=== PATIENT | female | born 1940 | race Caucasian/White ===

== ENCOUNTER 2018-01-04 01:25 | Emergency (ER) | payer MEDICARE ==
--- NOTE | 2018-01-04 02:04 | C.PDOC ---
History Of Present Illness 77 y/o female with Hx of sinus infection presents to ED for complaints of facial pain. Patient reports taking levaquin with no relief. Denies any other physical complaints. Time Seen by Provider: 01/04/18 02:04 Chief Complaint (Nursing): Headache History Per: Patient History/Exam Limitations: no limitations Onset/Duration Of Symptoms: Hrs Current Symptoms Are (Timing): Still Present Severity: Moderate Pain Scale Rating Of: 4 Preceeding Symptoms: None Associated Symptoms: denies: Photophobia, Blurred Vision, Nausea, Vomiting, Extremity Weakness Recent travel outside of the [place]: No Past Medical History Reviewed: Historical Data, Nursing Documentation, Vital Signs Vital Signs: Last Vital Signs Temp 98.1 F 01/04/18 01:35 Pulse 72 01/04/18 01:35 Resp 18 01/04/18 01:35 BP 134/75 01/04/18 01:35 Pulse Ox 97 01/04/18 02:43 - Medical History PMH: HTN Surgical History: No Surg Hx Family History: States: No Known Family Hx - Social History Hx Alcohol Use: No Hx Substance Use: No Review Of Systems Constitutional: Negative for: Fever, Chills ENT: Negative for: Ear Pain, Nose Pain, Mouth Pain, Throat Pain Gastrointestinal: Negative for: Nausea, Vomiting, Abdominal Pain, Diarrhea Musculoskeletal: Positive for: Other (Facial pain ) Skin: Negative for: Rash Neurological: Negative for: Weakness, Numbness Physical Exam - Physical Exam Appears: Non-toxic, No Acute Distress Skin: Warm, Dry Head: Normacephalic Eye(s): bilateral: Normal Inspection Ear(s): Bilateral: Normal Nose: No Discharge, No Deformity, Other (bilateral maxillary sinus discomfort) Oral Mucosa: Moist Throat: Normal, No Erythema, No Exudate, No Drooling Neck: Trachea Midline, Supple Chest: Symmetrical Cardiovascular: Rhythm Regular Respiratory: No Rales, No Rhonchi, No Wheezing Extremity: Normal ROM Extremity: Bilateral: Atraumatic, Normal Color And Temperature, Normal ROM Neurological/Psych: Oriented x3, Normal Speech (Speaking in full sentences ), Other (No focal deficits) Gait: Steady ED Course And Treatment O2 Sat by Pulse Oximetry: 97 (RA) Pulse Ox Interpretation: Normal Progress Note: Adminsitered Motrin. Reevaluation Time: 04:30 Reassessment Condition: Improved Medical Decision Making Medical Decision Making: Upon provider reevaluation patient is feeling better, is medically stable, and requires no further treatment in the ED at this time. Patient will be discharged home with Rx for motrin . Counseling was provided and all questions were answered regarding diagnosis and need for follow up with dr villaseñor. There is agreement to discharge plan. Return if symptoms persist or worsen. Disposition Counseled Patient/Family Regarding: Studies Performed, Diagnosis, Need For Followup - Disposition Referrals: Shaik Villaseñor MD [Staff Provider] - Disposition: HOME/ ROUTINE Disposition Time: 02:04 Condition: FAIR Additional Instructions: Please return if symptoms recur Prescriptions: Ibuprofen [Motrin] 1 tab PO TID PRN #30 tab PRN Reason: Pain Instructions: Sinusitis, Adult (DC), Sinus Headache (DC) Forms: [employer] (Azeri) - Clinical Impression Clinical Impression: Sinusitis, Facial pain - Scribe Statement The provider has reviewed the documentation as recorded by the Scribe Anjum Guadalupe All medical record entries made by the Scribe were at my direction and personally dictated by me. I have reviewed the chart and agree that the record accurately reflects my personal performance of the history, physical exam, medical decision making, and the department course for this patient. I have also personally directed, reviewed, and agree with the discharge instructions and disposition.
[2018-01-04 07:06] VITALS: BP 132/72; PULSE 82; RESP 20; TEMP 98; O2SAT 98
== END 2018-01-04 07:02 | disposition home or self-care (01) ==
LOC: C.ER 01:25
DX: J32.9 Chronic sinusitis, unspecified (principal); R51 Headache; I10 Essential (primary) hypertension

== ENCOUNTER 2018-01-10 10:35 | Emergency (ER) | payer MEDICARE ==
[2018-01-10 10:45] VITALS: TEMP 97.7
[2018-01-10 10:49] VITALS: BMI 26.4
[2018-01-10 11:24] LABS: BASO # 0.1 K/uL (0.0-0.2); BASO % 0.8 % (0.0-2.0); HEMOGLOBIN 15.3 g/dL (11.0-16.0); LYMPH # 1.6 K/uL (1.0-4.3); LYMPH % 11.4 % (20.0-40.0); MEAN CELL VOLUME 88.4 fL (81.0-99.0); MEAN CORPUSCULAR HEMOGLOBIN 30.6 pg (27.0-31.0); MEAN CORPUSCULAR HGB CONC 34.7 g/dL (33.0-37.0); MEAN PLATELET VOLUME 7.6 fL (7.2-11.7); MONO # 0.2 K/uL (0.0-0.8); MONO % 1.5 % (0.0-10.0); NEUT # 12.4 K/uL (1.8-7.0); NEUT % 86.3 % (50.0-75.0); RBC 4.98 Mil/uL (3.80-5.20); RED CELL DISTRIBUTION WIDTH 13.1 % (11.5-14.5); WHITE BLOOD COUNT 14.4 K/uL (4.8-10.8)
[2018-01-10 11:47] LABS: ALB/GLOB RATIO 1.6 (1.0-2.1); ALBUMIN 4.6 g/dL (3.5-5.0); CALCIUM 9.4 mg/dl (8.6-10.4); GFR AFRICAN-AMERICAN > 60; GFR NON-AFRICAN AMERICAN > 60
[2018-01-10 11:56] LABS: ALT/SGPT 26 U/L (9-52); AST/SGOT 40 U/L (14-36); BLOOD UREA NITROGEN 15 mg/dL (7-17)
[2018-01-10 12:14] VITALS: BP 162/78; RESP 20; O2SAT 97
--- NOTE | 2018-01-10 12:14 | CT ---
Date of service: 01/10/2018 PROCEDURE: CT HEAD WITHOUT CONTRAST. HISTORY: sinus infection COMPARISON: None available. TECHNIQUE: Axial computed tomography images were obtained through the head/brain without intravenous contrast. Radiation dose: Total exam DLP = 763.8 mGy-cm. This CT exam was performed using one or more of the following dose reduction techniques: Automated exposure control, adjustment of the mA and/or kV according to patient size, and/or use of iterative reconstruction technique. FINDINGS: HEMORRHAGE: No intracranial hemorrhage. BRAIN: No mass effect or edema. Atrophy. Chronic microvascular ischemic changes. VENTRICLES: Unremarkable. No hydrocephalus. CALVARIUM: Unremarkable. PARANASAL SINUSES: Unremarkable as visualized. No significant inflammatory changes. MASTOID AIR CELLS: Unremarkable as visualized. No inflammatory changes. OTHER FINDINGS: Cerumen in both ear canals. IMPRESSION: No acute intracranial pathology. Age-related changes.
[2018-01-10 12:23] LABS: B-TYPE NATRIURETIC PEPTIDE 445 pg/mL (0-900)
--- NOTE | 2018-01-10 12:24 | CT ---
Date of service: 01/10/2018 PROCEDURE: CT SINUSES WITHOUT CONTRAST HISTORY: sinus pressure COMPARISON: None TECHNIQUE: Contiguous axial CT images of the paranasal sinuses were obtained. Coronal and sagittal reformats were generated. Radiation dose: Total exam DLP = 657.5 mGy-cm. This CT exam was performed using one or more of the following dose reduction techniques: Automated exposure control, adjustment of the mA and/or kV according to patient size, and/or use of iterative reconstruction technique. FINDINGS: FRONTAL SINUSES: Clear. ETHMOID SINUSES: Mild mucosal thickening. SPHENOID SINUSES: No significant mucosal thickening or air-fluid level. MAXILLARY SINUSES: No evidence of significant mucosal thickening or air-fluid level. SINUS DRAINAGE: Osteomeatal complexes, frontal recesses and sphenoethmoid recesses clear. NASAL SEPTUM: Mild nasal septum deviation to the left is noted. MASS: None. SKULL BASE: Unremarkable. TEMPORAL BONES: Middle ears and mastoid grossly unremarkable. OTHER FINDINGS: Visualized portion of the intracranial fossa demonstrate peripheral calcified lesions likely represent calcified meningiomas. IMPRESSION: No evidence of acute or chronic sinusitis. Mild ethmoid sinuses mucosal thickening.
--- NOTE | 2018-01-10 12:32 | C.PDOC ---
History Of Present Illness 77-year-old female, presents to the emergency department with complaints of sinus congestion. Patient states she is on her third day of Cefdinir course for sinusitis, and feels as though her congestion has increased, associated with difficulty swallowing. Patient did not take any blood pressure medications. She denies any shortness of breath, chest pain, nausea/vomiting, numbness/weakness, rash or any other associated symptoms. No other complaints at this time. Time Seen by Provider: 01/10/18 10:43 Chief Complaint (Nursing): ENT Problem History Per: Patient History/Exam Limitations: no limitations Onset/Duration Of Symptoms: Days Current Symptoms Are (Timing): Still Present Severity: Moderate Past Medical History Reviewed: Historical Data, Nursing Documentation, Vital Signs Vital Signs: Last Vital Signs Temp 97.7 F 01/10/18 10:40 Pulse 85 01/10/18 15:05 Resp 20 01/10/18 15:05 BP 162/78 H 01/10/18 12:08 Pulse Ox 97 01/10/18 15:40 - Medical History PMH: HTN Family History: States: No Known Family Hx - Social History Hx Alcohol Use: No Hx Substance Use: No - Immunization History Hx Tetanus Toxoid Vaccination: No Hx Influenza Vaccination: No Hx Pneumococcal Vaccination: No Review Of Systems Constitutional: Negative for: Fever, Chills ENT: Positive for: Nose Congestion. Negative for: Throat Swelling Cardiovascular: Negative for: Chest Pain, Palpitations Respiratory: Negative for: Cough, Shortness of Breath Gastrointestinal: Negative for: Nausea, Vomiting Musculoskeletal: Negative for: Neck Pain, Back Pain Neurological: Negative for: Weakness, Headache, Dizziness Physical Exam - Physical Exam Appears: Non-toxic, No Acute Distress Skin: Normal Color, Warm, Dry, No Rash Head: Atraumatic, Normacephalic, Tenderness (frontal sinus) Eye(s): bilateral: Normal Inspection, PERRL, EOMI Nose: Normal Oral Mucosa: Moist Lips: Normal Appearing Neck: Normal ROM Chest: Symmetrical Cardiovascular: Rhythm Regular, No Murmur Respiratory: Normal Breath Sounds, No Accessory Muscle Use Gastrointestinal/Abdominal: Soft, No Tenderness Extremity: Normal ROM, No Deformity, No Swelling Neurological/Psych: Oriented x3, Normal Speech ED Course And Treatment - Laboratory Results Result Diagrams: 01/10/18 11:21 01/10/18 11:21 O2 Sat by Pulse Oximetry: 97 (RA) Pulse Ox Interpretation: Normal Medical Decision Making Medical Decision Making: Pt received Sudafed, and is feeling better. She is getting swallow eval and will be discharged for outpatient f/u with PMD. All questions answered, Disposition Counseled Patient/Family Regarding: Studies Performed, Diagnosis, Need For Followup, Rx Given - Disposition Disposition: HOME/ ROUTINE Disposition Time: 15:41 Condition: STABLE Additional Instructions: follow up with your doctor in 2 days call to make an appointment take medication as prescribed return to ER if symptoms worsens or progress Prescriptions: Prednisone 50 mg PO DAILY #4 tablet Pseudoephedrine [Pseudoephedrine HCl] 30 mg PO QID PRN #20 tab PRN Reason: Nasal Congestion Instructions: Dysphagia, Sinusitis, Adult (DC), Cough, Runny Nose, and the Common Cold Forms: [employer] [facility] (Occitan) - Clinical Impression Clinical Impression: Sinusitis, Dysphagia, Congestion of upper airway - Scribe Statement The provider has reviewed the documentation as recorded by the Scribe (Daylin Renae) All medical record entries made by the Scribe were at my direction and personally dictated by me. I have reviewed the chart and agree that the record accurately reflects my personal performance of the history, physical exam, medical decision making, and the department course for this patient. I have also personally directed, reviewed, and agree with the discharge instructions and disposition.
--- NOTE | 2018-01-10 13:01 | RAD ---
Date of service: 01/10/2018 PROCEDURE: Radiographs of neck HISTORY: swallowing issues COMPARISON: None available. TECHNIQUE: Frontal and lateral radiographs of the neck. FINDINGS: No fracture visualized. Multilevel degenerative changes. Soft tissues unremarkable. IMPRESSION: Multilevel degenerative changes. No radiopaque foreign body.
[2018-01-10] MEDS ORDERED: DiphenhydrAMINE 12.5 mg/5 ml LIQ UD (5 ml) PO STA (14:30)
[2018-01-10] MEDS ORDERED: MethylPREDNISolone 40 mg Vial ONE (14:34)
[2018-01-10 15:05] VITALS: PULSE 85
[2018-01-10] MEDS ORDERED: DiphenhydrAMINE 12.5 mg/5 ml LIQ UD (5 ml) ONE (15:13)
--- NOTE | 2018-01-12 12:23 | CARD ---
APPROVED REPORT Date of service: 01/10/2018 EKG Measurement Heart [id number] <Conclusion> Normal sinus rhythm Left axis deviation Minimal voltage criteria for LVH, may be normal variant Abnormal ECG
== END 2018-01-10 15:55 | disposition home or self-care (01) ==
LOC: C.ER 10:35
DX: J32.9 Chronic sinusitis, unspecified (principal); R13.10 Dysphagia, unspecified; R09.81 Nasal congestion; Z87.891 Personal history of nicotine dependence
CPT/HCPCS: 70360; 70450; 70486; 80053; 83880; 84484; 85025; 93005; 96374; 99284; J2930

== ENCOUNTER 2018-01-29 03:06 | Emergency (ER) | payer MEDICARE ==
[2018-01-29 03:07] VITALS: BMI 26.4
--- NOTE | 2018-01-29 04:12 | C.PDOC ---
History Of Present Illness 77 year old female presents to the emergency department with complaints of a productive cough and nasal congestion worsening over the last three weeks. She denies fever or chills. She reports that she is coughing yellow/green sputum. Time Seen by Provider: 01/29/18 04:01 Chief Complaint (Nursing): Cough, Cold, Congestion History Per: Patient History/Exam Limitations: no limitations Onset/Duration Of Symptoms: Other (three weeks) Current Symptoms Are (Timing): Worse Location Of Pain: None Associated Symptoms: Cough (productive), Sputum (yellow/green), Sinus Drainage, Nasal Congestion. denies: Fever, Chills Ear Symptoms: Bilateral: None Severity: Mild Pain Scale Rating Of: 1 Recent travel outside of the [place]: No Additional History Per: Family Past Medical History Reviewed: Historical Data, Nursing Documentation, Vital Signs Vital Signs: Last Vital Signs Temp 98.7 F 01/29/18 03:26 Pulse 96 H 01/29/18 03:26 Resp 20 01/29/18 03:26 BP 139/84 01/29/18 03:26 Pulse Ox 100 01/29/18 04:32 - Medical History PMH: HTN Surgical History: No Surg Hx Family History: States: No Known Family Hx - Social History Hx Alcohol Use: No Hx Substance Use: No - Immunization History Hx Tetanus Toxoid Vaccination: No Hx Influenza Vaccination: No Hx Pneumococcal Vaccination: No Review Of Systems Constitutional: Negative for: Fever, Chills ENT: Positive for: Nose Congestion Respiratory: Positive for: Cough (productive), Sputum (yellow/green) Physical Exam - Physical Exam Appears: Non-toxic, No Acute Distress Skin: Warm, Dry, No Rash Head: Normacephalic Eye(s): bilateral: Normal Inspection Nose: Other (mucosa erythematous) Oral Mucosa: Moist, Other (clear) Throat: No Erythema, No Exudate Neck: Trachea Midline, Supple Chest: Symmetrical, No Tenderness Cardiovascular: Rhythm Regular, No Murmur Respiratory: No Rales, Rhonchi (scattered), No Wheezing, Other (speaking complete sentences) Gastrointestinal/Abdominal: Soft, No Tenderness, No Distention, No Guarding, No Rebound Extremity: Normal ROM Neurological/Psych: Oriented x3 Gait: Steady ED Course And Treatment O2 Sat by Pulse Oximetry: 100 (RA) Pulse Ox Interpretation: Normal - Radiology CXR: Interpreted by Me, Viewed By Me CXR Interpretation: No: Infiltrates, Fracture, Pnemothorax Progress Note: Plan: CXR Two Views. Duoneb 3ml UH. Zithromax 500mg PO. Nebulizer Treatment Reevaluation Time: 04:31 Reassessment Condition: Improved Disposition Counseled Patient/Family Regarding: Studies Performed, Diagnosis, Need For Followup, Rx Given - Disposition Referrals: Shaik Mcadams MD [Staff Provider] - Disposition: HOME/ ROUTINE Disposition Time: 04:12 Condition: FAIR Additional Instructions: Please return if symptoms recur Prescriptions: Albuterol HFA [Ventolin HFA 90 mcg/actuation (8 g)] 2 puff IH [id number] #1 puff Azithromycin [Zithromax Tri-Rudolph] 500 mg PO DAILY #3 tablet Instructions: Upper Respiratory Infection (ED) Forms: [employer] (Indonesian) - Clinical Impression Clinical Impression: Upper respiratory infection - Scribe Statement The provider has reviewed the documentation as recorded by the Scribe (Yair Herrera) Provider Attestation: All medical record entries made by the Scribe were at my direction and personally dictated by me. I have reviewed the chart and agree that the record accurately reflects my personal performance of the history, physical exam, medical decision making, and the department course for this patient. I have also personally directed, reviewed, and agree with the discharge instructions and disposition.
[2018-01-29] MEDS ORDERED: Albuterol-Ipratrop 3 mg / 0.5 (3 ml) UD IH SCH (04:15)
[2018-01-29 05:32] VITALS: BP 120/79; PULSE 88; RESP 18; TEMP 97.1; O2SAT 97
--- NOTE | 2018-01-29 14:46 | RAD ---
Date of service: 01/29/2018 HISTORY: cough COMPARISON: No prior. TECHNIQUE: Chest PA and lateral FINDINGS: LUNGS: No evidence of focal infiltrate or consolidation in the lungs. PLEURA: No significant pleural effusion identified. No pneumothorax apparent. CARDIOVASCULAR: Normal. OSSEOUS STRUCTURES: No significant abnormalities. VISUALIZED UPPER ABDOMEN: Normal. OTHER FINDINGS: None. IMPRESSION: No radiographic evidence of pneumonia.
== END 2018-01-29 05:33 | disposition home or self-care (01) ==
LOC: C.ER 03:06
DX: J06.9 Acute upper respiratory infection, unspecified (principal)

== ENCOUNTER 2018-02-03 02:00 | Emergency (ER) | payer MEDICARE ==
[2018-02-03 02:00] VITALS: BMI 26.4
--- NOTE | 2018-02-03 02:31 | C.PDOC ---
History Of Present Illness 77 year old female presents to the ED c/o persistent sinusitis. Patient has been seen in the ED 4 times since 01/04 for similar symptoms. On 01/[address] head and CT sinuses done which both were negative, patient was placed on cefdinir. Patient was seen again on 01/29 for same complaints, patient had CXR done which was negative and placed on zithromax. Patient denies fever, chills, CP, SOB, recent travel, sick contacts. Time Seen by Provider: 02/03/18 02:20 Chief Complaint (Nursing): Cough, Cold, Congestion History Per: Patient History/Exam Limitations: no limitations Onset/Duration Of Symptoms: Days Current Symptoms Are (Timing): Still Present Reports Recently: Seen In ED (01/29 ) Recent travel outside of the [place]: No Additional History Per: Patient Past Medical History Reviewed: Historical Data, Nursing Documentation, Vital Signs Vital Signs: Last Vital Signs Temp 99.3 F 02/03/18 02:06 Pulse 96 H 02/03/18 02:06 Resp 22 02/03/18 02:06 BP 177/95 H 02/03/18 02:06 Pulse Ox 95 02/03/18 03:04 - Medical History PMH: HTN Surgical History: No Surg Hx Family History: States: Unknown Family Hx - Social History Hx Alcohol Use: No Hx Substance Use: No - Immunization History Hx Tetanus Toxoid Vaccination: No Hx Influenza Vaccination: No Hx Pneumococcal Vaccination: No Review Of Systems Constitutional: Negative for: Fever, Chills ENT: Positive for: Nose Discharge, Nose Congestion. Negative for: Throat Pain Cardiovascular: Negative for: Chest Pain Respiratory: Negative for: Cough, Shortness of Breath Gastrointestinal: Negative for: Nausea, Vomiting Skin: Negative for: Rash Neurological: Negative for: Headache, Dizziness Physical Exam - Physical Exam Appears: Non-toxic, No Acute Distress Skin: Normal Color, Warm, Dry Head: Atraumatic, Normacephalic Eye(s): bilateral: Normal Inspection Ear(s): Bilateral: Normal Nose: Discharge Oral Mucosa: Moist Throat: Normal, No Erythema, No Exudate Neck: Normal ROM, Supple Chest: Symmetrical Cardiovascular: Rhythm Regular Respiratory: No Rales, No Rhonchi, No Wheezing, Other (bibasialr crackles, NARD) Gastrointestinal/Abdominal: Soft, No Tenderness, No Guarding, No Rebound Extremity: Normal ROM, No Tenderness, No Swelling Neurological/Psych: Oriented x3, Normal Speech Gait: Steady ED Course And Treatment - Laboratory Results Result Diagrams: 02/03/18 02:50 02/03/18 02:50 O2 Sat by Pulse Oximetry: 95 (ON RA) Pulse Ox Interpretation: Normal - Radiology CXR: Interpreted by Me CXR Interpretation: Yes: No Acute Disease ([facility]) Progress - Re-Evaluation Re-evaluation Note: 02/03/18 03:36 nard vss. LABS CXR [facility]. ADVISED FU PMD - Data Reviewed Data Reviewed: Lab, Diagnostic imaging, Old records Medical Decision Making Medical Decision Making: Impression: recurrent sinusitis Plan: * Labs * CXR Disposition Counseled Patient/Family Regarding: Studies Performed, Diagnosis, Need For Followup - Disposition Referrals: Shaik Mcadams MD [Primary Care Provider] - Disposition: HOME/ ROUTINE Disposition Time: 03:36 Condition: GOOD Instructions: Upper Respiratory Infection (ED) Forms: [employer] (Mozambican) - Clinical Impression Clinical Impression: Upper respiratory infection - Scribe Statement The provider has reviewed the documentation as recorded by the Scribe Kory Jimenez All medical record entries made by the Scribe were at my direction and personally dictated by me. I have reviewed the chart and agree that the record accurately reflects my personal performance of the history, physical exam, medical decision making, and the department course for this patient. I have also personally directed, reviewed, and agree with the discharge instructions and disposition.
[2018-02-03 02:56] LABS: BASO # 0.1 K/uL (0.0-0.2); EOS # 0.5 K/uL (0.0-0.7); EOS % 4.3 % (0.0-4.0); HEMOGLOBIN 14.4 g/dL (11.0-16.0); LYMPH # 1.9 K/uL (1.0-4.3); LYMPH % 18.1 % (20.0-40.0); MEAN CELL VOLUME 88.7 fL (81.0-99.0); MEAN CORPUSCULAR HEMOGLOBIN 30.8 pg (27.0-31.0); MEAN CORPUSCULAR HGB CONC 34.7 g/dL (33.0-37.0); MEAN PLATELET VOLUME 7.1 fL (7.2-11.7); MONO # 0.6 K/uL (0.0-0.8); MONO % 5.7 % (0.0-10.0); NEUT # 7.5 K/uL (1.8-7.0); NEUT % 70.9 % (50.0-75.0); RBC 4.68 Mil/uL (3.80-5.20); RED CELL DISTRIBUTION WIDTH 13.1 % (11.5-14.5); WHITE BLOOD COUNT 10.6 K/uL (4.8-10.8)
[2018-02-03 03:19] LABS: BLOOD UREA NITROGEN 7 mg/dL (7-17); CALCIUM 9.4 mg/dl (8.6-10.4); GFR AFRICAN-AMERICAN > 60; GFR NON-AFRICAN AMERICAN > 60
[2018-02-03 03:45] VITALS: BP 162/90; PULSE 90; RESP 20; TEMP 99; O2SAT 97
--- NOTE | 2018-02-03 08:21 | RAD ---
Date of service: 02/03/2018 PROCEDURE: CHEST RADIOGRAPH, 1 VIEW HISTORY: Cough COMPARISON: 01/29/2018. FINDINGS: LUNGS: The lungs are well inflated and clear. PLEURA: No pneumothorax or pleural fluid seen. There is left pleural thickening. CARDIOVASCULAR: Normal. OSSEOUS STRUCTURES: There is an old fracture deformity in the right humeral head. . VISUALIZED UPPER ABDOMEN: Normal. OTHER FINDINGS: None. IMPRESSION: No active pulmonary disease.
== END 2018-02-03 03:44 | disposition home or self-care (01) ==
LOC: SUPCPDRO 02:00 → C.ER 02:00
DX: J06.9 Acute upper respiratory infection, unspecified (principal); I10 Essential (primary) hypertension; Z87.891 Personal history of nicotine dependence

== ENCOUNTER 2018-02-09 21:30 | Emergency (ER) | payer MEDICARE ==
[2018-02-09 21:31] VITALS: BMI 26.4
[2018-02-09 21:45] VITALS: BP 145/72; PULSE 100; RESP 20; TEMP 99.1; O2SAT 95
[2018-02-09] MEDS ORDERED: Albuterol 0.083% Inhal Sol (2.5 mg/3 mL) UD IH STA (21:50)
[2018-02-09] MEDS ORDERED: Albuterol 0.083% Inhal Sol (2.5 mg/3 mL) UD ONE (21:53)
--- NOTE | 2018-02-09 21:53 | C.PDOC ---
History Of Present Illness 77 yo female BIBA for evaluation of " mucus" developed for 3 weeks worse for past few dyas. Pt admits, was seen here in ED few times when blood work, CT head /sinuses performed without acute findings. Pt was treated few times with antibiotic for past month. Pt reports, was re-evaluated by ENT yesterday, started on Augmentin yesterday.Pt sts, " since yesterday I constantly spit up sputum". Pt is asking for neb tx " it helps with sputum". Otherwise, pt denies fever, chills, headache, dizziness, vertigo, earache, drooling, dyspnea, CP, SOB , palpitation, wheezing, abd. pain, N/V/D, UTI sx. At the time of evaluation, pt appears comfortable, not in any apparent distress. FYI: previous ED records review when pt was seen multiple times for past 2 weeks due to same complaints, blood work, CXR- WNL, CT head/sinuses review. Time Seen by Provider: 02/09/18 21:40 Chief Complaint (Nursing): ENT Problem History Per: Patient, Family (son) Past Medical History Reviewed: Historical Data, Nursing Documentation, Vital Signs Vital Signs: Last Vital Signs Temp 99.1 F 02/09/18 21:35 Pulse 100 H 02/09/18 21:35 Resp 20 02/09/18 21:35 BP 145/72 02/09/18 21:35 Pulse Ox 95 02/09/18 22:22 - Medical History PMH: HTN Family History: States: Unknown Family Hx - Social History Hx Alcohol Use: No Hx Substance Use: No - Immunization History Hx Tetanus Toxoid Vaccination: No Hx Influenza Vaccination: No Hx Pneumococcal Vaccination: No Review Of Systems Except As Marked, All Systems Reviewed And Found Negative. Constitutional: Negative for: Fever, Chills ENT: Positive for: Nose Discharge, Nose Congestion. Negative for: Ear Discharge , Throat Pain Cardiovascular: Negative for: Chest Pain, Palpitations, Edema, Light Headedness Respiratory: Positive for: Cough. Negative for: Shortness of Breath, Wheezing Gastrointestinal: Negative for: Nausea, Vomiting, Abdominal Pain, Diarrhea Musculoskeletal: Negative for: Neck Pain Skin: Negative for: Rash Neurological: Negative for: Headache, Dizziness Physical Exam - Physical Exam Appears: Well, Non-toxic, No Acute Distress Skin: Normal Color, Warm, Dry, No Rash Head: Normacephalic Eye(s): bilateral: PERRL Ear(s): Bilateral: Normal Nose: No Flaring, Discharge (clear scant rhinorrhea B/L) Oral Mucosa: No Moist, No Drooling Tongue: Normal Appearing Lips: Normal Appearing Throat: No Erythema, No Drooling, Other (post- nasal drip with clear mucus noted ) Neck: Trachea Midline, Supple Cardiovascular: Rhythm Regular, No Murmur, No JVD Respiratory: No Decreased Breath Sounds, No Accessory Muscle Use, No Stridor, No Wheezing Gastrointestinal/Abdominal: Soft, No Tenderness Back: Normal Inspection Extremity: Normal ROM, No Pedal Edema, No Deformity Neurological/Psych: Oriented x3, Normal Speech ED Course And Treatment O2 Sat by Pulse Oximetry: 95 Pulse Ox Interpretation: Normal Progress Note: On re-eval, pt is afebrile, hemodynamicaly stable. Non-toxic. Ambulatory in ED with stable gait. PulseOx 95%RA. ENT: no acute findings. Neck: Supple, (-) meningeal sign. Lungs: CTA B/L, BS equal B/L. CVS: (+)S1S2, reg, (- ) murmur. Abd: benign, (-) guarding, (-) rebound. Neurologicaly intact. Pt has clinical findings c/w sinusitis. Parent advised to cont. abx as intiated. ref. to f/u with PMD, ENT in 2-3 days for re-eval. return to Ed if any worsening or new changes. Disposition Counseled Patient/Family Regarding: Diagnosis, Need For Followup, Rx Given - Disposition Referrals: Shaik Mcadams MD [Staff Provider] - Disposition: HOME/ ROUTINE Disposition Time: 22:08 Condition: STABLE Additional Instructions: Continue antibiotic as initiated by ENT Nebullizer treatment twice daily Follow up with PMD, ENT in 2-3 days for re-evaluation. return to ED if any worsening or new changes. Instructions: Sinusitis in Adults Forms: [facility] (Bengali) - Clinical Impression Clinical Impression: Sinusitis
== END 2018-02-09 22:30 | disposition home or self-care (01) ==
LOC: C.ER 21:30
DX: J32.9 Chronic sinusitis, unspecified (principal); I10 Essential (primary) hypertension

== ENCOUNTER 2018-02-10 22:17 | Emergency (ER) | payer MEDICARE ==
[2018-02-10 22:17] VITALS: BMI 26.4
[2018-02-10 23:00] VITALS: RESP 20
[2018-02-11] MEDS ORDERED: Albuterol 0.083% Inhal Sol (2.5 mg/3 mL) UD IH STA (00:01)
[2018-02-11 00:24] LABS: BASO # 0.2 K/uL (0.0-0.2); EOS # 0.2 K/uL (0.0-0.7); EOS % 2.7 % (0.0-4.0); HEMOGLOBIN 14.3 g/dL (11.0-16.0); LYMPH # 2.7 K/uL (1.0-4.3); LYMPH % 30.3 % (20.0-40.0); MEAN CELL VOLUME 88.2 fL (81.0-99.0); MEAN CORPUSCULAR HEMOGLOBIN 31.2 pg (27.0-31.0); MEAN CORPUSCULAR HGB CONC 35.4 g/dL (33.0-37.0); MEAN PLATELET VOLUME 6.9 fL (7.2-11.7); MONO # 0.7 K/uL (0.0-0.8); MONO % 7.8 % (0.0-10.0); NEUT % 57.2 % (50.0-75.0); NRBC % 0.1 % (0.0-2.0); RBC 4.57 Mil/uL (3.80-5.20); RED CELL DISTRIBUTION WIDTH 12.9 % (11.5-14.5); WHITE BLOOD COUNT 8.8 K/uL (4.8-10.8)
[2018-02-11] MEDS ORDERED: Albuterol 0.083% Inhal Sol (2.5 mg/3 mL) UD ONE (00:24)
[2018-02-11 00:32] LABS: PROTHROMBIN TIME 10.7 SECONDS (9.7-12.2)
--- NOTE | 2018-02-11 00:41 | C.PDOC ---
History Of Present Illness 77 yo female return to ED for re-evaluation of " mucus" developed for 3 weeks worse for past few days. Pt admits, was seen here in ED few times , blood work , CT head/sinuses, CXR performed without acute findings. Pt was treated few times with different antibiotics for past month. Last, was seen by ENT 2 days ago when started on Augmentin " with increase in sputum production, I constantly spit it up ". Noted sputum on tissue, clear color. Pt sts, since today afternoon noted B//L feet swelling. Otherwise, pt denies fever, chills, headache, dizziness, vertigo, earache, drooling, dyspnea, CP, SOB, palpitation, wheezing, abd. pain, N/V/D, UTI sx. At the time of evaluation, pt appears comfortable, not in any apparent distress. FYI: Previous ED visits review, multiple visits due to same complaint for pst months. Last one was yesterday. Blood work and imagings review. Time Seen by Provider: 02/11/18 00:00 Chief Complaint (Nursing): ENT Problem History Per: Patient Past Medical History Reviewed: Historical Data, Nursing Documentation, Vital Signs Vital Signs: Last Vital Signs Temp 97.8 F 02/10/18 22:56 Pulse 82 02/10/18 22:56 Resp 20 02/10/18 22:56 BP 145/72 02/10/18 22:56 Pulse Ox 95 02/11/18 02:28 - Medical History PMH: HTN Other PMH: recent hx of Sinusitis Family History: States: Unknown Family Hx - Social History Hx Alcohol Use: No Hx Substance Use: No - Immunization History Hx Tetanus Toxoid Vaccination: No Hx Influenza Vaccination: No Hx Pneumococcal Vaccination: No Review Of Systems Except As Marked, All Systems Reviewed And Found Negative. Constitutional: Negative for: Fever, Chills ENT: Positive for: Nose Discharge, Nose Congestion. Negative for: Ear Pain, Ear Discharge, Throat Pain, Throat Swelling Cardiovascular: Positive for: Edema. Negative for: Chest Pain, Palpitations, Light Headedness Respiratory: Positive for: Cough. Negative for: Shortness of Breath, Pleuritic Pain, Sputum, Wheezing Gastrointestinal: Negative for: Nausea, Vomiting, Abdominal Pain, Diarrhea Musculoskeletal: Negative for: Neck Pain Skin: Negative for: Rash Neurological: Negative for: Weakness, Numbness, Headache, Dizziness Physical Exam - Physical Exam Appears: Well, Non-toxic, No Acute Distress Skin: Normal Color, Warm, Dry, No Rash Head: Normacephalic Eye(s): bilateral: PERRL Ear(s): Bilateral: Normal Nose: No Flaring, Discharge (B/L nasal congestion with clear rhinorrhea), No Deformity, No Tenderness, Other ((+)clear post-nasal drip) Oral Mucosa: Moist, No Drooling Throat: No Erythema, No Drooling Neck: Normal ROM, Trachea Midline, Supple Cardiovascular: Rhythm Regular (reg irreg), No Murmur, No JVD, Other ((-) carotid bruits) Respiratory: No Decreased Breath Sounds, No Accessory Muscle Use, No Stridor, No Wheezing Gastrointestinal/Abdominal: Soft, No Tenderness, No Distention, No Guarding Extremity: Normal ROM, No Pedal Edema, No Deformity, Swelling (B/L mild feet edema, non-pitting. NO erythema.) Neurological/Psych: Oriented x3, Normal Speech, Normal Motor, Normal Sensation, Normal Reflexes ED Course And Treatment - Laboratory Results Result Diagrams: 02/11/18 00:20 02/11/18 00:20 Lab Interpretation: No Changes Compared To Prior Results ECG: Interpreted By Me, Viewed By Me ECG Rhythm: Sinus Rhythm ECG Interpretation: No Changes From Prior Interpretation Of ECG: SR@81/min, PAC, LAD, no acute ST-T changes O2 Sat by Pulse Oximetry: 95 Pulse Ox Interpretation: Normal - Radiology CXR: Interpreted by Me Progress Note: Pt was OBS in ED for 3 hours and pt remained tsbale, not in resp. distress. Afebrile, hemodynamicaly stable. Pt tolerate Po well in ED. Pt is asking for neb tx. PulsEOx 95%RA. ENT: clear B/L rhinorrhea, no acute finidngs. Neck: SUpple, (-) JVD. Lungs; CTA B/L, BS equal B/L. CVS: (+)S1S2, reg.irreg. Abd: benign. Neuorlogicaly intact. Blood work review and appears baseline, compare to previous visits. CXR- no acute findings compare to previous one. Case discussed with and discharge with outpt f/u recommend. Pt has clinical findings c/w sinusitis ( on abx now), B/L peripheral edema, nos ( Tropnin, BNP- normal ). Pt advised and ref. to f/u with PMD, ENTin 1-2 dyas for re-eavl. return if any new chnages. Disposition Counseled Patient/Family Regarding: Studies Performed, Diagnosis, Need For Followup - Disposition Referrals: Shaik Mcadams MD [Staff Provider] - Disposition: HOME/ ROUTINE Disposition Time: 01:56 Condition: STABLE Additional Instructions: Continue antibiotic Encourage fluids Follow up with ENT in 1-2 days for re-evaluation. return to ED if any worsening or new changes. Instructions: Sinusitis in Adults, Swelling Forms: [employer] [facility] (Mauritanian) - Clinical Impression Clinical Impression: Sinusitis, Peripheral edema
[2018-02-11 00:48] LABS: ALB/GLOB RATIO 1.4 (1.0-2.1); ALT/SGPT 27 U/L (9-52); AST/SGOT 28 U/L (14-36); BLOOD UREA NITROGEN 7 mg/dL (7-17); CALCIUM 9.3 mg/dl (8.6-10.4); GFR AFRICAN-AMERICAN > 60; GFR NON-AFRICAN AMERICAN > 60
[2018-02-11 00:49] LABS: B-TYPE NATRIURETIC PEPTIDE 368 pg/mL (0-900)
[2018-02-11] MEDS ORDERED: Sodium Chloride 0.9% 1,000 ML IV ONE (01:09)
[2018-02-11 01:25] LABS: SQUAMOUS EPITHIAL 6 /hpf (0-5); URINE BACTERIA RARE (<OCC); URINE BILIRUBIN NEGATIVE (NEGATIVE); URINE BLOOD NEGATIVE (NEGATIVE); URINE CLARITY Clear (Clear); URINE COLOR Yellow (YELLOW); URINE GLUCOSE (UA) NORMAL (Normal); URINE PROTEIN NEGATIVE (NEGATIVE); URINE UROBILINOGEN NORMAL mg/dL (0.2-1.0)
[2018-02-11 01:30] LABS: URINE LEUKOCYTE ESTERASE TRACE Leu/uL (Negative)
[2018-02-11 03:01] VITALS: BP 135/71; PULSE 72; TEMP 98.6; O2SAT 96
--- NOTE | 2018-02-11 21:17 | RAD ---
Date of service: 02/11/2018 PROCEDURE: CHEST RADIOGRAPH, 1 VIEW HISTORY: chest pain COMPARISON: Comparison is made with 02/03/2018 FINDINGS: LUNGS: Small opacities at the lung bases may represent atelectasis larger on the right PLEURA: Blunting of the right costophrenic angle suspicious for small pleural effusion. CARDIOVASCULAR: The cardiac silhouette is mildly enlarged. OSSEOUS STRUCTURES: No significant abnormalities. VISUALIZED UPPER ABDOMEN: Normal. OTHER FINDINGS: None. IMPRESSION: Possible cardiomegaly and small right pleural effusion.
== END 2018-02-11 03:01 | disposition home or self-care (01) ==
LOC: C.ER 22:17
DX: J32.9 Chronic sinusitis, unspecified (principal); R60.0 Localized edema; I10 Essential (primary) hypertension
CPT/HCPCS: 71045; 80053; 81001; 83880; 84484; 85025; 85610; 85730; 99283; J7030

== ENCOUNTER 2018-02-11 22:00 | Emergency (ER) | payer MEDICARE ==
[2018-02-11 22:01] VITALS: BMI 26.4
[2018-02-11 22:14] VITALS: RESP 18; O2SAT 96
[2018-02-11] MEDS ORDERED: Sodium Chloride 0.9% Inh Soln (3mL) UD INH ONE (22:55)
--- NOTE | 2018-02-11 22:58 | C.PDOC ---
History Of Present Illness 77 y/o female presents to ed with cc of "too much mucus in her throat', causing her difficulty sleeping. pt has been seen in ed many times for similar complaints in the last 2 weeks (01/29-neg cxr, d/c with zpak and albuterol, 02/03 neg cxr and labs, 02/09 seen in ed and also saw Dr Bruno who started her on augmentin for a sinus infection which she is still taking. seen 02/11 in er again ). denies fever. chills, cough, sob, chest pain. Time Seen by Provider: 02/11/18 22:24 Chief Complaint (Nursing): ENT Problem History Per: Patient History/Exam Limitations: None Onset/Duration Of Symptoms: Days Current Symptoms Are (Timing): Still Present Quality (Mouth/Throat): Drainage (post nasal) Symptoms Have Been: Continuous Severity: Moderate Past Medical History Reviewed: Historical Data, Nursing Documentation, Vital Signs Vital Signs: Last Vital Signs Temp 98.3 F 02/11/18 23:29 Pulse 88 02/11/18 23:29 Resp 18 02/11/18 23:29 BP 116/70 02/11/18 23:29 Pulse Ox 96 02/13/18 02:26 - Medical History PMH: HTN Denies: Chronic Kidney Disease Family History: States: Unknown Family Hx - Social History Hx Alcohol Use: No Hx Substance Use: No - Immunization History Hx Tetanus Toxoid Vaccination: No Hx Influenza Vaccination: No Hx Pneumococcal Vaccination: No Review Of Systems Constitutional: Negative for: Fever, Chills ENT: Positive for: Nose Discharge. Negative for: Ear Pain Cardiovascular: Negative for: Chest Pain, Palpitations Respiratory: Negative for: Cough, Shortness of Breath, Wheezing Neurological: Negative for: Weakness, Numbness Physical Exam - Physical Exam Appears: Non-toxic, No Acute Distress, Unkempt Skin: Warm, Dry Head: Atraumatic, Normacephalic Eye(s): bilateral: Normal Inspection Ear(s): Bilateral: TM Obscured By Wax Nose: Discharge, No Epistaxis Oral Mucosa: Moist Tongue: Normal Appearing Lips: Normal Appearing Throat: No Erythema, No Exudate, No Drooling Neck: Supple Cardiovascular: Rhythm Regular, No Murmur Respiratory: No Decreased Breath Sounds, No Wheezing Neurological/Psych: Oriented x3, Normal Speech, Normal Cognition ED Course And Treatment O2 Sat by Pulse Oximetry: 96 Medical Decision Making Medical Decision Making: pt with multiple visits to ed in last 2 weeks for nasal congestion/post nasal drip with multiple negative chest xrays, normal labs, now on augmentin since wed for sinusitis from Dr Bruno. pt in no respiratory distress, no wheezing. giving pt saline neb in ed to help moisturize airway to increase comfort and iwll d/c pt on claritin with ent and pmd f/u. recommend neti pot. . Disposition Counseled Patient/Family Regarding: Diagnosis, Need For Followup, Rx Given - Disposition Referrals: Shaik Mcadams MD [Staff Provider] - Bruno Bruno MD [Staff Provider] - Disposition: HOME/ ROUTINE Disposition Time: 23:40 Condition: IMPROVED Additional Instructions: Please continue to use nebulizer machine 2 times a day. Finish augmentin. Take Claritin as prescribed. Use nasal saline spray several times a day. Follow up with Dr Bruno and Dr Rivas in 1-2 days. Return to ER for any difficulty breathing, chest pain, fever or other concerns. Prescriptions: Loratadine [Claritin] 10 mg PO DAILY #30 tab Sodium Chloride [Children's Saline Nasal [place]] 30 ml NS BID #1 bottle Instructions: Rinsing Out Your Nose With Salt Water, How to Do a Nasal Rinse Forms: [facility] (Sinhala) - Clinical Impression Clinical Impression: Post-nasal drip
[2018-02-11 23:30] VITALS: BP 116/70; PULSE 88; TEMP 98.3
== END 2018-02-11 23:39 | disposition home or self-care (01) ==
LOC: C.ER 22:00
DX: R09.82 Postnasal drip (principal); I10 Essential (primary) hypertension

== ENCOUNTER 2018-02-17 02:09 | Emergency (ER) | payer MEDICARE ==
[2018-02-17 02:09] VITALS: BMI 26.4
--- NOTE | 2018-02-17 03:28 | C.PDOC ---
History Of Present Illness 77 year old female presents to the ED c/o a sensation of having too much mucus on her throat and sinuses. Patient has been seen in the ED multiple times for the same complaints. Patient went to see ENT doctor yesterday and was advised to finish antibiotics and use nebulizer treatment and was prescribed saline spray as needed. Patient states at night she felt like she was spitting too much. Patient denies fever, chills, nausea, vomit, SOB, cough, CP. Time Seen by Provider: 02/17/18 02:39 Chief Complaint (Nursing): ENT Problem History Per: Patient History/Exam Limitations: None Onset/Duration Of Symptoms: Days Current Symptoms Are (Timing): Still Present Quality (Mouth/Throat): Other Severity: None Anticoagulant/Antiplatlet Use?: No Recent Aspirin Use: No Past Medical History Reviewed: Historical Data, Nursing Documentation, Vital Signs Vital Signs: Last Vital Signs Temp 98 F 02/17/18 03:35 Pulse 89 02/17/18 03:35 Resp 20 02/17/18 03:35 BP 151/70 H 02/17/18 03:35 Pulse Ox 99 02/17/18 03:43 - Medical History PMH: HTN Denies: Chronic Kidney Disease Surgical History: No Surg Hx Family History: States: Unknown Family Hx - Social History Hx Alcohol Use: No Hx Substance Use: No - Immunization History Hx Tetanus Toxoid Vaccination: No Hx Influenza Vaccination: No Hx Pneumococcal Vaccination: No Review Of Systems Constitutional: Negative for: Fever, Chills ENT: Positive for: Nose Congestion Respiratory: Negative for: Cough, Shortness of Breath Gastrointestinal: Negative for: Nausea, Vomiting Neurological: Negative for: Weakness, Numbness Physical Exam - Physical Exam Appears: Non-toxic, No Acute Distress Skin: Normal Color, Warm, Dry Head: Atraumatic, Normacephalic, No Swelling Eye(s): bilateral: Normal Inspection, PERRL, EOMI Ear(s): Bilateral: Normal Nose: No Discharge Oral Mucosa: Moist Throat: Normal, No Erythema, No Exudate Neck: Normal ROM, No Midline Cervical Tenderness, Supple Cardiovascular: Rhythm Regular Respiratory: Normal Breath Sounds, No Rales, No Rhonchi, No Wheezing Extremity: Normal ROM Neurological/Psych: Oriented x3 Gait: Steady ED Course And Treatment O2 Sat by Pulse Oximetry: 99 (ON RA) Pulse Ox Interpretation: Normal Progress Note: On reassessment, patient is resting comfortably, and is in no acute distress. Patient was advised to continue current management and instructed to follow up with physician/clinic in 1-2 days for further evaluation. Disposition Counseled Patient/Family Regarding: Diagnosis, Need For Followup, Rx Given - Disposition Referrals: Shaik Mcadams MD [Staff Provider] - Disposition: HOME/ ROUTINE Disposition Time: 03:25 Condition: STABLE Additional Instructions: Please increase fluids Use Saline nose drops Use humidifier Follow up with Dr Mcadams Return if difficulty breathing or worse Instructions: Rhinosinusitis (ED) Forms: [employer] (Moroccan) - Clinical Impression Clinical Impression: Post-nasal drip - PA / MEMBERSHIP SALES MANAGER / Resident Statement MD/DO has reviewed & agrees with the documentation as recorded. - Scribe Statement The provider has reviewed the documentation as recorded by the Scribe Kory Jimenez All medical record entries made by the Scribe were at my direction and personally dictated by me. I have reviewed the chart and agree that the record accurately reflects my personal performance of the history, physical exam, medical decision making, and the department course for this patient. I have also personally directed, reviewed, and agree with the discharge instructions and disposition.
[2018-02-17 03:36] VITALS: BP 151/70; PULSE 89; RESP 20; TEMP 98
[2018-02-17 03:41] VITALS: O2SAT 99
== END 2018-02-17 03:36 | disposition home or self-care (01) ==
LOC: C.ER 02:09
DX: R09.82 Postnasal drip (principal)

== ENCOUNTER 2018-02-25 04:22 | Emergency (ER) | payer MEDICARE ==
[2018-02-25 04:23] VITALS: BMI 26.4
[2018-02-25 04:59] VITALS: TEMP 98.6
[2018-02-25] MEDS ORDERED: Albuterol-Ipratrop 3 mg / 0.5 (3 ml) UD IH STA (05:10)
[2018-02-25] MEDS ORDERED: guaiFENesin 100 mg/5 ml Syrup UD PO STA (05:10)
[2018-02-25] MEDS ORDERED: Albuterol-Ipratrop 3 mg / 0.5 (3 ml) UD ONE (05:16)
[2018-02-25] MEDS ORDERED: guaiFENesin 100 mg/5 ml Syrup UD ONE (05:17)
--- NOTE | 2018-02-25 05:26 | C.PDOC ---
History Of Present Illness 77 year old female presents to the ER with a complaint of itchy throat and coughing. Patient states she has been sick since 01/2018, was diagnosed with sinusitis, started on antibiotics but states she still has symptoms. Patient reports she has constant post nasal drip, itchy throat, and coughing. She was seen by her PMD who sent her to an ENT, she saw ENT was referred her to a specialist in [place] and has an appointment for 03/09/18. Patient was started on levofloxacin by PMD and is also on prednisone and claritin. Patient notes that the ENT who saw her did not recommend nasal spray. Denies fever or chills. Time Seen by Provider: 02/25/18 05:01 Chief Complaint (Nursing): Cough, Cold, Congestion History Per: Patient History/Exam Limitations: no limitations Onset/Duration Of Symptoms: Days Current Symptoms Are (Timing): Still Present Associated Symptoms: Cough, Other (Itchy throat, Post nasal drip). denies: Fever, Chills Ear Symptoms: Bilateral: None Recent travel outside of the [place]: No Past Medical History Reviewed: Historical Data, Nursing Documentation, Vital Signs Vital Signs: Last Vital Signs Temp 98.6 F 02/25/18 04:55 Pulse 97 H 02/25/18 04:55 Resp 22 02/25/18 04:55 BP 164/85 H 02/25/18 04:55 Pulse Ox 98 02/25/18 05:30 - Medical History PMH: HTN Denies: Chronic Kidney Disease Family History: States: Unknown Family Hx - Social History Hx Alcohol Use: No Hx Substance Use: No - Immunization History Hx Tetanus Toxoid Vaccination: No Hx Influenza Vaccination: No Hx Pneumococcal Vaccination: No Review Of Systems Constitutional: Negative for: Fever, Chills ENT: Positive for: Other (Itchy throat, post nasal drip) Respiratory: Positive for: Cough, Sputum (Clear) Gastrointestinal: Negative for: Nausea, Vomiting Physical Exam - Physical Exam Appears: Non-toxic Skin: Normal Color, Warm, Dry Head: Atraumatic, Normacephalic Eye(s): bilateral: Normal Inspection Ear(s): Bilateral: Normal Nose: Normal Oral Mucosa: Moist Throat: Normal, No Erythema Neck: Normal, Supple Chest: Symmetrical, No Tenderness Cardiovascular: Rhythm Regular Respiratory: Normal Breath Sounds, No Rales, No Rhonchi, No Wheezing, Other ( Coughing clear sputum) Gastrointestinal/Abdominal: Soft, No Tenderness Neurological/Psych: Oriented x3, Normal Speech ED Course And Treatment O2 Sat by Pulse Oximetry: 98 (Room air) Pulse Ox Interpretation: Normal Progress Note: Robitussin administered, patient is also requesting nebulizer. On reevaluation, she is resting comfortably in no acute distress, vitals are stable, will discharge home with instructions to follow up with specialist as scheduled. Disposition - Disposition Referrals: Shaik Mcadams MD [Staff Provider] - Disposition: HOME/ ROUTINE Disposition Time: 06:27 Condition: STABLE Additional Instructions: Follow up with your PMD and ENT specialist as scheduled. Return to ED if feel worse. Instructions: Cough in Adults, Fluticasone (Nasal) Forms: [employer] (Ghanaian) - Clinical Impression Clinical Impression: Post-nasal drip - PA / AUTOS DISASSEMBLER / Resident Statement MD/DO has reviewed & agrees with the documentation as recorded. - Scribe Statement The provider has reviewed the documentation as recorded by the Scriblenore Harrison All medical record entries made by the Scribe were at my direction and personally dictated by me. I have reviewed the chart and agree that the record accurately reflects my personal performance of the history, physical exam, medical decision making, and the department course for this patient. I have also personally directed, reviewed, and agree with the discharge instructions and disposition.
[2018-02-25 06:56] VITALS: BP 156/91; PULSE 87; RESP 20; O2SAT 97
== END 2018-02-25 06:54 | disposition home or self-care (01) ==
LOC: C.ER 04:22
DX: R09.82 Postnasal drip (principal); I10 Essential (primary) hypertension

== ENCOUNTER 2018-02-25 20:16 | Emergency (ER) | payer MEDICARE ==
[2018-02-25 20:16] VITALS: BMI 26.4
[2018-02-25 20:29] VITALS: BP 110/73; PULSE 70; TEMP 98.3; O2SAT 99
--- NOTE | 2018-02-25 20:30 | C.PDOC ---
History Of Present Illness 77 year old female presents to the ED for evaluation of nasal congestion and post-nasal drip ongoing for weeks to months. Current visit is patient's tenth ED visit for the same complaint. Patient has been evaluated by Dr. Bruno (ENT), and has been noncompliant with Flonase nasal spray. Patient denies fever, chills. Time Seen by Provider: 02/25/18 20:19 Chief Complaint (Nursing): ENT Problem History Per: Patient History/Exam Limitations: None Onset/Duration Of Symptoms: Days Current Symptoms Are (Timing): Still Present Past Medical History Reviewed: Historical Data, Nursing Documentation, Vital Signs Vital Signs: Last Vital Signs Temp 98.3 F 02/25/18 20:24 Pulse 70 02/25/18 20:24 Resp 18 02/25/18 20:44 BP 110/73 02/25/18 20:24 Pulse Ox 99 02/25/18 22:37 - Medical History PMH: HTN Denies: Chronic Kidney Disease Surgical History: No Surg Hx Family History: States: Unknown Family Hx - Social History Hx Alcohol Use: No Hx Substance Use: No - Immunization History Hx Tetanus Toxoid Vaccination: No Hx Influenza Vaccination: No Hx Pneumococcal Vaccination: No Review Of Systems Constitutional: Negative for: Fever, Chills ENT: Positive for: Nose Congestion Physical Exam - Physical Exam Appears: Non-toxic, No Acute Distress Skin: Normal Color, Warm, Dry Head: Atraumatic, Normacephalic Eye(s): bilateral: Normal Inspection Ear(s): Bilateral: Normal Nose: No Discharge, Other (mild to moderate nasal erythema ) Oral Mucosa: Moist Throat: Other (cobblestoning to posterior oropharynx. dry post-nasal drip ) Neck: Supple Chest: Symmetrical, No Deformity, No Tenderness Cardiovascular: Rhythm Regular, No Murmur Respiratory: Normal Breath Sounds, No Rales, No Rhonchi, No Wheezing Extremity: Normal ROM, Capillary Refill (less than 2 seconds ) Neurological/Psych: Oriented x3, Normal Speech, Normal Cognition ED Course And Treatment O2 Sat by Pulse Oximetry: 99 (on RA) Pulse Ox Interpretation: Normal Medical Decision Making Medical Decision Making: nasal erythema with cobbletoning, suggesting chronic nasal allergic rhinitis non-compliant w Flonase 1 spray b/l Q12H "because it doesn't work" multiple ENT/ED visits in past 9 weeks- today is 10th ED visit in 9 weeks Disposition Doctor Will See Patient In The: Office Counseled Patient/Family Regarding: Studies Performed, Diagnosis - Disposition Referrals: Shaik Mcadams MD [Staff Provider] - Disposition: HOME/ ROUTINE Disposition Time: 20:30 Condition: GOOD Additional Instructions: continue Flonase spray 1 spray each nostril every 12 hours follow-up with your PMD as needed. Drink plenty of water. Instructions: Seasonal Allergies in Adults Forms: [employer] (Yakut) - Clinical Impression Clinical Impression: Allergic rhinitis - Scribe Statement The provider has reviewed the documentation as recorded by the Scribe (Erica Castellanos) Provider Attestation: All medical record entries made by the Scribe were at my direction and personally dictated by me. I have reviewed the chart and agree that the record accurately reflects my personal performance of the history, physical exam, medical decision making, and the department course for this patient. I have also personally directed, reviewed, and agree with the discharge instructions and disposition.
[2018-02-25 20:45] VITALS: RESP 18
== END 2018-02-25 20:44 | disposition home or self-care (01) ==
LOC: C.ER 20:16
DX: J30.9 Allergic rhinitis, unspecified (principal); I10 Essential (primary) hypertension

== ENCOUNTER 2018-02-28 23:38 | Emergency (ER) | payer MEDICARE ==
[2018-02-28 23:38] VITALS: BMI 26.4
[2018-02-28 23:47] VITALS: BP 146/90; PULSE 92; RESP 18; TEMP 98.5; O2SAT 98
--- NOTE | 2018-03-01 00:53 | C.PDOC ---
History Of Present Illness 77 year old female presents to the ED stating " I got too much phlegm in my throat, spitting non stop and need medications". Patient has been seen in the ED multiple times in the past for similar complaints. Patient was also seen by ENT specialist as well. Patient states she is scheduled to see another specialist this in [place]. Patient denies fever, chills, sore throat, nasal congestion, nausea, vomit, rash, sick contacts, CP, SOB. Time Seen by Provider: 02/28/18 23:52 Chief Complaint (Nursing): ENT Problem History Per: Patient History/Exam Limitations: None Onset/Duration Of Symptoms: Days Current Symptoms Are (Timing): Still Present Quality (Mouth/Throat): Other Anticoagulant/Antiplatlet Use?: No Recent Aspirin Use: No Past Medical History Reviewed: Historical Data, Nursing Documentation, Vital Signs Vital Signs: Last Vital Signs Temp 98.5 F 02/28/18 23:43 Pulse 92 H 02/28/18 23:43 Resp 18 02/28/18 23:43 BP 146/90 02/28/18 23:43 Pulse Ox 98 03/01/18 03:23 - Medical History PMH: HTN Denies: Chronic Kidney Disease Surgical History: No Surg Hx Family History: States: Unknown Family Hx - Social History Hx Alcohol Use: No Hx Substance Use: No - Immunization History Hx Tetanus Toxoid Vaccination: No Hx Influenza Vaccination: No Hx Pneumococcal Vaccination: No Review Of Systems Constitutional: Negative for: Fever, Chills ENT: Negative for: Nose Discharge, Nose Congestion, Mouth Swelling, Throat Pain , Throat Swelling Respiratory: Positive for: Sputum. Negative for: Cough, Shortness of Breath Gastrointestinal: Negative for: Nausea, Vomiting Skin: Negative for: Rash Physical Exam - Physical Exam Appears: Non-toxic, No Acute Distress, Other (spitting clear thick saliva, no blood observed) Skin: Normal Color, Warm, Dry Head: Atraumatic, Normacephalic Eye(s): bilateral: Normal Inspection Ear(s): Bilateral: Normal Nose: No Discharge Oral Mucosa: Moist Throat: Normal, No Erythema, No Exudate Neck: Normal ROM, Supple Chest: Symmetrical Cardiovascular: Rhythm Regular Respiratory: Normal Breath Sounds, No Rales, No Rhonchi, No Wheezing Extremity: Normal ROM, No Tenderness, No Swelling Neurological/Psych: Oriented x3, Normal Speech Gait: Steady ED Course And Treatment O2 Sat by Pulse Oximetry: 98 (ON RA) Pulse Ox Interpretation: Normal Progress Note: Patient was given saline nebulizer after which she felt some relief. Patient was advised to continue humidifier and other regiments as well as follow up with her PMD and ENT. Disposition Counseled Patient/Family Regarding: Diagnosis, Need For Followup - Disposition Referrals: Shaik Mcadams MD [Primary Care Provider] - Disposition: HOME/ ROUTINE Disposition Time: 00:52 Condition: STABLE Additional Instructions: Use [employer] CONTINUE CURRENT MANAGEMENT KEEP APPOINTMENT ON TUESDAY RETURN TO ER IF WORSE Forms: [facility] (Occitan), General Discharge Instructions - Clinical Impression Clinical Impression: Post-nasal drip - PA / PRESS SETTER / Resident Statement MD/DO has reviewed & agrees with the documentation as recorded. - Scribe Statement The provider has reviewed the documentation as recorded by the Scribe Kory Jimenez All medical record entries made by the Scribe were at my direction and personally dictated by me. I have reviewed the chart and agree that the record accurately reflects my personal performance of the history, physical exam, medical decision making, and the department course for this patient. I have also personally directed, reviewed, and agree with the discharge instructions and disposition.
== END 2018-03-01 01:01 | disposition home or self-care (01) ==
LOC: SUPCPDRO 23:38 → C.ER 23:38
DX: R09.82 Postnasal drip (principal)

== ENCOUNTER 2018-03-01 09:51 | Emergency (ER) | payer MEDICARE ==
[2018-03-01 09:51] VITALS: BMI 26.4
[2018-03-01 10:33] LABS: BASO # 0.1 K/uL (0.0-0.2); BASO % 0.5 % (0.0-2.0); EOS # 0.2 K/uL (0.0-0.7); EOS % 1.5 % (0.0-4.0); LYMPH % 21.7 % (20.0-40.0); MEAN CELL VOLUME 88.8 fL (81.0-99.0); MEAN CORPUSCULAR HGB CONC 33.8 g/dL (33.0-37.0); MEAN PLATELET VOLUME 7.6 fL (7.2-11.7); MONO # 0.9 K/uL (0.0-0.8); MONO % 6.4 % (0.0-10.0); NEUT # 9.6 K/uL (1.8-7.0); NEUT % 69.9 % (50.0-75.0); RBC 4.66 Mil/uL (3.80-5.20); RED CELL DISTRIBUTION WIDTH 13.5 % (11.5-14.5)
[2018-03-01 10:38] LABS: WHITE BLOOD COUNT 13.8 K/uL (4.8-10.8)
[2018-03-01 10:41] LABS: PROTHROMBIN TIME 10.5 SECONDS (9.7-12.2)
[2018-03-01 10:54] LABS: ALB/GLOB RATIO 1.8 (1.0-2.1); ALBUMIN 4.2 g/dL (3.5-5.0); ALT/SGPT 29 U/L (9-52); AST/SGOT 14 U/L (14-36); BLOOD UREA NITROGEN 10 mg/dL (7-17); CALCIUM 9.3 mg/dl (8.6-10.4); GFR NON-AFRICAN AMERICAN > 60
--- NOTE | 2018-03-01 10:59 | RAD ---
HISTORY: COMPARISON: 01/29/2018. TECHNIQUE: Chest PA and lateral FINDINGS: LINES AND TUBES: None. LUNG AND PLEURA: The lungs are hyperinflated and there is peribronchial thickening with chronic changes in both lungs. There is left pleural thickening. No pleural effusion or pneumothorax. HEART AND MEDIASTINUM: The heart is not enlarged. The hilar and mediastinal contours are within normal limits. SKELETAL STRUCTURES: The bony structures are within normal limits for the patient's age. VISUALIZED UPPER ABDOMEN: Normal. OTHER FINDINGS: None. IMPRESSION: No active pulmonary disease. COPD.
--- NOTE | 2018-03-01 11:28 | CT ---
Date of service: 03/01/2018 PROCEDURE: CT SINUSES WITHOUT CONTRAST HISTORY: bleeding COMPARISON: None available. TECHNIQUE: Contiguous axial CT images of the paranasal sinuses were obtained. Coronal and sagittal reformats were generated. Radiation dose: Total exam DLP = 638.69 mGy-cm. This CT exam was performed using one or more of the following dose reduction techniques: Automated exposure control, adjustment of the mA and/or kV according to patient size, and/or use of iterative reconstruction technique. FINDINGS: FRONTAL SINUSES: Normal development and aeration. ETHMOID SINUSES: Normal development and aeration in general. Bilateral Rajeev cells are identified greater the right than left sides which do not appear to stenosis the bilateral frontal recesses. SPHENOID SINUSES: Normal development and aeration. MAXILLARY SINUSES: Normal development and aeration. SINUS DRAINAGE: Osteomeatal complexes, frontal recesses and sphenoethmoid recesses clear. NASAL SEPTUM: Leftward bony nasal deviation. MASS: None. SKULL BASE: Unremarkable. TEMPORAL BONES: No evidence of otitis media bilaterally. Soft tissue is seen at the deep left external auditory canal abutting the tympanic membrane likely reflective of cerumen. Clinically correlate nevertheless. OTHER FINDINGS: No destructive bony lesion appreciable throughout. IMPRESSION: No CT evidence of sinusitis throughout. The perineal sinuses well developed and aerated diffusely. Leftward bony nasal deviation. Mild bilateral Rajeev cells right greater than left. Incidental likely cerumen deep left external auditory canal. Clinically correlate nevertheless.
--- NOTE | 2018-03-01 11:47 | C.PDOC ---
History Of Present Illness 77 y/o female presents to ED with c/o blood tinched drainage from nasal passage since earlier today. Contrary to triage patent did not vomit blood, same blood from nasal passage came out of mouth. Patient states she is on Levaquin for sinus infection, has complications and has scheduled ENT appointment tomorrow. Patient denies chest pain, sob, nausea, vomiting or any other complaints at this time. Time Seen by Provider: 03/01/18 10:10 Chief Complaint (Nursing): GI Problem History Per: Patient History/Exam Limitations: None Onset/Duration Of Symptoms: Days Current Symptoms Are (Timing): Still Present Past Medical History Reviewed: Historical Data, Nursing Documentation, Vital Signs Vital Signs: Last Vital Signs Temp Pulse Resp BP Pulse Ox 100 03/01/18 11:52 - Medical History PMH: HTN Surgical History: No Surg Hx Family History: States: No Known Family Hx - Social History Hx Alcohol Use: No Hx Substance Use: No - Immunization History Hx Tetanus Toxoid Vaccination: No Hx Influenza Vaccination: No Hx Pneumococcal Vaccination: No Review Of Systems Except As Marked, All Systems Reviewed And Found Negative. ENT: Positive for: Nose Discharge, Other (sinus pressure) Physical Exam - Physical Exam Appears: Non-toxic, No Acute Distress Skin: Warm, Dry, No Rash Head: Atraumatic, Normacephalic Eye(s): bilateral: Normal Inspection Nose: No Epistaxis, No Deformity, Tenderness (to sinus bilaterally) Oral Mucosa: Moist Throat: Normal, No Erythema, No Exudate Cardiovascular: Rhythm Regular Respiratory: Normal Breath Sounds, No Rales, No Rhonchi, No Wheezing Gastrointestinal/Abdominal: Soft, No Tenderness, No Guarding, No Rebound Neurological/Psych: Oriented x3, Normal Speech, Normal Cognition ED Course And Treatment - Laboratory Results Result Diagrams: 03/01/18 10:27 03/01/18 10:27 ECG: Interpreted By Me, Viewed By Me ECG Rhythm: Sinus Rhythm (normal) Interpretation Of ECG: NSR@83 , PAC, Left axis Deviation Rate From EC (RA) O2 Sat by Pulse Oximetry: 100 (BPM) Pulse Ox Interpretation: Normal Medical Decision Making Medical Decision Making: Assessment: Sinus pressure Plan: Patient is in no acute distress and discharged with follow up as planned with ENT tomorrow. Disposition - Disposition Disposition: HOME/ ROUTINE Disposition Time: 11:55 Condition: STABLE Additional Instructions: follow up with your ENT doctor tomorrow as planned continue your home medications return to ER if symptoms worsens or progress Instructions: Sinusitis in Adults Forms: [facility] (French), General Discharge Instructions - Clinical Impression Clinical Impression: Sinus pressure - Scribe Statement The provider has reviewed the documentation as recorded by the Sidraiblenore Abbott All medical record entries made by the Talha were at my direction and personally dictated by me. I have reviewed the chart and agree that the record accurately reflects my personal performance of the history, physical exam, medical decision making, and the department course for this patient. I have also personally directed, reviewed, and agree with the discharge instructions and disposition.
[2018-03-01 11:51] LABS: SQUAMOUS EPITHIAL < 1 /hpf (0-5); URINE BILIRUBIN NEGATIVE (NEGATIVE); URINE BLOOD NEGATIVE (NEGATIVE); URINE CLARITY Clear (Clear); URINE COLOR Straw (YELLOW); URINE GLUCOSE (UA) NORMAL (Normal); URINE LEUKOCYTE ESTERASE NEG Leu/uL (Negative); URINE PROTEIN NEGATIVE (NEGATIVE); URINE UROBILINOGEN NORMAL mg/dL (0.2-1.0)
[2018-03-01 12:06] VITALS: BP 142/59; PULSE 82; RESP 18; TEMP 98.7; O2SAT 98
--- NOTE | 2018-03-02 20:16 | CARD ---
APPROVED REPORT Date of service: 03/01/2018 EKG Measurement Heart [id number] <Conclusion> Sinus rhythm with premature atrial complexes with aberrant conduction Left axis deviation Minimal voltage criteria for LVH, may be normal variant Abnormal ECG
== END 2018-03-01 12:07 | disposition home or self-care (01) ==
LOC: C.ER 09:51
DX: J34.89 Other specified disorders of nose and nasal sinuses (principal); I10 Essential (primary) hypertension

== ENCOUNTER 2018-03-03 11:27 | Emergency (ER) | payer MEDICARE ==
[2018-03-03 11:27] VITALS: BMI 26.4
[2018-03-03 11:33] VITALS: RESP 16
--- NOTE | 2018-03-03 13:03 | C.PDOC ---
History Of Present Illness 77-year-old female, presents to the emergency department with complaints of runny nose. Pt was seen in ED two days ago for sinus pressure and had complete workup. Pt was discharged and followed with her doctor yesterday, who gave her Claritin, Prednisone, Afrin and Dimetapp. Pt returns today because she has drainage. Denies any fever, nausea/vomiting, chest pain, cough, neck pain, back pain or any other associated symptoms., No other complaints at this time. Time Seen by Provider: 03/03/18 12:17 Chief Complaint (Nursing): ENT Problem History Per: Patient History/Exam Limitations: None Past Medical History Reviewed: Historical Data, Nursing Documentation, Vital Signs Vital Signs: Last Vital Signs Temp 98.9 F 03/03/18 13:13 Pulse 78 03/03/18 13:13 Resp 16 03/03/18 13:13 BP 147/74 03/03/18 13:13 Pulse Ox 97 03/03/18 13:13 - Medical History PMH: HTN Surgical History: Tonsillectomy Family History: States: No Known Family Hx - Social History Hx Alcohol Use: No Hx Substance Use: No - Immunization History Hx Tetanus Toxoid Vaccination: No Hx Influenza Vaccination: No Hx Pneumococcal Vaccination: No Review Of Systems Constitutional: Negative for: Fever, Chills ENT: Positive for: Nose Discharge. Negative for: Ear Pain, Ear Discharge, Nose Pain, Nose Congestion, Throat Pain, Throat Swelling Cardiovascular: Negative for: Chest Pain Respiratory: Negative for: Shortness of Breath Gastrointestinal: Negative for: Nausea, Vomiting Skin: Negative for: Rash Neurological: Negative for: Weakness, Numbness, Headache, Dizziness Physical Exam - Physical Exam Appears: Non-toxic, No Acute Distress Skin: Normal Color, Warm, Dry, No Rash Head: Atraumatic, Normacephalic Eye(s): bilateral: Normal Inspection Nose: Normal, Discharge Oral Mucosa: Moist Lips: Normal Appearing Throat: No Erythema, No Exudate, No Drooling, No Mass Neck: Normal ROM Cardiovascular: Rhythm Regular, No Murmur Respiratory: Normal Breath Sounds, No Accessory Muscle Use Extremity: Normal ROM, No Deformity Neurological/Psych: Oriented x3, Normal Speech ED Course And Treatment O2 Sat by Pulse Oximetry: 96 Pulse Ox Interpretation: Normal (RA) Medical Decision Making Medical Decision Making: Pt instructed to continue medication regimen, and follow up outpatient with ENT. Disposition Counseled Patient/Family Regarding: Studies Performed, Diagnosis, Need For Followup - Disposition Referrals: Shaik Mcadams MD [Staff Provider] - Disposition: HOME/ ROUTINE Disposition Time: 13:04 Condition: STABLE Additional Instructions: follow up with your private doctor and ent doctor today call to make an appointment continue your home medications return to hospital if symptoms worsens or progress Instructions: Cough, Runny Nose, and the Common Cold Forms: [facility] (Danish) - Clinical Impression Clinical Impression: Sinus congestion - Scribe Statement The provider has reviewed the documentation as recorded by the Scribe (Daylin Renae) All medical record entries made by the Scribe were at my direction and personally dictated by me. I have reviewed the chart and agree that the record accurately reflects my personal performance of the history, physical exam, medical decision making, and the department course for this patient. I have also personally directed, reviewed, and agree with the discharge instructions and disposition.
[2018-03-03 13:15] VITALS: BP 147/74; PULSE 78; TEMP 98.9
[2018-03-03 14:15] VITALS: O2SAT 96
== END 2018-03-03 13:20 | disposition home or self-care (01) ==
LOC: C.ER 11:27
DX: R09.81 Nasal congestion (principal)

== ENCOUNTER 2018-03-04 05:47 | Emergency (ER) | payer MEDICARE ==
[2018-03-04 05:49] VITALS: BMI 26.4
--- NOTE | 2018-03-04 07:15 | C.PDOC ---
History Of Present Illness 77 y/o female c/o "hard crusting in sinus" prior to arrival s/p Mucinex which is now resolved. She notes "now I feel better". Pt is currently asymptomatic. CO "HARD CRUSTING IN SINUS" LACTATION CONSULTANT S/P MUCINEZ NOW RESOLVED. "NOW I FEEL BETTER". CURRENTLY ASYMPT. EXAM NEG MDM MULT PRIOR ER VISITS FOR SAME, 10 VISITS IN FEBRUARY. FAMILY @ BEDSIDE, ADVISED FU PMD/ENT Time Seen by Provider: 03/04/18 07:12 Chief Complaint (Nursing): ENT Problem History Per: Patient History/Exam Limitations: no limitations Onset/Duration Of Symptoms: Hrs Current Symptoms Are (Timing): Better Additional History Per: Patient Past Medical History Reviewed: Historical Data, Nursing Documentation, Vital Signs Vital Signs: Last Vital Signs Temp 98.0 F 03/04/18 07:24 Pulse 94 H 03/04/18 07:24 Resp 18 03/04/18 07:24 BP 153/77 H 03/04/18 07:24 Pulse Ox 94 L 03/04/18 07:24 - Medical History PMH: HTN Denies: Chronic Kidney Disease Surgical History: Tonsillectomy Family History: States: Unknown Family Hx - Social History Hx Alcohol Use: No Hx Substance Use: No - Immunization History Hx Tetanus Toxoid Vaccination: No Hx Influenza Vaccination: No Hx Pneumococcal Vaccination: No Review Of Systems Except As Marked, All Systems Reviewed And Found Negative. Constitutional: Negative for: Fever, Chills ENT: Negative for: Ear Pain, Nose Discharge, Nose Congestion, Throat Pain Respiratory: Negative for: Cough, Shortness of Breath Physical Exam - Physical Exam Appears: Non-toxic, No Acute Distress Skin: Normal Color, Warm, Dry Head: Atraumatic, Normacephalic Eye(s): bilateral: Normal Inspection, PERRL, EOMI Ear(s): Bilateral: Normal Nose: Normal Oral Mucosa: Moist Throat: Normal, No Erythema, No Exudate, No Drooling Neck: Normal ROM, Supple Cardiovascular: Rhythm Regular Respiratory: Normal Breath Sounds, No Rales, No Rhonchi, No Wheezing Extremity: Normal ROM Neurological/Psych: Oriented x3, Normal Speech ED Course And Treatment O2 Sat by Pulse Oximetry: 99 (RA) Pulse Ox Interpretation: Normal Progress - Data Reviewed Data Reviewed: Old records Medical Decision Making Medical Decision Making: MULT PRIOR ER VISITS FOR SAME, 10 VISITS IN FEBRUARY. FAMILY @ BEDSIDE, ADVISED FU PMD/ENT Disposition Counseled Patient/Family Regarding: Diagnosis, Need For Followup - Disposition Referrals: your,pmd [Other] Disposition: HOME/ ROUTINE Disposition Time: 08:00 Condition: GOOD Instructions: Rhinosinusitis (ED) Forms: [facility] (Maldivian) - Clinical Impression Clinical Impression: Post-nasal drip, Chronic sinus complaints - Scribe Statement The provider has reviewed the documentation as recorded by the Scribe KP All medical record entries made by the Scribe were at my direction and personally dictated by me. I have reviewed the chart and agree that the record accurately reflects my personal performance of the history, physical exam, medical decision making, and the department course for this patient. I have also personally directed, reviewed, and agree with the discharge instructions and disposition.
[2018-03-04 07:25] VITALS: BP 153/77; PULSE 94; RESP 18; TEMP 98
[2018-03-04 08:05] VITALS: O2SAT 99
== END 2018-03-04 07:25 | disposition home or self-care (01) ==
LOC: C.ER 05:47
DX: R09.82 Postnasal drip (principal)

== ENCOUNTER 2018-03-17 02:09 | Emergency (ER) | payer MEDICARE ==
[2018-03-17 02:09] VITALS: BMI 26.4
[2018-03-17 02:15] VITALS: BP 152/82; PULSE 90; TEMP 98.7; O2SAT 96
--- NOTE | 2018-03-17 02:51 | C.PDOC ---
History Of Present Illness 77 y/o female presents to the ED complaining of a runny nose for four days. The patient states she was seen by the ENT at [facility] and given nasal spray. She reports no relief with the nasal spray, prompting ED visit. The patient denies any cough, SOB, or chest tightness. Time Seen by Provider: 03/17/18 02:17 Chief Complaint (Nursing): ENT Problem History Per: Patient History/Exam Limitations: None Onset/Duration Of Symptoms: Hrs Current Symptoms Are (Timing): Still Present Past Medical History Reviewed: Historical Data, Nursing Documentation, Vital Signs Vital Signs: Last Vital Signs Temp 98.7 F 03/17/18 02:14 Pulse 90 03/17/18 02:14 Resp BP 152/82 H 03/17/18 02:14 Pulse Ox 96 03/17/18 02:59 - Medical History PMH: HTN Denies: Chronic Kidney Disease Surgical History: Tonsillectomy Family History: States: Unknown Family Hx - Social History Hx Alcohol Use: No Hx Substance Use: No - Immunization History Hx Tetanus Toxoid Vaccination: No Hx Influenza Vaccination: No Hx Pneumococcal Vaccination: No Review Of Systems Except As Marked, All Systems Reviewed And Found Negative. Constitutional: Negative for: Fever ENT: Positive for: Nose Discharge Cardiovascular: Negative for: Other (Chest tightness) Respiratory: Negative for: Cough, Shortness of Breath Physical Exam - Physical Exam Appears: Well, Non-toxic, No Acute Distress Skin: Normal Color, Warm, Dry Head: Atraumatic, Normacephalic Eye(s): bilateral: PERRL, EOMI Ear(s): Bilateral: Normal Nose: Discharge Oral Mucosa: Moist Neck: Normal ROM, Supple Chest: Symmetrical Cardiovascular: Rhythm Regular, No Murmur Respiratory: Normal Breath Sounds, No Rales, No Rhonchi, No Wheezing Gastrointestinal/Abdominal: Bowel Sounds, Soft, No Tenderness Extremity: Normal ROM Extremity: Bilateral: Atraumatic, Normal Color And Temperature, Normal ROM Neurological/Psych: Oriented x3, Normal Speech ED Course And Treatment O2 Sat by Pulse Oximetry: 96 (RA) Pulse Ox Interpretation: Normal Progress Note: Patient was advised to continue to use nasal spray and to return to the ED if her conditions worsen. Disposition Counseled Patient/Family Regarding: Diagnosis, Need For Followup, Rx Given - Disposition Disposition: HOME/ ROUTINE Disposition Time: 02:48 Condition: GOOD Additional Instructions: Please follow up with PMD or ENT Continue humidified AIR Continue nasal spray May take claritin Return to ER if worse Forms: [facility] (Cameroonian) - Clinical Impression Clinical Impression: Rhinorrhea - PA / VOICE SYSTEMS ENGINEER / Resident Statement MD/DO has reviewed & agrees with the documentation as recorded. - Scribe Statement The provider has reviewed the documentation as recorded by the Scribe (Annabelle Mercado) All medical record entries made by the Scribe were at my direction and personally dictated by me. I have reviewed the chart and agree that the record accurately reflects my personal performance of the history, physical exam, medical decision making, and the department course for this patient. I have also personally directed, reviewed, and agree with the discharge instructions and disposition.
== END 2018-03-17 02:59 | disposition home or self-care (01) ==
LOC: C.ER 02:09
DX: J34.89 Other specified disorders of nose and nasal sinuses (principal)

== ENCOUNTER 2018-03-19 18:20 | Emergency (ER) | payer MEDICARE ==
[2018-03-19 18:20] VITALS: BMI 26.4
[2018-03-19 18:39] VITALS: BP 121/74; PULSE 84; RESP 17; TEMP 98.3; O2SAT 98
--- NOTE | 2018-03-19 20:06 | C.PDOC ---
History Of Present Illness 77 y/o female presents to ED c/o runny nose, and spitting up of saliva for past several days. Pt has had multiple visits to ER for similar symptoms. Pt states she noticed blood streaks today. Pt has followed up with PMD and ENT specialist for her symptoms and is currently on nasal sprays, humidifier, nebulizer and has completed multiple rounds of Abx for same . Otherwise, denies shortness of breath, cough, fever, chills, or any other complaints. Time Seen by Provider: 03/19/18 19:26 Chief Complaint (Nursing): ENT Problem History Per: Patient History/Exam Limitations: no limitations Onset/Duration Of Symptoms: Days Current Symptoms Are (Timing): Still Present Sick Contacts (Context): None Ear Symptoms: Bilateral: None Recent travel outside of the [place]: No Additional History Per: Patient Past Medical History Reviewed: Historical Data, Nursing Documentation, Vital Signs Vital Signs: Last Vital Signs Temp 98.3 F 03/19/18 18:34 Pulse 84 03/19/18 18:34 Resp 17 03/19/18 18:34 BP 121/74 03/19/18 18:34 Pulse Ox 98 03/19/18 20:26 - Medical History PMH: HTN Denies: Chronic Kidney Disease Surgical History: Tonsillectomy Family History: States: Unknown Family Hx - Social History Hx Alcohol Use: No Hx Substance Use: No - Immunization History Hx Tetanus Toxoid Vaccination: No Hx Influenza Vaccination: No Hx Pneumococcal Vaccination: No Review Of Systems Except As Marked, All Systems Reviewed And Found Negative. Constitutional: Negative for: Fever, Chills ENT: Positive for: Nose Discharge. Negative for: Ear Pain, Throat Pain Cardiovascular: Negative for: Chest Pain Respiratory: Positive for: Sputum (spitting up saliva). Negative for: Cough, Shortness of Breath Physical Exam - Physical Exam Appears: Non-toxic, No Acute Distress Skin: Normal Color, Warm, Dry Head: Atraumatic, Normacephalic Eye(s): bilateral: Normal Inspection Nose: Discharge (mild clear nasal discharge) Oral Mucosa: Moist Neck: Normal ROM, Supple Chest: Symmetrical Cardiovascular: Rhythm Regular, No Murmur Respiratory: No Rales, No Rhonchi, No Wheezing, Other (Pt is drinking water, and spitting up clear mucus, no blood) Extremity: Normal ROM Neurological/Psych: Oriented x3, Normal Speech ED Course And Treatment O2 Sat by Pulse Oximetry: 98 Medical Decision Making Medical Decision Making: Plan: Nebulized saline given to pt as requested by pt. Pt appears well, remained stable in nop acute distressand will follow up with PMD Pt is being discharged home. She was advised to continue using humidifier and nasal spray at home. Disposition Counseled Patient/Family Regarding: Diagnosis, Rx Given - Disposition Referrals: Shaik Mcadams MD [Staff Provider] - Disposition: HOME/ ROUTINE Disposition Time: 20:22 Condition: STABLE Additional Instructions: Please follow up with PMD / ENT Return to ER if things get worse Forms: [facility] (Bengali), General Discharge Instructions - Clinical Impression Clinical Impression: Allergic rhinitis - PA / ELECTROPLATER / Resident Statement MD/DO has reviewed & agrees with the documentation as recorded. - Scribe Statement The provider has reviewed the documentation as recorded by the Scribe KP All medical record entries made by the Scribe were at my direction and personally dictated by me. I have reviewed the chart and agree that the record accurately reflects my personal performance of the history, physical exam, medical decision making, and the department course for this patient. I have also personally directed, reviewed, and agree with the discharge instructions and disposition.
== END 2018-03-19 20:52 | disposition home or self-care (01) ==
LOC: C.ER 18:20
DX: J30.9 Allergic rhinitis, unspecified (principal)

== ENCOUNTER 2018-03-31 16:16 | Emergency (ER) | payer MEDICARE ==
[2018-03-31 16:24] VITALS: BMI 23.0
--- NOTE | 2018-03-31 17:13 | C.PDOC ---
History Of Present Illness 77 yr old female w/ hx of allergic rhinitis, HTN, recurrent sinusitis p/w nasal discharge. She notes her nasal discharge chronically over the past year, for which she has seen ENT multiple times and was diagnosed with chronic sinusitis. Pt was also recently given abx by ENT clinic yesterday for sinusitis for which she is taking. She denies any diarrhea or headache or fever or FND. He main concern was that she could have a brain tumor which is causing her sinusitis. She is afraid that she could be leaking CSF. She denies any history of trauma or falls, weight loss or decreased appetite however. She also denies a history of recent nasal surgery and or Neurological surgery. She notes that she has an appointment to see a neurologist next week for her chronic sinusitis from her ENT. No chills or night sweats. No other complaints. Time Seen by Provider: 03/31/18 17:02 Chief Complaint (Nursing): Medical Clearance Past Medical History Vital Signs: Last Vital Signs Temp 98.4 F 03/31/18 16:24 Pulse 81 03/31/18 16:24 Resp 18 03/31/18 16:24 BP 136/90 03/31/18 16:24 Pulse Ox 99 03/31/18 16:24 - Medical History PMH: HTN Denies: Chronic Kidney Disease Surgical History: Tonsillectomy Family History: States: Unknown Family Hx - Social History Hx Alcohol Use: No Hx Substance Use: No - Immunization History Hx Tetanus Toxoid Vaccination: No Hx Influenza Vaccination: No Hx Pneumococcal Vaccination: No Review Of Systems Constitutional: Negative for: Fever, Chills, Sweats Eyes: Negative for: Pain, Vision Change ENT: Positive for: Nose Discharge (clear x1 year). Negative for: Ear Pain, Ear Discharge, Nose Pain Cardiovascular: Negative for: Chest Pain, Palpitations, Orthopnea Respiratory: Negative for: Cough, Shortness of Breath, Hemoptysis Gastrointestinal: Negative for: Nausea, Vomiting, Abdominal Pain Genitourinary: Negative for: Dysuria, Frequency Musculoskeletal: Negative for: Neck Pain, Shoulder Pain Skin: Negative for: Rash Neurological: Negative for: Weakness, Numbness Psych: Negative for: Anxiety Physical Exam - Physical Exam Appears: Well, No Acute Distress Skin: Normal Color, Warm, Dry Head: Atraumatic, Normacephalic Eye(s): bilateral: Normal Inspection, PERRL, EOMI Ear(s): Bilateral: Normal Nose: No Flaring, Discharge (clear mucus discharge. ), No Epistaxis, No Deformity, No Tenderness, No Septal Hematoma, No Other Oral Mucosa: Moist Tongue: Normal Appearing Lips: Normal Appearing Throat: Normal Neck: Normal, Normal ROM, No Midline Cervical Tenderness, Supple, Other (no meningeal signs) Chest: Symmetrical, No Deformity Cardiovascular: Rhythm Regular Respiratory: Normal Breath Sounds, No Decreased Breath Sounds Gastrointestinal/Abdominal: Normal Exam Back: Normal Inspection, No CVA Tenderness Neurological/Psych: Oriented x3, Normal Speech, Normal Cognition, Normal Cranial Nerves, Normal Motor Gait: Steady ED Course And Treatment O2 Sat by Pulse Oximetry: 99 Medical Decision Making Medical Decision Makin yr old female w/ hx of chronic sinusitis p/w nasal discharge similiar to previous visits. No worse than other occurences. No indication or physical signs of trauma for CSF leak. Reviewed previous CT: no indication of sinus drainage from Neurological basis. Pt already has outpt followup for neuro, and given previous negative CTS will seek out relief w/ saline nebs here and followup as previously planned if improves. Fully normal neuro exam. 1829 saline neb fully improved symptoms, no longer w/ runny nose. clear for d/c home. pt has follow up w/ neuro already. Disposition - Disposition Referrals: Bruno Bruno MD [Staff Provider] - Disposition: HOME/ ROUTINE Disposition Time: 18:30 Condition: GOOD Instructions: Seasonal Allergies in Adults, Sinusitis in Adults Forms: [facility] (Kiswahili) - Clinical Impression Clinical Impression: Allergic rhinitis
[2018-03-31 18:29] VITALS: BP 163/80; PULSE 78; RESP 20; TEMP 98.1
[2018-03-31 18:32] VITALS: O2SAT 99
== END 2018-03-31 18:35 | disposition home or self-care (01) ==
LOC: C.ER 16:16
DX: J30.9 Allergic rhinitis, unspecified (principal)

== ENCOUNTER 2018-04-07 11:10 | Emergency (ER) | payer MEDICARE ==
[2018-04-07 11:10] VITALS: BMI 23.0
[2018-04-07 11:33] VITALS: BP 112/76; PULSE 84; RESP 20; TEMP 98.8; O2SAT 97
--- NOTE | 2018-04-07 12:14 | C.PDOC ---
History Of Present Illness 77 y/o female presents to ED for evaluation of nasal congestion and post nasal drip. Pt has had multiple ER visits for similar complaints, and has followed up with ENT specialist. Denies fever or other complaints. Time Seen by Provider: 04/07/18 12:06 Chief Complaint (Nursing): Cough, Cold, Congestion History Per: Patient History/Exam Limitations: None Past Medical History Reviewed: Historical Data, Nursing Documentation, Vital Signs Vital Signs: Last Vital Signs Temp 98.8 F 04/07/18 11:28 Pulse 84 04/07/18 11:28 Resp 20 04/07/18 11:28 BP 112/76 04/07/18 11:28 Pulse Ox 97 04/07/18 11:28 - Medical History PMH: HTN Denies: Chronic Kidney Disease Surgical History: Tonsillectomy Family History: States: Unknown Family Hx - Social History Hx Alcohol Use: No Hx Substance Use: No - Immunization History Hx Tetanus Toxoid Vaccination: No Hx Influenza Vaccination: No Hx Pneumococcal Vaccination: No Review Of Systems Except As Marked, All Systems Reviewed And Found Negative. Constitutional: Negative for: Fever, Chills ENT: Positive for: Nose Discharge, Nose Congestion Cardiovascular: Negative for: Chest Pain Respiratory: Negative for: Shortness of Breath Physical Exam - Physical Exam Appears: Non-toxic, No Acute Distress Skin: Normal Color, Warm, Dry Head: Atraumatic, Normacephalic Eye(s): bilateral: Normal Inspection Ear(s): Bilateral: Normal Nose: Normal, Other (clear nasal passages) Oral Mucosa: Moist Tongue: Normal Appearing Lips: Normal Appearing Throat: Normal, No Erythema, No Exudate, No Drooling, Other (no post-nasal drip) Neck: Supple Cardiovascular: Rhythm Regular Respiratory: Normal Breath Sounds, No Rales, No Rhonchi, No Wheezing Gastrointestinal/Abdominal: Soft, No Tenderness Extremity: Normal ROM Neurological/Psych: Oriented x3, Normal Speech ED Course And Treatment O2 Sat by Pulse Oximetry: 97 Pulse Ox Interpretation: Normal Medical Decision Making Medical Decision Making: nasal congestion but no d/c, no sig congestion multiple ED visits for same already seeing PMD and ENT for same, again with multiple visits and prior extensive benign workups. consider dementia and anxiety exacerbating. Disposition Doctor Will See Patient In The: Office Counseled Patient/Family Regarding: Studies Performed, Diagnosis - Disposition Referrals: Shaik Mcadams MD [Staff Provider] - Bruno Bruno MD [Staff Provider] - Disposition: HOME/ ROUTINE Disposition Time: 12:13 Condition: GOOD Additional Instructions: outpatient follow-up with Dr. Bruno and Dr. Mcadams no ENT emergency today Forms: General Discharge Instructions, [facility] (Mohawk) - Clinical Impression Clinical Impression: Nasal congestion - Scribe Statement The provider has reviewed the documentation as recorded by the Scribe KP All medical record entries made by the Scribe were at my direction and personally dictated by me. I have reviewed the chart and agree that the record accurately reflects my personal performance of the history, physical exam, medical decision making, and the department course for this patient. I have also personally directed, reviewed, and agree with the discharge instructions and disposition.
== END 2018-04-07 12:15 | disposition home or self-care (01) ==
LOC: C.ER 11:10
DX: R09.81 Nasal congestion (principal)

== ENCOUNTER 2018-04-16 07:17 | Emergency (ER) | payer MEDICARE ==
[2018-04-16 07:17] VITALS: BMI 23.0
--- NOTE | 2018-04-16 07:25 | C.PDOC ---
History Of Present Illness 77 years old female presents to ED for complaints of "lots of mucus." Patient has had multiple ER visits for similar complaints since January 2018. Patient reports similar complaint of intermittent pain below her nose. Patient states she has seen ENT physician and took multiple antibiotics with no relief. Patient states "I was told I do not have any infection but I wonder why I still feel like that" which prompted the ED visit. Patient was last seen 04/07 for same complaint. Denies any other physical complaints. Time Seen by Provider: 04/16/18 07:21 History Per: Patient History/Exam Limitations: None Onset/Duration Of Symptoms: Hrs Current Symptoms Are (Timing): Still Present Symptoms Have Been: Continuous Anticoagulant/Antiplatlet Use?: No Recent Aspirin Use: Unknown Past Medical History Reviewed: Historical Data, Nursing Documentation, Vital Signs - Medical History PMH: HTN Surgical History: Tonsillectomy Family History: States: Unknown Family Hx - Social History Hx Alcohol Use: No Hx Substance Use: No - Immunization History Hx Tetanus Toxoid Vaccination: No Hx Influenza Vaccination: No Hx Pneumococcal Vaccination: No Review Of Systems Except As Marked, All Systems Reviewed And Found Negative. ENT: Positive for: Nose Pain Physical Exam - Physical Exam Appears: Well, Non-toxic, No Acute Distress, Other (Unchanged from prior evaluations by me(Dr. Sabillon Manju) ) Skin: Normal Color, Warm, Dry, No Rash Head: Atraumatic, Normacephalic Eye(s): bilateral: Normal Inspection, PERRL, EOMI Ear(s): Bilateral: Normal Nose: Normal, No Discharge Oral Mucosa: Moist Throat: Normal, No Erythema, No Exudate, No Drooling Neck: Supple Chest: Symmetrical, No Tenderness Cardiovascular: Rhythm Regular, No Murmur Respiratory: Normal Breath Sounds, No Rales, No Rhonchi, No Wheezing, Other (NARD) Gastrointestinal/Abdominal: Bowel Sounds (Active ), Soft, No Tenderness Extremity: No Deformity Extremity: Bilateral: Atraumatic, Normal Color And Temperature, Normal ROM Pulses: Left Radial: Normal, Right Radial: Normal Neurological/Psych: Oriented x3, Normal Speech Gait: Steady Disposition Counseled Patient/Family Regarding: Diagnosis, Need For Followup - Disposition Referrals: your,ent [Other] Disposition: HOME/ ROUTINE Disposition Time: 07:21 Condition: GOOD Instructions: Chronic Sinusitis Forms: [employer] (Yoruba) - Clinical Impression Clinical Impression: Chronic sinus complaints - Scribe Statement The provider has reviewed the documentation as recorded by the Scribe Anjum Dozier All medical record entries made by the Scribe were at my direction and personally dictated by me. I have reviewed the chart and agree that the record accurately reflects my personal performance of the history, physical exam, medical decision making, and the department course for this patient. I have also personally directed, reviewed, and agree with the discharge instructions and disposition.[email or web address]
[2018-04-16 07:33] VITALS: BP 128/75; PULSE 62; RESP 17; TEMP 97.7; O2SAT 97
== END 2018-04-16 07:40 | disposition home or self-care (01) ==
LOC: C.ER 07:17
DX: J34.89 Other specified disorders of nose and nasal sinuses (principal)

== ENCOUNTER 2018-04-18 02:41 | Emergency (ER) | payer MEDICARE ==
[2018-04-18 02:42] VITALS: BMI 23.0
[2018-04-18 03:06] VITALS: BP 131/66; PULSE 80; RESP 16; TEMP 99; O2SAT 99
--- NOTE | 2018-04-18 03:15 | C.PDOC ---
History Of Present Illness 77 year old female is brought to the ED by EMS for evaluation of runny nose and excess saliva. Patient reports having excess saliva in her mouth and while in the ED is seen spitting in paper towels. Patient denies fever, chills, nausea, vomit, cough, rash, recent travel, sick contacts. Time Seen by Provider: 04/18/18 03:07 Chief Complaint (Nursing): Medical Clearance History Per: Patient, EMS History/Exam Limitations: no limitations Onset/Duration Of Symptoms: Days Current Symptoms Are (Timing): Still Present Recent travel outside of the [place]: No Additional History Per: Patient Past Medical History Reviewed: Historical Data, Nursing Documentation, Vital Signs Vital Signs: Last Vital Signs Temp 99 F 04/18/18 02:58 Pulse 80 04/18/18 02:58 Resp 16 04/18/18 02:58 BP 131/66 04/18/18 02:58 Pulse Ox 99 04/18/18 02:58 - Medical History PMH: HTN Denies: Chronic Kidney Disease Surgical History: Tonsillectomy Family History: States: Unknown Family Hx - Social History Hx Alcohol Use: No Hx Substance Use: No - Immunization History Hx Tetanus Toxoid Vaccination: No Hx Influenza Vaccination: No Hx Pneumococcal Vaccination: No Review Of Systems Constitutional: Negative for: Fever, Chills ENT: Positive for: Nose Discharge, Nose Congestion Respiratory: Positive for: Sputum. Negative for: Cough, Shortness of Breath Gastrointestinal: Negative for: Nausea, Vomiting Neurological: Negative for: Weakness, Numbness Physical Exam - Physical Exam Appears: Non-toxic, No Acute Distress, Other (anxious looking) Skin: Normal Color, Warm, Dry Head: Atraumatic, Normacephalic Eye(s): bilateral: Normal Inspection Nose: Discharge (clear) Oral Mucosa: Moist Throat: Normal, No Erythema, No Exudate Neck: Normal ROM, Supple Chest: Symmetrical Cardiovascular: Rhythm Regular Respiratory: Normal Breath Sounds, No Rales, No Rhonchi, No Wheezing Gastrointestinal/Abdominal: Soft, No Tenderness, No Guarding, No Rebound Extremity: Normal ROM, No Tenderness, No Swelling Neurological/Psych: Oriented x3, Normal Speech, Normal Cognition Gait: Steady ED Course And Treatment O2 Sat by Pulse Oximetry: 99 (ON RA) Pulse Ox Interpretation: Normal Progress Note: Patient was advised to use humidifier and nasal spray at home as needed to help with symptoms. 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 - Scribe Statement The provider has reviewed the documentation as recorded by the Scribe Kory Jimenez All medical record entries made by the Talha were at my direction and personally dictated by me. I have reviewed the chart and agree that the record accurately reflects my personal performance of the history, physical exam, medical decision making, and the department course for this patient. I have also personally directed, reviewed, and agree with the discharge instructions and disposition.
== END 2018-04-18 03:38 | disposition home or self-care (01) ==
LOC: C.ER 02:41
DX: R09.89 Other specified symptoms and signs involving the circulatory and respiratory systems (principal)

== ENCOUNTER 2018-04-21 08:57 | Emergency (ER) | payer MEDICARE ==
[2018-04-21 09:00] VITALS: BMI 23.0
[2018-04-21 09:23] VITALS: RESP 20; O2SAT 98
--- NOTE | 2018-04-21 10:31 | C.PDOC ---
History Of Present Illness 77 y/o female with a PMHx of HTN presents to the ED complaining of right-sided post-nasal drip, nasal congestion, and chronic sinusitis since January. Patient has had multiple ED visits, including four this month, with the same complaint. She has followed up with ENT and had a CT scan in February that did not show sinusitis. Patient most recently saw her PMD, Dr. Rivas, and was prescribed a 10 day course of antibiotics, which she finished yesterday. She now complains that the infection has not improved, requesting more antibiotics. Otherwise patient denies any fever, chills, cough, headache, abdominal pain, or diarrhea. Time Seen by Provider: 04/21/18 09:16 Chief Complaint (Nursing): ENT Problem History Per: Patient History/Exam Limitations: no limitations Onset/Duration Of Symptoms: Days Current Symptoms Are (Timing): Still Present Associated Symptoms: Sinus Drainage, Nasal Congestion Past Medical History Reviewed: Historical Data, Nursing Documentation, Vital Signs Vital Signs: Last Vital Signs Temp 98.0 F 04/21/18 09:04 Pulse 80 04/21/18 09:22 Resp 20 04/21/18 09:22 BP 158/82 H 04/21/18 09:22 Pulse Ox 98 04/21/18 09:22 - Medical History PMH: HTN Denies: Chronic Kidney Disease Surgical History: Tonsillectomy Family History: States: Unknown Family Hx - Social History Hx Alcohol Use: No Hx Substance Use: No - Immunization History Hx Tetanus Toxoid Vaccination: No Hx Influenza Vaccination: No Hx Pneumococcal Vaccination: No Review Of Systems Constitutional: Negative for: Fever, Chills ENT: Positive for: Nose Discharge, Nose Congestion, Other (chronic sinusitis). Negative for: Ear Pain, Throat Pain Cardiovascular: Negative for: Chest Pain, Light Headedness Respiratory: Negative for: Cough, Shortness of Breath Gastrointestinal: Negative for: Vomiting, Abdominal Pain, Diarrhea Neurological: Negative for: Headache, Dizziness Physical Exam - Physical Exam Appears: Non-toxic, No Acute Distress, Other (Frail, elderly, appears anxious and tearful on examination) Skin: Warm, Dry, No Rash Head: Atraumatic, Normacephalic Eye(s): bilateral: Normal Inspection, PERRL, EOMI Ear(s): Bilateral: Normal Nose: Discharge (Nares appear boggy) Throat: Normal, No Erythema Neck: Normal ROM, Supple Chest: Symmetrical Cardiovascular: Rhythm Regular, No Murmur Respiratory: Normal Breath Sounds, No Rales, No Rhonchi, No Wheezing Gastrointestinal/Abdominal: Soft, No Tenderness, No Distention Back: No Vertebral Tenderness, Other (Kyphosis noted) Extremity: Bilateral: Atraumatic, Normal Color And Temperature, Normal ROM Neurological/Psych: Oriented x3, Normal Speech ED Course And Treatment O2 Sat by Pulse Oximetry: 98 (RA) Pulse Ox Interpretation: Normal Medical Decision Making Medical Decision Making: Impression: Chronic post-nasal drip, nasal congestion Spoke w/ Dr. Rivas, who recommends patient be discharged home and follow up with him in the office. Patient remains afebrile, AAOx3, in no acute distress. Lungs clear to auscultation. Patient is stable for discharge home. Counseled regarding course of disposition and follow up instructions. Disposition Discussed With : Shaik Abbe Counseled Patient/Family Regarding: Diagnosis, Need For Followup - Disposition Referrals: Shaik Mcadams MD [Staff Provider] - Disposition: HOME/ ROUTINE Disposition Time: 10:45 Condition: STABLE Additional Instructions: Follow up with your doctor. Prescriptions: Sod Chlor,Bicarb/Squeez Bottle [Dow Saline Nasal Rinse Kit] 1 each NS BID #1 pack.w.[email or web address] Forms: [facility] (Greek) - POA Present On Arrival: None - Clinical Impression Clinical Impression: Sinus congestion - Scribe Statement The provider has reviewed the documentation as recorded by the Scribe (Allison Urias) Provider Attestation: All medical record entries made by the Scribe were at my direction and personally dictated by me. I have reviewed the chart and agree that the record accurately reflects my personal performance of the history, physical exam, medical decision making, and the department course for this patient. I have also personally directed, reviewed, and agree with the discharge instructions and dis position.
[2018-04-21 10:56] VITALS: BP 127/52; PULSE 68; TEMP 98.5
== END 2018-04-21 10:59 | disposition home or self-care (01) ==
LOC: C.ER 08:57
DX: R09.81 Nasal congestion (principal); I10 Essential (primary) hypertension; Z87.891 Personal history of nicotine dependence

== ENCOUNTER 2018-04-22 01:22 | Emergency (ER) | payer MEDICARE ==
[2018-04-22 01:23] VITALS: BMI 23.0
[2018-04-22 01:31] VITALS: BP 138/64; PULSE 90; RESP 18; TEMP 97.8; O2SAT 98
== END 2018-04-22 02:28 | disposition left against medical advice (07) ==
LOC: C.ER 01:22
DX: Z02.89 Encounter for other administrative examinations (principal)

== ENCOUNTER 2018-05-01 00:04 | Emergency (ER) | payer MEDICARE ==
[2018-05-01 00:05] VITALS: BMI 23.0
[2018-05-01 00:13] VITALS: BP 137/82; PULSE 83; RESP 20; TEMP 98.2; O2SAT 95
--- NOTE | 2018-05-01 00:38 | C.PDOC ---
History Of Present Illness 77 year old female with PMHx of chronic sinusitis presents to the ED c/o feeling anxious, congested and producing too much spit. Patient has multiple visits to the ED with same presentation. Patient states she was so congested that she became anxious and took her xanax with some relief. denies fever, chills, nausea, vomit, diarrhea, known allergens, dizziness, SOB, CP, palpitations. Time Seen by Provider: 05/01/18 00:13 Chief Complaint (Nursing): Medical Clearance History Per: Patient, EMS History/Exam Limitations: no limitations Onset/Duration Of Symptoms: Days Current Symptoms Are (Timing): Still Present Reports Recently: Seen In ED (04/22/18) Recent travel outside of the [place]: No Additional History Per: Patient, Family Past Medical History Reviewed: Historical Data, Nursing Documentation, Vital Signs Vital Signs: Last Vital Signs Temp 98.2 F 05/01/18 00:08 Pulse 83 05/01/18 00:08 Resp 20 05/01/18 00:08 BP 137/82 05/01/18 00:08 Pulse Ox 95 05/01/18 00:08 - Medical History PMH: Anxiety, HTN Denies: Chronic Kidney Disease Other PMH: Sinusitis Surgical History: Tonsillectomy Family History: States: Unknown Family Hx - Social History Hx Alcohol Use: No Hx Substance Use: No - Immunization History Hx Tetanus Toxoid Vaccination: No Hx Influenza Vaccination: No Hx Pneumococcal Vaccination: No Review Of Systems Constitutional: Negative for: Fever, Chills ENT: Positive for: Nose Discharge, Nose Congestion. Negative for: Throat Pain, Throat Swelling Respiratory: Positive for: Sputum. Negative for: Cough, Shortness of Breath Gastrointestinal: Negative for: Nausea Skin: Negative for: Rash Neurological: Negative for: Weakness, Numbness, Headache, Dizziness Physical Exam - Physical Exam Appears: Non-toxic, No Acute Distress, Other (spitting) Skin: Normal Color, Warm, Dry Head: Atraumatic, Normacephalic Eye(s): bilateral: Normal Inspection Oral Mucosa: Moist Throat: Normal, No Erythema, No Exudate Neck: Normal ROM, Supple Chest: Symmetrical Cardiovascular: Rhythm Regular Respiratory: Normal Breath Sounds, No Rales, No Rhonchi, No Wheezing Gastrointestinal/Abdominal: Soft, No Tenderness, No Guarding, No Rebound Extremity: Normal ROM, No Tenderness, No Swelling Neurological/Psych: Oriented x3, Normal Speech, Normal Cognition Gait: Steady ED Course And Treatment O2 Sat by Pulse Oximetry: 95 (ON RA) Pulse Ox Interpretation: Normal Progress Note: Pt in no resp distress, spitting on tissue. Pt received saline nebs with improvement. On reassessment, patient is resting comfortably, and is in no acute distress. Patient was instructed to follow up with physician/clinic in 1-2 days for further evaluation. 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 - Scribe Statement The provider has reviewed the documentation as recorded by the Scribe Kory Jimenez All medical record entries made by the Scribe were at my direction and personally dictated by me. I have reviewed the chart and agree that the record accurately reflects my personal performance of the history, physical exam, medical decision making, and the department course for this patient. I have also personally directed, reviewed, and agree with the discharge instructions and disposition.
== END 2018-05-01 01:03 | disposition home or self-care (01) ==
LOC: C.ER 00:04
DX: J30.9 Allergic rhinitis, unspecified (principal); R09.81 Nasal congestion

== ENCOUNTER 2018-05-07 05:20 | Emergency (ER) | payer MEDICARE ==
[2018-05-07 05:20] VITALS: BMI 23.0
--- NOTE | 2018-05-07 06:00 | C.PDOC ---
Addendum entered and electronically signed by Sharron Briceño PA 05/08/18 04:11: Addendum Addendum: 05/08/18 04:03 78 y/o female, with history of hypertension and sinusitis, comes in to ER complaining of increased congestion that she states is causing her to spit. States she has had these symptoms for 6+ months and has been evaluated by an ENT and by her PMD. Patient was treated by multiple antibiotics and had a repeat CT informing her the sinusitis has resolved. Patient has had multiple ER visits for the same complaint, including six in the last month. No new symptoms. Son at bedside, notes no changes in mothers demeanor. H/o of similar episodes "many times". Denies fever, chest pain, SOB, headache, dizziness, syncope, difficulty breathing, or swallowing. ED Course And Treatment O2 Sat by Pulse Oximetry: 98 (RA) Pulse Ox Interpretation: Normal Progress Note: Pt was given saline nebulizer and xanax. On re-evaluation, pt is sleeping. No spitting. Swallowing and breathing easily. Upon awakening, pt notes improvement of symptoms. Tolerating PO. Afebrile. Pt instructed to follow up with ENT in 1-2 days. Discussed return precautions. Original Note: History Of Present Illness 78 y/o female, with history of hypertension and sinusitis, comes in to ER complaining of increased congestion that she states is causing her to spit. States she has had these symptoms for 6+ months and has been evaluated by an ENT and by her PMD. Patient was treated by multiple antibiotics and currently taking xanax. Patient has had multiple ER visits for the same complaint, including six in the last month. Denies fever, chest pain, SOB, headache, dizziness, syncope, difficulty breathing, or swallowing. Time Seen by Provider: 05/07/18 05:34 Chief Complaint (Nursing): Cough, Cold, Congestion History Per: Patient History/Exam Limitations: no limitations Onset/Duration Of Symptoms: Days Current Symptoms Are (Timing): Still Present Past Medical History Reviewed: Historical Data, Nursing Documentation, Vital Signs Vital Signs: Last Vital Signs Temp 98.2 F 05/07/18 05:52 Pulse 73 05/07/18 05:52 Resp 12 05/07/18 05:52 BP 148/69 11/04/18 05:52 Pulse Ox 98 05/07/18 05:52 - Medical History PMH: Anxiety, HTN Denies: Chronic Kidney Disease Surgical History: Tonsillectomy Family History: States: No Known Family Hx - Social History Hx Alcohol Use: No Hx Substance Use: No - Immunization History Hx Tetanus Toxoid Vaccination: No Hx Influenza Vaccination: No Hx Pneumococcal Vaccination: No Review Of Systems Constitutional: Negative for: Fever, Chills ENT: Positive for: Nose Congestion Cardiovascular: Negative for: Chest Pain Respiratory: Negative for: Shortness of Breath, Other (Dyspnea) Gastrointestinal: Negative for: Nausea, Vomiting, Diarrhea Neurological: Negative for: Headache, Dizziness, Other (syncope) Physical Exam - Physical Exam Appears: Non-toxic, No Acute Distress, Other (anxious) Skin: Warm, Dry Head: Atraumatic, Normacephalic Eye(s): bilateral: Normal Inspection Nose: Other (nasal congestion) Oral Mucosa: Moist, Other (Spitting clear white saliva) Cardiovascular: Rhythm Regular, No Murmur Respiratory: Normal Breath Sounds, No Rales, No Rhonchi, No Wheezing Neurological/Psych: Oriented x3, Normal Speech ED Course And Treatment O2 Sat by Pulse Oximetry: 98 (RA) Pulse Ox Interpretation: Normal Progress Note: Xanax administered. Disposition - Disposition Referrals: Bruno Bruno MD [Staff Provider] - Disposition: HOME/ ROUTINE Disposition Time: 06:30 Condition: STABLE Additional Instructions: Follow up with the ENT in 1-2 days. 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 - Scribe Statement The provider has reviewed the documentation as recorded by the Scribe (Armida Girard) All medical record entries made by the Scribe were at my direction and personally dictated by me. I have reviewed the chart and agree that the record accurately reflects my personal performance of the history, physical exam, medical decision making, and the department course for this patient. I have also personally directed, reviewed, and agree with the discharge instructions and disposition.
[2018-05-07 06:50] VITALS: BP 140/72; PULSE 67; RESP 20; TEMP 98.1; O2SAT 100
== END 2018-05-07 06:50 | disposition home or self-care (01) ==
LOC: C.ER 05:20
DX: R09.81 Nasal congestion (principal)

== ENCOUNTER 2018-05-09 07:43 | Inpatient (IN) | payer MEDICARE, OTHER ==
[2018-05-09 07:44] VITALS: BMI 23.0
[2018-05-09 08:27] LABS: BASO % 0.4 % (0.0-2.0); EOS # 0.3 K/uL (0.0-0.7); EOS % 4.2 % (0.0-4.0); HEMOGLOBIN 14.2 g/dL (11.0-16.0); LYMPH # 2.2 K/uL (1.0-4.3); LYMPH % 36.4 % (20.0-40.0); MEAN CELL VOLUME 87.2 fL (81.0-99.0); MEAN CORPUSCULAR HEMOGLOBIN 29.8 pg (27.0-31.0); MEAN CORPUSCULAR HGB CONC 34.2 g/dL (33.0-37.0); MONO # 0.4 K/uL (0.0-0.8); NEUT # 3.1 K/uL (1.8-7.0); NRBC % 0.1 % (0.0-2.0); RBC 4.77 Mil/uL (3.80-5.20); RED CELL DISTRIBUTION WIDTH 13.4 % (11.5-14.5)
[2018-05-09 08:30] LABS: WHITE BLOOD COUNT 6.1 K/uL (4.8-10.8)
--- NOTE | 2018-05-09 08:38 | C.PDOC ---
History Of Present Illness 78-year-old female is brought to the emergency department by EMS accompanied by son, with complaints of one episode of syncope which happened an hour prior to arrival. Patient states she felt dizzy/light headed, and then "passed out" on her bed for about ten minutes, witnessed by her other son. Patient is complaining of chronic nasal congestion, and coughing, for which she takes Mucinex. Patient denies chest pain, palpitations, shortness of breath, abdominal pain, nausea/vomiting, diarrhea, or any other associated symptoms. No other complaints at this time. Time Seen by Provider: 05/09/18 07:44 Chief Complaint (Nursing): Syncope History Per: Patient, Family History/Exam Limitations: no limitations Past Medical History Reviewed: Historical Data, Nursing Documentation, Vital Signs - Medical History PMH: Anxiety, HTN Denies: Chronic Kidney Disease Surgical History: Tonsillectomy Family History: States: No Known Family Hx - Social History Hx Alcohol Use: No Hx Substance Use: No - Immunization History Hx Tetanus Toxoid Vaccination: No Hx Influenza Vaccination: No Hx Pneumococcal Vaccination: No Review Of Systems Constitutional: Negative for: Fever ENT: Positive for: Nose Discharge, Nose Congestion Cardiovascular: Positive for: Light Headedness. Negative for: Chest Pain, Palpitations, Edema Respiratory: Positive for: Cough. Negative for: Shortness of Breath Neurological: Positive for: Dizziness. Negative for: Weakness, Numbness Physical Exam - Physical Exam Appears: Non-toxic, No Acute Distress, Other (coughing up mucus occasionally) Skin: Warm, Dry, No Rash Head: Atraumatic Eye(s): bilateral: Normal Inspection Nose: Normal Oral Mucosa: Moist Lips: Normal Appearing Neck: Normal ROM Chest: Symmetrical Cardiovascular: Rhythm Regular, No Murmur Respiratory: No Decreased Breath Sounds, No Accessory Muscle Use, Rales (mild, at bases. Left>Right)), No Rhonchi, No Wheezing Gastrointestinal/Abdominal: Soft, No Tenderness Extremity: Normal ROM, No Deformity Neurological/Psych: Oriented x3, Normal Speech ED Course And Treatment - Laboratory Results Result Diagrams: 05/09/18 08:22 05/09/18 08:22 Interpretation Of ECG: left axis deviation. No acute ST/T wave changes Rate From EC - CT Scan/US ct head Other Rad Studies (CT/US): Read By Radiologist, Radiology Report Reviewed CT/US Interpretation: Accession No. : [id number]. Patient Name / ID : MARGI ERVIN / [id number]. Exam Date : 05/09/2018 08:51:55 ( Approved ). Study Comment : Sex / Age : F / 78Y. Creator : Bruno Randhawa. Dictator : Mel Field V. Category Consultant : Canine Service Instructor Trainer : Mel Gordon V. Approver2 : Report Date : 05/09/2018 08:56:28. My Comment : . Date of service: 05/09/2018. PROCEDURE: CT HEAD WITHOUT CONTRAST. HISTORY: syncope. COMPARISON: 01/10/2018. TECHNIQUE: Axial computed tomography images were obtained through the head/brain without intravenous contrast. Radiation dose: Total exam DLP = 954.44 mGy-cm. This CT exam was performed using one or more of the following dose reduction techniques: Automated exposure control, adjustment of the mA and/or kV according to patient size, and/or use of iterative reconstruction technique. FINDINGS: HEMORRHAGE: No intracranial hemorrhage. BRAIN: No mass effect or edema. Mild cerebral atrophy. There may be trace chronic microvascular ischemic changes.-no significant appearing chronic ischemic changes noted. VENTRICLES: Unremarkable. No hydrocephalus. CALVARIUM: Unremarkable. PARANASAL SINUSES: Unremarkable as visualized. No significant inflammatory changes. MASTOID AIR CELLS: Unremarkable as visual ized. No inflammatory changes. OTHER FINDINGS: Incidental bilateral basal ganglion calcifications not believed to be clinically significant-similar appearing. Posterior benign-appearing dural calcification. IMPRESSION: No intracranial hemorrhage or mass effect. Cerebral atrophy. No interval p athology noted. Progress Note: Bloodwork, CT head, Chest XR and UA ordered and reviewed. Disposition - Disposition Forms: [employer] (Albanian) - Scribe Statement The provider has reviewed the documentation as recorded by the Scribe (Daylin Renae) Provider Attestation: All medical record entries made by the Scribe were at my direction and personally dictated by me. I have reviewed the chart and agree that the record accurately reflects my personal performance of the history, physical exam, medical decision making, and the department course for this patient. I have also personally directed, reviewed, and agree with the discharge instructions and disposition.
[2018-05-09 08:41] LABS: ALB/GLOB RATIO 1.7 (1.0-2.1); ALBUMIN 4.3 g/dL (3.5-5.0); ALT/SGPT 26 U/L (9-52); AST/SGOT 35 U/L (14-36); BLOOD UREA NITROGEN 16 mg/dL (7-17); CALCIUM 9.4 mg/dl (8.6-10.4); GFR NON-AFRICAN AMERICAN > 60
[2018-05-09 08:56] LABS: B-TYPE NATRIURETIC PEPTIDE 168 pg/mL (0-900); CK-MB 0.98 ng/mL (0.0-3.38)
--- NOTE | 2018-05-09 09:11 | CT ---
Date of service: 05/09/2018 PROCEDURE: CT HEAD WITHOUT CONTRAST. HISTORY: syncope COMPARISON: 01/10/2018 TECHNIQUE: Axial computed tomography images were obtained through the head/brain without intravenous contrast. Radiation dose: Total exam DLP = 954.44 mGy-cm. This CT exam was performed using one or more of the following dose reduction techniques: Automated exposure control, adjustment of the mA and/or kV according to patient size, and/or use of iterative reconstruction technique. FINDINGS: HEMORRHAGE: No intracranial hemorrhage. BRAIN: No mass effect or edema. Mild cerebral atrophy. There may be trace chronic microvascular ischemic changes.-no significant appearing chronic ischemic changes noted VENTRICLES: Unremarkable. No hydrocephalus. CALVARIUM: Unremarkable. PARANASAL SINUSES: Unremarkable as visualized. No significant inflammatory changes. MASTOID AIR CELLS: Unremarkable as visualized. No inflammatory changes. OTHER FINDINGS: Incidental bilateral basal ganglion calcifications not believed to be clinically significant-similar appearing. Posterior benign-appearing dural calcification IMPRESSION: No intracranial hemorrhage or mass effect. Cerebral atrophy. No interval pathology noted.
[2018-05-09] MEDS ORDERED: Potassium Chloride 20 mEq ER Tab PO STA (09:23)
--- NOTE | 2018-05-09 09:55 | RAD ---
Date of service: 05/09/2018 PROCEDURE: CHEST RADIOGRAPH, 1 VIEW HISTORY: syncope COMPARISON: 03/01/2018 FINDINGS: LUNGS: Clear. PLEURA: No pneumothorax or pleural fluid seen. CARDIOVASCULAR: Normal. OSSEOUS STRUCTURES: No significant abnormalities. VISUALIZED UPPER ABDOMEN: Normal. OTHER FINDINGS: None. IMPRESSION: No active disease.
[2018-05-09] MEDS ORDERED: Potassium Chloride 20 mEq ER Tab PO ONE (10:12)
[2018-05-09] MEDS: Moxifloxacin IV 400mg/250ml NS 400 MG/250 ML BAG IVPB SCH (16:46)
[2018-05-09 17:27] LABS: CK-MB 0.91 ng/mL (0.0-3.38)
[2018-05-09] MEDS: Fluticasone Nasal 50 mcg/Spray NS SCH (18:22)
--- NOTE | 2018-05-09 21:21 | CP.PCM.HP ---
Past Patient History - Infectious Disease Hx of Infectious Diseases: None - Past Medical History & Family History Past Medical History?: Yes - Past Social History Smoking Status: Former Smoker - CARDIAC Hx Hypertension: Yes - PULMONARY Hx Pneumonia: Yes - NEUROLOGICAL Hx Neurological Disorder: No - HEENT Hx HEENT Problems: Yes Other/Comment: excessive salivation - RENAL Hx Chronic Kidney Disease: No - ENDOCRINE/METABOLIC Hx Endocrine Disorders: No - HEMATOLOGICAL/ONCOLOGICAL Hx Blood Disorders: No - INTEGUMENTARY Hx Dermatological Problems: No - MUSCULOSKELETAL/RHEUMATOLOGICAL Hx Musculoskeletal Disorders: No Hx Falls: No - GASTROINTESTINAL Hx Gastrointestinal Disorders: No - GENITOURINARY/GYNECOLOGICAL Hx Genitourinary Disorders: No - PSYCHIATRIC Hx Anxiety: Yes Hx Substance Use: No - SURGICAL HISTORY Hx Tonsillectomy: Yes Other/Comment: Hiatal Hernia Repair - ANESTHESIA Hx Anesthesia: Yes Hx Anesthesia Reactions: No Meds Allergies/Adverse Reactions: Allergies Allergy/AdvReac Type Severity Reaction Status Date / Time No Known Allergies Allergy Verified 05/01/18 00:11 Physical Exam - Constitutional Appears: Well - Head Exam Head Exam: ATRAUMATIC, NORMAL INSPECTION, NORMOCEPHALIC - Eye Exam Eye Exam: EOMI, Normal appearance, PERRL Pupil Exam: NORMAL ACCOMODATION, PERRL - ENT Exam ENT Exam: Mucous Membranes Moist, Normal Exam - Neck Exam Neck exam: Positive for: Normal Inspection - Respiratory Exam Respiratory Exam: Decreased Breath Sounds - Cardiovascular Exam Cardiovascular Exam: REGULAR RHYTHM, +S1, +S2 - GI/Abdominal Exam GI & Abdominal Exam: Diminished Bowel Sounds, Soft - Rectal Exam Rectal Exam: Deferred Results - Vital Signs Recent Vital Signs: Last Vital Signs Temp 97.5 F L 05/09/18 16:00 Pulse 72 05/09/18 18:47 Resp 20 05/09/18 16:00 BP 102/71 05/09/18 16:00 Pulse Ox 96 05/09/18 16:00 - Labs Result Diagrams: 05/09/18 08:22 05/09/18 08:22 Labs: Laboratory Results - last 24 hr 05/09/18 05/09/18 05/09/18 08:04 08:22 08:22 WBC 6.1 D RBC 4.77 Hgb 14.2 Hct 41.6 MCV 87.2 MCH 29.8 MCHC 34.2 RDW 13.4 Plt Count 389 MPV 8.0 Neut % (Auto) 52.0 Lymph % (Auto) 36.4 [place] % (Auto) 7.0 Eos % (Auto) 4.2 H Baso % (Auto) 0.4 Neut # (Auto) 3.1 Lymph # (Auto) 2.2 [place] # (Auto) 0.4 Eos # (Auto) 0.3 Baso # (Auto) 0.0 APTT 36 H Sodium Potassium Chloride Carbon Dioxide Anion Gap BUN Creatinine Est GFR ( Amer) Est GFR (Non-Af Amer) POC Glucose (mg/dL) 110 Random Glucose Calcium Total Bilirubin AST ALT Alkaline Phosphatase Total Creatine Kinase CK-MB (Mass) Troponin I NT-Pro-B Natriuret Pep Total Protein Albumin Globulin Albumin/Globulin Ratio 05/09/18 05/09/18 08:22 16:55 WBC RBC Hgb Hct MCV MCH MCHC RDW Plt Count MPV Neut % (Auto) Lymph % (Auto) [place] % (Auto) Eos % (Auto) Baso % (Auto) Neut # (Auto) Lymph # (Auto) [place] # (Auto) Eos # (Auto) Baso # (Auto) APTT Sodium 139 Potassium 3.5 L Chloride 97 L Carbon Dioxide 30 Anion Gap 15 BUN 16 Creatinine 0.7 Est GFR ( Amer) > 60 Est GFR (Non-Af Amer) > 60 POC Glucose (mg/dL) Random Glucose 118 H Calcium 9.4 Total Bilirubin 0.9 AST 35 ALT 26 Alkaline Phosphatase 83 Total Creatine Kinase 38 33 CK-MB (Mass) 0.98 0.91 Troponin I < 0.0120 < 0.0120 NT-Pro-B Natriuret Pep 168 Total Protein 6.9 Albumin 4.3 Globulin 2.6 Albumin/Globulin Ratio 1.7
[2018-05-10] MEDS: Albuterol-Ipratrop 3 mg / 0.5 (3 ml) UD INH SCH ×4 (01:17→19:50)
[2018-05-10] MEDS ORDERED: Albuterol-Ipratrop 3 mg / 0.5 (3 ml) UD INH SCH ×2 (02:00→20:57)
--- NOTE | 2018-05-10 07:19 | CP.PCM.CON ---
History of Present Illness - History of Present Illness History of Present Illness: CONSULT DICTATED NEW ONSET OF SYNCOPE CHRONIC SINUS ISSUES R/O NEUROGENIC CAUSE EEG/BLOOD WORK UP ENT TO SEE NEUROPATHY - INCIDENTAL Past Patient History - Infectious Disease Hx of Infectious Diseases: None - Past Medical History & Family History Past Medical History?: Yes - Past Social History Smoking Status: Former Smoker - CARDIAC Hx Hypertension: Yes - PULMONARY Hx Pneumonia: Yes - NEUROLOGICAL Hx Neurological Disorder: No - HEENT Hx HEENT Problems: Yes Other/Comment: excessive salivation - RENAL Hx Chronic Kidney Disease: No - ENDOCRINE/METABOLIC Hx Endocrine Disorders: No - HEMATOLOGICAL/ONCOLOGICAL Hx Blood Disorders: No - INTEGUMENTARY Hx Dermatological Problems: No - MUSCULOSKELETAL/RHEUMATOLOGICAL Hx Musculoskeletal Disorders: No Hx Falls: No - GASTROINTESTINAL Hx Gastrointestinal Disorders: No - GENITOURINARY/GYNECOLOGICAL Hx Genitourinary Disorders: No - PSYCHIATRIC Hx Anxiety: Yes Hx Substance Use: No - SURGICAL HISTORY Hx Tonsillectomy: Yes Other/Comment: Hiatal Hernia Repair - ANESTHESIA Hx Anesthesia: Yes Hx Anesthesia Reactions: No Meds Allergies/Adverse Reactions: Allergies Allergy/AdvReac Type Severity Reaction Status Date / Time No Known Allergies Allergy Verified 05/01/18 00:11 - Medications Medications: Current Medications Albuterol/Ipratropium (Duoneb 3 Mg/0.5 Mg (3 Ml) Ud) 3 ml INH RQ6 [facility] Last Admin: 05/10/18 01:17 Dose: 3 ml Alprazolam (Xanax) 1 mg PO Q12 PRN PRN Reason: Anxiety Last Admin: 05/09/18 21:12 Dose: 1 mg Amlodipine Besylate (Norvasc) 5 mg PO DAILY [facility] Aspirin (Aspirin Chewable) 81 mg PO DAILY [facility] Last Admin: 05/09/18 16:38 Dose: 81 mg Enoxaparin Sodium (Lovenox) 40 mg SC DAILY [facility] Fluticasone Propionate (Flonase) 1 spr NS BID [facility] Last Admin: 05/09/18 18:22 Dose: 1 spr Moxifloxacin HCl (Avelox Iv 400mg/250ml Ns) 400 mg in 250 mls @ 167 mls/hr IVPB Q24H [facility]; Protocol Last Admin: 05/09/18 16:46 Dose: Not Given Pseudoephedrine HCl (Sudafed Tab) 60 mg PO BID [facility] Last Admin: 05/09/18 21:12 Dose: 60 mg Results - Vital Signs Recent Vital Signs: Last Vital Signs Temp 98.6 F 05/09/18 23:35 Pulse 72 05/09/18 23:35 Resp 20 05/09/18 23:35 BP 115/68 05/09/18 23:35 Pulse Ox 96 05/09/18 23:35 - Labs Result Diagrams: 05/09/18 08:22 05/09/18 08:22 Labs: Laboratory Results - last 24 hr 05/09/18 05/09/18 05/09/18 08:04 08:22 08:22 WBC 6.1 D RBC 4.77 Hgb 14.2 Hct 41.6 MCV 87.2 MCH 29.8 MCHC 34.2 RDW 13.4 Plt Count 389 MPV 8.0 Neut % (Auto) 52.0 Lymph % (Auto) 36.4 [place] % (Auto) 7.0 Eos % (Auto) 4.2 H Baso % (Auto) 0.4 Neut # (Auto) 3.1 Lymph # (Auto) 2.2 [place] # (Auto) 0.4 Eos # (Auto) 0.3 Baso # (Auto) 0.0 APTT 36 H Sodium Potassium Chloride Carbon Dioxide Anion Gap BUN Creatinine Est GFR ( Amer) Est GFR (Non-Af Amer) POC Glucose (mg/dL) 110 Random Glucose Calcium Total Bilirubin AST ALT Alkaline Phosphatase Total Creatine Kinase CK-MB (Mass) Troponin I NT-Pro-B Natriuret Pep Total Protein Albumin Globulin Albumin/Globulin Ratio 05/09/18 05/09/18 08:22 16:55 WBC RBC Hgb Hct MCV MCH MCHC RDW Plt Count MPV Neut % (Auto) Lymph % (Auto) [place] % (Auto) Eos % (Auto) Baso % (Auto) Neut # (Auto) Lymph # (Auto) [place] # (Auto) Eos # (Auto) Baso # (Auto) APTT Sodium 139 Potassium 3.5 L Chloride 97 L Carbon Dioxide 30 Anion Gap 15 BUN 16 Creatinine 0.7 Est GFR ( Amer) > 60 Est GFR (Non-Af Amer) > 60 POC Glucose (mg/dL) Random Glucose 118 H Calcium 9.4 Total Bilirubin 0.9 AST 35 ALT 26 Alkaline Phosphatase 83 Total Creatine Kinase 38 33 CK-MB (Mass) 0.98 0.91 Troponin I < 0.0120 < 0.0120 NT-Pro-B Natriuret Pep 168 Total Protein 6.9 Albumin 4.3 Globulin 2.6 Albumin/Globulin Ratio 1.7
[2018-05-10 09:16] LABS: FOLATE 6.9 ng/mL
[2018-05-10] MEDS: Fluticasone Nasal 50 mcg/Spray NS SCH ×2 (10:11→17:50)
[2018-05-10] MEDS: Enoxaparin 40 mg Syringe SC SCH (10:19)
[2018-05-10 14:54] LABS: SQUAMOUS EPITHIAL 11 /hpf (0-5); URINE BACTERIA RARE (<OCC); URINE BILIRUBIN NEGATIVE (NEGATIVE); URINE BLOOD NEGATIVE (NEGATIVE); URINE CLARITY Hazy (Clear); URINE COLOR Yellow (YELLOW); URINE GLUCOSE (UA) NORMAL (Normal); URINE LEUKOCYTE ESTERASE 1+ Leu/uL (Negative); URINE PROTEIN NEGATIVE (NEGATIVE); URINE UROBILINOGEN NORMAL mg/dL (0.2-1.0)
--- NOTE | 2018-05-10 16:37 | CP.PCM.PN ---
Subjective - Date & Time of Evaluation Date of Evaluation: 05/10/18 Time of Evaluation: 09:00 - Subjective Subjective: clinically same Objective - Vital Signs/Intake and Output Vital Signs (last 24 hours): Temp Pulse Resp BP Pulse Ox 98.3 F 68 20 116/61 100 05/10/18 15:00 05/10/18 15:00 05/10/18 15:00 05/10/18 15:00 05/10/18 15:00 Intake and Output: 05/10/18 05/10/18 06:59 18:59 Intake Total 350 Balance 350 - Medications Medications: Current Medications Albuterol/Ipratropium (Duoneb 3 Mg/0.5 Mg (3 Ml) Ud) 3 ml INH RQ6 [facility] Last Admin: 05/10/18 13:22 Dose: Not Given Alprazolam (Xanax) 1 mg PO Q12 PRN PRN Reason: Anxiety Last Admin: 05/09/18 21:12 Dose: 1 mg Amlodipine Besylate (Norvasc) 5 mg PO DAILY [facility] Last Admin: 05/10/18 10:11 Dose: 5 mg Aspirin (Aspirin Chewable) 81 mg PO DAILY [facility] Last Admin: 05/10/18 10:10 Dose: 81 mg Enoxaparin Sodium (Lovenox) 40 mg SC DAILY [facility] Last Admin: 05/10/18 10:19 Dose: 40 mg Fluticasone Propionate (Flonase) 1 spr NS BID [facility] Last Admin: 05/10/18 10:11 Dose: 1 spr Moxifloxacin HCl (Avelox Iv 400mg/250ml Ns) 400 mg in 250 mls @ 167 mls/hr IVPB Q24H [facility]; Protocol Last Admin: 05/09/18 16:46 Dose: Not Given Pseudoephedrine HCl (Sudafed Tab) 60 mg PO BID [facility] Last Admin: 05/10/18 10:15 Dose: 60 mg - Labs Labs: 05/09/18 08:22 05/09/18 08:22 APTT 36 SECONDS (21-34) H 05/09/18 08:22 - Constitutional Appears: Well - Head Exam Head Exam: ATRAUMATIC, NORMAL INSPECTION, NORMOCEPHALIC - Eye Exam Eye Exam: EOMI, Normal appearance, PERRL Pupil Exam: NORMAL ACCOMODATION, PERRL - ENT Exam ENT Exam: Mucous Membranes Moist, Normal Exam - Neck Exam Neck Exam: Full ROM, Normal Inspection. absent: Lymphadenopathy - Respiratory Exam Respiratory Exam: Decreased Breath Sounds - Cardiovascular Exam Cardiovascular Exam: REGULAR RHYTHM, +S1, +S2 - GI/Abdominal Exam GI & Abdominal Exam: Soft, Diminished Bowel Sounds - Rectal Exam Rectal Exam: Deferred
[2018-05-10] MEDS: Moxifloxacin IV 400mg/250ml NS 400 MG/250 ML BAG IVPB SCH (17:01)
--- NOTE | 2018-05-10 19:15 | CON ---
DATE: 05/10/2018 ATTENDING PHYSICIAN: Molly Castellanos MD LOCATION: The patient is in room number 657, bed B. REASON FOR CONSULTATION: Syncopal attack. CHIEF COMPLAINT: The patient was brought into [facility] by her family members with a history of syncopal attack. She claims that before she passed out, she felt like dizzy and blurry vision, the next thing she realized she lost her consciousness. No witnessed tonic-clonic activities at the scene. No bowel or bladder incontinence or bitten tongue at the scene. Never had this problem in the past; however, she admitted that since January she has been weak, losing her weight, nasal congestion, coughing, sneezing and been treated at [facility] with antibiotic. She was told lately that she does not have any infection, only the congestion at present; however, she does not believe that. No history of headache. No history of visual or bulbar dysfunction at this time. PAST MEDICAL HISTORY: Anxiety disorder and hypertension. PERSONAL HISTORY Denies smoking or alcohol use. ALLERGIES: NO ALLERGIES. REVIEW OF SYSTEMS: Twelve-point system being reviewed. From neuro, new onset of syncope. MEDICATIONS: Aspirin, Avelox, DuoNeb, Flonase, Lovenox, Norvasc, Sudafed and Xanax. PHYSICAL EXAMINATION: VITAL SIGNS: Blood pressure 115/68, mean arterial pressure 83, respiratory rate 18, temperature 98.6 with a pulse rate of 72 and regular. NECK: Supple. No carotid bruits. HEART: Sounds are regular. CHEST: Fair air entry. EXTREMITIES: No edema in the legs. NEUROLOGIC: Mental status: She is awake, alert and oriented to person, place and time. Speech is clear. Naming, repetition, fluency and comprehension are all within normal. No anterograde amnesia. No retrograde amnesia. No confabulation. No sign of depression. Cranial nerves: Visual field intact. Pupils reactive to light. Extraocular movement normal. No nystagmus. No facial sensory deficit. No facial asymmetry. Hearing is normal. Tongue is midline. Good gag. Motor: Outstretched hand with eyes closed, no drift noted. Mild sensory tremor noted. No asterixis. No fasciculation noted at the rest. Deep tendon reflexes are absent throughout. Plantars are downgoing. Sensory: Mildly distal sensorimotor neuropathy. Posterior column is intact. Coordination: [id number] test is intact. Gait is deferred at this time. CONCLUSION: As per neurological examination, Ms. Samantha Gonzalez is presenting with a new onset of syncopal attack with preceding cough and sneezing, been on some medication for her sinus problem. These are all related to her preexisting problem and medication. However, from neurological point of view, neurogenic cause should be ruled out such as vertebrobasilar insufficiency versus seizures. The patient has been suffering from peripheral neuropathy which is an incidental finding. Blood workup, WBC 6.1, hemoglobin 14.2, hematocrit 41.6, platelets 389. PTT 36. Sodium 139, potassium 3.5, chloride 97, bicarbonate 30, BUN 16, creatinine 0.7, GFR more than 68, glucose 118. CT of the head reviewed by me. No acute pathology is noted. Mild atrophy. EKG, normal sinus rhythm. RECOMMENDATION: 1. The patient should be hydrated well, out of bed. 2. Physical therapy should be entertained. 3. Continue antiplatelets for now. 4. Electroencephalogram to be done to rule out any paroxysmal activities. 5. Carotid Doppler to assess any physiological stenosis. The patient's condition has been discussed. I recommend her to be seen by ENT as well prior to discharge. Toño Castillo MD
--- NOTE | 2018-05-10 19:53 | CARD ---
APPROVED REPORT Date of service: 05/09/2018 EKG Measurement Heart [id number] <Conclusion> Normal sinus rhythm Left axis deviation Minimal voltage criteria for LVH, may be normal variant Possible Anterolateral infarct, age undetermined Abnormal ECG
[2018-05-11] MEDS: Albuterol-Ipratrop 3 mg / 0.5 (3 ml) UD INH SCH ×4 (02:55→19:38)
[2018-05-11] MEDS: Fluticasone Nasal 50 mcg/Spray NS SCH ×2 (09:49→18:27)
[2018-05-11] MEDS: Enoxaparin 40 mg Syringe SC SCH (09:50)
--- NOTE | 2018-05-11 09:55 | PN ---
DATE: 05/11/2018 TIME OF EVALUATION: 07:15 a.m. NEUROLOGICAL PROBLEM: Syncopal attack. PHYSICAL EXAMINATION: VITAL SIGNS: Blood pressure 125/65, mean arterial pressure of 85, respiratory rate 18, temperature 97.7, pulse rate is 64 and regular. ASSESSMENT AND PLAN: The patient is deeply sleeping; however, she responds to verbal stimuli on calling her first name. She seems to be improved with the current treatment including antibiotics. No new symptoms. Her examination, which is unchanged to compare with my previous examination. The patient will be followed while she is in the hospital. Toño Castillo MD
--- NOTE | 2018-05-11 16:06 | CP.PCM.PN ---
Subjective - Date & Time of Evaluation Date of Evaluation: 05/11/18 Time of Evaluation: 10:30 - Subjective Subjective: clinically same Objective - Vital Signs/Intake and Output Vital Signs (last 24 hours): Temp Pulse Resp BP Pulse Ox 98.5 F 59 L 20 110/65 100 05/11/18 07:00 05/11/18 08:45 05/11/18 07:00 05/11/18 07:00 05/11/18 07:00 - Medications Medications: Current Medications Albuterol/Ipratropium (Duoneb 3 Mg/0.5 Mg (3 Ml) Ud) 3 ml INH RQ6 [facility] Last Admin: 05/11/18 13:20 Dose: Not Given Alprazolam (Xanax) 1 mg PO Q12 PRN PRN Reason: Anxiety Last Admin: 05/11/18 15:49 Dose: 1 mg Amlodipine Besylate (Norvasc) 5 mg PO DAILY [facility] Last Admin: 05/11/18 09:51 Dose: 5 mg Aspirin (Aspirin Chewable) 81 mg PO DAILY [facility] Last Admin: 05/11/18 09:51 Dose: 81 mg Enoxaparin Sodium (Lovenox) 40 mg SC DAILY [facility] Last Admin: 05/11/18 09:50 Dose: 40 mg Fluticasone Propionate (Flonase) 1 spr NS BID [facility] Last Admin: 05/11/18 09:49 Dose: 1 spr Guaifenesin/Dextromethorphan (Robitussin Dm) 10 ml PO TID [facility] Pseudoephedrine HCl (Sudafed Tab) 60 mg PO BID [facility] Last Admin: 05/11/18 09:51 Dose: 60 mg - Labs Labs: 05/09/18 08:22 05/09/18 08:22 APTT 36 SECONDS (21-34) H 05/09/18 08:22 - Constitutional Appears: Well - Head Exam Head Exam: ATRAUMATIC, NORMAL INSPECTION, NORMOCEPHALIC - Eye Exam Eye Exam: EOMI, Normal appearance, PERRL Pupil Exam: NORMAL ACCOMODATION, PERRL - ENT Exam ENT Exam: Mucous Membranes Moist, Normal Exam - Neck Exam Neck Exam: Full ROM, Normal Inspection. absent: Lymphadenopathy - Respiratory Exam Respiratory Exam: Decreased Breath Sounds - Cardiovascular Exam Cardiovascular Exam: REGULAR RHYTHM, +S1, +S2 - GI/Abdominal Exam GI & Abdominal Exam: Soft, Diminished Bowel Sounds - Rectal Exam Rectal Exam: Deferred
--- NOTE | 2018-05-11 17:57 | CP.PCM.CON ---
History of Present Illness - History of Present Illness History of Present Illness: Patient is a 78 y/o female with PMHx of HTN and anxiety, who was brought to the ED by her son after one episode of syncope, which happened one hour prior to arrival. Patient states she felt dizzy and had to lie down in bed for about 10 minutes, but she does not remember "fainting." Pulmonology was consulted because patient has been complaining of chronic nasal congestion and coughing, for which she has been taking Mucinex with no improvement. She states she had severe sinusitis in January 2018, for which she was treated with antibiotics; however, she states the nasal congestion and post-nasal drip never went away completely since. 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 Additionally, she states she had 35lb weight loss since January. Currently, patient complains of post-nasal drip, nasal congestion, cough with white phlegm, and occasional s hortness of breath. Denies fever, chest pain, leg swelling/pain. PMHx: sinusitis, anxiety, HTN, pneumonia, hiatal hernia PSHx: hiatal hernia repair (2003) Allergies: mold, dust Social: denies smoking (quit 20 yrs. ago), denies alcohol and drug use; lives with 2 sons Meds: Mucinex -CXR (05/09): no active disease. Review of Systems - Review of Systems All systems: reviewed and no additional remarkable complaints except (congestion ) Past Patient History - Infectious Disease Hx of Infectious Diseases: None - Past Medical History & Family History Past Medical History?: Yes - Past Social History Smoking Status: Former Smoker - CARDIAC Hx Hypertension: Yes - PULMONARY Hx Pneumonia: Yes - NEUROLOGICAL Hx Neurological Disorder: No - HEENT Hx HEENT Problems: Yes Other/Comment: excessive salivation - RENAL Hx Chronic Kidney Disease: No - ENDOCRINE/METABOLIC Hx Endocrine Disorders: No - HEMATOLOGICAL/ONCOLOGICAL Hx Blood Disorders: No - INTEGUMENTARY Hx Dermatological Problems: No - MUSCULOSKELETAL/RHEUMATOLOGICAL Hx Musculoskeletal Disorders: No Hx Falls: No - GASTROINTESTINAL Hx Gastrointestinal Disorders: No - GENITOURINARY/GYNECOLOGICAL Hx Genitourinary Disorders: No - PSYCHIATRIC Hx Anxiety: Yes Hx Substance Use: No - SURGICAL HISTORY Hx Tonsillectomy: Yes Other/Comment: Hiatal Hernia Repair - ANESTHESIA Hx Anesthesia: Yes Hx Anesthesia Reactions: No Meds Allergies/Adverse Reactions: Allergies Allergy/AdvReac Type Severity Reaction Status Date / Time No Known Allergies Allergy Verified 05/01/18 00:11 - Medications Medications: Current Medications Albuterol/Ipratropium (Duoneb 3 Mg/0.5 Mg (3 Ml) Ud) 3 ml INH RQ6 [facility] Last Admin: 05/11/18 13:20 Dose: Not Given Alprazolam (Xanax) 1 mg PO Q12 PRN PRN Reason: Anxiety Last Admin: 05/11/18 15:49 Dose: 1 mg Amlodipine Besylate (Norvasc) 5 mg PO DAILY [facility] Last Admin: 05/11/18 09:51 Dose: 5 mg Amoxicillin/Clavulanate Potassium (Augmentin 875 Mg-125 Mg Tab) 1 tab PO Q12H [facility]; Protocol Aspirin (Aspirin Chewable) 81 mg PO DAILY [facility] Last Admin: 05/11/18 09:51 Dose: 81 mg Enoxaparin Sodium (Lovenox) 40 mg SC DAILY [facility] Last Admin: 05/11/18 09:50 Dose: 40 mg Fluticasone Propionate (Flonase) 1 spr NS BID [facility] Last Admin: 05/11/18 09:49 Dose: 1 spr Guaifenesin/Dextromethorphan (Robitussin Dm) 10 ml PO TID [facility] Pseudoephedrine HCl (Sudafed Tab) 60 mg PO BID [facility] Last Admin: 05/11/18 09:51 Dose: 60 mg Physical Exam - Head Exam Head Exam: ATRAUMATIC, NORMOCEPHALIC - ENT Exam ENT Exam: Mucous Membranes Moist - Neck Exam Neck exam: Positive for: Normal Inspection - Respiratory Exam Respiratory Exam: Rales - Cardiovascular Exam Cardiovascular Exam: REGULAR RHYTHM - GI/Abdominal Exam GI & Abdominal Exam: Normal Bowel Sounds, Soft - Extremities Exam Extremities exam: Positive for: normal inspection Results - Vital Signs Recent Vital Signs: Last Vital Signs Temp 97.9 F 05/11/18 15:52 Pulse 66 05/11/18 16:00 Resp 20 05/11/18 15:52 BP 112/56 L 05/11/18 15:52 Pulse Ox 99 05/11/18 15:52 - Labs Result Diagrams: 05/09/18 08:22 05/09/18 08:22 Assessment & Plan (1) Allergic rhinitis Status: Acute (2) Post-nasal drip Status: Acute (3) Sinusitis Status: Acute
[2018-05-11] MEDS: Amoxicillin-Clav 875-125 mg Tab PO SCH (18:26)
[2018-05-11] MEDS: guaiFENesin DM 200 mg-20 mg/10 ml UD PO SCH (18:27)
[2018-05-12] MEDS: Albuterol-Ipratrop 3 mg / 0.5 (3 ml) UD INH SCH ×5 (00:03→19:59)
[2018-05-12] MEDS ORDERED: guaiFENesin DM 200 mg-20 mg/10 ml UD PO STA (02:50)
--- NOTE | 2018-05-12 04:51 | CARD ---
APPROVED REPORT Date of service: 05/11/2018 EXAM: Two-dimensional and M-mode echocardiogram with Doppler and color Doppler. Other Information Quality : GoodRhythm : INDICATION Syncope RISK FACTORS Hypertension 2D DIMENSIONS IVSd0.7 (0.7-1.1cm)Aortic Root (2D)3.2 (2.0-3.7cm) LVDd4.1 (3.9-5.9cm)PWd0.8 (0.7-1.1cm) LA Jodudd53 (18-58mL)LVDs2.6 (2.5-4.0cm) FS (%) 36.1 %LVEF (%)66.3 (>50%) LVEF (Baker's)55 %IVC0.00 cm M-Mode DIMENSIONS Left Atrium (MM)4.79 (2.5-4.0cm)IVSd0.85 (0.7-1.1cm) Aortic Root3.80 (2.2-3.7cm)LVDd5.20 (4.0-5.6cm) Aortic Cusp Exc.1.48 (1.5-2.0cm)PWd0.92 (0.7-1.1cm) FS (%) 44 %LVDs2.91 (2.0-3.8cm) LVEF (%)70 (>50%) Aortic Valve AI P 1/2 [id number] Mitral Valve MV E Lmsgwciz373.4cm/sMV A Gtydquiz684.2cm/sE/A ratio0.9 TDI Lateral E' Peak V7.38cm/sMedial E' Peak V7.19cm/sE/Lateral E'15.5 E/Medial E'15.9 Tricuspid Valve TR Peak Crvbzyjk263yp/sTR Peak Gr.[id number] LEFT VENTRICLE The left ventricle is normal size. There is normal left ventricular wall thickness. Left ventricle systolic function is normal. The Ejection Fraction is 65-70%. There is normal LV segmental wall motion. Tissue Doppler imaging reveals abnormal left ventricular diastolic dysfunction. RIGHT VENTRICLE The right ventricle is normal size. There is normal right ventricular wall thickness. The right ventricular systolic function is normal. ATRIA The left atrium is mildly dilated. The right atrium size is normal. The interatrial septum is intact with no evidence for an atrial septal defect. AORTIC VALVE The aortic valve is normal in structure. There is mild aortic regurgitation. There is no aortic valvular stenosis. There is no aortic valvular vegetation. MITRAL VALVE The mitral valve is normal in structure. There is no evidence of mitral valve prolapse. There is no mitral valve stenosis. Mitral regurgitation is mild. TRICUSPID VALVE The tricuspid valve is normal in structure. There is mild tricuspid regurgitation. Right ventricular systolic pressure is estimated at 30-40 mmHg. There is mild pulmonary hypertension. PULMONIC VALVE The pulmonic valve is not well visualized. There is no pulmonic valvular regurgitation. GREAT VESSELS The aortic root is normal in size. PERICARDIAL EFFUSION There is no pericardial effusion. <Conclusion> Left ventricle systolic function is normal. The Ejection Fraction is 65-70%. Diastolic dysfunction. There is mild aortic regurgitation. Mitral regurgitation is mild. There is mild tricuspid regurgitation. There is mild pulmonary hypertension. There is no pulmonic valvular regurgitation.
[2018-05-12] MEDS: Amoxicillin-Clav 875-125 mg Tab PO SCH ×2 (05:50→18:07)
[2018-05-12] MEDS: Enoxaparin 40 mg Syringe SC SCH (10:21)
[2018-05-12] MEDS: guaiFENesin DM 200 mg-20 mg/10 ml UD PO SCH ×3 (10:21→18:11)
[2018-05-12] MEDS: Fluticasone Nasal 50 mcg/Spray NS SCH ×2 (10:21→18:11)
--- NOTE | 2018-05-12 10:40 | VASCLAB ---
Date of service: 05/10/2018 PROCEDURE: Carotid Duplex Exam. HISTORY: Syncope COMPARISON: None available. TECHNIQUE: Grayscale and duplex Doppler evaluation of the cervical carotid and vertebral arteries were performed. The common carotid, carotid bifurcations and cervical Internal Carotid Artery (ICA) and proximal External Carotid Artery (ECA) were evaluated. The vertebral arteries were evaluated for gross patency and flow direction. Report prepared by Adan Fairchild, BS, RVT FINDINGS: RIGHT CAROTID ARTERIES: 1. Common Carotid Artery: No significant focal plaque formation of the right common carotid artery. Diffuse intimal hyperplasia. Maximum Peak Systolic velocity: 85 cm/sec: End-diastolic velocity 14 cm/sec. 2. Carotid Bifurcation: Mild calcific plaque formation. Maximum Peak Systolic velocity: 80 cm/sec: End-diastolic velocity 14 cm/sec. 3. Internal Carotid Artery: Mild heterogeneous plaque formation. 3.1. Proximal Segment: Peak systolic velocity 64 cm/sec: End-diastolic velocity 13 cm/sec - % stenosis 0-15% 3.2. Middle Segment: Peak systolic velocity 50 cm/sec: End-diastolic velocity 10 cm/sec - % stenosis 0-15% 3.3. Distal Segment: Peak systolic velocity 59 cm/sec: End-diastolic velocity 7 cm/sec - % stenosis 0-15% 4. External Carotid Artery: No significant focal plaque formation. Peak systolic velocity 82 cm/sec 5. ICA/CCA Ratio: 0.9 LEFT CAROTID ARTERIES: 1. Common Carotid Artery: No significant focal plaque formation of the left common carotid artery. Diffuse intimal hyperplasia. Maximum Peak Systolic velocity: 67 cm/sec: End-diastolic velocity 14 cm/sec. 2. Carotid Bifurcation: Heterogeneous plaque formation. Maximum Peak Systolic velocity: 61 cm/sec: End-diastolic velocity 15 cm/sec. 3. Internal Carotid Artery: Moderate partially ulcerated heterogeneous plaque formation. 3.1. Proximal Segment: Peak systolic velocity 70 cm/sec: End-diastolic velocity 17 cm/sec - % stenosis 0-15% 3.2. Middle Segment: Peak systolic velocity 90 cm/sec: End-diastolic velocity 21 cm/sec - % stenosis 0-15% 3.3. Distal Segment: Peak systolic velocity 78 cm/sec: End-diastolic velocity 20 cm/sec - % stenosis 0-15% 4. External Carotid Artery: Heterogeneous plaque formation. Peak systolic velocity 65 cm/sec 5. ICA/CCA Ratio: 1.3 VERTEBRAL ARTERIES: 1. Right Vertebral Artery: The right vertebral artery flow direction is antegrade. 2. Left Vertebral Artery: The left vertebral artery flow direction is antegrade. OTHER FINDINGS: 1. Right Brachial Blood pressure: 126 mmHg. IMPRESSION: RIGHT: Duplex scan does not suggest hemodynamically significant stenosis of the right extracranial carotid arteries. LEFT: Duplex scan does not suggest hemodynamically significant stenosis of the left extracranial carotid arteries. Moderate partially ulcerated plaque formation particularly in the proximal and middle segments.
[2018-05-12 12:22] LABS: HEMOGLOBIN 12.6 g/dL (11.0-16.0); MEAN CELL VOLUME 87.1 fL (81.0-99.0); MEAN CORPUSCULAR HEMOGLOBIN 30.2 pg (27.0-31.0); MEAN CORPUSCULAR HGB CONC 34.7 g/dL (33.0-37.0); MEAN PLATELET VOLUME 8.7 fL (7.2-11.7); RBC 4.18 Mil/uL (3.80-5.20); RED CELL DISTRIBUTION WIDTH 13.3 % (11.5-14.5); WHITE BLOOD COUNT 6.6 K/uL (4.8-10.8)
[2018-05-12 12:42] LABS: BLOOD UREA NITROGEN 14 mg/dL (7-17); GFR NON-AFRICAN AMERICAN > 60
--- NOTE | 2018-05-12 18:48 | CP.PCM.PN ---
Subjective - Date & Time of Evaluation Date of Evaluation: 05/12/18 Time of Evaluation: 10:30 - Subjective Subjective: clinically same Objective - Vital Signs/Intake and Output Vital Signs (last 24 hours): Temp Pulse Resp BP Pulse Ox 97.5 F L 69 18 153/76 H 100 05/12/18 08:18 05/12/18 08:18 05/12/18 08:18 05/12/18 08:18 05/12/18 08:18 Intake and Output: 05/12/18 05/12/18 06:59 18:59 Intake Total 360 Balance 360 - Medications Medications: Current Medications Albuterol/Ipratropium (Duoneb 3 Mg/0.5 Mg (3 Ml) Ud) 3 ml INH RQ6 [facility] Last Admin: 05/12/18 18:38 Dose: 3 ml Alprazolam (Xanax) 1 mg PO Q12 PRN PRN Reason: Anxiety Last Admin: 05/11/18 15:49 Dose: 1 mg Amlodipine Besylate (Norvasc) 5 mg PO DAILY [facility] Last Admin: 05/12/18 10:22 Dose: 5 mg Amoxicillin/Clavulanate Potassium (Augmentin 875 Mg-125 Mg Tab) 1 tab PO Q12H [facility]; Protocol Last Admin: 05/12/18 05:50 Dose: 1 tab Aspirin (Aspirin Chewable) 81 mg PO DAILY [facility] Last Admin: 05/12/18 10:22 Dose: 81 mg Enoxaparin Sodium (Lovenox) 40 mg SC DAILY [facility] Last Admin: 05/12/18 10:21 Dose: 40 mg Fluticasone Propionate (Flonase) 1 spr NS BID [facility] Last Admin: 05/12/18 18:11 Dose: 1 spr Guaifenesin/Dextromethorphan (Robitussin Dm) 10 ml PO TID [facility] Last Admin: 05/12/18 18:11 Dose: 10 ml Pseudoephedrine HCl (Sudafed Tab) 60 mg PO BID [facility] Last Admin: 05/12/18 18:13 Dose: 60 mg - Labs Labs: 05/12/18 12:14 05/12/18 12:14 APTT 36 SECONDS (21-34) H 05/09/18 08:22 - Constitutional Appears: Well - Head Exam Head Exam: ATRAUMATIC, NORMAL INSPECTION, NORMOCEPHALIC - Eye Exam Eye Exam: EOMI, Normal appearance, PERRL Pupil Exam: NORMAL ACCOMODATION, PERRL - ENT Exam ENT Exam: Mucous Membranes Moist, Normal Exam - Neck Exam Neck Exam: Full ROM, Normal Inspection. absent: Lymphadenopathy - Respiratory Exam Respiratory Exam: Decreased Breath Sounds - Cardiovascular Exam Cardiovascular Exam: REGULAR RHYTHM, +S1, +S2 - GI/Abdominal Exam GI & Abdominal Exam: Soft, Diminished Bowel Sounds - Rectal Exam Rectal Exam: Deferred
--- NOTE | 2018-05-12 20:36 | CON ---
DATE: 05/09/2018 REASON FOR CONSULTATION: Nasal discharge. REQUESTING PHYSICIAN: Molly Castellanos MD HISTORY OF PRESENT ILLNESS: This is an 78-year-old female with a multiple-month history of nasal discharge bilaterally, constant, greenish in color, with nasal congestion, [id number] bilaterally, constant for a few months, headache, facial pain on and off mild for few months. throat pain. PAST MEDICAL HISTORY: As noted in the chart by me. MEDICATIONS: As noted in the chart by me. ALLERGIES: NOTED IN THE CHART BY ME. PHYSICAL EXAMINATION: HEAD: Atraumatic and normocephalic. FACE: Good facial movements bilaterally. CONSTITUTIONAL: Well fed, well nourished. COMMUNICATIONS: Communicates well and appropriately. EXTERNAL NOSE AND EARS: No masses. No lesions. No erythema. No edema. INTERNAL NOSE AND EARS: Deviated septum, large turbinates, possible erythema and edema of the mucosa. ORAL CAVITY AND OROPHARYNX: No masses. No lesions. No erythema. No edema. LIPS AND GUMS: No masses. No lesions. No erythema. No edema. NECK: Supple. THYROID: No thyromegaly. No goiter. LYMPH NODES: No lymphadenopathy of the neck. LABORATORY DATA: CAT scan was reviewed by me, it revealed ethmoid sinusitis. ASSESSMENT: 1. Sinusitis. 2. Deviated septum. 3. Large turbinates. 4. Congestion. 5. Nasal congestion and nasal discharge. 6. Headache. PLAN: Continue antibiotics. The patient should be on antibiotics for a total of 14 days and follow up as an outpatient in the office. Bruno Bruno MD
[2018-05-13] MEDS: Albuterol-Ipratrop 3 mg / 0.5 (3 ml) UD INH SCH ×3 (02:10→13:38)
[2018-05-13] MEDS: Amoxicillin-Clav 875-125 mg Tab PO SCH (06:30)
[2018-05-13 07:48] VITALS: BP 123/72; PULSE 59; RESP 18; TEMP 98.3; O2SAT 99
--- NOTE | 2018-05-13 09:16 | CP.PCM.PN ---
Subjective - Date & Time of Evaluation Date of Evaluation: 05/13/18 Time of Evaluation: 09:00 - Subjective Subjective: Patient seen and examined at bedside, lying down comfortably. Afebrile and in no acute distress. Denies chest pain, shortness of breath, fever. Admits to occasional cough; still complains of post-nasal drip. Of note, patient seems extremely anxious about her condition. Objective - Vital Signs/Intake and Output Vital Signs (last 24 hours): Temp Pulse Resp BP Pulse Ox 98.3 F 59 L 18 123/72 99 05/13/18 07:00 05/13/18 07:00 05/13/18 07:00 05/13/18 07:00 05/13/18 07:00 - Medications Medications: Current Medications Albuterol/Ipratropium (Duoneb 3 Mg/0.5 Mg (3 Ml) Ud) 3 ml INH RQ6 [facility] Last Admin: 05/13/18 07:50 Dose: 3 ml Alprazolam (Xanax) 1 mg PO Q12 PRN PRN Reason: Anxiety Last Admin: 05/12/18 22:08 Dose: 1 mg Amlodipine Besylate (Norvasc) 5 mg PO DAILY [facility] Last Admin: 05/12/18 10:22 Dose: 5 mg Amoxicillin/Clavulanate Potassium (Augmentin 875 Mg-125 Mg Tab) 1 tab PO Q12H [facility]; Protocol Last Admin: 05/13/18 06:30 Dose: 1 tab Aspirin (Aspirin Chewable) 81 mg PO DAILY [facility] Last Admin: 05/12/18 10:22 Dose: 81 mg Enoxaparin Sodium (Lovenox) 40 mg SC DAILY [facility] Last Admin: 05/12/18 10:21 Dose: 40 mg Fluticasone Propionate (Flonase) 1 spr NS BID [facility] Last Admin: 05/12/18 18:11 Dose: 1 spr Guaifenesin/Dextromethorphan (Robitussin Dm) 10 ml PO TID [facility] Last Admin: 05/12/18 18:11 Dose: 10 ml Pseudoephedrine HCl (Sudafed Tab) 60 mg PO BID [facility] Last Admin: 05/12/18 18:13 Dose: 60 mg - Labs Labs: 05/12/18 12:14 05/12/18 12:14 APTT 36 SECONDS (21-34) H 05/09/18 08:22 Assessment and Plan (1) Allergic rhinitis Status: Acute (2) Post-nasal drip Status: Acute (3) Sinusitis Status: Acute
[2018-05-13] MEDS: guaiFENesin DM 200 mg-20 mg/10 ml UD PO SCH (10:26)
[2018-05-13] MEDS: Fluticasone Nasal 50 mcg/Spray NS SCH (10:26)
[2018-05-13] MEDS: Enoxaparin 40 mg Syringe SC SCH (10:28)
--- NOTE | 2018-05-13 13:50 | CP.PCM.PN ---
Subjective - Date & Time of Evaluation Date of Evaluation: 05/13/18 Time of Evaluation: 13:00 - Subjective Subjective: patient seen today denies any chest pain, sob, dizziness, c/o nasal drip a febrile labs and vss reviewed - stable Objective - Vital Signs/Intake and Output Vital Signs (last 24 hours): Temp Pulse Resp BP Pulse Ox 98.3 F 59 L 18 123/72 99 05/13/18 07:00 05/13/18 07:00 05/13/18 07:00 05/13/18 07:00 05/13/18 07:00 - Medications Medications: Current Medications Albuterol/Ipratropium (Duoneb 3 Mg/0.5 Mg (3 Ml) Ud) 3 ml INH RQ6 [facility] Last Admin: 05/13/18 13:38 Dose: 3 ml Alprazolam (Xanax) 1 mg PO Q12 PRN PRN Reason: Anxiety Last Admin: 05/12/18 22:08 Dose: 1 mg Amlodipine Besylate (Norvasc) 5 mg PO DAILY [facility] Last Admin: 05/13/18 10:26 Dose: 5 mg Amoxicillin/Clavulanate Potassium (Augmentin 875 Mg-125 Mg Tab) 1 tab PO Q12H [facility]; Protocol Last Admin: 05/13/18 06:30 Dose: 1 tab Aspirin (Aspirin Chewable) 81 mg PO DAILY [facility] Last Admin: 05/13/18 10:26 Dose: 81 mg Enoxaparin Sodium (Lovenox) 40 mg SC DAILY [facility] Last Admin: 05/13/18 10:28 Dose: 40 mg Fluticasone Propionate (Flonase) 1 spr NS BID [facility] Last Admin: 05/13/18 10:26 Dose: 1 spr Guaifenesin/Dextromethorphan (Robitussin Dm) 10 ml PO TID [facility] Last Admin: 05/13/18 10:26 Dose: 10 ml Pseudoephedrine HCl (Sudafed Tab) 60 mg PO BID [facility] Last Admin: 05/13/18 10:26 Dose: 60 mg - Labs Labs: 05/12/18 12:14 05/12/18 12:14 APTT 36 SECONDS (21-34) H 05/09/18 08:22 Assessment and Plan - Assessment and Plan (Free Text) Assessment: A/P 78 ye old fename with pmhx of Anxiety, HTN admitted with syncopal episode at home echo- normal ejection fraction CT head- No intracranial hemorrhage or mass effect. Cerebral atrophy. No in terval pathology noted. Dr. Bruno consulted for sinusitis, recommends to contiuinue 14 days of antib iotics and f/u with his office out pat D/W roland Argueta for discharge home today and f/u with in 1
== END 2018-05-13 14:25 | disposition home or self-care (01) | DRG 312 ==
LOC: C.ER 07:43 → C.9E 09:35 → C.6T 10:17
PROVIDERS: ADMIT Internal Medicine Nephrology; ATTEND Internal Medicine Nephrology
DX: R55 Syncope and collapse (principal); G62.9 Polyneuropathy, unspecified; I10 Essential (primary) hypertension; J32.9 Chronic sinusitis, unspecified; J30.9 Allergic rhinitis, unspecified; J34.2 Deviated nasal septum; J34.3 Hypertrophy of nasal turbinates; R09.81 Nasal congestion; Z87.01 Personal history of pneumonia (recurrent); Z87.891 Personal history of nicotine dependence

== ENCOUNTER 2018-05-14 02:06 | Emergency (ER) | payer MEDICARE, OTHER ==
[2018-05-14 02:07] VITALS: BMI 23.0
[2018-05-14 02:25] VITALS: RESP 20
--- NOTE | 2018-05-14 03:01 | C.PDOC ---
History Of Present Illness 78 year old female presents to the ED c/o thick mucus and excessive spitting. Patient was seen in the ED on 05/09 and admitted for syncopal episode. While admitted patient was seen by Kiana Uribe and Dr. Calvin Mann. Dr. Bruno ordered a CT scan of the sinuses, patient was diagnosed with ethmoid sinusitis and placed on Augmentin. Patient was discharged yesterday. Patient comes to the ED requesting medication to help with her mucus excess. Patient denies fever, chills, cough, SOB, nausea, vomit, headache. Time Seen by Provider: 05/14/18 02:48 Chief Complaint (Nursing): Cough, Cold, Congestion History Per: Patient History/Exam Limitations: no limitations Onset/Duration Of Symptoms: Persistent Current Symptoms Are (Timing): Still Present Reports Recently: Hospitalized (05/09) Recent travel outside of the [place]: No Additional History Per: Patient Past Medical History Reviewed: Historical Data, Nursing Documentation, Vital Signs Vital Signs: Last Vital Signs Temp 98.6 F 05/14/18 02:22 Pulse 88 05/14/18 02:22 Resp 20 05/14/18 02:22 BP 162/72 H 05/14/18 02:22 Pulse Ox 96 05/14/18 02:22 - Medical History PMH: Anxiety, HTN, Pneumonia Denies: Chronic Kidney Disease Surgical History: Tonsillectomy Family History: States: Unknown Family Hx - Social History Hx Alcohol Use: No Hx Substance Use: No - Immunization History Hx Tetanus Toxoid Vaccination: No Hx Influenza Vaccination: No Hx Pneumococcal Vaccination: No Review Of Systems Constitutional: Negative for: Fever, Chills ENT: Positive for: Nose Discharge, Nose Congestion Respiratory: Negative for: Cough, Shortness of Breath Gastrointestinal: Negative for: Nausea, Vomiting Skin: Negative for: Rash Neurological: Negative for: Headache, Dizziness Physical Exam - Physical Exam Appears: Non-toxic, No Acute Distress Skin: Normal Color, Warm, Dry Head: Atraumatic, Normacephalic Eye(s): bilateral: Normal Inspection Ear(s): Bilateral: Normal Oral Mucosa: Moist Throat: Normal, No Erythema, No Exudate Neck: Normal ROM, Supple Chest: Symmetrical Cardiovascular: Rhythm Regular Respiratory: Normal Breath Sounds, No Rales, No Rhonchi, No Wheezing Gastrointestinal/Abdominal: Soft, No Tenderness, No Guarding, No Rebound Extremity: Bilateral: Atraumatic, Normal Color And Temperature, Normal ROM Neurological/Psych: Oriented x3, Normal Speech, Normal Cognition Gait: Steady ED Course And Treatment O2 Sat by Pulse Oximetry: 96 (ON RA) Pulse Ox Interpretation: Normal Progress Note: Patient was given prescription for saline nebulizer and saline nasal spray. Patient was also advised to follow up with ENT for furtehr treatment Disposition - Disposition Referrals: Bruno Bruno MD [Staff Provider] - Disposition Time: 02:58 Condition: STABLE Additional Instructions: Follow up with ENT specialist within 1-2 days. Return to ED if feel worse. Prescriptions: Sodium Chloride [Saline Mist] 1 ml NS .Q4-6H #1 spray Sodium Chloride 0.9% [Sodium Chloride 3 Ml] 3 ml IH .Q4-6H #100 vial Instructions: Chronic Sinusitis Forms: [employer] (Eritrean) - Clinical Impression Clinical Impression: Sinusitis, Post-nasal drip - PA / MATHEMATICAL PHYSICIST / Resident Statement MD/DO has reviewed & agrees with the documentation as recorded. - Scribe Statement The provider has reviewed the documentation as recorded by the Scribe Kory Jimenez All medical record entries made by the Scribe were at my direction and personally dictated by me. I have reviewed the chart and agree that the record accurately reflects my personal performance of the history, physical exam, medical decision making, and the department course for this patient. I have also personally directed, reviewed, and agree with the discharge instructions and disposition.
[2018-05-14 03:32] VITALS: BP 103/64; PULSE 84; TEMP 98.4
[2018-05-14 03:35] VITALS: O2SAT 96
== END 2018-05-14 03:32 | disposition home or self-care (01) ==
LOC: C.ER 02:06
DX: J32.9 Chronic sinusitis, unspecified (principal); R09.82 Postnasal drip

== ENCOUNTER 2018-05-16 10:32 | Emergency (ER) | payer MEDICARE, OTHER ==
[2018-05-16 10:39] VITALS: BMI 24.7
[2018-05-16 10:43] VITALS: TEMP 98.3; O2SAT 95
[2018-05-16 12:04] LABS: BASO % 0.3 % (0.0-2.0); EOS # 0.3 K/uL (0.0-0.7); EOS % 4.8 % (0.0-4.0); HEMOGLOBIN 14.5 g/dL (11.0-16.0); LYMPH # 1.9 K/uL (1.0-4.3); LYMPH % 30.5 % (20.0-40.0); MEAN CELL VOLUME 86.8 fL (81.0-99.0); MEAN CORPUSCULAR HEMOGLOBIN 29.9 pg (27.0-31.0); MEAN CORPUSCULAR HGB CONC 34.5 g/dL (33.0-37.0); MONO # 0.4 K/uL (0.0-0.8); MONO % 5.7 % (0.0-10.0); NEUT # 3.7 K/uL (1.8-7.0); NEUT % 58.7 % (50.0-75.0); NRBC % 0.1 % (0.0-2.0); RBC 4.83 Mil/uL (3.80-5.20); RED CELL DISTRIBUTION WIDTH 13.4 % (11.5-14.5); WHITE BLOOD COUNT 6.3 K/uL (4.8-10.8)
[2018-05-16 12:18] LABS: VENOUS BLOOD GAS PCO2 53 mmHg (40-60); VENOUS BLOOD GAS PO2 15 mm/Hg (30-55); VENOUS BLOOD PH 7.37 (7.32-7.43)
[2018-05-16 12:23] LABS: ALB/GLOB RATIO 1.8 (1.0-2.1); ALBUMIN 4.6 g/dL (3.5-5.0); ALT/SGPT 43 U/L (9-52); AST/SGOT 50 U/L (14-36); BLOOD UREA NITROGEN 17 mg/dL (7-17); CALCIUM 9.5 mg/dl (8.6-10.4); GFR NON-AFRICAN AMERICAN > 60; LIPASE 94 U/L (23-300)
[2018-05-16 13:04] LABS: SQUAMOUS EPITHIAL 5 /hpf (0-5); URINE BILIRUBIN NEGATIVE (NEGATIVE); URINE BLOOD NEGATIVE (NEGATIVE); URINE CLARITY Clear (Clear); URINE COLOR Yellow (YELLOW); URINE GLUCOSE (UA) NORMAL (Normal); URINE PROTEIN NEGATIVE (NEGATIVE); URINE UROBILINOGEN NORMAL mg/dL (0.2-1.0)
[2018-05-16 13:06] LABS: URINE LEUKOCYTE ESTERASE NEGATIVE Leu/uL (Negative)
--- NOTE | 2018-05-16 13:14 | C.PDOC ---
History Of Present Illness 78-year-old female, presents to the emergency department with complaints of "abdominal bloating and increased gas" Patient reports she had a hx of sinusitis, was seen by ENT and given Rx for Augmentin. Patient states now she has increased mucous. She denies fever, dysuria, vomiting, diarrhea, GI bleeding, or any other associated symptoms. Last bowel movement this morning was normal. Time Seen by Provider: 05/16/18 11:46 Chief Complaint (Nursing): Abdominal Pain History Per: Patient History/Exam Limitations: no limitations Past Medical History Reviewed: Historical Data, Nursing Documentation, Vital Signs Vital Signs: Last Vital Signs Temp 98.3 F 05/16/18 10:39 Pulse 77 05/16/18 10:39 Resp 18 05/16/18 10:39 BP 150/77 05/16/18 10:39 Pulse Ox 95 05/16/18 10:39 - Medical History PMH: Anxiety, HTN, Pneumonia Denies: Chronic Kidney Disease Surgical History: Tonsillectomy Family History: States: No Known Family Hx - Social History Hx Alcohol Use: No Hx Substance Use: No - Immunization History Hx Tetanus Toxoid Vaccination: No Hx Influenza Vaccination: No Hx Pneumococcal Vaccination: No Review Of Systems Constitutional: Negative for: Fever ENT: Positive for: Nose Discharge Gastrointestinal: Positive for: Other (abdominal bloating). Negative for: Nausea, Vomiting Musculoskeletal: Negative for: Back Pain Physical Exam - Physical Exam Appears: Non-toxic, No Acute Distress, Other (elderly appearing, thin) Skin: Warm, Dry, No Rash Head: Atraumatic, Normacephalic, Other (No sinus tenderness) Eye(s): bilateral: Normal Inspection, PERRL, EOMI Ear(s): Bilateral: Normal Nose: Normal, Discharge (clear rhinorrhea) Oral Mucosa: Moist Lips: Normal Appearing Throat: No Erythema, No Exudate Neck: Normal ROM, Supple Chest: Symmetrical, No Tenderness Cardiovascular: Rhythm Regular, No Friction Rub, No Murmur Respiratory: Normal Breath Sounds, No Accessory Muscle Use, No Stridor, No Wheezing Gastrointestinal/Abdominal: Soft, No Tenderness Back: Normal Inspection Extremity: Normal ROM, No Deformity Neurological/Psych: Oriented x3, Normal Speech, Normal Motor Gait: Steady ED Course And Treatment - Laboratory Results Result Diagrams: 05/16/18 11:59 05/16/18 11:59 O2 Sat by Pulse Oximetry: 95 (on Ra) Pulse Ox Interpretation: Normal (RA) Medical Decision Making Medical Decision Making: On re-exam, the patient reports improvement of symptoms. Lungs are CTA, heart is RRR, abdomen is soft, non-tender and the patient is tolerating PO well. Ambulatory in the ED with steady gait. Follow up with the medical doctor within 1-2 days without fail. Return if worsened. The patient was instructed to continue the antibiotics and follow up with her ENT. Disposition - Disposition Referrals: Steph Castellanos MD [Staff Provider] - Disposition: HOME/ ROUTINE Disposition Time: 13:12 Condition: STABLE Additional Instructions: Follow up with the medical doctor within 1-2 days without fail. Return if worsened. Prescriptions: Loratadine [Claritin] 10 mg PO DAILY #10 tab Instructions: Sinusitis, Adult (DC), Gas and Bloating Forms: [facility] (Kazakh) - Clinical Impression Clinical Impression: Sinus pressure, Sinus congestion, Abdominal bloating - Scribe Statement The provider has reviewed the documentation as recorded by the Scribe (Daylin Renae) All medical record entries made by the Scribe were at my direction and personally dictated by me. I have reviewed the chart and agree that the record accurately reflects my personal performance of the history, physical exam, medical decision making, and the department course for this patient. I have also personally directed, reviewed, and agree with the discharge instructions and disposition.
[2018-05-16 13:28] VITALS: BP 155/81; PULSE 81; RESP 20
--- NOTE | 2018-05-16 13:57 | RAD ---
Date of service: 05/16/2018 PROCEDURE: CHEST RADIOGRAPH, 1 VIEW HISTORY: abd pain COMPARISON: 05/09/2018 FINDINGS: LUNGS: Clear. PLEURA: No pneumothorax or pleural fluid seen. CARDIOVASCULAR: No aortic atherosclerotic calcification present. No radiographic findings to suggest acute or significant cardiovascular disease. OSSEOUS STRUCTURES: No significant abnormalities. VISUALIZED UPPER ABDOMEN: Normal. OTHER FINDINGS: None. IMPRESSION: No active disease. No acute/significant interval changes.
--- NOTE | 2018-05-17 12:16 | CARD ---
APPROVED REPORT Date of service: 05/16/2018 EKG Measurement Heart [id number] <Conclusion> Normal sinus rhythm Left axis deviation Possible Anterior infarct, age undetermined Abnormal ECG
== END 2018-05-16 13:29 | disposition home or self-care (01) ==
LOC: C.ER 10:32
DX: R14.0 Abdominal distension (gaseous) (principal); R09.81 Nasal congestion

== ENCOUNTER 2018-05-19 08:35 | Inpatient (IN) | payer MEDICARE, OTHER ==
[2018-05-19 08:36] VITALS: BMI 24.7
[2018-05-19] MEDS ORDERED: Sodium Chloride 0.9% 1,000 ML IV ONE (09:19)
[2018-05-19 09:59] LABS: BASO # 0.1 K/uL (0.0-0.2); BASO % 2.5 % (0.0-2.0); EOS # 0.3 K/uL (0.0-0.7); EOS % 4.4 % (0.0-4.0); HEMOGLOBIN 14.4 g/dL (11.0-16.0); LYMPH # 2.5 K/uL (1.0-4.3); LYMPH % 43.2 % (20.0-40.0); MEAN CELL VOLUME 87.4 fL (81.0-99.0); MEAN CORPUSCULAR HGB CONC 34.4 g/dL (33.0-37.0); MEAN PLATELET VOLUME 8.1 fL (7.2-11.7); MONO # 0.3 K/uL (0.0-0.8); MONO % 4.8 % (0.0-10.0); NEUT # 2.6 K/uL (1.8-7.0); NEUT % 45.1 % (50.0-75.0); NRBC % 0.1 % (0.0-2.0); RBC 4.78 Mil/uL (3.80-5.20); RED CELL DISTRIBUTION WIDTH 13.7 % (11.5-14.5); WHITE BLOOD COUNT 5.7 K/uL (4.8-10.8)
[2018-05-19 10:08] LABS: PROTHROMBIN TIME 10.7 SECONDS (9.7-12.2)
--- NOTE | 2018-05-19 10:49 | C.PDOC ---
History Of Present Illness 78 yo female w/PMHx of HTN, anxiety, comes in accompanied by son for evaluation of syncopal episode developed today AM. As per son, " she was sitting on couch and passed out". At present time, pt is AAO#3, c/o nasal congestion, runny nose, " lots of mucous, unable to sleep". Otherwise, pt denies headache, visual changes, focal deficits,neck pain, CP, SOB, dyspnea, palpitation, abd. pain, V/D. Pt admits, currently taking Augmentin. FYI: Previous ED visits review, pt was seen multiple times for past few months due to same complaints. Last visit to ED were on 05/09/18-05/13/18 when was admitted due to syncopal episodes, 05/14/18- evaluated du eto nasal congestion, sinusitis, 05/16/18- evaluated due to abd. pain. Time Seen by Provider: 05/19/18 08:58 Chief Complaint (Nursing): Cough, Cold, Congestion History Per: Patient Past Medical History Reviewed: Historical Data, Nursing Documentation, Vital Signs Vital Signs: Last Vital Signs Temp 98.7 F 05/19/18 08:52 Pulse 68 05/19/18 08:52 Resp 17 05/19/18 08:52 BP 135/68 05/19/18 08:52 Pulse Ox 94 L 05/19/18 08:52 - Medical History PMH: Anxiety, HTN, Pneumonia Denies: Chronic Kidney Disease Surgical History: Tonsillectomy Family History: States: Unknown Family Hx - Social History Hx Tobacco Use: No Hx Alcohol Use: No Hx Substance Use: No - Immunization History Hx Tetanus Toxoid Vaccination: No Hx Influenza Vaccination: No Hx Pneumococcal Vaccination: No Review Of Systems Except As Marked, All Systems Reviewed And Found Negative. Constitutional: Negative for: Fever, Chills Eyes: Negative for: Vision Change ENT: Positive for: Nose Discharge, Nose Congestion Cardiovascular: Negative for: Chest Pain, Palpitations, Edema, Light Headedness Respiratory: Negative for: Cough, Shortness of Breath, Wheezing Gastrointestinal: Negative for: Nausea, Vomiting, Abdominal Pain, Diarrhea Neurological: Positive for: Altered Mental Status Physical Exam - Physical Exam Appears: Well, Non-toxic, No Acute Distress Skin: Normal Color, Warm, Dry, No Rash Head: Atraumatic Eye(s): bilateral: PERRL Nose: No Flaring, Discharge (scant clear rhinorrhea B/L) Oral Mucosa: Moist, Other ((+) spitting up clear sputum) Throat: No Erythema Neck: Trachea Midline, Supple Cardiovascular: Rhythm Regular, No Murmur, No JVD Respiratory: No Decreased Breath Sounds, No Accessory Muscle Use, No Stridor, No Wheezing Gastrointestinal/Abdominal: Soft, No Tenderness, No Distention, No Guarding, No Rebound Back: No CVA Tenderness Extremity: Normal ROM, No Pedal Edema, No Swelling Neurological/Psych: Oriented x3, Normal Speech, Normal Motor, Normal Sensation, Normal Reflexes ED Course And Treatment - Laboratory Results Result Diagrams: 05/19/18 09:54 05/19/18 09:54 Lab Interpretation: No Changes Compared To Prior Results ECG: Interpreted By Me, Viewed By Me ECG Rhythm: Sinus Rhythm Interpretation Of ECG: SR@62/min, LAD, LAFB, no acute T wave or ST-T Changes O2 Sat by Pulse Oximetry: 94 Pulse Ox Interpretation: Abnormal - Radiology CXR: Interpreted by Me, Viewed By Me CXR Interpretation: Yes: No Acute Disease - CT Scan/US CT head w/o contras Other Rad Studies (CT/US): Radiology Report Reviewed CT/US Interpretation: IMPRESSION: No acute intracranial hemorrhage. Suspect mild chronic periventricular white matter ischemic changes with scattered chronic bilateral basal nuclei lacunar type infarcts. Note that the possibility of a small hyperacute infarct cannot be excluded on this exam. Mild atrophy involving the supra and infratentorial structures. Progress Note: Pt was OBS in ED forf 2 hours and remained stable. Blood work review and appears baseline. Case discussed with and admisison arranged. 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 Disposition - Disposition Disposition: HOSPITALIZED Disposition Time: 10:49 Condition: STABLE - Clinical Impression Clinical Impression: Syncope
[2018-05-19 10:57] LABS: B-TYPE NATRIURETIC PEPTIDE 159 pg/mL (0-900)
--- NOTE | 2018-05-19 11:00 | CT ---
Date of service: 05/19/2018 PROCEDURE: CT HEAD WITHOUT CONTRAST. HISTORY: AMS COMPARISON: comparison made with prior CT scan of the brain 05/09/2018. . TECHNIQUE: Axial computed tomography images were obtained through the head/brain without intravenous contrast. Radiation dose: Total exam DLP = 944.19 mGy-cm. This CT exam was performed using one or more of the following dose reduction techniques: Automated exposure control, adjustment of the mA and/or kV according to patient size, and/or use of iterative reconstruction technique. FINDINGS: HEMORRHAGE: No intracranial hemorrhage. BRAIN: Suspect minor chronic periventricular white matter ischemic changes with scattered chronic appearing bilateral basal nuclei lacunar type infarcts.. Note the possibility of a small hyperacute infarct cannot be excluded. Small bifrontal calcifications likely dural base calcifications... There is mild supra and infratentorial volume loss with prominent subarachnoid spaces in the posterior fossa bilaterally left greater than right. VENTRICLES: No obstructive hydrocephalus. CALVARIUM: There are no acute calvarial fractures. PARANASAL SINUSES: Unremarkable as visualized. No significant inflammatory changes. MASTOID AIR CELLS: Unremarkable as visualized. No inflammatory changes. OTHER FINDINGS: None. IMPRESSION: No acute intracranial hemorrhage. Suspect mild chronic periventricular white matter ischemic changes with scattered chronic bilateral basal nuclei lacunar type infarcts. Note that the possibility of a small hyperacute infarct cannot be excluded on this exam. Mild atrophy involving the supra and infratentorial structures.
[2018-05-19 11:04] LABS: ALB/GLOB RATIO 1.6 (1.0-2.1); BLOOD UREA NITROGEN 15 mg/dL (7-17); CALCIUM 9.5 mg/dl (8.6-10.4); GFR NON-AFRICAN AMERICAN > 60
[2018-05-19 11:05] LABS: ALBUMIN 5.1 g/dL (3.5-5.0); AST/SGOT 41 U/L (14-36)
[2018-05-19 11:16] LABS: ALT/SGPT 32 U/L (9-52)
[2018-05-19 11:30] LABS: SQUAMOUS EPITHIAL 7 /hpf (0-5); URINE BILIRUBIN NEGATIVE (NEGATIVE); URINE BLOOD NEGATIVE (NEGATIVE); URINE CLARITY Clear (Clear); URINE COLOR Yellow (YELLOW); URINE GLUCOSE (UA) NORMAL (Normal); URINE LEUKOCYTE ESTERASE 3+ Leu/uL (Negative); URINE PROTEIN NEGATIVE (NEGATIVE)
[2018-05-19] MEDS ORDERED: Albuterol 0.083% Inhal Sol (2.5 mg/3 mL) UD IH STA (11:49)
[2018-05-19] MEDS ORDERED: Albuterol-Ipratrop 3 mg / 0.5 (3 ml) UD ONE (12:03)
--- NOTE | 2018-05-19 15:19 | CP.PCM.HP ---
Past Patient History - Infectious Disease Hx of Infectious Diseases: None - Past Medical History & Family History Past Medical History?: Yes - Past Social History Smoking Status: Former Smoker - CARDIAC Hx Hypertension: Yes - PULMONARY Hx Pneumonia: Yes - NEUROLOGICAL Hx Neurological Disorder: No - HEENT Hx HEENT Problems: Yes Other/Comment: excessive salivation - RENAL Hx Chronic Kidney Disease: No - ENDOCRINE/METABOLIC Hx Endocrine Disorders: No - HEMATOLOGICAL/ONCOLOGICAL Hx Blood Disorders: No - INTEGUMENTARY Hx Dermatological Problems: No - MUSCULOSKELETAL/RHEUMATOLOGICAL Hx Musculoskeletal Disorders: No Hx Falls: No - GASTROINTESTINAL Hx Gastrointestinal Disorders: No - GENITOURINARY/GYNECOLOGICAL Hx Genitourinary Disorders: No - PSYCHIATRIC Hx Anxiety: Yes Hx Substance Use: No - SURGICAL HISTORY Hx Tonsillectomy: Yes - ANESTHESIA Hx Anesthesia: Yes Hx Anesthesia Reactions: No Meds Allergies/Adverse Reactions: Allergies Allergy/AdvReac Type Severity Reaction Status Date / Time No Known Allergies Allergy Verified 05/19/18 08:58 Physical Exam - Constitutional Appears: Well - Head Exam Head Exam: ATRAUMATIC, NORMAL INSPECTION, NORMOCEPHALIC - Eye Exam Eye Exam: EOMI, Normal appearance, PERRL Pupil Exam: NORMAL ACCOMODATION, PERRL - ENT Exam ENT Exam: Mucous Membranes Moist, Normal Exam - Neck Exam Neck exam: Positive for: Normal Inspection - Respiratory Exam Respiratory Exam: Decreased Breath Sounds - Cardiovascular Exam Cardiovascular Exam: REGULAR RHYTHM, +S1, +S2 - GI/Abdominal Exam GI & Abdominal Exam: Diminished Bowel Sounds, Soft - Rectal Exam Rectal Exam: Deferred Results - Vital Signs Recent Vital Signs: Last Vital Signs Temp 98 F 05/19/18 13:47 Pulse 57 L 05/19/18 13:47 Resp 19 05/19/18 13:47 BP 136/72 05/19/18 13:47 Pulse Ox 94 L 05/19/18 14:36 - Labs Result Diagrams: 05/19/18 09:54 05/19/18 09:54 Labs: Laboratory Results - last 24 hr 05/19/18 05/19/18 05/19/18 09:54 09:54 09:54 WBC 5.7 RBC 4.78 Hgb 14.4 Hct 41.8 MCV 87.4 MCH 30.0 MCHC 34.4 RDW 13.7 Plt Count 357 MPV 8.1 Neut % (Auto) 45.1 L Lymph % (Auto) 43.2 H [place] % (Auto) 4.8 Eos % (Auto) 4.4 H Baso % (Auto) 2.5 H Neut # (Auto) 2.6 Lymph # (Auto) 2.5 [place] # (Auto) 0.3 Eos # (Auto) 0.3 Baso # (Auto) 0.1 PT 10.7 INR 1.0 APTT 31 Sodium 139 Potassium 4.7 Chloride 102 Carbon Dioxide 27 Anion Gap 15 BUN 15 Creatinine 0.5 L Est GFR ( Amer) > 60 Est GFR (Non-Af Amer) > 60 Random Glucose 100 Calcium 9.5 Total Bilirubin 1.2 AST 41 H ALT 32 Alkaline Phosphatase 101 Troponin I 0.0200 NT-Pro-B Natriuret Pep 159 Total Protein 8.3 Albumin 5.1 H Globulin 3.2 Albumin/Globulin Ratio 1.6 Urine Color Urine Clarity Urine pH Ur Specific [place] Urine Protein Urine Glucose (UA) Urine Ketones Urine Blood Urine Nitrate Urine Bilirubin Urine Urobilinogen Ur Leukocyte Esterase Urine WBC (Auto) Urine RBC (Auto) Ur Squamous Epith Cells 05/19/18 11:15 WBC RBC Hgb Hct MCV MCH MCHC RDW Plt Count MPV Neut % (Auto) Lymph % (Auto) [place] % (Auto) Eos % (Auto) Baso % (Auto) Neut # (Auto) Lymph # (Auto) [place] # (Auto) Eos # (Auto) Baso # (Auto) PT INR APTT Sodium Potassium Chloride Carbon Dioxide Anion Gap BUN Creatinine Est GFR ( Amer) Est GFR (Non-Af Amer) Random Glucose Calcium Total Bilirubin AST ALT Alkaline Phosphatase Troponin I NT-Pro-B Natriuret Pep Total Protein Albumin Globulin Albumin/Globulin Ratio Urine Color Yellow Urine Clarity Clear Urine pH 6.0 Ur Specific [place] 1.016 Urine Protein Negative Urine Glucose (UA) Normal Urine Ketones Negative Urine Blood Negative Urine Nitrate Negative Urine Bilirubin Negative Urine Urobilinogen 2.0 H Ur Leukocyte Esterase 3+ H Urine WBC (Auto) 2 Urine RBC (Auto) 1 Ur Squamous Epith Cells 7 H
[2018-05-19] MEDS ORDERED: Aluminum Hydroxide/Magnesium Hydroxide Susp (30 mL) PO PRN (18:20)
[2018-05-19] MEDS: Fluticasone Nasal 50 mcg/Spray NS SCH (18:30)
[2018-05-19] MEDS: Simethicone 80 mg Chewtab PO SCH ×2 (19:31→22:09)
[2018-05-19] MEDS: Moxifloxacin IV 400mg/250ml NS 400 MG/250 ML BAG IVPB SCH (19:35)
[2018-05-20 08:20] LABS: BASO % 0.2 % (0.0-2.0); EOS # 0.2 K/uL (0.0-0.7); EOS % 3.1 % (0.0-4.0); HEMOGLOBIN 12.5 g/dL (11.0-16.0); LYMPH # 2.3 K/uL (1.0-4.3); LYMPH % 37.8 % (20.0-40.0); MEAN CELL VOLUME 87.5 fL (81.0-99.0); MEAN CORPUSCULAR HGB CONC 34.2 g/dL (33.0-37.0); MEAN PLATELET VOLUME 8.5 fL (7.2-11.7); MONO # 0.4 K/uL (0.0-0.8); MONO % 5.8 % (0.0-10.0); NEUT # 3.2 K/uL (1.8-7.0); NEUT % 53.1 % (50.0-75.0); RBC 4.17 Mil/uL (3.80-5.20); RED CELL DISTRIBUTION WIDTH 13.2 % (11.5-14.5); WHITE BLOOD COUNT 6.1 K/uL (4.8-10.8)
[2018-05-20 09:06] LABS: ALB/GLOB RATIO 1.5 (1.0-2.1); ALBUMIN 3.6 g/dL (3.5-5.0); ALT/SGPT 33 U/L (9-52); AST/SGOT 27 U/L (14-36); BLOOD UREA NITROGEN 12 mg/dL (7-17); GFR NON-AFRICAN AMERICAN > 60
[2018-05-20] MEDS: Pantoprazole 40 mg EC Tab PO SCH (09:38)
[2018-05-20] MEDS: Simethicone 80 mg Chewtab PO SCH ×4 (09:41→21:33)
[2018-05-20] MEDS: Enoxaparin 40 mg Syringe SC SCH (09:50)
[2018-05-20] MEDS: Fluticasone Nasal 50 mcg/Spray NS SCH ×2 (10:00→21:32)
--- NOTE | 2018-05-20 15:24 | CP.PCM.PN ---
Subjective - Date & Time of Evaluation Date of Evaluation: 05/20/18 Time of Evaluation: 11:00 - Subjective Subjective: clinically same Objective - Vital Signs/Intake and Output Vital Signs (last 24 hours): Temp Pulse Resp BP Pulse Ox 98.6 F 65 18 120/65 98 05/20/18 07:40 05/20/18 08:00 05/20/18 07:40 05/20/18 07:40 05/20/18 07:40 Intake and Output: 05/20/18 05/20/18 06:59 18:59 Intake Total 240 Balance 240 - Medications Medications: Current Medications Al Hydrox/Mg Hydrox/Simethicone (Maalox 30 Ml) 30 ml PO Q8H PRN PRN Reason: Indigestion / Heartburn Last Admin: 05/19/18 19:30 Dose: 30 ml Amlodipine Besylate (Norvasc) 5 mg PO DAILY [facility] Last Admin: 05/20/18 09:39 Dose: 5 mg Aspirin (Aspirin) 325 mg PO DAILY [facility] Last Admin: 05/20/18 09:38 Dose: 325 mg Enoxaparin Sodium (Lovenox) 40 mg SC DAILY [facility] Last Admin: 05/20/18 09:50 Dose: 40 mg Fluticasone Propionate (Flonase) 1 spr NS BID [facility] Last Admin: 05/20/18 10:00 Dose: Not Given Guaifenesin (Mucinex La) 600 mg PO BID [facility] Moxifloxacin HCl (Avelox Iv 400mg/250ml Ns) 400 mg in 250 mls @ 167 mls/hr IVPB Q24H [facility]; Protocol Last Admin: 05/19/18 19:35 Dose: 167 mls/hr Ibuprofen (Motrin Tab) 400 mg PO Q6H PRN PRN Reason: Pain, moderate (4-7) Last Admin: 05/20/18 01:45 Dose: 400 mg Loratadine (Claritin) 10 mg PO DAILY [facility] Last Admin: 05/20/18 09:39 Dose: 10 mg Pantoprazole Sodium (Protonix Ec Tab) 40 mg PO DAILY [facility] Last Admin: 05/20/18 09:38 Dose: 40 mg Simethicone (Mylicon Chew Tab) 40 mg PO QID [facility] Last Admin: 05/20/18 13:19 Dose: 40 mg - Labs Labs: 05/20/18 08:11 05/20/18 08:11 PT 10.7 SECONDS (9.7-12.2) 05/19/18 09:54 INR 1.0 05/19/18 09:54 APTT 31 SECONDS (21-34) 05/19/18 09:54 - Constitutional Appears: Well - Head Exam Head Exam: ATRAUMATIC, NORMAL INSPECTION, NORMOCEPHALIC - Eye Exam Eye Exam: EOMI, Normal appearance, PERRL Pupil Exam: NORMAL ACCOMODATION, PERRL - ENT Exam ENT Exam: Mucous Membranes Moist, Normal Exam - Neck Exam Neck Exam: Full ROM, Normal Inspection. absent: Lymphadenopathy - Respiratory Exam Respiratory Exam: Decreased Breath Sounds - Cardiovascular Exam Cardiovascular Exam: REGULAR RHYTHM, +S1, +S2 - GI/Abdominal Exam GI & Abdominal Exam: Soft, Diminished Bowel Sounds - Rectal Exam Rectal Exam: Deferred
[2018-05-20] MEDS: Moxifloxacin IV 400mg/250ml NS 400 MG/250 ML BAG IVPB SCH (18:02)
[2018-05-20] MEDS: guaiFENesin 600 mg ER Tab PO SCH (18:04)
--- NOTE | 2018-05-21 01:50 | CON ---
DATE: 05/20/2018 REQUESTING PHYSICIAN: Dr. Castellanos. REASON FOR CONSULTATION: Sinusitis. HISTORY OF PRESENT ILLNESS: This is an 78-year-old female with multiple months' history of nasal congestion and discharge. It is constant, moderate in intensity, and bilateral. There is also some headache, frontal. PAST MEDICAL HISTORY: As noted in the chart by me. MEDICATIONS: As noted in the chart by me. PHYSICAL EXAMINATION: HEENT: Head: Atraumatic, and normocephalic. Face: Good facial movements bilaterally. External nose and ears: No masses. No lesions. No erythema. No edema. Internal nose and ears: Deviated septum, mild erythema and edema, possible large turbinates. Oral cavity and oropharynx: No masses. No lesions. No erythema. No edema. LIps and gums: No masses. No lesions. No erythema. No edema. CONSTITUTIONAL: Well fed, well nourished. COMMUNICATIONS: Communicates well and appropriately. NECK: Supple. Thyroid: No thyromegaly. No goiter. Lymph nodes: No lymphadenopathy of the neck. ASSESSMENT: 1. Sinusitis, chronic. 2. Deviated septum. 3. Large turbinates. 4. Nasal congestion. 5. Nasal discharge. PLAN: Continue antibiotics. The patient should be on antibiotics for two weeks straight. Follow up as an outpatient in the office. Bruno Bruno MD
[2018-05-21] MEDS: Fluticasone Nasal 50 mcg/Spray NS SCH ×3 (10:00→17:47)
[2018-05-21] MEDS: Pantoprazole 40 mg EC Tab PO SCH (11:38)
[2018-05-21] MEDS: Simethicone 80 mg Chewtab PO SCH ×4 (11:38→22:29)
[2018-05-21] MEDS: Enoxaparin 40 mg Syringe SC SCH (11:39)
[2018-05-21] MEDS: guaiFENesin 600 mg ER Tab PO SCH ×2 (11:39→17:48)
--- NOTE | 2018-05-21 12:54 | CP.PCM.PN ---
Subjective - Date & Time of Evaluation Date of Evaluation: 05/21/18 Time of Evaluation: 10:15 - Subjective Subjective: clinically same Objective - Vital Signs/Intake and Output Vital Signs (last 24 hours): Temp Pulse Resp BP Pulse Ox 98.2 F 53 L 20 127/76 96 05/21/18 08:10 05/21/18 08:10 05/21/18 08:10 05/21/18 08:10 05/21/18 08:10 Intake and Output: 05/21/18 05/21/18 06:59 18:59 Intake Total 300 Balance 300 - Medications Medications: Current Medications Al Hydrox/Mg Hydrox/Simethicone (Maalox 30 Ml) 30 ml PO Q8H PRN PRN Reason: Indigestion / Heartburn Last Admin: 05/19/18 19:30 Dose: 30 ml Amlodipine Besylate (Norvasc) 5 mg PO DAILY [facility] Last Admin: 05/21/18 11:39 Dose: 5 mg Aspirin (Aspirin) 325 mg PO DAILY [facility] Last Admin: 05/21/18 11:38 Dose: 325 mg Enoxaparin Sodium (Lovenox) 40 mg SC DAILY [facility] Last Admin: 05/21/18 11:39 Dose: 40 mg Fluticasone Propionate (Flonase) 1 spr NS BID [facility] Last Admin: 05/20/18 21:32 Dose: 1 sprays Guaifenesin (Mucinex La) 600 mg PO BID [facility] Last Admin: 05/21/18 11:39 Dose: 600 mg Moxifloxacin HCl (Avelox Iv 400mg/250ml Ns) 400 mg in 250 mls @ 167 mls/hr IVPB Q24H [facility]; Protocol Last Admin: 05/20/18 18:02 Dose: 167 mls/hr Ibuprofen (Motrin Tab) 400 mg PO Q6H PRN PRN Reason: Pain, moderate (4-7) Last Admin: 05/20/18 19:51 Dose: 400 mg Loratadine (Claritin) 10 mg PO DAILY [facility] Last Admin: 05/21/18 11:39 Dose: 10 mg Pantoprazole Sodium (Protonix Ec Tab) 40 mg PO DAILY [facility] Last Admin: 05/21/18 11:38 Dose: 40 mg Simethicone (Mylicon Chew Tab) 40 mg PO QID [facility] Last Admin: 05/21/18 11:38 Dose: 40 mg - Labs Labs: 05/20/18 08:11 05/20/18 08:11 PT 10.7 SECONDS (9.7-12.2) 05/19/18 09:54 INR 1.0 05/19/18 09:54 APTT 31 SECONDS (21-34) 05/19/18 09:54 - Constitutional Appears: Well - Head Exam Head Exam: ATRAUMATIC, NORMAL INSPECTION, NORMOCEPHALIC - Eye Exam Eye Exam: EOMI, Normal appearance, PERRL Pupil Exam: NORMAL ACCOMODATION, PERRL - ENT Exam ENT Exam: Mucous Membranes Moist, Normal Exam - Neck Exam Neck Exam: Full ROM, Normal Inspection. absent: Lymphadenopathy - Respiratory Exam Respiratory Exam: Decreased Breath Sounds - Cardiovascular Exam Cardiovascular Exam: REGULAR RHYTHM, +S1, +S2 - GI/Abdominal Exam GI & Abdominal Exam: Soft, Diminished Bowel Sounds - Rectal Exam Rectal Exam: Deferred
[2018-05-21 14:31] LABS: FREE T4 1.43 ng/dL (0.78-2.19)
[2018-05-21 14:33] LABS: PROLACTIN 12.6 ng/mL (3.0-18.9)
[2018-05-21 15:21] LABS: FOLATE 7.9 ng/mL
[2018-05-21] MEDS: Moxifloxacin IV 400mg/250ml NS 400 MG/250 ML BAG IVPB SCH (17:47)
--- NOTE | 2018-05-21 22:06 | CP.PCM.CON ---
History of Present Illness - History of Present Illness History of Present Illness: 78 year old female chronically ill reports one episode of syncope. Occurred in the context of severe bronchitis with cough and production of whitish sputum. Worse with exertion and improves with rest. She is reporting poor PO intake while this condition occurs. Review of Systems - Review of Systems All systems: reviewed and no additional remarkable complaints except Review of Systems: +Anxiety, depression, generalized pain Past Patient History - Infectious Disease Hx of Infectious Diseases: None - Past Medical History & Family History Past Medical History?: Yes - Past Social History Smoking Status: Never Smoked - CARDIAC Hx Hypertension: Yes - PULMONARY Hx Pneumonia: Yes - NEUROLOGICAL Hx Neurological Disorder: No - HEENT Hx HEENT Problems: Yes Other/Comment: excessive salivation - RENAL Hx Chronic Kidney Disease: No - ENDOCRINE/METABOLIC Hx Endocrine Disorders: No - HEMATOLOGICAL/ONCOLOGICAL Hx Blood Disorders: No - INTEGUMENTARY Hx Dermatological Problems: No - MUSCULOSKELETAL/RHEUMATOLOGICAL Hx Musculoskeletal Disorders: No Hx Falls: No - GASTROINTESTINAL Hx Gastrointestinal Disorders: No - GENITOURINARY/GYNECOLOGICAL Hx Genitourinary Disorders: No - PSYCHIATRIC Hx Anxiety: Yes Hx Substance Use: No - SURGICAL HISTORY Hx Tonsillectomy: Yes - ANESTHESIA Hx Anesthesia: Yes Hx Anesthesia Reactions: No Hx Malignant Hyperthermia: No Has any member of the family had a problem w/ anesthesia?: No Meds Allergies/Adverse Reactions: Allergies Allergy/AdvReac Type Severity Reaction Status Date / Time No Known Allergies Allergy Verified 05/19/18 08:58 - Medications Medications: Current Medications Al Hydrox/Mg Hydrox/Simethicone (Maalox 30 Ml) 30 ml PO Q8H PRN PRN Reason: Indigestion / Heartburn Last Admin: 05/19/18 19:30 Dose: 30 ml Amlodipine Besylate (Norvasc) [address] [facility] Last Admin: 05/21/18 11:39 Dose: 5 mg Aspirin (Aspirin) [address] [facility] Last Admin: 05/21/18 11:38 Dose: 325 mg Enoxaparin Sodium (Lovenox) [address] [facility] Last Admin: 05/21/18 11:39 Dose: 40 mg Fluticasone Propionate (Flonase) [address] [facility] Last Admin: 05/21/18 17:47 Dose: 1 sprays Guaifenesin (Mucinex La) [address] [facility] Last Admin: 05/21/18 17:48 Dose: 600 mg Moxifloxacin HCl (Avelox Iv 400mg/250ml Ns) 400 mg in 250 mls @ 167 mls/hr IVPB Q24H [facility]; Protocol Last Admin: 05/21/18 17:47 Dose: 167 mls/hr Ibuprofen (Motrin Tab) 400 mg PO Q6H PRN PRN Reason: Pain, moderate (4-7) Last Admin: 05/21/18 14:12 Dose: 400 mg Loratadine (Claritin) [address] [facility] Last Admin: 05/21/18 11:39 Dose: 10 mg Pantoprazole Sodium (Protonix Ec Tab) [address] [facility] Last Admin: 05/21/18 11:38 Dose: 40 mg Simethicone (Mylicon Chew Tab) [address] [facility] Last Admin: 05/21/18 17:48 Dose: 40 mg Physical Exam - Constitutional Appears: Older Than Stated Age, Chronically Ill - Head Exam Head Exam: ATRAUMATIC, NORMAL INSPECTION - Eye Exam Eye Exam: PERRL. absent: Scleral icterus - ENT Exam ENT Exam: Normal External Ear Exam Additional comments: Poor dentition - Neck Exam Neck exam: Positive for: Full Rom. Negative for: Thyromegaly - Respiratory Exam Respiratory Exam: Wheezes, NORMAL BREATHING PATTERN - Cardiovascular Exam Cardiovascular Exam: REGULAR RHYTHM, RRR, +S1, +S2. absent: JVD - GI/Abdominal Exam GI & Abdominal Exam: Normal Bowel Sounds. absent: Organomegaly - Neurological Exam Neurological exam: CN II-XII Intact, Oriented x3 - Psychiatric Exam Psychiatric exam: Agitated, Anxious, Normal Affect Results - Vital Signs Recent Vital Signs: Last Vital Signs Temp 98.3 F 05/21/18 15:08 Pulse 80 05/21/18 15:08 Resp 20 05/21/18 15:08 BP 100/68 05/21/18 15:08 Pulse Ox 95 05/21/18 15:08 - Labs Result Diagrams: 05/20/18 08:11 05/20/18 08:11 Labs: Laboratory Results - last 24 hr 05/21/18 05/21/18 13:26 13:26 Triglycerides 56 D Cholesterol 159 LDL Cholesterol Direct 85 HDL Cholesterol 58 Vitamin B12 302 Folate 7.9 Free T4 1.43 TSH 3rd Generation 0.61 Prolactin 12.6 - EKG Data EKG Interpreted by: Myself EKG shows normal: Sinus rhythm - Imaging and Cardiology Chest x-ray Status: Image reviewed by me Additional comment: No infiltrates or effusions Assessment & Plan - Assessment and Plan (Free Text) Assessment: 78 year old woman with syncope likeley due to vasovagal mechanism, IV fluids and advance PO diet as tolerated COPD chronic
[2018-05-22] MEDS ORDERED: Albuterol-Ipratrop 3 mg / 0.5 (3 ml) UD INH STA (02:05)
--- NOTE | 2018-05-22 07:23 | CP.PCM.CON ---
History of Present Illness - History of Present Illness History of Present Illness: CONSULT DICTATED ?? SYNCOPE EXAM NON FOCAL NEED MRI - SHE REFUSING CHECK EEG CORRECT METABOLIC ISSUES Past Patient History - Infectious Disease Hx of Infectious Diseases: None - Past Medical History & Family History Past Medical History?: Yes - Past Social History Smoking Status: Never Smoked - CARDIAC Hx Hypertension: Yes - PULMONARY Hx Pneumonia: Yes - NEUROLOGICAL Hx Neurological Disorder: No - HEENT Hx HEENT Problems: Yes Other/Comment: excessive salivation - RENAL Hx Chronic Kidney Disease: No - ENDOCRINE/METABOLIC Hx Endocrine Disorders: No - HEMATOLOGICAL/ONCOLOGICAL Hx Blood Disorders: No - INTEGUMENTARY Hx Dermatological Problems: No - MUSCULOSKELETAL/RHEUMATOLOGICAL Hx Musculoskeletal Disorders: No Hx Falls: No - GASTROINTESTINAL Hx Gastrointestinal Disorders: No - GENITOURINARY/GYNECOLOGICAL Hx Genitourinary Disorders: No - PSYCHIATRIC Hx Anxiety: Yes Hx Substance Use: No - SURGICAL HISTORY Hx Tonsillectomy: Yes - ANESTHESIA Hx Anesthesia: Yes Hx Anesthesia Reactions: No Hx Malignant Hyperthermia: No Has any member of the family had a problem w/ anesthesia?: No Meds Allergies/Adverse Reactions: Allergies Allergy/AdvReac Type Severity Reaction Status Date / Time No Known Allergies Allergy Verified 05/19/18 08:58 - Medications Medications: Current Medications Al Hydrox/Mg Hydrox/Simethicone (Maalox 30 Ml) 30 ml PO Q8H PRN PRN Reason: Indigestion / Heartburn Last Admin: 05/19/18 19:30 Dose: 30 ml Albuterol/Ipratropium (Duoneb 3 Mg/0.5 Mg (3 Ml) Ud) 3 ml INH RQ6 [facility] Amlodipine Besylate (Norvasc) 5 mg PO DAILY [facility] Last Admin: 05/21/18 11:39 Dose: 5 mg Aspirin (Aspirin) 325 mg PO DAILY [facility] Last Admin: 05/21/18 11:38 Dose: 325 mg Enoxaparin Sodium (Lovenox) 40 mg SC DAILY [facility] Last Admin: 05/21/18 11:39 Dose: 40 mg Fluticasone Propionate (Flonase) 1 spr NS BID [facility] Last Admin: 05/21/18 17:47 Dose: 1 sprays Guaifenesin (Mucinex La) 600 mg PO BID [facility] Last Admin: 05/21/18 17:48 Dose: 600 mg Moxifloxacin HCl (Avelox Iv 400mg/250ml Ns) 400 mg in 250 mls @ 167 mls/hr IVPB Q24H [facility]; Protocol Last Admin: 05/21/18 17:47 Dose: 167 mls/hr Ibuprofen (Motrin Tab) 400 mg PO Q6H PRN PRN Reason: Pain, moderate (4-7) Last Admin: 05/21/18 14:12 Dose: 400 mg Loratadine (Claritin) 10 mg PO DAILY [facility] Last Admin: 05/21/18 11:39 Dose: 10 mg Pantoprazole Sodium (Protonix Ec Tab) 40 mg PO DAILY [facility] Last Admin: 05/21/18 11:38 Dose: 40 mg Simethicone (Mylicon Chew Tab) 40 mg PO QID [facility] Last Admin: 05/21/18 22:29 Dose: 40 mg Results - Vital Signs Recent Vital Signs: Last Vital Signs Temp 98 F 05/21/18 23:40 Pulse 57 L 05/21/18 23:40 Resp 20 05/21/18 23:40 BP 123/63 05/21/18 23:40 Pulse Ox 95 05/21/18 23:40 - Labs Result Diagrams: 05/20/18 08:11 05/20/18 08:11 Labs: Laboratory Results - last 24 hr 05/21/18 05/21/18 13:26 13:26 Triglycerides 56 D Cholesterol 159 LDL Cholesterol Direct 85 HDL Cholesterol 58 Vitamin B12 302 Folate 7.9 Free T4 1.43 TSH 3rd Generation 0.61 Prolactin 12.6
[2018-05-22] MEDS: Albuterol-Ipratrop 3 mg / 0.5 (3 ml) UD INH SCH ×3 (08:57→19:35)
[2018-05-22] MEDS: Enoxaparin 40 mg Syringe SC SCH (09:20)
[2018-05-22] MEDS: Simethicone 80 mg Chewtab PO SCH ×4 (09:20→21:49)
[2018-05-22] MEDS: Fluticasone Nasal 50 mcg/Spray NS SCH ×2 (09:21→18:03)
[2018-05-22] MEDS: Pantoprazole 40 mg EC Tab PO SCH (09:21)
[2018-05-22] MEDS: guaiFENesin 600 mg ER Tab PO SCH ×2 (09:23→18:02)
--- NOTE | 2018-05-22 12:25 | CON ---
DATE: 05/22/2018 ATTENDING PHYSICIAN: Molly Castellanos MD LOCATION: The patient's room number 664, bed B. REASON FOR CONSULTATION: Syncopal attack. CHIEF COMPLAINT: The patient was brought in to [facility] by her son with a history of syncopal attack while she was at home. From neurological point of view, I was called in to evaluate her for further management. HISTORY OF PRESENT ILLNESS: Ms. Samantha Gonzalez is an 78-year-old right-handed female presenting with chronic sinus problem, being treated at [facility], not getting better with antibiotics, presenting with losing weight and inability to take food properly, admitting with history of witnessed syncopal attack in front of her son. This episode not associating with fall or head injuries. No associated involuntary movements, bowel or bladder incontinence. No history of bleeding from the tongue or foaming mouth. No similar episodes happened in the past. PAST MEDICAL HISTORY: Anxiety, hypertension, pneumonia. PERSONAL HISTORY: Denies smoking or alcohol use. ALLERGIES: NO KNOWN ALLERGIES. REVIEW OF SYSTEMS: A 12-point system being reviewed. From neuro, syncopal attack. MEDICATIONS: Aspirin, Avelox, Claritin, Flonase, Lovenox, simethicone, ibuprofen. PHYSICAL EXAMINATION: VITAL SIGNS: Blood pressure 123/63, mean arterial pressure of 83, respiratory rate 18, temperature 98 degrees Fahrenheit, pulse rate 57. Neck: Supple. No carotid bruits. HEART: Sounds regular. CHEST: Fair air entry. EXTREMITIES: No edema in legs. NEUROLOGIC EXAMINATION: Mental status examination: She is awake, alert, oriented to person, place and time. Her speech is clear. Naming, repetition, fluency, comprehension all within normal. No sign of hallucination. No sign of suicidal ideation. The patient's mentation is concrete for her age. No right and left confusion. She follows all commands. Cranial nerve examination: Visual field intact. Pupils reactive to light. Extraocular movement normal, no nystagmus. No facial sensory deficit. No facial asymmetry. Hearing is normal. Tongue is midline. Good gag. Motor examination: Outstretched hand with eyes closed, no drift noted. Power is symmetric on either side. Deep tendon reflexes biceps, brachialis, triceps, knee, and ankle all are absent. Plantars have equivocal response. Sensory examination: No cortical sensory loss. Mild sensory motor neuropathy. Coordination: [id number] test is intact. CONCLUSION: As per neurological examination, Ms. Samantha Gonzalez has been presenting with witnessed syncopal attack, not associating with witnessed seizure activities or bowel, bladder incontinence. This is probably secondary to her and underlying metabolic issues and chronic infection. 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 WORKUP: CT of the head reviewed, mild atrophy and basal ganglia calcification and small vessel disease noted. EKG, normal sinus rhythm. BLOOD WORKUP: WBC 6.1, hemoglobin 12.5, hematocrit 36.5, platelet 341. PT 10.7, INR 1, PTT 31. Sodium 140, potassium 4, chloride 101, bicarbonate 28, BUN 12, creatinine 0.6, GFR more than 60, troponin 68. B12 302. TSH 0.61. Prolactin 12.6, cholesterol 159. Urine shows 3+ leukocytes. RECOMMENDATIONS: 1. The patient should be on stroke prophylaxis. 2. Electroencephalogram to rule out seizure activities. 3. MRI of the brain is requested, the patient is refusing at this point; however, I respect her wish. If stable, the patient can be discharged and should have followup visit with me as outpatient and if recommended ambulatory electroencephalogram, that can be done as outpatient. Toño Castillo MD
[2018-05-22] MEDS: Moxifloxacin IV 400mg/250ml NS 400 MG/250 ML BAG IVPB SCH (18:03)
--- NOTE | 2018-05-22 19:02 | CP.PCM.PN ---
Subjective - Date & Time of Evaluation Date of Evaluation: 05/22/18 Time of Evaluation: 11:15 - Subjective Subjective: clinically same Objective - Vital Signs/Intake and Output Vital Signs (last 24 hours): Temp Pulse Resp BP Pulse Ox 98.0 F 70 20 145/63 96 05/22/18 15:00 05/22/18 15:00 05/22/18 15:00 05/22/18 15:00 05/22/18 15:00 - Medications Medications: Current Medications Al Hydrox/Mg Hydrox/Simethicone (Maalox 30 Ml) 30 ml PO Q8H PRN PRN Reason: Indigestion / Heartburn Last Admin: 05/19/18 19:30 Dose: 30 ml Albuterol/Ipratropium (Duoneb 3 Mg/0.5 Mg (3 Ml) Ud) 3 ml INH RQ6 [facility] Last Admin: 05/22/18 13:49 Dose: 3 ml Amlodipine Besylate (Norvasc) 5 mg PO DAILY [facility] Last Admin: 05/22/18 09:21 Dose: 5 mg Aspirin (Aspirin) 325 mg PO DAILY [facility] Last Admin: 05/22/18 09:20 Dose: 325 mg Enoxaparin Sodium (Lovenox) 40 mg SC DAILY [facility] Last Admin: 05/22/18 09:20 Dose: 40 mg Fluticasone Propionate (Flonase) 1 spr NS BID [facility] Last Admin: 05/22/18 18:03 Dose: 1 sprays Guaifenesin (Mucinex La) 600 mg PO BID [facility] Last Admin: 05/22/18 18:02 Dose: 600 mg Moxifloxacin HCl (Avelox Iv 400mg/250ml Ns) 400 mg in 250 mls @ 167 mls/hr IVPB Q24H [facility]; Protocol Last Admin: 05/22/18 18:03 Dose: 167 mls/hr Ibuprofen (Motrin Tab) 400 mg PO Q6H PRN PRN Reason: Pain, moderate (4-7) Last Admin: 05/21/18 14:12 Dose: 400 mg Loratadine (Claritin) 10 mg PO DAILY [facility] Last Admin: 05/22/18 09:23 Dose: 10 mg Pantoprazole Sodium (Protonix Ec Tab) 40 mg PO DAILY [facility] Last Admin: 05/22/18 09:21 Dose: 40 mg Simethicone (Mylicon Chew Tab) 40 mg PO QID [facility] Last Admin: 05/22/18 18:02 Dose: 40 mg Zolpidem Tartrate (Ambien) 5 mg PO HS PRN PRN Reason: Insomnia - Labs Labs: 05/20/18 08:11 05/20/18 08:11 PT 10.7 SECONDS (9.7-12.2) 05/19/18 09:54 INR 1.0 05/19/18 09:54 APTT 31 SECONDS (21-34) 05/19/18 09:54
[2018-05-23] MEDS: Albuterol-Ipratrop 3 mg / 0.5 (3 ml) UD INH SCH ×4 (02:00→19:43)
--- NOTE | 2018-05-23 09:32 | PN ---
DATE: 05/23/2018 TIME OF EVALUATION: 07:10 a.m. NEUROLOGICAL PROBLEM: Syncopal attack. PHYSICAL EXAMINATION: VITAL SIGNS: Blood pressure 115/68, mean arterial pressure 83, respiratory rate 18, pulse rate 73 and regular, temperature 98.2. The patient has no new symptoms. Consistent draining nose and complaining of sinusitis. Respiratory examination which is unchanged to compare with the previous examination. The patient agreed to have MRI of the brain because of the new symptom of tingling sensation of both upper extremities. The requested electroencephalogram is still pending. Continue the present management. The patient will be followed closely with you. Toño Castillo MD
[2018-05-23] MEDS: Fluticasone Nasal 50 mcg/Spray NS SCH ×2 (10:55→17:40)
[2018-05-23] MEDS: Enoxaparin 40 mg Syringe SC SCH (10:55)
[2018-05-23] MEDS: Pantoprazole 40 mg EC Tab PO SCH (10:55)
[2018-05-23] MEDS: guaiFENesin 600 mg ER Tab PO SCH ×2 (11:00→17:40)
[2018-05-23] MEDS: Simethicone 80 mg Chewtab PO SCH ×4 (11:00→21:04)
--- NOTE | 2018-05-23 11:09 | MRI ---
Date of service: 05/23/2018 PROCEDURE: MRI BRAIN WITHOUT CONTRAST HISTORY: STROKE [employer] TERITARY OR [facility] TERITARY - INSULAR COMPARISON: 05/19/2018 CT TECHNIQUE: Multiplanar, multisequence MR images of the brain were obtained without intravenous contrast enhancement. FINDINGS: HEMORRHAGE: None DWI: No evidence of an acute or early subacute infarction. BRAIN PARENCHYMA: No mass effect or edema. Mild atrophy. Minimal microvascular changes. VENTRICLES: Unremarkable. No hydrocephalus. CRANIUM: Unremarkable. ORBITS: Grossly unremarkable. PARANASAL SINUSES/MASTOIDS: Clear VASCULAR SYSTEM: Skull base flow voids intact. OTHER FINDINGS: None. IMPRESSION: No acute intracranial findings
--- NOTE | 2018-05-23 11:52 | CP.PCM.PN ---
Subjective - Date & Time of Evaluation Date of Evaluation: 05/23/18 Time of Evaluation: 12:00 - Subjective Subjective: clinically same Objective - Vital Signs/Intake and Output Vital Signs (last 24 hours): Temp Pulse Resp BP Pulse Ox 98.8 F 60 20 125/64 95 05/23/18 07:00 05/23/18 07:00 05/23/18 07:00 05/23/18 07:00 05/23/18 07:00 Intake and Output: 05/23/18 05/23/18 06:59 18:59 Intake Total 570 Balance 570 - Medications Medications: Current Medications Al Hydrox/Mg Hydrox/Simethicone (Maalox 30 Ml) 30 ml PO Q8H PRN PRN Reason: Indigestion / Heartburn Last Admin: 05/19/18 19:30 Dose: 30 ml Albuterol/Ipratropium (Duoneb 3 Mg/0.5 Mg (3 Ml) Ud) 3 ml INH RQ6 [facility] Last Admin: 05/23/18 07:43 Dose: Not Given Amlodipine Besylate (Norvasc) 5 mg PO DAILY [facility] Last Admin: 05/22/18 09:21 Dose: 5 mg Aspirin (Aspirin) 325 mg PO DAILY [facility] Last Admin: 05/23/18 10:55 Dose: 325 mg Enoxaparin Sodium (Lovenox) 40 mg SC DAILY [facility] Last Admin: 05/23/18 10:55 Dose: 40 mg Fluticasone Propionate (Flonase) 1 spr NS BID [facility] Last Admin: 05/23/18 10:55 Dose: 1 sprays Guaifenesin (Mucinex La) 600 mg PO BID [facility] Last Admin: 05/22/18 18:02 Dose: 600 mg Moxifloxacin HCl (Avelox Iv 400mg/250ml Ns) 400 mg in 250 mls @ 167 mls/hr IVPB Q24H [facility]; Protocol Last Admin: 05/22/18 18:03 Dose: 167 mls/hr Ibuprofen (Motrin Tab) 400 mg PO Q6H PRN PRN Reason: Pain, moderate (4-7) Last Admin: 05/21/18 14:12 Dose: 400 mg Loratadine (Claritin) 10 mg PO DAILY [facility] Last Admin: 05/23/18 10:55 Dose: 10 mg Pantoprazole Sodium (Protonix Ec Tab) 40 mg PO DAILY [facility] Last Admin: 05/23/18 10:55 Dose: 40 mg Simethicone (Mylicon Chew Tab) 40 mg PO QID [facility] Last Admin: 05/22/18 21:49 Dose: 40 mg Zolpidem Tartrate (Ambien) 5 mg PO HS PRN PRN Reason: Insomnia Last Admin: 05/22/18 21:59 Dose: 5 mg - Labs Labs: 05/20/18 08:11 05/20/18 08:11 PT 10.7 SECONDS (9.7-12.2) 05/19/18 09:54 INR 1.0 05/19/18 09:54 APTT 31 SECONDS (21-34) 05/19/18 09:54 - Constitutional Appears: Well - Head Exam Head Exam: ATRAUMATIC, NORMAL INSPECTION, NORMOCEPHALIC - Eye Exam Eye Exam: EOMI, Normal appearance, PERRL Pupil Exam: NORMAL ACCOMODATION, PERRL - ENT Exam ENT Exam: Mucous Membranes Moist, Normal Exam - Neck Exam Neck Exam: Full ROM, Normal Inspection. absent: Lymphadenopathy - Respiratory Exam Respiratory Exam: Decreased Breath Sounds - Cardiovascular Exam Cardiovascular Exam: REGULAR RHYTHM, +S1, +S2 - GI/Abdominal Exam GI & Abdominal Exam: Soft, Diminished Bowel Sounds - Rectal Exam Rectal Exam: Deferred
--- NOTE | 2018-05-23 15:37 | CP.PCM.PN ---
Subjective - Date & Time of Evaluation Date of Evaluation: 05/23/18 Time of Evaluation: 15:37 - Subjective Subjective: PATIENT SEEN AND EXAMINED AT THE BEDSIDE Objective - Vital Signs/Intake and Output Vital Signs (last 24 hours): Temp Pulse Resp BP Pulse Ox 98.8 F 60 20 125/64 95 05/23/18 07:00 05/23/18 07:00 05/23/18 07:00 05/23/18 07:00 05/23/18 07:00 Intake and Output: 05/23/18 05/23/18 06:59 18:59 Intake Total 570 Balance 570 - Medications Medications: Current Medications Al Hydrox/Mg Hydrox/Simethicone (Maalox 30 Ml) 30 ml PO Q8H PRN PRN Reason: Indigestion / Heartburn Last Admin: 05/19/18 19:30 Dose: 30 ml Albuterol/Ipratropium (Duoneb 3 Mg/0.5 Mg (3 Ml) Ud) 3 ml INH RQ6 [facility] Last Admin: 05/23/18 13:29 Dose: Not Given Amlodipine Besylate (Norvasc) 5 mg PO DAILY [facility] Last Admin: 05/22/18 09:21 Dose: 5 mg Aspirin (Aspirin) 325 mg PO DAILY [facility] Last Admin: 05/23/18 10:55 Dose: 325 mg Enoxaparin Sodium (Lovenox) 40 mg SC DAILY [facility] Last Admin: 05/23/18 10:55 Dose: 40 mg Fluticasone Propionate (Flonase) 1 spr NS BID [facility] Last Admin: 05/23/18 10:55 Dose: 1 sprays Guaifenesin (Mucinex La) 600 mg PO BID [facility] Last Admin: 05/23/18 11:00 Dose: 600 mg Moxifloxacin HCl (Avelox Iv 400mg/250ml Ns) 400 mg in 250 mls @ 167 mls/hr IVPB Q24H [facility]; Protocol Last Admin: 05/22/18 18:03 Dose: 167 mls/hr Ibuprofen (Motrin Tab) 400 mg PO Q6H PRN PRN Reason: Pain, moderate (4-7) Last Admin: 05/21/18 14:12 Dose: 400 mg Loratadine (Claritin) 10 mg PO DAILY [facility] Last Admin: 05/23/18 10:55 Dose: 10 mg Pantoprazole Sodium (Protonix Ec Tab) 40 mg PO DAILY [facility] Last Admin: 05/23/18 10:55 Dose: 40 mg Simethicone (Mylicon Chew Tab) 40 mg PO QID [facility] Last Admin: 05/23/18 14:32 Dose: 40 mg Zolpidem Tartrate (Ambien) 5 mg PO HS PRN PRN Reason: Insomnia Last Admin: 05/22/18 21:59 Dose: 5 mg - Labs Labs: 05/20/18 08:11 05/20/18 08:11 PT 10.7 SECONDS (9.7-12.2) 05/19/18 09:54 INR 1.0 05/19/18 09:54 APTT 31 SECONDS (21-34) 05/19/18 09:54 Assessment and Plan - Assessment and Plan (Free Text) Assessment: FOLLOW UP WITH DR Wade POWELL IN HIS OFFICE ----CALL FOR APPOINTMENT FOLLOW UP WITH DR MILLS IN HIS OFFICE ----CALL FOR APPOINTMENT FOLLOW UP WITH DR SCHWARTZ IN HIS OFFICE IN 1-2 WEEK ----CALL FOR APPOINTMENT CONTINUE HOME MEDICATION NEW PRESCRIPTION GIVEN ASPIRIN 325 MG BY LANA DAILY CIPRO 500 MG BY MOUTH EVERY 12 HOURS FOR 10 DAYS FLORASTOR 250 MG BY MOUTH TWICE A DAY FOR 10 DAYS ACTIVITY TOLERATED / HOME WITH SERVICE CALL DR Wade POWELL OR GO TO THE EMERGENCY ROOM IF SYMPTOM RETURN OR WORSENING
[2018-05-23] MEDS: Moxifloxacin IV 400mg/250ml NS 400 MG/250 ML BAG IVPB SCH (17:40)
--- NOTE | 2018-05-23 22:23 | CARD ---
APPROVED REPORT Date of service: 05/19/2018 EKG Measurement Heart [id number] <Conclusion> Normal sinus rhythm Left anterior fascicular block Possible Anterolateral infarct, age undetermined Abnormal ECG
[2018-05-24] MEDS: Albuterol-Ipratrop 3 mg / 0.5 (3 ml) UD INH SCH ×3 (01:28→14:00)
[2018-05-24] MEDS: Simethicone 80 mg Chewtab PO SCH ×3 (10:36→17:57)
[2018-05-24] MEDS: Pantoprazole 40 mg EC Tab PO SCH (10:36)
[2018-05-24] MEDS: guaiFENesin 600 mg ER Tab PO SCH ×2 (10:36→18:07)
[2018-05-24] MEDS: Fluticasone Nasal 50 mcg/Spray NS SCH ×2 (10:37→18:07)
[2018-05-24] MEDS: Enoxaparin 40 mg Syringe SC SCH (10:37)
--- NOTE | 2018-05-24 14:36 | CP.PCM.PN ---
Subjective - Date & Time of Evaluation Date of Evaluation: 05/24/18 Time of Evaluation: 12:00 - Subjective Subjective: clinically same Objective - Vital Signs/Intake and Output Vital Signs (last 24 hours): Temp Pulse Resp BP Pulse Ox 98.9 F 75 18 146/70 97 05/24/18 07:00 05/24/18 07:00 05/24/18 07:00 05/24/18 07:00 05/24/18 07:00 Intake and Output: 05/24/18 05/24/18 06:59 18:59 Intake Total 570 120 Output Total 600 Balance 570 -480 - Medications Medications: Current Medications Al Hydrox/Mg Hydrox/Simethicone (Maalox 30 Ml) 30 ml PO Q8H PRN PRN Reason: Indigestion / Heartburn Last Admin: 05/19/18 19:30 Dose: 30 ml Albuterol/Ipratropium (Duoneb 3 Mg/0.5 Mg (3 Ml) Ud) 3 ml INH RQ6 [facility] Last Admin: 05/24/18 07:45 Dose: Not Given Amlodipine Besylate (Norvasc) 5 mg PO DAILY [facility] Last Admin: 05/24/18 10:36 Dose: 5 mg Aspirin (Aspirin) 325 mg PO DAILY [facility] Last Admin: 05/24/18 10:39 Dose: Not Given Enoxaparin Sodium (Lovenox) 40 mg SC DAILY [facility] Last Admin: 05/24/18 10:37 Dose: 40 mg Fluticasone Propionate (Flonase) 1 spr NS BID [facility] Last Admin: 05/24/18 10:37 Dose: 1 sprays Guaifenesin (Mucinex La) 600 mg PO BID [facility] Last Admin: 05/24/18 10:36 Dose: 600 mg Moxifloxacin HCl (Avelox Iv 400mg/250ml Ns) 400 mg in 250 mls @ 167 mls/hr IVPB Q24H [facility]; Protocol Last Admin: 05/23/18 17:40 Dose: 167 mls/hr Ibuprofen (Motrin Tab) 400 mg PO Q6H PRN PRN Reason: Pain, moderate (4-7) Last Admin: 05/21/18 14:12 Dose: 400 mg Loratadine (Claritin) 10 mg PO DAILY [facility] Last Admin: 05/24/18 10:37 Dose: 10 mg Pantoprazole Sodium (Protonix Ec Tab) 40 mg PO DAILY [facility] Last Admin: 05/24/18 10:36 Dose: 40 mg Simethicone (Mylicon Chew Tab) 40 mg PO QID [facility] Last Admin: 05/24/18 10:36 Dose: 40 mg Zolpidem Tartrate (Ambien) 5 mg PO HS PRN PRN Reason: Insomnia Last Admin: 05/23/18 22:22 Dose: 5 mg - Labs Labs: 05/20/18 08:11 05/20/18 08:11 PT 10.7 SECONDS (9.7-12.2) 05/19/18 09:54 INR 1.0 05/19/18 09:54 APTT 31 SECONDS (21-34) 05/19/18 09:54 - Constitutional Appears: Well - Head Exam Head Exam: ATRAUMATIC, NORMAL INSPECTION, NORMOCEPHALIC - Eye Exam Eye Exam: EOMI, Normal appearance, PERRL Pupil Exam: NORMAL ACCOMODATION, PERRL - ENT Exam ENT Exam: Mucous Membranes Moist, Normal Exam - Neck Exam Neck Exam: Full ROM, Normal Inspection. absent: Lymphadenopathy - Respiratory Exam Respiratory Exam: Decreased Breath Sounds - Cardiovascular Exam Cardiovascular Exam: REGULAR RHYTHM, +S1, +S2 - GI/Abdominal Exam GI & Abdominal Exam: Soft, Diminished Bowel Sounds - Rectal Exam Rectal Exam: Deferred
[2018-05-24 16:16] VITALS: BP 117/69; PULSE 69; RESP 20; TEMP 97.7; O2SAT 98
[2018-05-24] MEDS: Moxifloxacin IV 400mg/250ml NS 400 MG/250 ML BAG IVPB SCH (18:07)
== END 2018-05-24 18:10 | disposition home or self-care (01) | DRG 312 ==
LOC: C.ER 08:35 → C.9E 10:36 → C.6T 14:25
PROVIDERS: ADMIT Internal Medicine Nephrology; ATTEND Internal Medicine Nephrology
DX: R55 Syncope and collapse (principal); I10 Essential (primary) hypertension; F41.9 Anxiety disorder, unspecified; J32.9 Chronic sinusitis, unspecified; J34.2 Deviated nasal septum; J44.9 Chronic obstructive pulmonary disease, unspecified; Z87.891 Personal history of nicotine dependence

== ENCOUNTER 2018-05-25 07:37 | Emergency (ER) | payer MEDICARE, OTHER ==
[2018-05-25 07:37] VITALS: BMI 24.7
--- NOTE | 2018-05-25 07:39 | C.PDOC ---
History Of Present Illness 78 Y/O FEMALE PRESENTS TO ED WITH C/O "LIQUID IS COMING OUT OF ME FROM EVERYWHERE". PATIENT STATES SHE NOTICED LIQUID COMING OUT FROM UNDERNEATH HER BREASTS LAST NIGHT "BUT IT WASN'T SWEAT". PATIENT STILL COMPLAINS OF PERSIST SINUS SYMPTOMS, SIMILAR TO PRIOR FROM MULTIPLE PREVIOUS ER VISITS. S/P AUGMENTIN. PATIENT WAS RECENTLY ADMITTED AND S/P MRI, CAROTID, EEG, NEURO CONSULT. PATIENT HAS NO PAIN, SOB OR ANY OTHER COMPLAINTS AT THIS TIME. "LIQUID IS COMING OUT OF ME FROM EVERYWHERE". STATES NOTICED LIQUID COMING OUT FROM UNDERNEATH HER BREASTS LAST NIGHT "BUT IT WASN'T SWEAT". NO PAIN, SOB. PT STILL CO PERSIST SINUS SX, SIM TO PRIOR FROM MULT PREV ER VISITS. SP AUGMENTIN. RECENT ADMISSION S/P MRI, CAROTID, EEG, NEURO CONSULT EXAM NARD NONTOXIC HEENT NEG SKIN WARM DRY NO DIAPH; +MILD TINEA CORPORUS BENEATH B/L BREASTS, NO VESICLES OR WEEPING NEURO AO3, NO FOCAL DEF PSYCH CO "FLUID COMING OUT AND MY SKIN IS DRY". ?HALLUCINATION. CALM COOPERATIVE. NO SIG CHANGE FROM PRIOR ER VISITS REMAINDER NEG Time Seen by Provider: 05/25/18 07:39 Chief Complaint (Nursing): Medical Clearance History Per: Patient History/Exam Limitations: no limitations Onset/Duration Of Symptoms: Days Current Symptoms Are (Timing): Still Present Past Medical History Reviewed: Historical Data, Nursing Documentation, Vital Signs - Medical History PMH: Anxiety, HTN, Pneumonia Surgical History: Tonsillectomy Family History: States: No Known Family Hx - Social History Hx Tobacco Use: No Hx Alcohol Use: No Hx Substance Use: No - Immunization History Hx Tetanus Toxoid Vaccination: No Hx Influenza Vaccination: No Hx Pneumococcal Vaccination: No Review Of Systems Constitutional: Negative for: Fever, Chills Cardiovascular: Negative for: Chest Pain Respiratory: Negative for: Cough, Shortness of Breath Gastrointestinal: Negative for: Nausea, Vomiting Musculoskeletal: Negative for: Neck Pain, Back Pain Skin: Positive for: Other (Tinea corporis underneath breasts). Negative for: Rash Physical Exam - Physical Exam Appears: Non-toxic, No Acute Distress Skin: Warm, Dry, No Rash, Other (MILD TINEA CORPORIS BENEATH B/L BREASTS, NO VESICLES OR WEEPING ) Head: Atraumatic, Normacephalic Eye(s): bilateral: Normal Inspection Ear(s): Bilateral: Normal Oral Mucosa: Moist Throat: Normal, No Erythema, No Exudate Neck: Normal ROM, Supple Cardiovascular: Rhythm Regular Respiratory: Normal Breath Sounds, No Rales, No Rhonchi, No Wheezing Gastrointestinal/Abdominal: Soft, No Tenderness, No Guarding, No Rebound Neurological/Psych: Oriented x3, Normal Speech, Normal Cognition, Other ("FLUID COMING OUT AND MY SKIN IS DRY". ?HALLUCINATION. CALM COOPERATIVE. NO SIGNIFICANT CHANGES FROM PRIOR ER VISITS) ED Course And Treatment - Laboratory Results Result Diagrams: 05/25/18 08:34 O2 Sat by Pulse Oximetry: 100 (RA) Pulse Ox Interpretation: Normal Progress - Re-Evaluation Re-evaluation Note: 05/25/18 07:39 D/W CRISIS ROBBIE PRECIADO IN ER 05/25/18 08:46 s/p CRISIS EVAL, CLEARED FOR DC. - Data Reviewed Data Reviewed: Old records Medical Decision Making Medical Decision Making: PRIOR RECORDS REVIEWED: PATIENT SEEN ON AVERAGE 5-6 TIMES PER MONTH AT ED FOR VARIOUS COMPLAINTS RANGING FROM ABDOMINAL PAIN TO CONSTANT SINUS Disposition Counseled Patient/Family Regarding: Studies Performed, Diagnosis, Need For Followup - Disposition Referrals: YOUR,PMD [Other] Disposition: HOME/ ROUTINE Disposition Time: 08:47 Condition: GOOD Prescriptions: Clotrimazole 1% Cream [Lotrimin 1% CREAM] 1 applic TOP BID #1 tube Instructions: Yeast Infection (DC) Forms: [employer] (Kazakh) - Clinical Impression Clinical Impression: Tinea corporis, Chronic sinus complaints - Scribe Statement The provider has reviewed the documentation as recorded by the iSdraiblenore Abbott All medical record entries made by the Scribe were at my direction and personally dictated by me. I have reviewed the chart and agree that the record accurately reflects my personal performance of the history, physical exam, medical decision making, and the department course for this patient. I have also personally directed, reviewed, and agree with the discharge instructions and disposition.
[2018-05-25 07:40] VITALS: TEMP 98.1
[2018-05-25 08:07] VITALS: O2SAT 100
[2018-05-25 08:39] LABS: BASO % 0.4 % (0.0-2.0); EOS # 0.3 K/uL (0.0-0.7); EOS % 4.5 % (0.0-4.0); HEMOGLOBIN 13.4 g/dL (11.0-16.0); LYMPH # 1.9 K/uL (1.0-4.3); LYMPH % 30.8 % (20.0-40.0); MEAN CELL VOLUME 87.4 fL (81.0-99.0); MEAN CORPUSCULAR HEMOGLOBIN 29.7 pg (27.0-31.0); MONO # 0.4 K/uL (0.0-0.8); MONO % 6.4 % (0.0-10.0); NEUT # 3.6 K/uL (1.8-7.0); NEUT % 57.9 % (50.0-75.0); NRBC % 0.1 % (0.0-2.0); RBC 4.5 Mil/uL (3.80-5.20); RED CELL DISTRIBUTION WIDTH 13.5 % (11.5-14.5); WHITE BLOOD COUNT 6.2 K/uL (4.8-10.8)
[2018-05-25 09:10] VITALS: BP 128/69; PULSE 69; RESP 18
== END 2018-05-25 09:09 | disposition home or self-care (01) ==
LOC: C.ER 07:37
DX: B35.4 Tinea corporis (principal); J34.9 Unspecified disorder of nose and nasal sinuses

== ENCOUNTER 2018-05-26 00:25 | Emergency (ER) | payer MEDICARE, OTHER ==
[2018-05-26 00:25] VITALS: BMI 24.7
[2018-05-26 00:38] VITALS: BP 145/82; PULSE 75; RESP 16; TEMP 97.6; O2SAT 97
--- NOTE | 2018-05-26 00:43 | C.PDOC ---
History Of Present Illness 78 y/o female presents to the ED for re-evaluation of sinus drainage, ongoing for several days. Of note, patient was recently admitted here for sinus infection and had an unremarkable MRI. [facility]. Patient states I can feel fluid coming out of my head and out of my mouth, feels exactly like when i was here earlier and had an MRI. Denies recent fall or injury. She reports having the same symptoms during recent admission, no new changes. Otherwise she denies any fevers, chills, bodyaches, nausea, vomiting, diarrhea, or SOB. Patient has had many prior ED visits for same complaint, including visit earlier today during which crisis and ER team saw and cleared the patient for discharge home. Time Seen by Provider: 05/26/18 00:43 Chief Complaint (Nursing): Cough, Cold, Congestion History Per: Patient History/Exam Limitations: no limitations Onset/Duration Of Symptoms: Days Current Symptoms Are (Timing): Still Present Past Medical History Reviewed: Historical Data, Nursing Documentation, Vital Signs Vital Signs: Last Vital Signs Temp 97.6 F 05/26/18 00:31 Pulse 75 05/26/18 00:31 Resp 16 05/26/18 00:31 BP 145/82 05/26/18 00:31 Pulse Ox 97 05/26/18 00:31 - Medical History PMH: Anxiety, HTN, Pneumonia Denies: Diabetes (Patient denied), Hepatitis (Patient denied), HIV (Patient denied), Chronic Kidney Disease, Seizures (Patient denied), Sexually Transmitted Disease (Patient denied) Surgical History: Tonsillectomy Family History: States: Unknown Family Hx - Social History Hx Tobacco Use: No Hx Alcohol Use: No Hx Substance Use: No - Immunization History Hx Tetanus Toxoid Vaccination: No Hx Influenza Vaccination: No Hx Pneumococcal Vaccination: No Review Of Systems Constitutional: Negative for: Fever, Chills Eyes: Negative for: Vision Change ENT: Positive for: Nose Discharge, Nose Congestion Respiratory: Negative for: Cough, Shortness of Breath Gastrointestinal: Negative for: Nausea, Vomiting, Diarrhea Genitourinary: Negative for: Dysuria, Frequency, Hematuria, Vaginal Discharge Musculoskeletal: Negative for: Neck Pain, Shoulder Pain, Back Pain Skin: Negative for: Rash, Lesions Neurological: Negative for: Weakness, Change in Speech, Headache, Dizziness Psych: Negative for: Psychosis Physical Exam - Physical Exam Appears: Non-toxic, No Acute Distress Skin: Warm, Dry Head: Normacephalic Eye(s): bilateral: Normal Inspection, PERRL, EOMI Ear(s): Bilateral: Normal (no erythema) Nose: Normal, No Flaring, No Discharge, No Epistaxis, No Deformity, No Tendernes s, No Septal Hematoma, No Other Oral Mucosa: Moist Tongue: Normal Appearing Lips: Normal Appearing Teeth: Edentulous Throat: Normal, No Erythema, No Exudate, No Drooling, No Mass, No Other Neck: Trachea Midline, Supple, Other (No meningeal signs- negative kernig's and brudzinskis) Chest: Symmetrical Cardiovascular: Rhythm Regular, Other (no rub) Respiratory: No Rales, No Rhonchi, No Wheezing Extremity: Bilateral: Normal Color And Temperature Pulses: Left Dorsalis Pedis: Normal, Right Dorsalis Pedis: Normal Neurological/Psych: Oriented x3, Normal Speech, Normal Cranial Nerves, No Cerebellar Signs, Normal Motor Gait: Steady ED Course And Treatment O2 Sat by Pulse Oximetry: 97 (RA) Pulse Ox Interpretation: Normal Medical Decision Making Medical Decision Makin79 y/o F with hx of chronic sinus infection, recent admission 05/19-05/24, sent home on Cipro. Pt states "there is brain fluid coming out of my head and mouth". Had thorough work-up during recent admission including unremarkable MRI, EEG, neuro consult, and ENT consult. Normal examination in the ED today. Plan: Patient informed that all recent diagnostics were normal, including MRI on 05/23/18, and there are no further emergent tests that can be done. Patient offers no acute complaints. States current sinus symptoms are unchanged. Educated patient regarding the importance of follow up with ENT, PMD. Counseled regarding plan for discharge home. 01:10 Went to discharge patient, who had already eloped from the ED. Disposition - Disposition Disposition: ELOPEMENT - ER ONLY Disposition Time: 01:10 Condition: STABLE Forms: [facility] (Central African) - Clinical Impression Clinical Impression: Sinusitis - Scribe Statement The provider has reviewed the documentation as recorded by the Scribe (Allison Urias) Provider Attestation: All medical record entries made by the Scribe were at my direction and personally dictated by me. I have reviewed the chart and agree that the record accurately reflects my personal performance of the history, physical exam, medical decision making, and the department course for this patient. I have also personally directed, reviewed, and agree with the discharge instructions and disposition.
== END 2018-05-26 01:31 | disposition left against medical advice (07) ==
LOC: C.ER 00:25
DX: J32.9 Chronic sinusitis, unspecified (principal); I10 Essential (primary) hypertension

== ENCOUNTER 2018-05-27 03:38 | Emergency (ER) | payer MEDICARE, OTHER ==
[2018-05-27 03:39] VITALS: BMI 24.7
[2018-05-27 03:51] VITALS: BP 154/80; PULSE 96; RESP 16; TEMP 97.5; O2SAT 97
--- NOTE | 2018-05-27 04:07 | C.PDOC ---
History Of Present Illness 78 year old female presents to the ER stating she feels fluids in her head that is running down her neck. She was recently seen in the ER for the same complaint, states nothing was done for her. Patient has been seen multiple times for the same complaint in the past, she was recently admitted and had a negative workup. Denies fever or other complaints at this time. Time Seen by Provider: 05/27/18 03:51 Chief Complaint (Nursing): Cough, Cold, Congestion History Per: Patient History/Exam Limitations: no limitations Onset/Duration Of Symptoms: Days Current Symptoms Are (Timing): Still Present Recent travel outside of the [place]: No Past Medical History Reviewed: Historical Data, Nursing Documentation, Vital Signs Vital Signs: Last Vital Signs Temp 97.5 F L 05/27/18 03:46 Pulse 96 H 05/27/18 03:46 Resp 16 05/27/18 03:46 BP 154/80 H 05/27/18 03:46 Pulse Ox 97 05/27/18 03:46 - Medical History PMH: Anxiety, HTN, Pneumonia Surgical History: Tonsillectomy Family History: States: Unknown Family Hx - Social History Hx Tobacco Use: No Hx Alcohol Use: No Hx Substance Use: No - Immunization History Hx Tetanus Toxoid Vaccination: No Hx Influenza Vaccination: No Hx Pneumococcal Vaccination: No Review Of Systems Constitutional: Positive for: Other (Fluid in head that runs down neck). Negative for: Fever, Chills Cardiovascular: Negative for: Chest Pain, Palpitations Respiratory: Negative for: Cough, Shortness of Breath Gastrointestinal: Negative for: Nausea, Vomiting Physical Exam - Physical Exam Appears: Non-toxic Skin: Normal Color, Warm, Dry Head: Atraumatic, Normacephalic Eye(s): bilateral: Normal Inspection, EOMI Nose: Normal Oral Mucosa: Moist Neck: Normal, No Midline Cervical Tenderness, No Paracervical Tenderness, Supple Chest: Symmetrical, No Tenderness Cardiovascular: Rhythm Regular Respiratory: Normal Breath Sounds, No Rales, No Rhonchi, No Wheezing Gastrointestinal/Abdominal: Soft, No Tenderness Extremity: Normal ROM (x4) Neurological/Psych: Oriented x3, Normal Speech ED Course And Treatment O2 Sat by Pulse Oximetry: 97 (Room air) Pulse Ox Interpretation: Normal Medical Decision Making Medical Decision Makin79 y/o F with hx of chronic sinus infection, recent admission 05/19-05/24, sent home on Cipro. Pt states "there is brain fluid coming out of my head". Had thorough work-up during recent admission including unremarkable MRI, EEG, neuro consult, and ENT consult. Normal examination in the ED today. Plan: Patient informed that no further emergent tests can be done. Patient offers no acute complaints. Educated patient regarding the importance of follow up with ENT, PMD. Counseled regarding plan for discharge home. Disposition Counseled Patient/Family Regarding: Diagnosis, Need For Followup - Disposition Referrals: Bruno Bruno MD [Staff Provider] - Disposition: HOME/ ROUTINE Disposition Time: 04:13 Condition: STABLE Additional Instructions: Follow up with your primary medical doctor, ENT or clinic in 2-5 days for further evaluation. Forms: [employer] (Romanian), General Discharge Instructions - POA Present On Arrival: None - Clinical Impression Clinical Impression: Disturbance of skin sensation - PA / LEASING AGENT / Resident Statement MD/DO has reviewed & agrees with the documentation as recorded. - Scribe Statement The provider has reviewed the documentation as recorded by the Scribe Adan Harrison All medical record entries made by the Scribe were at my direction and personally dictated by me. I have reviewed the chart and agree that the record accurately reflects my personal performance of the history, physical exam, medical decision making, and the department course for this patient. I have also personally directed, reviewed, and agree with the discharge instructions and disposition.
== END 2018-05-27 04:36 | disposition home or self-care (01) ==
LOC: C.ER 03:38
DX: R20.9 Unspecified disturbances of skin sensation (principal)

== ENCOUNTER 2018-05-28 08:29 | Emergency (ER) | payer MEDICARE, SELFPAY ==
[2018-05-28 08:29] VITALS: BMI 24.7
--- NOTE | 2018-05-28 08:35 | C.PDOC ---
History Of Present Illness 78 year old female presents to ED c/o "liquid is coming out of me from everywhere" specifically from under her breasts for past few days. Pt was evaluated by me on 05/25 for similar complaints and was diagnosed with skin yeast infection below bilateral breasts. She was also seen in the clinic on 05/26 and was seen again in this ED twice for similar complaints. Pt states, "I keep sweating". Otherwise, denies any fever, chills, pain, shortness of breath, or any other associated symptoms at this time. Time Seen by Provider: 05/28/18 08:35 History Per: Patient History/Exam Limitations: no limitations Onset/Duration Of Symptoms: Days Current Symptoms Are (Timing): Still Present Additional History Per: Patient Past Medical History Reviewed: Historical Data, Nursing Documentation, Vital Signs - Medical History PMH: Anxiety, HTN, Pneumonia Denies: Diabetes (Patient denied), Hepatitis (Patient denied), HIV (Patient denied), Chronic Kidney Disease, Seizures (Patient denied), Sexually Transmitted Disease (Patient denied) Surgical History: Tonsillectomy Family History: States: Unknown Family Hx - Social History Hx Tobacco Use: No Hx Alcohol Use: No Hx Substance Use: No - Immunization History Hx Tetanus Toxoid Vaccination: No Hx Influenza Vaccination: No Hx Pneumococcal Vaccination: No Review Of Systems Except As Marked, All Systems Reviewed And Found Negative. Constitutional: Negative for: Fever, Chills Cardiovascular: Negative for: Chest Pain, Palpitations Respiratory: Negative for: Shortness of Breath Gastrointestinal: Negative for: Nausea, Vomiting, Abdominal Pain Skin: Positive for: Other (excessive sweat) Neurological: Negative for: Weakness, Numbness, Headache Physical Exam - Physical Exam Appears: Non-toxic, No Acute Distress Skin: Warm, Dry, No Diaphoretic, No Rash, Other (MILD TINEA CORPORIS BENEATH B/L BREASTS, NO VESICLES OR WEEPING ) Head: Atraumatic, Normacephalic Eye(s): bilateral: Normal Inspection Oral Mucosa: Moist Neck: Normal ROM, Supple Chest: Symmetrical Cardiovascular: Rhythm Regular, No Murmur Respiratory: Normal Breath Sounds, No Rales, No Rhonchi, No Wheezing Gastrointestinal/Abdominal: Soft, No Tenderness Extremity: Normal ROM Neurological/Psych: Oriented x3, Normal Speech, No Other ("FLUID COMING OUT AND MY SKIN IS DRY". ?HALLUCINATION. CALM COOPERATIVE. NO SIGNIFICANT CHANGES FROM PRIOR ER VISITS) Disposition Counseled Patient/Family Regarding: Diagnosis, Need For Followup - Disposition Referrals: YOUR,PMD [Other] Disposition: HOME/ ROUTINE Disposition Time: 08:36 Condition: GOOD Forms: General Discharge Instructions - Clinical Impression Clinical Impression: Chronic sinus complaints, Disturbance of skin sensation - Scribe Statement The provider has reviewed the documentation as recorded by the Sidraiblenore Castellanos All medical record entries made by the Sidraiblenore were at my direction and personally dictated by me. I have reviewed the chart and agree that the record accurately reflects my personal performance of the history, physical exam, medical decision making, and the department course for this patient. I have also personally directed, reviewed, and agree with the discharge instructions and disposition.
[2018-05-28 08:53] VITALS: BP 128/81; PULSE 82; RESP 18; TEMP 98.2; O2SAT 100
== END 2018-05-28 08:52 | disposition home or self-care (01) ==
LOC: C.ER 08:29
DX: R20.9 Unspecified disturbances of skin sensation (principal); J34.9 Unspecified disorder of nose and nasal sinuses; I10 Essential (primary) hypertension

== ENCOUNTER 2018-05-29 05:03 | Emergency (ER) | payer MEDICARE, SELFPAY ==
[2018-05-29 05:03] VITALS: BMI 24.7
[2018-05-29 05:13] VITALS: BP 143/79; PULSE 73; RESP 20; TEMP 98; O2SAT 98
--- NOTE | 2018-05-29 05:37 | C.PDOC ---
History Of Present Illness 78-year-old female presents to the ED complaining of persistent sinus drainage, ongoing for weeks. States she was recently admitted here and had negative work- up, including MRI. Patient reports taking her Cipro as prescribed, and notes some improvement. She described feeling as if drainage is coming out of my skull associated with a dry scalp and itchiness. Patient is concerned this may be a possible side effect of the medication. Otherwise she denies any fevers or other complaints. Patient has many prior ED visits for same complaint. Time Seen by Provider: 05/29/18 05:24 Chief Complaint (Nursing): Medical Clearance History Per: Patient History/Exam Limitations: no limitations Onset/Duration Of Symptoms: Days Current Symptoms Are (Timing): Still Present Past Medical History Reviewed: Historical Data, Nursing Documentation, Vital Signs Vital Signs: Last Vital Signs Temp 98 F 05/29/18 05:10 Pulse 73 05/29/18 05:10 Resp 20 05/29/18 05:10 BP 143/79 05/29/18 05:10 Pulse Ox 98 05/29/18 05:10 - Medical History PMH: Anxiety, HTN, Pneumonia Denies: Diabetes (Patient denied), Hepatitis (Patient denied), HIV (Patient denied), Chronic Kidney Disease, Seizures (Patient denied), Sexually Transmitted Disease (Patient denied) Surgical History: Tonsillectomy Family History: States: Unknown Family Hx - Social History Hx Tobacco Use: No Hx Alcohol Use: No Hx Substance Use: No - Immunization History Hx Tetanus Toxoid Vaccination: No Hx Influenza Vaccination: No Hx Pneumococcal Vaccination: No Review Of Systems Constitutional: Negative for: Fever, Chills ENT: Positive for: Other (sinus drainage) Cardiovascular: Negative for: Chest Pain Respiratory: Negative for: Shortness of Breath Gastrointestinal: Negative for: Nausea, Vomiting Neurological: Negative for: Weakness, Numbness, Change in Speech, Dizziness Physical Exam - Physical Exam Appears: Well, Non-toxic, No Acute Distress Skin: Warm, Dry, No Rash Head: Atraumatic, Normacephalic Eye(s): bilateral: Normal Inspection Oral Mucosa: Moist Neck: Normal ROM Chest: Symmetrical Respiratory: No Accessory Muscle Use, Other (speaking in full sentences) Extremity: Bilateral: Atraumatic, Normal Color And Temperature, Normal ROM Neurological/Psych: Oriented x3, Normal Speech ED Course And Treatment O2 Sat by Pulse Oximetry: 98 (on room air) Pulse Ox Interpretation: Normal Medical Decision Making Medical Decision Making: Impression: Normal physical exam Plan: Patient arrives to the ED afebrile, ambulatory, in no acute distress. She offers no acute complaints. Informed patient that no emergent intervention is indicated, and encouraged follow up with PMD. Patient is stable for discharge home. Disposition Counseled Patient/Family Regarding: Diagnosis, Need For Followup - Disposition Referrals: Steph Castellanos MD [Staff Provider] - Disposition: HOME/ ROUTINE Disposition Time: 05:36 Condition: STABLE Forms: General Discharge Instructions - POA Present On Arrival: None - Clinical Impression Clinical Impression: Medical assessment, Disturbance of skin sensation - PA / RAILROAD CONSTRUCTION DIRECTOR / Resident Statement MD/DO has reviewed & agrees with the documentation as recorded. - Scribe Statement The provider has reviewed the documentation as recorded by the Scribe (Allison Urias) All medical record entries made by the Scribe were at my direction and personally dictated by me. I have reviewed the chart and agree that the record accurately reflects my personal performance of the history, physical exam, medical decision making, and the department course for this patient. I have also personally directed, reviewed, and agree with the discharge instructions and disposition.
== END 2018-05-29 05:49 | disposition home or self-care (01) ==
LOC: C.ER 05:03
DX: R20.9 Unspecified disturbances of skin sensation (principal); I10 Essential (primary) hypertension

== ENCOUNTER 2018-05-29 17:09 | Emergency (ER) | payer MEDICARE, OTHER ==
[2018-05-29 17:09] VITALS: BMI 24.7
[2018-05-29 17:40] VITALS: BP 137/75; PULSE 89; RESP 18; TEMP 98.5; O2SAT 97
--- NOTE | 2018-05-29 17:51 | C.PDOC ---
History Of Present Illness 78 year old female with multiple visits to the ED for symptoms like congestion, sinus infections and cough presents to the ED complaining of lower lip swelling status post taking a probiatic medication. Reports she read on the medication caution that it may cause lip swelling and then she felt like her lip was swelling up. Patient is able to tolerate PO and is speaking in full sentences and clearly. Denies any shortness of breath or difficulty swallowing. Time Seen by Provider: 05/29/18 17:45 Chief Complaint (Nursing): Medical Clearance History Per: Patient, Family (son ) History/Exam Limitations: no limitations Onset/Duration Of Symptoms: Hrs Current Symptoms Are (Timing): Still Present Past Medical History Reviewed: Historical Data, Nursing Documentation, Vital Signs Vital Signs: Last Vital Signs Temp 98.5 F 05/29/18 17:36 Pulse 89 05/29/18 17:36 Resp 18 05/29/18 17:36 BP 137/75 05/29/18 17:36 Pulse Ox 97 05/29/18 17:36 - Medical History PMH: Anxiety, HTN, Pneumonia Denies: Diabetes (Patient denied), Hepatitis (Patient denied), HIV (Patient denied), Chronic Kidney Disease, Seizures (Patient denied), Sexually Transmitted Disease (Patient denied) Surgical History: Tonsillectomy Family History: States: No Known Family Hx - Social History Hx Tobacco Use: No Hx Alcohol Use: No Hx Substance Use: No - Immunization History Hx Tetanus Toxoid Vaccination: No Hx Influenza Vaccination: No Hx Pneumococcal Vaccination: No Review Of Systems Except As Marked, All Systems Reviewed And Found Negative. Constitutional: Negative for: Fever, Chills ENT: Positive for: Other (lip swelling ). Negative for: Throat Pain, Throat Swelling Respiratory: Negative for: Shortness of Breath Physical Exam - Physical Exam Appears: Non-toxic, No Acute Distress Skin: Warm, Dry Head: Normacephalic Eye(s): bilateral: Normal Inspection Nose: Normal Oral Mucosa: Moist Tongue: No Swelling Lips: No Swelling Gingiva: Normal Appearing, No Swelling Throat: Normal, No Erythema, No Exudate Neck: Normal ROM, Supple Chest: Symmetrical Cardiovascular: Rhythm Regular Respiratory: No Rales, No Rhonchi, No Wheezing, Other (speaking in full sentences) Neurological/Psych: Oriented x3, Normal Speech Gait: Steady ED Course And Treatment O2 Sat by Pulse Oximetry: 97 (RA) Pulse Ox Interpretation: Normal Medical Decision Making Medical Decision Making: Patient is able to tolerate PO and is speaking in full sentences and clearly. Patient ready and stable for discharge. Disposition - Disposition Disposition: HOME/ ROUTINE Disposition Time: 17:50 Condition: STABLE Forms: [facility] (Gabonese), General Discharge Instructions - POA Present On Arrival: None - Clinical Impression Clinical Impression: Encounter for medical assessment
== END 2018-05-29 18:30 | disposition home or self-care (01) ==
LOC: C.ER 17:09
DX: Z00.8 Encounter for other general examination (principal)

== ENCOUNTER 2018-06-04 14:54 | Emergency (ER) | payer MEDICARE, OTHER ==
[2018-06-04 14:55] VITALS: BMI 24.7
--- NOTE | 2018-06-04 16:14 | C.PDOC ---
History Of Present Illness 78 year old female with PMHx of chronic sinusitis and nasal congestion presents to the ED complaining of "head filled with fluid" sensation that started today and nasal congestion for the last 10 days. Also complains of mild cough associated with clear mucus and shortness of breath. Patient had 11 ED visits in May for the same complaint. Time Seen by Provider: 06/04/18 14:59 Chief Complaint (Nursing): Cough, Cold, Congestion History/Exam Limitations: no limitations Onset/Duration Of Symptoms: Days (10) Current Symptoms Are (Timing): Still Present Reports Recently: Seen In ED Past Medical History Reviewed: Historical Data, Nursing Documentation, Vital Signs Vital Signs: Last Vital Signs Temp 97.6 F 06/04/18 14:57 Pulse 78 06/04/18 15:18 Resp 12 06/04/18 15:18 BP 117/59 L 06/04/18 15:18 Pulse Ox 99 06/04/18 15:18 - Medical History PMH: Anxiety, HTN, Pneumonia Denies: Diabetes (Patient denied), Hepatitis (Patient denied), HIV (Patient denied), Chronic Kidney Disease, Seizures (Patient denied), Sexually Transmitted Disease (Patient denied) Surgical History: Tonsillectomy Family History: States: No Known Family Hx - Social History Hx Tobacco Use: No Hx Alcohol Use: No Hx Substance Use: No - Immunization History Hx Tetanus Toxoid Vaccination: No Hx Influenza Vaccination: No Hx Pneumococcal Vaccination: No Review Of Systems Constitutional: Negative for: Fever, Chills ENT: Positive for: Nose Discharge, Nose Congestion Cardiovascular: Negative for: Chest Pain Respiratory: Positive for: Cough, Shortness of Breath Gastrointestinal: Negative for: Nausea, Vomiting, Abdominal Pain, Diarrhea Genitourinary: Negative for: Dysuria, Hematuria Physical Exam - Physical Exam Appears: Non-toxic, No Acute Distress, Other (comfortable ) Skin: Warm, Dry Head: Normacephalic Eye(s): bilateral: Normal Inspection Nose: Discharge (clear) Neck: Normal ROM, Supple Chest: Symmetrical Cardiovascular: Rhythm Regular Respiratory: Normal Breath Sounds, No Rales, No Rhonchi, No Wheezing Gastrointestinal/Abdominal: Soft, No Tenderness Neurological/Psych: Oriented x3, Normal Speech ED Course And Treatment O2 Sat by Pulse Oximetry: 99 (RA) Pulse Ox Interpretation: Normal - Radiology CXR: Interpreted by Me, Viewed By Me (no infiltrates) CXR Interpretation: Yes: No Acute Disease Progress Note: CT head and CXR ordered. Results pending. Disposition Counseled Patient/Family Regarding: Studies Performed, Diagnosis, Need For Followup - Disposition Referrals: Steph Castellanos MD [Staff Provider] - Bruno Bruno MD [Staff Provider] - Disposition: HOME/ ROUTINE Disposition Time: 19:30 Condition: STABLE Additional Instructions: FOLLOW UP WITH YOUR DOCTOR IN 1-2 DAYS RETURN TO ER IF SYMPTOMS WORSEN Forms: [facility] (Urdu), General Discharge Instructions Print Language: SAMI - Clinical Impression Clinical Impression: Sinus congestion, Chronic nasal congestion - Scribe Statement The provider has reviewed the documentation as recorded by the Scribe Michaela Foster All medical record entries made by the Scribe were at my direction and personally dictated by me. I have reviewed the chart and agree that the record accurately reflects my personal performance of the history, physical exam, medical decision making, and the department course for this patient. I have also personally directed, reviewed, and agree with the discharge instructions and disposition.
--- NOTE | 2018-06-04 16:47 | RAD ---
Chest x-ray two views HISTORY: Shortness of breath. COMPARISON: 05/16/2018 Findings: Biapical pleural thickening with upper lobe granulomatous changes. Mild venous congestion. Right hilar prominence. Patchy consolidative changes at the left base. Small left pleural effusion. Atherosclerotic calcification at the aortic knob. Tortuous ectatic aorta. Cardiomegaly. Degenerative changes in the spine and shoulders. Impression: Biapical pleural thickening with upper lobe granulomatous changes. Mild venous congestion. Right hilar prominence. Patchy consolidative changes at the left base. Small left pleural effusion. Atherosclerotic calcification at the aortic knob. Tortuous ectatic aorta. Cardiomegaly.
[2018-06-04 18:15] VITALS: RESP 18
[2018-06-04 19:34] VITALS: O2SAT 99
[2018-06-04 20:31] VITALS: BP 127/72; PULSE 71; TEMP 98.4
--- NOTE | 2018-06-05 08:43 | CT ---
Date of service: 06/04/2018 PROCEDURE: CT HEAD WITHOUT CONTRAST. HISTORY: HEAD PRESSURE COMPARISON: MRI brain without contrast from 05/23/[address] from 05/19/2018 TECHNIQUE: Axial computed tomography images were obtained through the head/brain without intravenous contrast. Radiation dose: Total exam DLP = 988.3 mGy-cm. This CT exam was performed using one or more of the following dose reduction techniques: Automated exposure control, adjustment of the mA and/or kV according to patient size, and/or use of iterative reconstruction technique. FINDINGS: HEMORRHAGE: No intracranial hemorrhage. BRAIN: There are mild chronic microangiopathic changes. There is no mass, mass effect or abnormal extra-axial fluid collection. There is no territorial infarction. The midline sagittal structures are normal. VENTRICLES: There is mild age-related global parenchymal volume loss and proportionate enlargement of the ventricles and cortical sulci. CALVARIUM: There is no calvarial fracture or extracranial soft tissue swelling. PARANASAL SINUSES: Predominantly clear. MASTOID AIR CELLS: Predominantly clear. OTHER FINDINGS: None. IMPRESSION: No acute intracranial abnormality. A preliminary report was provided by [facility] services.
== END 2018-06-04 20:39 | disposition home or self-care (01) ==
LOC: C.ER 14:54
DX: R09.81 Nasal congestion (principal); I10 Essential (primary) hypertension; Z87.01 Personal history of pneumonia (recurrent)

== ENCOUNTER 2018-06-05 01:53 | Inpatient (IN) | payer MEDICARE, OTHER ==
[2018-06-05 01:54] VITALS: BMI 24.7
--- NOTE | 2018-06-05 02:46 | C.PDOC ---
History Of Present Illness 78 year old female is brought to the ED by EMS c/o rectal bleeding, yeast infection. Patient reports she saw some blood in her stool. Patient was seen earlier today in the ED. Patient also reports "my head is dry and I am spitting white stuff". Patient denies fever, chills, nausea, vomit, diarrhea, back pain, dysuria, hematuria. Chief Complaint (Nursing): Abdominal Pain History Per: Patient, EMS History/Exam Limitations: no limitations Onset/Duration Of Symptoms: Hrs Current Symptoms Are (Timing): Still Present Severity: Mild Pain Scale Rating Of: 2 Location Of Pain/Discomfort: Diffuse Radiation Of Pain To:: None Quality Of Discomfort: Unable To Describe Associated Symptoms: denies: Nausea, Vomiting, Diarrhea, Urinary Symptoms Alleviating Factors: None Last Bowel Movement: Today Recent travel outside of the [place]: No Additional History Per: Patient Abnormal Vaginal Bleeding: No Past Medical History Reviewed: Historical Data, Nursing Documentation, Vital Signs - Medical History PMH: Anxiety, HTN, Pneumonia Denies: Diabetes (Patient denied), Hepatitis (Patient denied), HIV (Patient denied), Chronic Kidney Disease, Seizures (Patient denied), Sexually Transmitted Disease (Patient denied) Surgical History: Tonsillectomy Family History: States: Unknown Family Hx - Social History Hx Tobacco Use: No Hx Alcohol Use: No Hx Substance Use: No - Immunization History Hx Tetanus Toxoid Vaccination: No Hx Influenza Vaccination: No Hx Pneumococcal Vaccination: No Review Of Systems Constitutional: Negative for: Fever, Chills ENT: Positive for: Nose Discharge, Nose Congestion. Negative for: Throat Pain Respiratory: Positive for: Sputum. Negative for: Cough, Shortness of Breath, Wheezing Gastrointestinal: Positive for: Abdominal Pain, Melena. Negative for: Nausea, Vomiting Genitourinary: Negative for: Dysuria, Hematuria Musculoskeletal: Negative for: Back Pain Skin: Negative for: Rash Neurological: Negative for: Weakness, Numbness Psych: Positive for: Anxiety Physical Exam - Physical Exam Appears: Non-toxic, No Acute Distress Skin: Warm, Dry Head: Normacephalic Eye(s): bilateral: Normal Inspection Oral Mucosa: Moist Neck: Supple Chest: Symmetrical Cardiovascular: Rhythm Regular Respiratory: No Rales, No Rhonchi, No Wheezing Gastrointestinal/Abdominal: Bowel Sounds (active), Soft, No Tenderness, No Guarding, No Rebound Rectal: No Hemorrhoids, Other (small rectal fisure, no active bleeding) Back: Normal Inspection Pelvic: No Vaginal Bleeding, No Vaginal Discharge, Other (no evidence of yeast infection) Extremity: Normal ROM Extremity: Bilateral: Atraumatic, Normal Color And Temperature, Normal ROM Pulses: Left Dorsalis Pedis: Normal, Right Dorsalis Pedis: Normal Neurological/Psych: Oriented x3, Normal Speech, Normal Cognition Gait: Steady ED Course And Treatment - Laboratory Results Result Diagrams: 06/05/18 03:47 06/05/18 03:47 Pulse Ox Interpretation: Normal Progress Note: Plan: - EKG. - LAbs. - Protonix 40 mg IVP. - IV fluids. - UA Disposition Discussed With Dr.: Steph Castellanos Comment: accepted the pt on his service and took over the care at 4:16AM Doctor Will See Patient In The: Hospital Counseled Patient/Family Regarding: Studies Performed, Diagnosis - Disposition Disposition: HOSPITALIZED Disposition Time: 02:46 Condition: FAIR Forms: [facility] (Salvadorean) - POA Present On Arrival: None - Clinical Impression Clinical Impression: Abdominal pain, GI bleed - Scribe Statement The provider has reviewed the documentation as recorded by the Scribe Kory Jimenez All medical record entries made by the Scribe were at my direction and personally dictated by me. I have reviewed the chart and agree that the record accurately reflects my personal performance of the history, physical exam, medical decision making, and the department course for this patient. I have also personally directed, reviewed, and agree with the discharge instructions and disposition. Decision To Admit - Pt Status Changed To: Hospital Disposition Of: Inpatient - Admit Certification Admit to Inpatient:: After my assessment, the patient will require hospitalization for at least two midnights. This is because of the severity of symptoms shown, intensity of services needed, and/or the medical risk in this patient being treated as an outpatient. - InPatient: Physician Admission Certification:: After my assessment, the patient will require hospitalization for at least two midnights. This is because of the severity of symptoms shown, intensity of services needed, and/or the medical risk in this patient being treated as an outpatient. - . Bed Request Type: Regular Admitting Physician: Steph Castellanos Patient Diagnosis: Abdominal pain, GI bleed
[2018-06-05] MEDS ORDERED: Sodium Chloride 0.9% 1,000 ML IV ONE (02:52)
[2018-06-05] MEDS ORDERED: Sodium Chloride 0.9% 1,000 ML ONE (03:25)
[2018-06-05 03:51] LABS: BASO # 0.1 K/uL (0.0-0.2); BASO % 0.8 % (0.0-2.0); EOS % 0.2 % (0.0-4.0); HEMOGLOBIN 14.3 g/dL (11.0-16.0); LYMPH # 2.3 K/uL (1.0-4.3); LYMPH % 12.9 % (20.0-40.0); MEAN CELL VOLUME 87.3 fL (81.0-99.0); MEAN CORPUSCULAR HEMOGLOBIN 28.4 pg (27.0-31.0); MEAN CORPUSCULAR HGB CONC 32.6 g/dL (33.0-37.0); MEAN PLATELET VOLUME 8.1 fL (7.2-11.7); MONO # 0.8 K/uL (0.0-0.8); MONO % 4.4 % (0.0-10.0); NEUT # 14.3 K/uL (1.8-7.0); NEUT % 81.7 % (50.0-75.0); RBC 5.02 Mil/uL (3.80-5.20); RED CELL DISTRIBUTION WIDTH 13.4 % (11.5-14.5); WHITE BLOOD COUNT 17.5 K/uL (4.8-10.8)
[2018-06-05 04:07] LABS: PROTHROMBIN TIME 10.6 SECONDS (9.7-12.2)
[2018-06-05 04:09] LABS: ALB/GLOB RATIO 1.7 (1.0-2.1); ALBUMIN 4.7 g/dL (3.5-5.0); ALT/SGPT 27 U/L (9-52); AST/SGOT 31 U/L (14-36); BLOOD UREA NITROGEN 23 mg/dL (7-17); CALCIUM 9.3 mg/dl (8.6-10.4); GFR NON-AFRICAN AMERICAN > 60; LIPASE 104 U/L (23-300)
[2018-06-05 07:42] LABS: SQUAMOUS EPITHIAL 17 /hpf (0-5); URINE BACTERIA RARE (<OCC); URINE BILIRUBIN NEGATIVE (NEGATIVE); URINE BLOOD 3+ (NEGATIVE); URINE CLARITY Hazy (Clear); URINE COLOR Yellow (YELLOW); URINE GLUCOSE (UA) NORMAL (Normal); URINE LEUKOCYTE ESTERASE 3+ Leu/uL (Negative); URINE PROTEIN 1+ mg/dL (NEGATIVE); URINE UROBILINOGEN NORMAL mg/dL (0.2-1.0)
--- NOTE | 2018-06-05 07:56 | CP.PCM.CON ---
<DivinaGabodmitry - Last Filed: 06/05/18 09:07> History of Present Illness - History of Present Illness History of Present Illness: PGY-4 GI Fellow Initial Consult Note Pt is an 78 yo WF with HTN, Anxiety, recent sinusitis (s/p ciprofloxacin), h/o Hiatal Hernia repair presenting with complaint of rectal bleeding and fatigue. She states that yesterday evening she had some loose stools with bright red blood mixed in. Reports some non-radiating, bilateral lower quadrant abd pain that self resolved. She reports normal bowel movements prior to this episode. Denied any precipitating or alleviating factors. She states that she felt very fatigue, more so than recently after being treated for URI with cipro. No recent travel or change in diet. Of note she reports, >20 lbs weight loss since January but thinks it may be related to decreased PO intake related to chronic sinus issues. States that she thinks she had a EGD+CSPY around 2003 but does not know results. 12 point ROS negative other than stated above MHx: See above SurgHx: HH repair, hysterectomy Meds: Reviewed in chart FamHx: Denied GI/CRC SocHx: Denied x3 All: NKDA Past Patient History - Infectious Disease Hx of Infectious Diseases: None - Past Medical History & Family History Past Medical History?: Yes - Past Social History Smoking Status: Never Smoked - CARDIAC Hx Hypertension: Yes - PULMONARY Hx Pneumonia: Yes - NEUROLOGICAL Hx Seizures: No (Patient denied) - HEENT Hx HEENT Problems: Yes Other/Comment: excessive salivation - RENAL Hx Chronic Kidney Disease: No - ENDOCRINE/METABOLIC Hx Endocrine Disorders: No - HEMATOLOGICAL/ONCOLOGICAL Hx Human Immunodeficiency Virus (HIV): No (Patient denied) - INTEGUMENTARY Hx Dermatological Problems: No - MUSCULOSKELETAL/RHEUMATOLOGICAL Hx Musculoskeletal Disorders: No Hx Falls: No - GASTROINTESTINAL Hx Gastrointestinal Disorders: No - GENITOURINARY/GYNECOLOGICAL Hx Sexually Transmitted Disorders: No (Patient denied) - PSYCHIATRIC Hx Anxiety: Yes Hx Substance Use: No - SURGICAL HISTORY Hx Tonsillectomy: Yes - ANESTHESIA Hx Anesthesia: Yes Hx Anesthesia Reactions: No Hx Malignant Hyperthermia: No Meds Allergies/Adverse Reactions: Allergies Allergy/AdvReac Type Severity Reaction Status Date / Time No Known Allergies Allergy Verified 06/04/18 15:02 - Medications Medications: Current Medications Sodium Chloride (Sodium Chloride 0.9%) 1,000 mls @ 100 mls/hr IV .Q10H ONE Stop: 06/05/18 12:51 Last Admin: 06/05/18 03:48 Dose: 100 mls/hr Pantoprazole Sodium (Protonix Inj) 40 mg IVP DAILY FRANCISCO Stop: 06/06/18 10:01 Physical Exam - Constitutional Appears: Well, No Acute Distress, Chronically Ill - Head Exam Head Exam: ATRAUMATIC, NORMAL INSPECTION - Eye Exam Eye Exam: EOMI. absent: Scleral icterus - ENT Exam ENT Exam: Mucous Membranes Dry. absent: Mucous Membranes Moist - Respiratory Exam Respiratory Exam: Clear to Auscultation Bilateral, NORMAL BREATHING PATTERN. absent: Accessory Muscle Use - Cardiovascular Exam Cardiovascular Exam: REGULAR RHYTHM, RRR - GI/Abdominal Exam GI & Abdominal Exam: Normal Bowel Sounds, Soft. absent: Bruit, Diminished Bowel Sounds, Distended, Firm, Guarding, Hernia, Organomegaly, Pulsatile Mass, Rebound, Rigid, Tenderness - Rectal Exam Additional comments: Non-thrombosed ext hemorrhoid at 1 o'clock, BRB on CANDIE - Extremities Exam Extremities exam: Positive for: normal inspection. Negative for: pedal edema - Neurological Exam Neurological exam: Alert, CN II-XII Intact - Psychiatric Exam Psychiatric exam: Normal Affect, Normal Mood - Skin Skin Exam: Dry, Normal Color, Warm Results - Vital Signs Recent Vital Signs: Last Vital Signs Temp Pulse 72 06/05/18 03:52 Resp 16 06/05/18 03:52 BP 131/55 L 06/05/18 03:52 Pulse Ox 95 06/05/18 03:52 - Labs Result Diagrams: 06/05/18 03:47 06/05/18 03:47 Labs: Laboratory Results - last 24 hr 06/05/18 06/05/18 06/05/18 02:52 03:47 03:47 WBC 17.5 H D RBC 5.02 Hgb 14.3 Hct 43.8 MCV 87.3 MCH 28.4 MCHC 32.6 L RDW 13.4 Plt Count 332 MPV 8.1 Neut % (Auto) 81.7 H Lymph % (Auto) 12.9 L [place] % (Auto) 4.4 Eos % (Auto) 0.2 Baso % (Auto) 0.8 Neut # (Auto) 14.3 H Lymph # (Auto) 2.3 [place] # (Auto) 0.8 Eos # (Auto) 0.0 Baso # (Auto) 0.1 PT 10.6 INR 1.0 APTT 25 Sodium Potassium Chloride Carbon Dioxide Anion Gap BUN Creatinine Est GFR ( Amer) Est GFR (Non-Af Amer) Random Glucose Calcium Total Bilirubin AST ALT Alkaline Phosphatase Total Protein Albumin Globulin Albumin/Globulin Ratio Lipase Urine Color Urine Clarity Urine pH Ur Specific [place] Urine Protein Urine Glucose (UA) Urine Ketones Urine Blood Urine Nitrate Urine Bilirubin Urine Urobilinogen Ur Leukocyte Esterase Urine WBC (Auto) Urine RBC (Auto) Ur Squamous Epith Cells Urine Bacteria Stool Occult Blood Positive H 06/05/18 06/05/18 03:47 07:29 WBC RBC Hgb Hct MCV MCH MCHC RDW Plt Count MPV Neut % (Auto) Lymph % (Auto) [place] % (Auto) Eos % (Auto) Baso % (Auto) Neut # (Auto) Lymph # (Auto) [place] # (Auto) Eos # (Auto) Baso # (Auto) PT INR APTT Sodium 137 Potassium 3.3 L Chloride 99 Carbon Dioxide 26 Anion Gap 15 BUN 23 H Creatinine 0.9 Est GFR ( Amer) > 60 Est GFR (Non-Af Amer) > 60 Random Glucose 105 Calcium 9.3 Total Bilirubin 1.0 AST 31 ALT 27 Alkaline Phosphatase 123 Total Protein 7.5 Albumin 4.7 Globulin 2.8 Albumin/Globulin Ratio 1.7 Lipase 104 Urine Color Yellow Urine Clarity Hazy Urine pH 5.0 Ur Specific [place] 1.015 Urine Protein 1+ H Urine Glucose (UA) Normal Urine Ketones Trace Urine Blood 3+ H Urine Nitrate Negative Urine Bilirubin Negative Urine Urobilinogen Normal Ur Leukocyte Esterase 3+ H Urine WBC (Auto) 53 H Urine RBC (Auto) 15 H Ur Squamous Epith Cells 17 H Urine Bacteria Rare Stool Occult Blood Assessment & Plan - Assessment and Plan (Free Text) Assessment: 78 yo WF with HTN, Anxiety presenting with BRBR. # Hematochezia: Associated with some initially abd cramping, so painful etiologies on DDx as well. Colitis (infectious vs ischemic), diverticulosis, h emorrhoids, AVMs, malignancy etc. May have had EGD+CSPY ~ 2003 with results unknown. Hgb at baseline and vitals stable. Given leukocytosis and recent Abx use, is at risk for Cdiff infection though most often not bloody diarrhea, will hold off testing for now unless repeated diarrhea, worsening WBCs, etc. # Weight loss: >20 lbs since January, pt attributes it to decreased PO/appetite related to chronic sinus issues. Last CSPY ~ 2003 with unknown results. # Leukocytosis: Reactive vs related to sinus/viral infx vs colitis Plan: - CT Abd/Pelvis with PO+IV Contrast - Monitor Hgb - Supportive care - May consider CSPY pending course Pt seen and examined with Dr. Curtis; please see attestation for further recs/changes. Chalino Murcia, PGY-4 <eJan-Claude Curtis - Last Filed: 06/05/18 09:20> Meds - Medications Medications: Current Medications Sodium Chloride (Sodium Chloride 0.9%) 1,000 mls @ 100 mls/hr IV .Q10H ONE Stop: 06/05/18 12:51 Last Admin: 06/05/18 03:48 Dose: 100 mls/hr Influenza Virus Vaccine (Fluzone Quad [id number]) 60 mcg IM .ONCE ONE Stop: 06/07/18 14:01 Pantoprazole Sodium (Protonix Inj) 40 mg IVP DAILY FRANCISCO Stop: 06/06/18 10:01 Pneumococcal Polyvalent Vaccine (Pneumovax 23 Vaccine) 0.5 ml IM .ONCE ONE Stop: 06/07/18 14:01 Results - Vital Signs Recent Vital Signs: Last Vital Signs Temp 99.3 F 06/05/18 08:20 Pulse 70 06/05/18 08:20 Resp 18 06/05/18 08:20 BP 127/60 06/05/18 08:20 Pulse Ox 96 06/05/18 08:20 - Labs Result Diagrams: 06/05/18 03:47 06/05/18 03:47 Labs: Laboratory Results - last 24 hr 06/05/18 06/05/18 06/05/18 02:52 03:47 03:47 WBC 17.5 H D RBC 5.02 Hgb 14.3 Hct 43.8 MCV 87.3 MCH 28.4 MCHC 32.6 L RDW 13.4 Plt Count 332 MPV 8.1 Neut % (Auto) 81.7 H Lymph % (Auto) 12.9 L [place] % (Auto) 4.4 Eos % (Auto) 0.2 Baso % (Auto) 0.8 Neut # (Auto) 14.3 H Lymph # (Auto) 2.3 [place] # (Auto) 0.8 Eos # (Auto) 0.0 Baso # (Auto) 0.1 PT 10.6 INR 1.0 APTT 25 Sodium Potassium Chloride Carbon Dioxide Anion Gap BUN Creatinine Est GFR ( Amer) Est GFR (Non-Af Amer) Random Glucose Calcium Total Bilirubin AST ALT Alkaline Phosphatase Total Protein Albumin Globulin Albumin/Globulin Ratio Lipase Urine Color Urine Clarity Urine pH Ur Specific [place] Urine Protein Urine Glucose (UA) Urine Ketones Urine Blood Urine Nitrate Urine Bilirubin Urine Urobilinogen Ur Leukocyte Esterase Urine WBC (Auto) Urine RBC (Auto) Ur Squamous Epith Cells Urine Bacteria Stool Occult Blood Positive H 06/05/18 06/05/18 03:47 07:29 WBC RBC Hgb Hct MCV MCH MCHC RDW Plt Count MPV Neut % (Auto) Lymph % (Auto) [place] % (Auto) Eos % (Auto) Baso % (Auto) Neut # (Auto) Lymph # (Auto) [place] # (Auto) Eos # (Auto) Baso # (Auto) PT INR APTT Sodium 137 Potassium 3.3 L Chloride 99 Carbon Dioxide 26 Anion Gap 15 BUN 23 H Creatinine 0.9 Est GFR ( Amer) > 60 Est GFR (Non-Af Amer) > 60 Random Glucose 105 Calcium 9.3 Total Bilirubin 1.0 AST 31 ALT 27 Alkaline Phosphatase 123 Total Protein 7.5 Albumin 4.7 Globulin 2.8 Albumin/Globulin Ratio 1.7 Lipase 104 Urine Color Yellow Urine Clarity Hazy Urine pH 5.0 Ur Specific [place] 1.015 Urine Protein 1+ H Urine Glucose (UA) Normal Urine Ketones Trace Urine Blood 3+ H Urine Nitrate Negative Urine Bilirubin Negative Urine Urobilinogen Normal Ur Leukocyte Esterase 3+ H Urine WBC (Auto) 53 H Urine RBC (Auto) 15 H Ur Squamous Epith Cells 17 H Urine Bacteria Rare Stool Occult Blood Attending/Attestation - Attestation I have personally seen and examined this patient.: Yes I have fully participated in the care of the patient.: Yes I have reviewed all pertinent clinical information: Yes Notes (Text): 06/05/18 09:16 I have seen and examined patient with GI fellow. Agree with above documentation with the following additions. In brief, this is an 78 year old female with history of HTN, anxiety, who presents to hospital with complaint of progressive fatigue and rectal bleeding which began yesterday. Prior to this she was in usual state of health though has been reporting ongoing fatigue for the past month with recent sinus infection requiring antibiotic therapy. Yesterday she describes sharp left lower quadrant pain that was associated with episode of bright red rectal bleeding. She otherwise denies nausea, vomiting, fever/chills. She does report a weight loss of nearly 45 pounds since January 2018. She had an EGD/colonoscopy nearly 14 years ago which were normal as per patient. HTN Rectal bleeding, abdominal pain - Liquid diet as tolerated - Suggest CT imaging of abdomen/pelvis given complaint of pain, rectal bleeding, and weight loss. Rule out mass lesion, colitis. - H/H stable, continue to monitor - Pending results of cross sectional imaging, would consider endoscopic evaluation - Will continue to monitor patient clinical course
[2018-06-05] MEDS ORDERED: Iohexol 240 (50 ml) ONE (08:49)
[2018-06-05] MEDS ORDERED: Iohexol 240 (50 ml) PO ONE (09:30)
[2018-06-05] MEDS ORDERED: Iodixanol 320 MG/ML 100 ML BOTTLE IV ONE (11:57)
--- NOTE | 2018-06-05 13:40 | CT ---
Date of service: 06/05/2018 PROCEDURE: CT Abdomen and Pelvis with Oral contrast. HISTORY: Painful hematochezia COMPARISON: No prior study available for comparison. TECHNIQUE: Contiguous axial images of the abdomen and pelvis performed following oral and intravenous injection of approximately 100 cc Visipaque 320 contrast material.. Coronal and Sagittal reformats generated. Radiation dose: Total exam DLP = 721.23 mGy-cm. This CT exam was performed using one or more of the following dose reduction techniques: Automated exposure control, adjustment of the mA and/or kV according to patient size, and/or use of iterative reconstruction technique. FINDINGS: LOWER THORAX: The heart is mildly enlarged. No significant pericardial effusion. Chronic appearing scarring changes left lung base/lingular region with extension to localized of pleural scarring and thickening left lateral pleural surface subjacent to old healed left lateral rib fracture deformities.. Minor scarring changes right lung base. Minor bibasilar atelectasis both posterior sulci. LIVER: Liver exhibits normal size. Mild fatty hepatic infiltration. No obvious hepatic mass collection or calcification. Portal and splenic veins are opacified. GALLBLADDER AND BILE DUCTS: Gallbladder is physiologically distended. No evidence of intraluminal gallbladder calculi. PANCREAS: The pancreas appears slightly atrophic. No pancreatic masses collections or calcifications seen.. SPLEEN: The spleen exhibits relatively normal size and attenuation pattern without mass collection or calcification.. ADRENALS: There are no adrenal lesions.. KIDNEYS AND URETERS: Kidneys demonstrate symmetric nephrograms. No evidence of nephrolithiasis or hydronephrosis.. BLADDER: Urinary bladder physiologically distended. No evidence of intraluminal urinary bladder calculi. REPRODUCTIVE: Uterus is not seen with complete certainty and presumably has been resected however clinical correlation with history recommended. APPENDIX: Normal appendix BOWEL: Evaluation of the bowel is somewhat limited due to incomplete opacification. The stomach is incompletely distended which in part accounts appearance however the possibility of a gastritis or intrinsic/invasive wall lesion not excluded. There is also a hiatal hernia. Visualized loops of small bowel exhibit normal contour and caliber. No evidence of acute mechanical small bowel obstruction. There is diffuse wall thickening of the redundant transverse colon as well as descending colon and sigmoid consistent with a colitis. Numerous diverticula are also seen arising from the sigmoid and distal descending colon though these are felt to be secondary to the aforementioned colitis. PERITONEUM: Unremarkable. No fluid collection. No free air. Small fat containing umbilical hernia. LYMPH NODES: Unremarkable. No enlarged lymph nodes. VASCULATURE: Unremarkable. No aortic aneurysm. Mild aortic atherosclerotic calcification or mural plaque present. BONES: Mild multilevel degenerative spondylosis of the lower thoracic and lumbar spine. Minimal anterior subluxation L4 over L5. There are no acute compression fractures no retropulsed fragments. OTHER FINDINGS: None. IMPRESSION: Findings consistent with diffuse colitis involving the transverse descending and sigmoid colon. Scattered colonic diverticular are also present though these are felt to be incidental as above. The there is wall thickening of the stomach likely due to incomplete distention however gastritis or other intrinsic/invasive wall lesion not excluded. Small hiatal hernia. Mild fatty hepatic infiltration.
--- NOTE | 2018-06-05 14:30 | CP.PCM.HP ---
Past Patient History - Infectious Disease Hx of Infectious Diseases: None - Past Medical History & Family History Past Medical History?: Yes - Past Social History Smoking Status: Never Smoked - CARDIAC Hx Hypertension: Yes - PULMONARY Hx Pneumonia: Yes - NEUROLOGICAL Hx Seizures: No (Patient denied) - HEENT Hx HEENT Problems: Yes Other/Comment: excessive salivation - RENAL Hx Chronic Kidney Disease: No - ENDOCRINE/METABOLIC Hx Endocrine Disorders: No - HEMATOLOGICAL/ONCOLOGICAL Hx Human Immunodeficiency Virus (HIV): No (Patient denied) - INTEGUMENTARY Hx Dermatological Problems: No - MUSCULOSKELETAL/RHEUMATOLOGICAL Hx Musculoskeletal Disorders: No Hx Falls: No - GASTROINTESTINAL Hx Gastrointestinal Disorders: No - GENITOURINARY/GYNECOLOGICAL Hx Sexually Transmitted Disorders: No (Patient denied) - PSYCHIATRIC Hx Anxiety: Yes Hx Substance Use: No - SURGICAL HISTORY Hx Tonsillectomy: Yes - ANESTHESIA Hx Anesthesia: Yes Hx Anesthesia Reactions: No Hx Malignant Hyperthermia: No Meds Allergies/Adverse Reactions: Allergies Allergy/AdvReac Type Severity Reaction Status Date / Time No Known Allergies Allergy Verified 06/04/18 15:02 Physical Exam - Constitutional Appears: Well - Head Exam Head Exam: ATRAUMATIC, NORMAL INSPECTION, NORMOCEPHALIC - Eye Exam Eye Exam: EOMI, Normal appearance, PERRL Pupil Exam: NORMAL ACCOMODATION, PERRL - ENT Exam ENT Exam: Mucous Membranes Moist, Normal Exam - Neck Exam Neck exam: Positive for: Normal Inspection - Respiratory Exam Respiratory Exam: Decreased Breath Sounds - Cardiovascular Exam Cardiovascular Exam: REGULAR RHYTHM, +S1, +S2 - GI/Abdominal Exam GI & Abdominal Exam: Diminished Bowel Sounds, Soft - Rectal Exam Rectal Exam: Deferred Results - Vital Signs Recent Vital Signs: Last Vital Signs Temp 99 F 06/05/18 09:00 Pulse 75 06/05/18 09:00 Resp 20 06/05/18 09:00 BP 122/72 06/05/18 09:00 Pulse Ox 95 06/05/18 09:00 - Labs Result Diagrams: 06/05/18 03:47 06/05/18 03:47 Labs: Laboratory Results - last 24 hr 06/05/18 06/05/18 06/05/18 02:52 03:47 03:47 WBC 17.5 H D RBC 5.02 Hgb 14.3 Hct 43.8 MCV 87.3 MCH 28.4 MCHC 32.6 L RDW 13.4 Plt Count 332 MPV 8.1 Neut % (Auto) 81.7 H Lymph % (Auto) 12.9 L [place] % (Auto) 4.4 Eos % (Auto) 0.2 Baso % (Auto) 0.8 Neut # (Auto) 14.3 H Lymph # (Auto) 2.3 [place] # (Auto) 0.8 Eos # (Auto) 0.0 Baso # (Auto) 0.1 PT 10.6 INR 1.0 APTT 25 Sodium Potassium Chloride Carbon Dioxide Anion Gap BUN Creatinine Est GFR ( Amer) Est GFR (Non-Af Amer) Random Glucose Calcium Total Bilirubin AST ALT Alkaline Phosphatase Total Protein Albumin Globulin Albumin/Globulin Ratio Lipase Urine Color Urine Clarity Urine pH Ur Specific [place] Urine Protein Urine Glucose (UA) Urine Ketones Urine Blood Urine Nitrate Urine Bilirubin Urine Urobilinogen Ur Leukocyte Esterase Urine WBC (Auto) Urine RBC (Auto) Ur Squamous Epith Cells Urine Bacteria Stool Occult Blood Positive H 06/05/18 06/05/18 03:47 07:29 WBC RBC Hgb Hct MCV MCH MCHC RDW Plt Count MPV Neut % (Auto) Lymph % (Auto) [place] % (Auto) Eos % (Auto) Baso % (Auto) Neut # (Auto) Lymph # (Auto) [place] # (Auto) Eos # (Auto) Baso # (Auto) PT INR APTT Sodium 137 Potassium 3.3 L Chloride 99 Carbon Dioxide 26 Anion Gap 15 BUN 23 H Creatinine 0.9 Est GFR ( Amer) > 60 Est GFR (Non-Af Amer) > 60 Random Glucose 105 Calcium 9.3 Total Bilirubin 1.0 AST 31 ALT 27 Alkaline Phosphatase 123 Total Protein 7.5 Albumin 4.7 Globulin 2.8 Albumin/Globulin Ratio 1.7 Lipase 104 Urine Color Yellow Urine Clarity Hazy Urine pH 5.0 Ur Specific [place] 1.015 Urine Protein 1+ H Urine Glucose (UA) Normal Urine Ketones Trace Urine Blood 3+ H Urine Nitrate Negative Urine Bilirubin Negative Urine Urobilinogen Normal Ur Leukocyte Esterase 3+ H Urine WBC (Auto) 53 H Urine RBC (Auto) 15 H Ur Squamous Epith Cells 17 H Urine Bacteria Rare Stool Occult Blood
[2018-06-05] MEDS: metroNIDAZOLE IV 500 mg/100 ml 500 MG/100 ML BAG IVPB SCH (18:34)
[2018-06-05] MEDS: Fluticasone Nasal 50 mcg/Spray NAS SCH (18:35)
[2018-06-05] MEDS: Potassium Chloride 10 mEq ER Tab PO SCH (19:30)
[2018-06-06] MEDS: metroNIDAZOLE IV 500 mg/100 ml 500 MG/100 ML BAG IVPB SCH ×3 (00:24→17:19)
[2018-06-06 06:54] LABS: HEMOGLOBIN 12.4 g/dL (11.0-16.0); MEAN CELL VOLUME 87.7 fL (81.0-99.0); MEAN CORPUSCULAR HEMOGLOBIN 30.1 pg (27.0-31.0); MEAN CORPUSCULAR HGB CONC 34.4 g/dL (33.0-37.0); MEAN PLATELET VOLUME 8.5 fL (7.2-11.7); RBC 4.11 Mil/uL (3.80-5.20); RED CELL DISTRIBUTION WIDTH 13.6 % (11.5-14.5); WHITE BLOOD COUNT 17.7 K/uL (4.8-10.8)
[2018-06-06 07:37] LABS: CALCIUM 8.4 mg/dl (8.6-10.4)
--- NOTE | 2018-06-06 07:48 | CP.PCM.PN ---
<LulyorlinpauloGabodmitry - Last Filed: 06/06/18 08:51> Subjective - Date & Time of Evaluation Date of Evaluation: 06/06/18 Time of Evaluation: 07:10 - Subjective Subjective: PGY-4 GI Fellow Prog Note Pt lying in bed when seen this AM. Reports several loose BMs over last 24 hrs, some bloody per nursing. Still with fatigue and lower abd cramping. 5 point ROS negative other than stated above Objective - Vital Signs/Intake and Output Vital Signs (last 24 hours): Temp Pulse Resp BP Pulse Ox 101 F H 78 20 105/64 97 06/05/18 23:05 06/05/18 23:05 06/05/18 23:05 06/05/18 23:05 06/05/18 23:05 Intake and Output: 06/06/18 06/06/18 06:59 18:59 Intake Total 300 Balance 300 - Medications Medications: Current Medications Alprazolam (Xanax) 0.5 mg PO HS FRANCISCO Last Admin: 06/05/18 22:22 Dose: 0.5 mg Fluticasone Propionate (Flonase) 0 spr LAURA BID FRANCISCO Last Admin: 06/05/18 18:35 Dose: 1 spr Ceftriaxone Sodium 1 gm/ (Sodium Chloride) 100 mls @ 100 mls/hr IVPB Q24H FRANCISCO; Protocol Last Admin: 06/05/18 17:26 Dose: 100 mls/hr Metronidazole (Flagyl) 500 mg in 100 mls @ 100 mls/hr IVPB Q8H FR[facility]ISCO; Protocol Last Admin: 06/06/18 00:24 Dose: 100 mls/hr Influenza Virus Vaccine (Fluzone Quad [id number]) 60 mcg IM .ONCE ONE Stop: 06/07/18 14:01 Pantoprazole Sodium (Protonix Inj) 40 mg IVP DAILY FR[facility]CO Stop: 06/06/18 10:01 Last Admin: 06/05/18 09:45 Dose: 40 mg Pneumococcal Polyvalent Vaccine (Pneumovax 23 Vaccine) 0.5 ml IM .ONCE ONE Stop: 06/07/18 14:01 Potassium Chloride (Klor-Con 10) 10 meq PO BRK FR[facility]ISCO Last Admin: 06/05/18 19:30 Dose: 10 meq - Labs Labs: 06/06/18 06:44 06/06/18 06:44 PT 10.6 SECONDS (9.7-12.2) 06/05/18 03:47 INR 1.0 06/05/18 03:47 APTT 25 SECONDS (21-34) 06/05/18 03:47 - Constitutional Appears: Well, No Acute Distress - Head Exam Head Exam: ATRAUMATIC, NORMAL INSPECTION - Eye Exam Eye Exam: EOMI. absent: Scleral icterus - ENT Exam ENT Exam: Mucous Membranes Dry. absent: Mucous Membranes Moist - Respiratory Exam Respiratory Exam: NORMAL BREATHING PATTERN. absent: Accessory Muscle Use - GI/Abdominal Exam GI & Abdominal Exam: Soft, Tenderness (mildly in lower quads w/o guarding), Normal Bowel Sounds. absent: Bruit, Distended, Firm, Guarding, Rigid, Mass, Organomegaly, Pulsatile Mass Assessment and Plan - Assessment and Plan (Free Text) Assessment: 78 yo WF with HTN, Anxiety presenting with BRBR. # Hematochezia, Diarrhea: Likely due to colitis seen on CT affecting transverse through sigmoid colon, also diverticulosis seen. May have had EGD+CSPY ~ 2003 with results unknown. Hgb at baseline and vitals stable. Given leukocytosis and recent Abx use, is at risk for Cdiff infection. Given new temp and persistent leukocytosis and symptoms will empirically treat with PO Vanco. Ischemia also possible given decreased PO intake. Least likely would be inflammatory # Weight loss: >40 lbs since January, pt attributes it to decreased PO/appetite related to chronic sinus issues. Last CSPY ~ 2003 with unknown results. # Sepsis: Temp 101, with increased WBC; suspect related to infectious colitis. Plan: - Empiric PO Vancomycin 125 mg QID for suspected Cdiff - Check Stool Cx, O&P, lactate - Cont ceftriaxone and metronidazole - F/u BCx - F/u Cdiff - Supportive care - Clear Liq Diet - May consider CSPY pending course --- Optimizing electrolytes in case of procedures Pt seen and examined with Dr. Curtis; please see attestation for further recs/changes. Chalino Murcia, PGY-4 <Jean-Claude Curtis - Last Filed: 06/06/18 09:44> Objective - Vital Signs/Intake and Output Vital Signs (last 24 hours): Temp Pulse Resp BP Pulse Ox 98.3 F 78 20 129/62 95 06/06/18 07:00 06/06/18 07:00 06/06/18 07:00 06/06/18 07:00 06/06/18 07:00 Intake and Output: 06/06/18 06/06/18 06:59 18:59 Intake Total 300 Balance 300 - Medications Medications: Current Medications Alprazolam (Xanax) 0.5 mg PO HS FRANCISCO Last Admin: 06/05/18 22:22 Dose: 0.5 mg Fluticasone Propionate (Flonase) 0 spr LAURA BID FRANCISCO Last Admin: 06/05/18 18:35 Dose: 1 spr Ceftriaxone Sodium 1 gm/ (Sodium Chloride) 100 mls @ 100 mls/hr IVPB Q24H [facility]CO; Protocol Last Admin: 06/05/18 17:26 Dose: 100 mls/hr Metronidazole (Flagyl) 500 mg in 100 mls @ 100 mls/hr IVPB Q8H FR[facility]ISCO; Protocol Last Admin: 06/06/18 08:41 Dose: 100 mls/hr Influenza Virus Vaccine (Fluzone Quad [id number]) 60 mcg IM .ONCE ONE Stop: 06/07/18 14:01 Pantoprazole Sodium (Protonix Inj) 40 mg IVP DAILY FR[facility]CO Stop: 06/06/18 10:01 Last Admin: 06/05/18 09:45 Dose: 40 mg Pneumococcal Polyvalent Vaccine (Pneumovax 23 Vaccine) 0.5 ml IM .ONCE ONE Stop: 06/07/18 14:01 Potassium Chloride (Klor-Con 10) 10 meq PO BRK FR[facility]CO Last Admin: 06/06/18 08:28 Dose: Not Given Potassium Chloride (Potassium Chloride Oral Soln) 20 meq PO DAILY FR[facility]CO Stop: 06/08/18 14:01 Vancomycin HCl (Vancocin (Oral Or Rectal Use)) 125 mg PO QID [facility] [place]; Protocol - Labs Labs: 06/06/18 06:44 06/06/18 06:44 PT 10.6 SECONDS (9.7-12.2) 06/05/18 03:47 INR 1.0 06/05/18 03:47 APTT 25 SECONDS (21-34) 06/05/18 03:47 Attending/Attestation - Attestation I have personally seen and examined this patient.: Yes I have fully participated in the care of the patient.: Yes I have reviewed all pertinent clinical information, including history, physical exam and plan: Yes Notes (Text): 06/06/18 09:31 I have seen and examined patient with GI fellow. No acute events overnight, she continues to endorse bilateral lower quadrant abdominal pain and had 4-5 loose bowel movements with blood tinge. Tmax of 101 noted yesterday evening. She denies nausea, vomiting and is tolerating PO liquids without difficulty. HTN Anxiety Abdominal pain, diarrhea - colitis - Continue with liquid diet as tolerated - Obtain stool studies (culture, c-difficile) - Given appearance of diffuse colitis on CT imaging and ongoing fever, would suggest empiric addition of Vancomycin to treatment regimen - Follow up ID recommendations - Patient would benefit from endoscopic evaluation following resolution of acute medical issues, will continue to monitor patient clinical course
[2018-06-06] MEDS ORDERED: Potassium Chloride 20 mEq ER Tab PO ONE (08:00)
[2018-06-06] MEDS: Potassium Chloride 10 mEq ER Tab PO SCH (08:28)
[2018-06-06] MEDS ORDERED: Potassium Chloride 20 mEq/15 ml LIQ UD PO ONE (08:30)
[2018-06-06] MEDS: Fluticasone Nasal 50 mcg/Spray NAS SCH ×2 (10:15→17:18)
[2018-06-06] MEDS: Vancomycin 125 MG/5 ML SOLN (ORAL/RECTAL) PO SCH ×4 (10:16→21:12)
[2018-06-06] MEDS: Potassium Chloride 20 mEq/15 ml LIQ UD PO SCH (14:28)
[2018-06-06] MEDS: guaiFENesin 600 mg ER Tab PO SCH ×2 (14:28→17:19)
--- NOTE | 2018-06-06 17:22 | CP.PCM.PN ---
Subjective - Date & Time of Evaluation Date of Evaluation: 06/06/18 Time of Evaluation: 09:45 - Subjective Subjective: clinically same Objective - Vital Signs/Intake and Output Vital Signs (last 24 hours): Temp Pulse Resp BP Pulse Ox 98.8 F 79 20 103/51 L 100 06/06/18 15:00 06/06/18 15:00 06/06/18 15:00 06/06/18 15:00 06/06/18 15:00 Intake and Output: 06/06/18 06/06/18 06:59 18:59 Intake Total 300 600 Balance 300 600 - Medications Medications: Current Medications Alprazolam (Xanax) 0.5 mg PO HS FRANCISCO Last Admin: 06/05/18 22:22 Dose: 0.5 mg Fluticasone Propionate (Flonase) 0 spr LAURA BID FRANCISCO Last Admin: 06/06/18 17:18 Dose: 1 spr Guaifenesin (Mucinex La) 600 mg PO BID FRANCISCO Last Admin: 06/06/18 17:19 Dose: 600 mg Ceftriaxone Sodium 1 gm/ (Sodium Chloride) 100 mls @ 100 mls/hr IVPB Q24H FR[facility]CO; Protocol Last Admin: 06/06/18 17:18 Dose: 100 mls/hr Metronidazole (Flagyl) 500 mg in 100 mls @ 100 mls/hr IVPB Q8H [facility]CO; Protocol Last Admin: 06/06/18 17:19 Dose: 100 mls/hr Influenza Virus Vaccine (Fluzone Quad [id number]) 60 mcg IM .ONCE ONE Stop: 06/07/18 14:01 Pneumococcal Polyvalent Vaccine (Pneumovax 23 Vaccine) 0.5 ml IM .ONCE ONE Stop: 06/07/18 14:01 Potassium Chloride (Klor-Con 10) 10 meq PO BRK [facility]CO Last Admin: 06/06/18 08:28 Dose: Not Given Potassium Chloride (Potassium Chloride Oral Soln) 20 meq PO DAILY [facility]CO Stop: 06/08/18 14:01 Last Admin: 06/06/18 14:28 Dose: 20 meq Vancomycin HCl (Vancocin (Oral Or Rectal Use)) 125 mg PO QID FR[facility]ISCO; Protocol Last Admin: 06/06/18 17:20 Dose: 125 mg - Labs Labs: 06/06/18 06:44 06/06/18 06:44 PT 10.6 SECONDS (9.7-12.2) 06/05/18 03:47 INR 1.0 06/05/18 03:47 APTT 25 SECONDS (21-34) 06/05/18 03:47 - Constitutional Appears: Well - Head Exam Head Exam: ATRAUMATIC, NORMAL INSPECTION, NORMOCEPHALIC - Eye Exam Eye Exam: EOMI, Normal appearance, PERRL Pupil Exam: NORMAL ACCOMODATION, PERRL - ENT Exam ENT Exam: Mucous Membranes Moist, Normal Exam - Neck Exam Neck Exam: Full ROM, Normal Inspection. absent: Lymphadenopathy - Respiratory Exam Respiratory Exam: Decreased Breath Sounds - Cardiovascular Exam Cardiovascular Exam: REGULAR RHYTHM, +S1, +S2 - GI/Abdominal Exam GI & Abdominal Exam: Soft, Diminished Bowel Sounds - Rectal Exam Rectal Exam: Deferred
[2018-06-06 17:53] LABS: BLOOD UREA NITROGEN 12 mg/dL (7-17)
[2018-06-06 17:54] LABS: CALCIUM 8.4 mg/dl (8.6-10.4); GFR NON-AFRICAN AMERICAN > 60
--- NOTE | 2018-06-06 22:12 | CP.PCM.CON ---
History of Present Illness - History of Present Illness History of Present Illness: 78 yo WF presenting with complaint of rectal bleeding and fatigue. She states that yesterday evening she had some loose stools with bright red blood mixed in. Reports some non-radiating, bilateral lower quadrant abd pain that self r esolved. Referred for ID [id number] FOR POSSIBLE SEPSIS, UTI, COLITIS MHx: HTN, Anxiety, recent sinusitis (s/p ciprofloxacin), h/o Hiatal Hernia repair SurgHx: HH repair, hysterectomy Meds: Reviewed in chart FamHx: Denied GI/CRC SocHx: Denied x3 All: NKDA Review of Systems - Review of Systems All systems: reviewed and no additional remarkable complaints except - Constitutional Constitutional: As Per HPI - EENT Eyes: absent: As Per HPI, Blind Spots, Blurred Vision, Change in Vision, Decreased Night Vision, Diplopia, Discharge, Dry Eye, Exophthalmos, Floaters, Irritation, Itchy Eyes, Loss of Peripheral Vision, Pain, Photophobia, Requires Corrective Lenses, Sees Flashes, Spots in Vision, Tunnel Vision, Other Visual Disturbances, Loss of Vision, Other Ears: absent: As Per HPI, Decreased Hearing, Ear Discharge, Ear Pain, Tinnitus, Abnormal Hearing, Disequilibrium, Dizziness, Other Nose/Mouth/Throat: absent: As Per HPI, Epistaxis, Nasal Congestion, Nasal Discharge, Nasal Obstruction, Nasal Trauma, Nose Pain, Post Nasal Drip, Sinus Pain, Sinus Pressure, Bleeding Gums, Change in Voice, Dental Pain, Dry Mouth, Dysphagia, Halitosis, Hoarsness, Lip Swelling, Mouth Lesions, Mouth Pain, Odynophagia, Sore Throat, Throat Swelling, Tongue Swelling, Facial Pain, Neck Pain, Neck Mass, Other - Breasts Breasts: absent: As Per HPI, Change in Shape, Mass, Pain, Nipple Discharge, Nipple Inversion, Skin Changes, Swelling, Other - Respiratory Respiratory: absent: As Per HPI, Cough, Dyspnea, Hemoptysis, Dyspnea on Exertion, Wheezing, Snoring, Stridor, Pain on Inspiration, Chest Congestion, Excessive Mucous Production, Change in Mucous Color, Pain with Coughing, Other - Gastrointestinal Gastrointestinal: As Per HPI - Genitourinary Genitourinary: absent: As Per HPI, Change in Urinary Stream, Difficulty Urinating, Dysuria, Flank Pain, Hematuria, Pyuria, Nocturia, Urinary Incontinence, Urinary Frequency, Urinary Hesitance, Urinary Urgency, Voiding Freq/Small Amts, Freq UTI, Hx Renal/Bladder Calculi, Hx /Renal Surgery, Bladder Distension, Other - Reproductive: Female Reproductive:Female: absent: As Per HPI, Amenorrhea, Amenorrhea/ Control, Currently Menstual, Cycle <21 Days, Cycle >35 Days, Cycle Variable, Menses 1-7 Days, Menses >/= 8 Days, Menses Variable, Cycle > 4 Weeks Between, No Menses for 6 Months, Heavy Menses, Light Menses, Normal Menses, Spotting Between Cycles, S/P Hysterectomy, Menopausal, Post Menopausal, Premenarche, Abnormal Vaginal Bleeding, Dysmenorrhea, Dyspareunia, Genital Lesions, Genital Pruritis, Pelvic Pain, Prolapse Symptoms, Sexual Dysfunction, Vaginal Discharge, Vaginal Dryness, Vaginal Odor, Vaginal Pruritis, Other - Menstruation Menstruation: absent: As Per HPI, Amenorrhea, Amenorrhea/ Control, Currently Menstual, Cycle <21 Days, Cycle >35 Days, Cycle Variable, Menses 1-7 Days, Menses >/= 8 Days, Menses Variable, Cycle > 4 Weeks Between, No Menses for 6 Months, Heavy Menses, Light Menses, Normal Menses, Spotting Between Cycles, S/P Hysterectomy, Menopausal, Post Menopausal, Premenarche, Abnormal Vaginal Bleeding, Dysmenorrhea, Other - Musculoskeletal Musculoskeletal: As Per HPI - Integumentary Integumentary: absent: As Per HPI, Acne, Alopecia, Bleeding Lesions, Change in Hair, Change in Nails, Change in Pigmentation, Changing Lesions, Dry Skin, Erythema, Furuncle, Hirsutism, Lesions, New Lesions, Non-Healing Lesions, Photosensitivity, Pruritus, Rash, Skin Pain, Skin Ulcer, Sores, Striae, Swelling, Unusual Bruising, Wounds, Jaundice, Other - Neurological Neurological: absent: As Per HPI, Abnormal Gait, Abnormal Hearing, Abnormal Movements, Abnormal Speech, Behavioral Changes, Burning Sensations, Confusion, Convulsions, Disequilibrium, Dizziness, Numbness, Focal Weakness, Frequent Falls, Headaches, Lack of Coordination, Loss of Vision, Memory Loss, Paresthesias, Radicular Pain, Restless Legs, Sensory Deficit, Syncope, Tingling, Tremor, Vertigo, Weakness, Other Visual Disturbances, Other - Psychiatric Psychiatric: absent: As Per HPI, Abnormal Sleep Pattern, Anhedonia, Anxiety, Auditory Hallucinations, Behavioral Changes, Change in Appetite, Change in Libido, Confusion, Depression, Difficulty Concentrating, Hallucinations, Homicidal Ideation, Hopelessness, Irritability, Memory Loss, Mood Swings, Panic Attacks, Paranoia, Suicidal Ideation, Visual Hallucinations, Tactile Hallucinations, Other - Endocrine Endocrine: absent: As Per HPI, Change in Body Appearance, Change in Libido, Cold Intolorance, Deepening of Voice, Excessive Sweating, Fatigue, Flushing, Heat Intolorance, Increase in Ring/Shoe/Hat Size, Palpitations, Polydipsia, Polyphagia, Polyuria, Other - Hematologic/Lymphatic Hematologic: absent: As Per HPI, Easy Bleeding, Easy Bruising, Lymphadenopathy, Other Past Patient History - Infectious Disease Hx of Infectious Diseases: None - Past Medical History & Family History Past Medical History?: Yes - Past Social History Smoking Status: Never Smoked - CARDIAC Hx Hypertension: Yes - PULMONARY Hx Pneumonia: Yes - NEUROLOGICAL Hx Seizures: No (Patient denied) - HEENT Hx HEENT Problems: Yes Other/Comment: excessive salivation - RENAL Hx Chronic Kidney Disease: No - ENDOCRINE/METABOLIC Hx Endocrine Disorders: No - HEMATOLOGICAL/ONCOLOGICAL Hx Human Immunodeficiency Virus (HIV): No (Patient denied) - INTEGUMENTARY Hx Dermatological Problems: No - MUSCULOSKELETAL/RHEUMATOLOGICAL Hx Musculoskeletal Disorders: No Hx Falls: No - GASTROINTESTINAL Hx Gastrointestinal Disorders: No - GENITOURINARY/GYNECOLOGICAL Hx Sexually Transmitted Disorders: No (Patient denied) - PSYCHIATRIC Hx Anxiety: Yes Hx Substance Use: No - SURGICAL HISTORY Hx Tonsillectomy: Yes - ANESTHESIA Hx Anesthesia: Yes Hx Anesthesia Reactions: No Hx Malignant Hyperthermia: No Meds Allergies/Adverse Reactions: Allergies Allergy/AdvReac Type Severity Reaction Status Date / Time No Known Allergies Allergy Verified 06/04/18 15:02 - Medications Medications: Current Medications Alprazolam (Xanax) 0.5 mg PO HS [facility] Last Admin: 06/05/18 22:22 Dose: 0.5 mg Fluticasone Propionate (Flonase) 0 spr LAURA BID [facility] Last Admin: 06/06/18 10:15 Dose: 2 spr Ceftriaxone Sodium 1 gm/ (Sodium Chloride) 100 mls @ 100 mls/hr IVPB Q24H [facility]; Protocol Last Admin: 06/05/18 17:26 Dose: 100 mls/hr Metronidazole (Flagyl) 500 mg in 100 mls @ 100 mls/hr IVPB Q8H [facility]; Protocol Last Admin: 06/06/18 08:41 Dose: 100 mls/hr Influenza Virus Vaccine (Fluzone Quad [id number]) 60 mcg IM .ONCE ONE Stop: 06/07/18 14:01 Pneumococcal Polyvalent Vaccine (Pneumovax 23 Vaccine) 0.5 ml IM .ONCE ONE Stop: 06/07/18 14:01 Potassium Chloride (Klor-Con 10) 10 meq PO BRK [facility] Last Admin: 06/06/18 08:28 Dose: Not Given Potassium Chloride (Potassium Chloride Oral Soln) 20 meq PO DAILY [facility] Stop: 06/08/18 14:01 Vancomycin HCl (Vancocin (Oral Or Rectal Use)) 125 mg PO QID [facility]; Protocol Last Admin: 06/06/18 10:16 Dose: 125 mg Physical Exam - Constitutional Appears: Non-toxic, Confused, Chronically Ill - Head Exam Head Exam: NORMOCEPHALIC. absent: ATRAUMATIC - Eye Exam Eye Exam: PERRL. absent: Scleral icterus - ENT Exam ENT Exam: Mucous Membranes Dry, Normal External Ear Exam, Normal Oropharynx - Neck Exam Neck exam: Negative for: Lymphadenopathy, Thyromegaly - Respiratory Exam Respiratory Exam: Decreased Breath Sounds. absent: Clear to Auscultation Bilateral - Cardiovascular Exam Cardiovascular Exam: REGULAR RHYTHM, +S1, +S2 - GI/Abdominal Exam GI & Abdominal Exam: Diminished Bowel Sounds, Soft. absent: Tenderness - Rectal Exam Rectal Exam: Deferred - Exam Exam: NORMAL INSPECTION - Extremities Exam Extremities exam: Negative for: calf tenderness, pedal edema, pedal pulses present - Back Exam Back exam: absent: CVA tenderness (L), CVA tenderness (R), paraspinal tenderness - Neurological Exam Neurological exam: Alert, CN II-XII Intact, Reflexes Normal - Psychiatric Exam Psychiatric exam: Depressed Results - Vital Signs Recent Vital Signs: Last Vital Signs Temp 98.3 F 06/06/18 07:00 Pulse 78 06/06/18 07:00 Resp 20 06/06/18 07:00 BP 129/62 06/06/18 07:00 Pulse Ox 95 06/06/18 07:00 - Labs Result Diagrams: 06/06/18 06:44 12/04/18 16:22 Labs: Laboratory Results - last 24 hr 06/05/18 06/06/18 06/06/18 15:38 06:44 06:44 WBC 17.7 H RBC 4.11 Hgb 13.7 12.4 Hct 36.0 MCV 87.7 MCH 30.1 MCHC 34.4 RDW 13.6 Plt Count 275 MPV 8.5 Sodium 138 Potassium 3.0 L Chloride 105 Carbon Dioxide 23 Anion Gap 13 BUN 13 Creatinine 1.1 Est GFR ( Amer) 58 Est GFR (Non-Af Amer) 48 Random Glucose 93 Calcium 8.4 L Assessment & Plan (1) UTI (urinary tract infection) Status: Acute - Assessment and Plan (Free Text) Assessment: 78 YO FEMSALE WITH RECTAL BLEED S/P RX FOR SINUS INFECTION R/O C DIFF R/O RNTEROINVASIVE E COLI R/O MALIGNANCY START EMPIRIC RX GI EVAL ANMD FOLLOW UP
[2018-06-07] MEDS: metroNIDAZOLE IV 500 mg/100 ml 500 MG/100 ML BAG IVPB SCH ×3 (00:28→17:56)
[2018-06-07 06:31] LABS: BASO # 0.1 K/uL (0.0-0.2); BASO % 0.7 % (0.0-2.0); EOS # 0.5 K/uL (0.0-0.7); EOS % 3.8 % (0.0-4.0); HEMOGLOBIN 11.2 g/dL (11.0-16.0); LYMPH # 1.9 K/uL (1.0-4.3); LYMPH % 13.7 % (20.0-40.0); MEAN CORPUSCULAR HEMOGLOBIN 28.9 pg (27.0-31.0); MEAN CORPUSCULAR HGB CONC 33.2 g/dL (33.0-37.0); MEAN PLATELET VOLUME 8.6 fL (7.2-11.7); MONO # 0.6 K/uL (0.0-0.8); MONO % 4.5 % (0.0-10.0); NEUT # 10.8 K/uL (1.8-7.0); NEUT % 77.3 % (50.0-75.0); RBC 3.88 Mil/uL (3.80-5.20); RED CELL DISTRIBUTION WIDTH 13.7 % (11.5-14.5); WHITE BLOOD COUNT 13.9 K/uL (4.8-10.8)
--- NOTE | 2018-06-07 06:37 | CP.PCM.PN ---
<Chalino Murcia - Last Filed: 06/07/18 09:35> Subjective - Date & Time of Evaluation Date of Evaluation: 06/07/18 Time of Evaluation: 06:55 - Subjective Subjective: PGY-4 GI Fellow Prog Note Pt lying in bed when seen this AM. States no diarrhea over night. Thinks she only had "a few" during the day yesterday, unsure about any bleeding stating that she didn't look at stool. 5 point ROS negative other than stated above Objective - Vital Signs/Intake and Output Vital Signs (last 24 hours): Temp Pulse Resp BP Pulse Ox 98.4 F 66 20 115/61 99 06/07/18 04:00 06/06/18 23:05 06/06/18 23:05 06/06/18 23:05 06/06/18 23:05 Intake and Output: 06/06/18 06/07/18 18:59 06:59 Intake Total 600 Balance 600 - Medications Medications: Current Medications Alprazolam (Xanax) 0.5 mg PO HS [facility] Last Admin: 06/06/18 21:12 Dose: 0.5 mg Fluticasone Propionate (Flonase) 0 spr LAURA BID [facility] Last Admin: 06/06/18 17:18 Dose: 1 spr Guaifenesin (Mucinex La) 600 mg PO BID [facility] Last Admin: 06/06/18 17:19 Dose: 600 mg Ceftriaxone Sodium 1 gm/ (Sodium Chloride) 100 mls @ 100 mls/hr IVPB Q24H [facility]; Protocol Last Admin: 06/06/18 17:18 Dose: 100 mls/hr Metronidazole (Flagyl) 500 mg in 100 mls @ 100 mls/hr IVPB Q8H [facility]; Protocol Last Admin: 06/07/18 00:28 Dose: 100 mls/hr Influenza Virus Vaccine (Fluzone Quad [id number]) 60 mcg IM .ONCE ONE Stop: 06/07/18 14:01 Pneumococcal Polyvalent Vaccine (Pneumovax 23 Vaccine) 0.5 ml IM .ONCE ONE Stop: 06/07/18 14:01 Potassium Chloride (Klor-Con 10) 10 meq PO BRK [facility] Last Admin: 06/06/18 08:28 Dose: Not Given Potassium Chloride (Potassium Chloride Oral Soln) 20 meq PO DAILY [facility] Stop: 06/08/18 14:01 Last Admin: 06/06/18 14:28 Dose: 20 meq Vancomycin HCl (Vancocin (Oral Or Rectal Use)) 125 mg PO QID [facility]; Protocol Last Admin: 06/06/18 21:12 Dose: 125 mg - Labs Labs: 06/07/18 06:25 06/06/18 16:22 PT 10.6 SECONDS (9.7-12.2) 06/05/18 03:47 INR 1.0 06/05/18 03:47 APTT 25 SECONDS (21-34) 06/05/18 03:47 - Constitutional Appears: No Acute Distress, Chronically Ill - Head Exam Head Exam: ATRAUMATIC, NORMAL INSPECTION - Eye Exam Eye Exam: EOMI. absent: Scleral icterus - ENT Exam ENT Exam: Mucous Membranes Dry. absent: Mucous Membranes Moist - Respiratory Exam Respiratory Exam: NORMAL BREATHING PATTERN. absent: Accessory Muscle Use - GI/Abdominal Exam GI & Abdominal Exam: Soft, Normal Bowel Sounds. absent: Bruit, Distended, Firm, Guarding, Rigid, Tenderness, Mass, Organomegaly, Pulsatile Mass Assessment and Plan - Assessment and Plan (Free Text) Assessment: 78 yo WF with HTN, Anxiety presenting with BRBR. # Hematochezia, Diarrhea: Improved. Likely due to colitis seen on CT affecting transverse through sigmoid colon, also diverticulosis seen. May have had EGD+CSPY ~ 2003 with results unknown. Hgb at baseline and vitals stable. Given leukocytosis and recent Abx use, is at risk for Cdiff infection. Given new temp and persistent leukocytosis and symptoms will empirically treat with PO Vanco. Ischemia also possible given decreased PO intake. Least likely would be inflammatory. # Weight loss: >40 lbs since January, pt attributes it to decreased PO/appetite related to chronic sinus issues. Last CSPY ~ 2003 with unknown results. # Sepsis: Improved. Temp 101, with increased WBC; suspect related to infectious colitis. Plan: - Empiric PO Vancomycin 125 mg QID for suspected Cdiff; started 06/06/18, 10 day course - F/u Cdiff, problems reported with collection due to urinary contamination; appreciate RN continuing to attempt collection - F/u Stool Cx, O&P - Cont ceftriaxone and metronidazole or equivalent x 7 days - BCx NGTD - Supportive care - Clear Liq Diet -> Low lactose heart healthy - Recommend outpatient CSPY Pt seen and examined with Dr. Curtis; please see attestation for further recs/changes. Chalino Mucria, PGY-4 <Jean-Claude Curtis - Last Filed: 06/07/18 10:06> Objective - Vital Signs/Intake and Output Vital Signs (last 24 hours): Temp Pulse Resp BP Pulse Ox 98.2 F 59 L 18 103/64 97 06/07/18 07:00 06/07/18 07:00 06/07/18 07:00 06/07/18 07:00 06/07/18 07:00 - Medications Medications: Current Medications Alprazolam (Xanax) 0.5 mg PO HS [facility] Last Admin: 06/06/18 21:12 Dose: 0.5 mg Fluticasone Propionate (Flonase) 0 spr LAURA BID [facility] Last Admin: 06/07/18 09:04 Dose: 1 spr Guaifenesin (Mucinex La) 600 mg PO BID [facility] Last Admin: 06/07/18 09:08 Dose: 600 mg Ceftriaxone Sodium 1 gm/ (Sodium Chloride) 100 mls @ 100 mls/hr IVPB Q24H [facility]; Protocol Last Admin: 06/06/18 17:18 Dose: 100 mls/hr Metronidazole (Flagyl) 500 mg in 100 mls @ 100 mls/hr IVPB Q8H [facility]; Protocol Last Admin: 06/07/18 09:05 Dose: 100 mls/hr Influenza Virus Vaccine (Fluzone Quad [id number]) 60 mcg IM .ONCE ONE Stop: 06/07/18 14:01 Pneumococcal Polyvalent Vaccine (Pneumovax 23 Vaccine) 0.5 ml IM .ONCE ONE Stop: 06/07/18 14:01 Potassium Chloride (Klor-Con 10) 10 meq PO BRK [facility] Last Admin: 06/07/18 09:04 Dose: 10 meq Potassium Chloride (Potassium Chloride Oral Soln) 20 meq PO DAILY [facility] Stop: 06/08/18 14:01 Last Admin: 06/07/18 09:04 Dose: 20 meq Vancomycin HCl (Vancocin (Oral Or Rectal Use)) 125 mg PO QID [facility]; Protocol Last Admin: 06/07/18 09:04 Dose: 125 mg - Labs Labs: 06/07/18 06:25 06/07/18 06:25 PT 10.6 SECONDS (9.7-12.2) 06/05/18 03:47 INR 1.0 06/05/18 03:47 APTT 25 SECONDS (21-34) 06/05/18 03:47 Attending/Attestation - Attestation I have personally seen and examined this patient.: Yes I have fully participated in the care of the patient.: Yes I have reviewed all pertinent clinical information, including history, physical exam and plan: Yes Notes (Text): 06/07/18 10:04 I have seen and examined patient with GI fellow. No acute events overnight, she did not have any bowel movements since yesterday evening and bleeding has res olved. She denies abdominal pain, nausea, vomiting, fever/chills. Tolerating PO liquids without difficulty. HTN Anxiety Colitis, rectal bleeding Weight loss - Liquid diet as tolerated - Continue with antibiotic therapy as per ID - Awaiting stool studies - Given presence of weight loss and rectal bleeding with abnormal CT imaging, will plan for EGD/colonoscopy tomorrow for further evaluation to exclude for malignancy. Golytely bowel preparation today, NPO after midnight.
[2018-06-07 06:49] LABS: BLOOD UREA NITROGEN 10 mg/dL (7-17); CALCIUM 8.3 mg/dl (8.6-10.4); GFR NON-AFRICAN AMERICAN > 60
[2018-06-07] MEDS: Potassium Chloride 10 mEq ER Tab PO SCH (09:04)
[2018-06-07] MEDS: Vancomycin 125 MG/5 ML SOLN (ORAL/RECTAL) PO SCH ×4 (09:04→21:04)
[2018-06-07] MEDS: Potassium Chloride 20 mEq/15 ml LIQ UD PO SCH (09:04)
[2018-06-07] MEDS: Fluticasone Nasal 50 mcg/Spray NAS SCH ×2 (09:04→17:56)
[2018-06-07] MEDS: guaiFENesin 600 mg ER Tab PO SCH ×2 (09:08→17:56)
[2018-06-07] MEDS ORDERED: Peg-Electrolyte Oral Soln 4L (Golytely) PO ONE (14:00)
[2018-06-07] MEDS ORDERED: Pneumococcal 23-Valent Vaccine IM ONE (14:00)
[2018-06-07] MEDS ORDERED: Influenza Vaccine 60 MCG/0.5 ML SYR (3 yr & up) IM ONE (14:00)
[2018-06-07] MEDS ORDERED: Bisacodyl 5mg EC Tab PO ONE (16:00)
--- NOTE | 2018-06-07 18:54 | CP.PCM.PN ---
Subjective - Date & Time of Evaluation Date of Evaluation: 06/07/18 Time of Evaluation: 10:30 - Subjective Subjective: clinically same Objective - Vital Signs/Intake and Output Vital Signs (last 24 hours): Temp Pulse Resp BP Pulse Ox 97.9 F 68 18 137/64 100 06/07/18 15:22 06/07/18 15:22 06/07/18 15:22 06/07/18 15:22 06/07/18 15:22 Intake and Output: 06/07/18 06/07/18 06:59 18:59 Intake Total 500 Output Total 350 Balance 150 - Medications Medications: Current Medications Alprazolam (Xanax) 0.5 mg PO HS [facility] Last Admin: 06/06/18 21:12 Dose: 0.5 mg Fluticasone Propionate (Flonase) 0 spr LAURA BID [facility] Last Admin: 06/07/18 17:56 Dose: 1 spr Guaifenesin (Mucinex La) 600 mg PO BID [facility] Last Admin: 06/07/18 17:56 Dose: 600 mg Ceftriaxone Sodium 1 gm/ (Sodium Chloride) 100 mls @ 100 mls/hr IVPB Q24H [facility]; Protocol Last Admin: 06/07/18 17:57 Dose: 100 mls/hr Metronidazole (Flagyl) 500 mg in 100 mls @ 100 mls/hr IVPB Q8H [facility]; Protocol Last Admin: 06/07/18 17:56 Dose: 100 mls/hr Potassium Chloride (Klor-Con 10) 10 meq PO BRK [facility] Last Admin: 06/07/18 09:04 Dose: 10 meq Potassium Chloride (Potassium Chloride Oral Soln) 20 meq PO DAILY [facility] Stop: 06/08/18 14:01 Last Admin: 06/07/18 09:04 Dose: 20 meq Vancomycin HCl (Vancocin (Oral Or Rectal Use)) 125 mg PO QID [facility]; Protocol Last Admin: 06/07/18 17:58 Dose: 125 mg - Labs Labs: 06/07/18 06:25 06/07/18 06:25 PT 10.6 SECONDS (9.7-12.2) 06/05/18 03:47 INR 1.0 06/05/18 03:47 APTT 25 SECONDS (21-34) 06/05/18 03:47 - Constitutional Appears: Well - Head Exam Head Exam: ATRAUMATIC, NORMAL INSPECTION, NORMOCEPHALIC - Eye Exam Eye Exam: EOMI, Normal appearance, PERRL Pupil Exam: NORMAL ACCOMODATION, PERRL - ENT Exam ENT Exam: Mucous Membranes Moist, Normal Exam - Neck Exam Neck Exam: Full ROM, Normal Inspection. absent: Lymphadenopathy - Respiratory Exam Respiratory Exam: Decreased Breath Sounds - Cardiovascular Exam Cardiovascular Exam: REGULAR RHYTHM, +S1, +S2 - GI/Abdominal Exam GI & Abdominal Exam: Soft, Diminished Bowel Sounds - Rectal Exam Rectal Exam: Deferred
--- NOTE | 2018-06-07 22:45 | CP.PCM.PN ---
Subjective - Date & Time of Evaluation Date of Evaluation: 06/07/18 Time of Evaluation: 07:00 - Subjective Subjective: awake alert afebrile Objective - Vital Signs/Intake and Output Vital Signs (last 24 hours): Temp Pulse Resp BP Pulse Ox 97.9 F 68 18 137/64 100 06/07/18 15:22 06/07/18 15:22 06/07/18 15:22 06/07/18 15:22 06/07/18 15:22 Intake and Output: 06/07/18 06/08/18 18:59 06:59 Intake Total 500 Output Total 350 Balance 150 - Medications Medications: Current Medications Alprazolam (Xanax) 0.5 mg PO HS [facility] Last Admin: 06/07/18 21:04 Dose: 0.5 mg Fluticasone Propionate (Flonase) 0 spr LAURA BID [facility] Last Admin: 06/07/18 17:56 Dose: 1 spr Guaifenesin (Mucinex La) 600 mg PO BID [facility] Last Admin: 06/07/18 17:56 Dose: 600 mg Ceftriaxone Sodium 1 gm/ (Sodium Chloride) 100 mls @ 100 mls/hr IVPB Q24H [facility]; Protocol Last Admin: 06/07/18 17:57 Dose: 100 mls/hr Metronidazole (Flagyl) 500 mg in 100 mls @ 100 mls/hr IVPB Q8H [facility]; Protocol Last Admin: 06/07/18 17:56 Dose: 100 mls/hr Potassium Chloride (Klor-Con 10) 10 meq PO BRK [facility] Last Admin: 06/07/18 09:04 Dose: 10 meq Potassium Chloride (Potassium Chloride Oral Soln) 20 meq PO DAILY [facility] Stop: 06/08/18 14:01 Last Admin: 06/07/18 09:04 Dose: 20 meq Vancomycin HCl (Vancocin (Oral Or Rectal Use)) 125 mg PO QID [facility]; Protocol Last Admin: 06/07/18 21:04 Dose: 125 mg - Labs Labs: 06/07/18 06:25 06/07/18 06:25 PT 10.6 SECONDS (9.7-12.2) 06/05/18 03:47 INR 1.0 06/05/18 03:47 APTT 25 SECONDS (21-34) 06/05/18 03:47 - Constitutional Appears: Non-toxic - Head Exam Head Exam: NORMOCEPHALIC - Eye Exam Eye Exam: Normal appearance Pupil Exam: PERRL - ENT Exam ENT Exam: Mucous Membranes Dry - Neck Exam Neck Exam: absent: Lymphadenopathy - Respiratory Exam Respiratory Exam: Decreased Breath Sounds - Cardiovascular Exam Cardiovascular Exam: REGULAR RHYTHM, +S1, +S2 - GI/Abdominal Exam GI & Abdominal Exam: Distended, Soft - Rectal Exam Rectal Exam: Deferred - Exam Exam: NORMAL INSPECTION - Extremities Exam Extremities Exam: Full ROM - Back Exam Back Exam: absent: CVA tenderness (L), CVA tenderness (R) - Neurological Exam Neurological Exam: Alert, Awake, CN II-XII Intact - Psychiatric Exam Psychiatric exam: Depressed Assessment and Plan (1) UTI (urinary tract infection) Status: Acute (2) GI bleed Status: Acute - Assessment and Plan (Free Text) Assessment: await urine cultures cont iv rx
[2018-06-08] MEDS: metroNIDAZOLE IV 500 mg/100 ml 500 MG/100 ML BAG IVPB SCH ×3 (00:33→20:04)
[2018-06-08 07:19] LABS: HEMOGLOBIN 12.2 g/dL (11.0-16.0); MEAN CELL VOLUME 87.6 fL (81.0-99.0); MEAN CORPUSCULAR HEMOGLOBIN 30.2 pg (27.0-31.0); MEAN CORPUSCULAR HGB CONC 34.4 g/dL (33.0-37.0); MEAN PLATELET VOLUME 8.8 fL (7.2-11.7); RBC 4.04 Mil/uL (3.80-5.20); RED CELL DISTRIBUTION WIDTH 13.4 % (11.5-14.5); WHITE BLOOD COUNT 7.5 K/uL (4.8-10.8)
[2018-06-08 07:31] LABS: BLOOD UREA NITROGEN 7 mg/dL (7-17); CALCIUM 8.2 mg/dl (8.6-10.4); GFR NON-AFRICAN AMERICAN > 60
[2018-06-08] MEDS ORDERED: Bisacodyl 5mg EC Tab PO ONE (08:00)
[2018-06-08] MEDS: Potassium Chloride 10 mEq ER Tab PO SCH (08:42)
[2018-06-08] MEDS: guaiFENesin 600 mg ER Tab PO SCH ×2 (11:09→17:12)
[2018-06-08] MEDS: Fluticasone Nasal 50 mcg/Spray NAS SCH ×2 (11:10→17:12)
[2018-06-08] MEDS: Potassium Chloride 20 mEq/15 ml LIQ UD PO SCH (11:10)
[2018-06-08] MEDS: Vancomycin 125 MG/5 ML SOLN (ORAL/RECTAL) PO SCH ×4 (11:13→21:12)
[2018-06-08] MEDS ORDERED: Midazolam 5 MG/5 ML VIAL IVP ONE (14:25)
[2018-06-08] MEDS ORDERED: Lactated Ringer's 500 ML IV ONE (14:30)
[2018-06-08] MEDS ORDERED: Midazolam 2 MG/2 ML VIAL ONE (14:34)
[2018-06-08 14:59] LABS: SQUAMOUS EPITHIAL 7 /hpf (0-5); URINE BACTERIA RARE (<OCC); URINE BILIRUBIN NEGATIVE (NEGATIVE); URINE BLOOD 1+ (NEGATIVE); URINE CLARITY Clear (Clear); URINE COLOR Yellow (YELLOW); URINE GLUCOSE (UA) NORMAL (Normal); URINE LEUKOCYTE ESTERASE 3+ Leu/uL (Negative); URINE PROTEIN NEGATIVE (NEGATIVE); URINE UROBILINOGEN NORMAL mg/dL (0.2-1.0)
--- NOTE | 2018-06-08 15:37 | CP.PCM.PN ---
Subjective - Date & Time of Evaluation Date of Evaluation: 06/08/18 Time of Evaluation: 15:34 - Subjective Subjective: Patient seen and examined, no acute events overnight. She is seen resting comfortably in bed. She denies abdominal pain, nausea, vomiting, fever/chills. s/p EGD and colonoscopy today showing gastritis, hiatal hernia, diverticulosis, descending/transverse colitis. Objective - Vital Signs/Intake and Output Vital Signs (last 24 hours): Temp Pulse Resp BP Pulse Ox 97 F L 59 L 21 119/53 L 100 06/08/18 14:35 06/08/18 14:35 06/08/18 14:35 06/08/18 14:35 06/08/18 14:35 Intake and Output: 06/08/18 06/08/18 06:59 18:59 Output Total 700 Balance -700 - Medications Medications: Current Medications Alprazolam (Xanax) 0.5 mg PO HS [facility] Last Admin: 06/07/18 21:04 Dose: 0.5 mg Fluticasone Propionate (Flonase) 0 spr LAURA BID [facility] Last Admin: 06/08/18 11:10 Dose: 1 spr Guaifenesin (Mucinex La) 600 mg PO BID [facility] Last Admin: 06/08/18 11:09 Dose: 600 mg Ceftriaxone Sodium 1 gm/ (Sodium Chloride) 100 mls @ 100 mls/hr IVPB Q24H [facility]; Protocol Last Admin: 06/07/18 17:57 Dose: 100 mls/hr Metronidazole (Flagyl) 500 mg in 100 mls @ 100 mls/hr IVPB Q8H [facility]; Protocol Last Admin: 06/08/18 13:16 Dose: 100 mls/hr Potassium Chloride (Klor-Con 10) 10 meq PO BRK [facility] Last Admin: 06/08/18 08:42 Dose: 10 meq Vancomycin HCl (Vancocin (Oral Or Rectal Use)) 125 mg PO QID [facility]; Protocol Last Admin: 06/08/18 13:18 Dose: Not Given - Labs Labs: 06/08/18 07:06 06/08/18 07:06 PT 10.6 SECONDS (9.7-12.2) 06/05/18 03:47 INR 1.0 06/05/18 03:47 APTT 25 SECONDS (21-34) 06/05/18 03:47 Assessment and Plan - Assessment and Plan (Free Text) Assessment: HTN Anxiety Colitis - presumed infectious given clinical scenario UTI s/p EGD and colonoscopy today showing gastritis, hiatal hernia, distal transverse/descending colitis, sigmoid polyp, internal hemorrhoids Plan: - Advance diet as tolerated - H/H stable, continue to monitor - Follow up EGD/colonoscopy biopsy results - Continue with antibiotic therapy as per ID - No further planned GI intervention, will sign off case. Suggest additional outpatient follow up. Please reconsult as necessary, thank you.
--- NOTE | 2018-06-08 15:51 | CP.PCM.PN ---
Subjective - Date & Time of Evaluation Date of Evaluation: 06/08/18 Time of Evaluation: 11:15 - Subjective Subjective: clinically same Objective - Vital Signs/Intake and Output Vital Signs (last 24 hours): Temp Pulse Resp BP Pulse Ox 97 F L 59 L 21 119/53 L 100 06/08/18 14:35 06/08/18 14:35 06/08/18 14:35 06/08/18 14:35 06/08/18 14:35 Intake and Output: 06/08/18 06/08/18 06:59 18:59 Output Total 700 Balance -700 - Medications Medications: Current Medications Alprazolam (Xanax) 0.5 mg PO HS [facility] Last Admin: 06/07/18 21:04 Dose: 0.5 mg Fluticasone Propionate (Flonase) 0 spr LAURA BID [facility] Last Admin: 06/08/18 11:10 Dose: 1 spr Guaifenesin (Mucinex La) 600 mg PO BID [facility] Last Admin: 06/08/18 11:09 Dose: 600 mg Ceftriaxone Sodium 1 gm/ (Sodium Chloride) 100 mls @ 100 mls/hr IVPB Q24H [facility]; Protocol Last Admin: 06/07/18 17:57 Dose: 100 mls/hr Metronidazole (Flagyl) 500 mg in 100 mls @ 100 mls/hr IVPB Q8H [facility]; Protocol Last Admin: 06/08/18 13:16 Dose: 100 mls/hr Potassium Chloride (Klor-Con 10) 10 meq PO BRK [facility] Last Admin: 06/08/18 08:42 Dose: 10 meq Vancomycin HCl (Vancocin (Oral Or Rectal Use)) 125 mg PO QID [facility]; Protocol Last Admin: 06/08/18 13:18 Dose: Not Given - Labs Labs: 06/08/18 07:06 06/08/18 07:06 PT 10.6 SECONDS (9.7-12.2) 06/05/18 03:47 INR 1.0 06/05/18 03:47 APTT 25 SECONDS (21-34) 06/05/18 03:47 - Constitutional Appears: Well - Head Exam Head Exam: ATRAUMATIC, NORMAL INSPECTION, NORMOCEPHALIC - Eye Exam Eye Exam: EOMI, Normal appearance, PERRL Pupil Exam: NORMAL ACCOMODATION, PERRL - ENT Exam ENT Exam: Mucous Membranes Moist, Normal Exam - Neck Exam Neck Exam: Full ROM, Normal Inspection. absent: Lymphadenopathy - Respiratory Exam Respiratory Exam: Decreased Breath Sounds - Cardiovascular Exam Cardiovascular Exam: REGULAR RHYTHM, +S1, +S2 - GI/Abdominal Exam GI & Abdominal Exam: Soft, Diminished Bowel Sounds - Rectal Exam Rectal Exam: Deferred
[2018-06-09] MEDS: metroNIDAZOLE IV 500 mg/100 ml 500 MG/100 ML BAG IVPB SCH ×3 (00:23→17:39)
[2018-06-09 04:34] VITALS: RESP 20
[2018-06-09 06:33] LABS: HEMOGLOBIN 11.8 g/dL (11.0-16.0); MEAN CELL VOLUME 86.6 fL (81.0-99.0); MEAN CORPUSCULAR HEMOGLOBIN 29.6 pg (27.0-31.0); MEAN CORPUSCULAR HGB CONC 34.2 g/dL (33.0-37.0); MEAN PLATELET VOLUME 8.3 fL (7.2-11.7); RBC 3.98 Mil/uL (3.80-5.20); RED CELL DISTRIBUTION WIDTH 13.4 % (11.5-14.5); WHITE BLOOD COUNT 6.1 K/uL (4.8-10.8)
[2018-06-09 06:42] LABS: BLOOD UREA NITROGEN 12 mg/dL (7-17); CALCIUM 8.3 mg/dl (8.6-10.4); GFR NON-AFRICAN AMERICAN > 60
[2018-06-09] MEDS: Potassium Chloride 10 mEq ER Tab PO SCH (08:33)
[2018-06-09] MEDS: Vancomycin 125 MG/5 ML SOLN (ORAL/RECTAL) PO SCH ×4 (10:29→21:26)
[2018-06-09] MEDS: Fluticasone Nasal 50 mcg/Spray NAS SCH ×2 (10:32→17:37)
[2018-06-09] MEDS: guaiFENesin 600 mg ER Tab PO SCH ×2 (10:32→17:38)
--- NOTE | 2018-06-09 14:33 | CP.PCM.PN ---
Subjective - Date & Time of Evaluation Date of Evaluation: 06/09/18 Time of Evaluation: 10:30 - Subjective Subjective: clinically same Objective - Vital Signs/Intake and Output Vital Signs (last 24 hours): Temp Pulse Resp BP Pulse Ox 98.8 F 60 20 122/57 L 95 06/09/18 07:00 06/09/18 07:00 06/09/18 07:00 06/09/18 07:00 06/09/18 07:00 Intake and Output: 06/09/18 06/09/18 06:59 18:59 Intake Total 600 Balance 600 - Medications Medications: Current Medications Alprazolam (Xanax) 0.5 mg PO HS [facility] Last Admin: 06/08/18 21:12 Dose: 0.5 mg Fluticasone Propionate (Flonase) 0 spr LAURA BID [facility] Last Admin: 06/09/18 10:32 Dose: 1 spr Guaifenesin (Mucinex La) 600 mg PO BID [facility] Last Admin: 06/09/18 10:32 Dose: 600 mg Ceftriaxone Sodium 1 gm/ (Sodium Chloride) 100 mls @ 100 mls/hr IVPB Q24H [facility]; Protocol Last Admin: 06/08/18 17:02 Dose: 100 mls/hr Metronidazole (Flagyl) 500 mg in 100 mls @ 100 mls/hr IVPB Q8H [facility]; Protocol Last Admin: 06/09/18 08:33 Dose: 100 mls/hr Potassium Chloride (Klor-Con 10) 10 meq PO BRK [facility] Last Admin: 06/09/18 08:33 Dose: 10 meq Vancomycin HCl (Vancocin (Oral Or Rectal Use)) 125 mg PO QID [facility]; Protocol Last Admin: 06/09/18 13:41 Dose: 125 mg - Labs Labs: 06/09/18 06:18 06/09/18 06:18 PT 10.6 SECONDS (9.7-12.2) 06/05/18 03:47 INR 1.0 06/05/18 03:47 APTT 25 SECONDS (21-34) 06/05/18 03:47 - Constitutional Appears: Well - Head Exam Head Exam: ATRAUMATIC, NORMAL INSPECTION, NORMOCEPHALIC - Eye Exam Eye Exam: EOMI, Normal appearance, PERRL Pupil Exam: NORMAL ACCOMODATION, PERRL - ENT Exam ENT Exam: Mucous Membranes Moist, Normal Exam - Neck Exam Neck Exam: Full ROM, Normal Inspection. absent: Lymphadenopathy - Respiratory Exam Respiratory Exam: Decreased Breath Sounds - Cardiovascular Exam Cardiovascular Exam: REGULAR RHYTHM, +S1, +S2 - GI/Abdominal Exam GI & Abdominal Exam: Soft, Diminished Bowel Sounds - Rectal Exam Rectal Exam: Deferred
--- NOTE | 2018-06-09 18:11 | CP.PCM.PN ---
Subjective - Date & Time of Evaluation Date of Evaluation: 06/09/18 Time of Evaluation: 09:00 - Subjective Subjective: improving on empiric rx for colitis 'will d/c rocephin as cultures neg Objective - Vital Signs/Intake and Output Vital Signs (last 24 hours): Temp Pulse Resp BP Pulse Ox 98.3 F 59 L 20 125/55 L 96 06/09/18 15:00 06/09/18 15:00 06/09/18 15:00 06/09/18 15:00 06/09/18 15:00 Intake and Output: 06/09/18 06/09/18 06:59 18:59 Intake Total 600 300 Output Total 400 Balance 600 -100 - Medications Medications: Current Medications Alprazolam (Xanax) 0.5 mg PO HS [facility] Last Admin: 06/08/18 21:12 Dose: 0.5 mg Fluticasone Propionate (Flonase) 0 spr LAURA BID [facility] Last Admin: 06/09/18 17:37 Dose: 1 spr Guaifenesin (Mucinex La) 600 mg PO BID [facility] Last Admin: 06/09/18 17:38 Dose: 600 mg Ceftriaxone Sodium 1 gm/ (Sodium Chloride) 100 mls @ 100 mls/hr IVPB Q24H [facility]; Protocol Last Admin: 06/09/18 17:00 Dose: 100 mls/hr Metronidazole (Flagyl) 500 mg in 100 mls @ 100 mls/hr IVPB Q8H [facility]; Protocol Last Admin: 06/09/18 17:39 Dose: 100 mls/hr Potassium Chloride (Klor-Con 10) 10 meq PO BRK [facility] Last Admin: 06/09/18 08:33 Dose: 10 meq Vancomycin HCl (Vancocin (Oral Or Rectal Use)) 125 mg PO QID [facility]; Protocol Last Admin: 06/09/18 17:38 Dose: 125 mg - Labs Labs: 06/09/18 06:18 06/09/18 06:18 PT 10.6 SECONDS (9.7-12.2) 06/05/18 03:47 INR 1.0 06/05/18 03:47 APTT 25 SECONDS (21-34) 06/05/18 03:47 - Constitutional Appears: Non-toxic, Chronically Ill - Head Exam Head Exam: NORMOCEPHALIC - Eye Exam Eye Exam: absent: Scleral icterus - ENT Exam ENT Exam: Mucous Membranes Dry - Neck Exam Neck Exam: absent: Lymphadenopathy - Respiratory Exam Respiratory Exam: Decreased Breath Sounds - Cardiovascular Exam Cardiovascular Exam: REGULAR RHYTHM - GI/Abdominal Exam GI & Abdominal Exam: Distended - Rectal Exam Rectal Exam: Deferred Assessment and Plan (1) UTI (urinary tract infection) Status: Acute (2) GI bleed Status: Acute
[2018-06-09 22:55] LABS: SQUAMOUS EPITHIAL 2 /hpf (0-5); URINE BILIRUBIN NEGATIVE (NEGATIVE); URINE BLOOD NEGATIVE (NEGATIVE); URINE CLARITY Clear (Clear); URINE COLOR Yellow (YELLOW); URINE GLUCOSE (UA) NORMAL (Normal); URINE LEUKOCYTE ESTERASE 1+ Leu/uL (Negative); URINE PROTEIN NEGATIVE (NEGATIVE); URINE UROBILINOGEN NORMAL mg/dL (0.2-1.0)
[2018-06-10] MEDS: metroNIDAZOLE IV 500 mg/100 ml 500 MG/100 ML BAG IVPB SCH ×3 (00:48→18:00)
[2018-06-10] MEDS: Potassium Chloride 10 mEq ER Tab PO SCH (10:11)
[2018-06-10] MEDS: Fluticasone Nasal 50 mcg/Spray NAS SCH ×2 (10:12→18:21)
[2018-06-10] MEDS: guaiFENesin 600 mg ER Tab PO SCH ×2 (10:19→18:21)
[2018-06-10] MEDS: Vancomycin 125 MG/5 ML SOLN (ORAL/RECTAL) PO SCH ×4 (10:19→22:08)
--- NOTE | 2018-06-10 17:58 | CP.PCM.PN ---
Subjective - Date & Time of Evaluation Date of Evaluation: 06/10/18 Time of Evaluation: 09:15 - Subjective Subjective: clinically same Objective - Vital Signs/Intake and Output Vital Signs (last 24 hours): Temp Pulse Resp BP Pulse Ox 98.0 F 91 H 20 119/78 96 06/10/18 15:45 06/10/18 15:45 06/10/18 15:45 06/10/18 15:45 06/10/18 15:45 Intake and Output: 06/10/18 06/10/18 06:59 18:59 Intake Total 640 200 Output Total 400 600 Balance 240 -400 - Medications Medications: Current Medications Alprazolam (Xanax) 0.5 mg PO HS [facility] Last Admin: 06/09/18 21:26 Dose: 0.5 mg Fluticasone Propionate (Flonase) 0 spr LAURA BID [facility] Last Admin: 06/10/18 10:12 Dose: 1 spr Guaifenesin (Mucinex La) 600 mg PO BID [facility] Last Admin: 06/10/18 10:19 Dose: 600 mg Metronidazole (Flagyl) 500 mg in 100 mls @ 100 mls/hr IVPB Q8H [facility]; Protocol Last Admin: 06/10/18 10:00 Dose: 100 mls/hr Ceftriaxone Sodium 1 gm/ (Sodium Chloride) 100 mls @ 100 mls/hr IVPB Q24H [facility]; Protocol Potassium Chloride (Klor-Con 10) 10 meq PO BRK [facility] Last Admin: 06/10/18 10:11 Dose: 10 meq Vancomycin HCl (Vancocin (Oral Or Rectal Use)) 125 mg PO QID [facility]; Protocol Last Admin: 06/10/18 15:02 Dose: 125 mg - Labs Labs: 06/09/18 06:18 06/09/18 06:18 PT 10.6 SECONDS (9.7-12.2) 06/05/18 03:47 INR 1.0 06/05/18 03:47 APTT 25 SECONDS (21-34) 06/05/18 03:47 - Constitutional Appears: Well - Head Exam Head Exam: ATRAUMATIC, NORMAL INSPECTION, NORMOCEPHALIC - Eye Exam Eye Exam: EOMI, Normal appearance, PERRL Pupil Exam: NORMAL ACCOMODATION, PERRL - ENT Exam ENT Exam: Mucous Membranes Moist, Normal Exam - Neck Exam Neck Exam: Full ROM, Normal Inspection. absent: Lymphadenopathy - Respiratory Exam Respiratory Exam: Decreased Breath Sounds - Cardiovascular Exam Cardiovascular Exam: REGULAR RHYTHM, +S1, +S2 - GI/Abdominal Exam GI & Abdominal Exam: Soft, Diminished Bowel Sounds - Rectal Exam Rectal Exam: Deferred
[2018-06-11] MEDS: metroNIDAZOLE IV 500 mg/100 ml 500 MG/100 ML BAG IVPB SCH ×2 (02:02→09:49)
[2018-06-11] MEDS: guaiFENesin 600 mg ER Tab PO SCH ×2 (09:47→17:53)
[2018-06-11] MEDS: Fluticasone Nasal 50 mcg/Spray NAS SCH ×2 (09:49→17:53)
[2018-06-11] MEDS: Potassium Chloride 10 mEq ER Tab PO SCH (09:49)
[2018-06-11] MEDS: Vancomycin 125 MG/5 ML SOLN (ORAL/RECTAL) PO SCH ×2 (09:49→13:06)
--- NOTE | 2018-06-11 12:16 | CP.PCM.PN ---
Subjective - Date & Time of Evaluation Date of Evaluation: 06/11/18 Time of Evaluation: 09:15 - Subjective Subjective: clinically same Objective - Vital Signs/Intake and Output Vital Signs (last 24 hours): Temp Pulse Resp BP Pulse Ox 98.2 F 59 L 20 112/62 96 06/11/18 07:00 06/11/18 07:00 06/11/18 07:00 06/11/18 07:00 06/11/18 07:00 Intake and Output: 06/11/18 06/11/18 06:59 18:59 Output Total 650 Balance -650 - Medications Medications: Current Medications Alprazolam (Xanax) 0.5 mg PO HS [facility] Last Admin: 06/10/18 22:08 Dose: 0.5 mg Fluticasone Propionate (Flonase) 0 spr LAURA BID [facility] Last Admin: 06/11/18 09:49 Dose: 2 spr Guaifenesin (Mucinex La) 600 mg PO BID [facility] Last Admin: 06/11/18 09:47 Dose: 600 mg Ceftriaxone Sodium 1 gm/ (Sodium Chloride) 100 mls @ 100 mls/hr IVPB Q24H [facility]; Protocol Last Admin: 06/10/18 18:00 Dose: 100 mls/hr Potassium Chloride (Klor-Con 10) 10 meq PO BRK [facility] Last Admin: 06/11/18 09:49 Dose: 10 meq Vancomycin HCl (Vancocin (Oral Or Rectal Use)) 125 mg PO QID [facility]; Protocol Last Admin: 06/11/18 09:49 Dose: 125 mg - Labs Labs: 06/09/18 06:18 06/09/18 06:18 PT 10.6 SECONDS (9.7-12.2) 06/05/18 03:47 INR 1.0 06/05/18 03:47 APTT 25 SECONDS (21-34) 06/05/18 03:47 - Constitutional Appears: Well - Head Exam Head Exam: ATRAUMATIC, NORMAL INSPECTION, NORMOCEPHALIC - Eye Exam Eye Exam: EOMI, Normal appearance, PERRL Pupil Exam: NORMAL ACCOMODATION, PERRL - ENT Exam ENT Exam: Mucous Membranes Moist, Normal Exam - Neck Exam Neck Exam: Full ROM, Normal Inspection. absent: Lymphadenopathy - Respiratory Exam Respiratory Exam: Decreased Breath Sounds - Cardiovascular Exam Cardiovascular Exam: REGULAR RHYTHM, +S1, +S2 - GI/Abdominal Exam GI & Abdominal Exam: Soft, Diminished Bowel Sounds - Rectal Exam Rectal Exam: Deferred
--- NOTE | 2018-06-11 13:49 | CP.PCM.PN ---
Subjective - Date & Time of Evaluation Date of Evaluation: 06/11/18 Time of Evaluation: 08:00 - Subjective Subjective: afeb nad vss no bleeding Objective - Vital Signs/Intake and Output Vital Signs (last 24 hours): Temp Pulse Resp BP Pulse Ox 98.2 F 59 L 20 112/62 96 06/11/18 07:00 06/11/18 07:00 06/11/18 07:00 06/11/18 07:00 06/11/18 07:00 Intake and Output: 06/11/18 06/11/18 06:59 18:59 Output Total 650 Balance -650 - Medications Medications: Current Medications Alprazolam (Xanax) 0.5 mg PO HS [facility] Last Admin: 06/10/18 22:08 Dose: 0.5 mg Fluticasone Propionate (Flonase) 0 spr LAURA BID [facility] Last Admin: 06/11/18 09:49 Dose: 2 spr Guaifenesin (Mucinex La) 600 mg PO BID [facility] Last Admin: 06/11/18 09:47 Dose: 600 mg Ceftriaxone Sodium 1 gm/ (Sodium Chloride) 100 mls @ 100 mls/hr IVPB Q24H [facility]; Protocol Last Admin: 06/10/18 18:00 Dose: 100 mls/hr Potassium Chloride (Klor-Con 10) 10 meq PO BRK [facility] Last Admin: 06/11/18 09:49 Dose: 10 meq Vancomycin HCl (Vancocin (Oral Or Rectal Use)) 125 mg PO QID [facility]; Protocol Last Admin: 06/11/18 13:06 Dose: 125 mg - Labs Labs: 06/09/18 06:18 06/09/18 06:18 PT 10.6 SECONDS (9.7-12.2) 06/05/18 03:47 INR 1.0 06/05/18 03:47 APTT 25 SECONDS (21-34) 06/05/18 03:47 - Constitutional Appears: Non-toxic, Chronically Ill - Head Exam Head Exam: NORMOCEPHALIC - Eye Exam Eye Exam: absent: Scleral icterus - ENT Exam ENT Exam: Mucous Membranes Dry - Neck Exam Neck Exam: absent: Lymphadenopathy - Respiratory Exam Respiratory Exam: Decreased Breath Sounds - Cardiovascular Exam Cardiovascular Exam: REGULAR RHYTHM - GI/Abdominal Exam GI & Abdominal Exam: Distended, Soft - Rectal Exam Rectal Exam: Deferred - Exam Exam: NORMAL INSPECTION - Extremities Exam Extremities Exam: absent: Pedal Edema - Back Exam Back Exam: absent: CVA tenderness (L), CVA tenderness (R) - Neurological Exam Neurological Exam: Alert, CN II-XII Intact Assessment and Plan (1) UTI (urinary tract infection) Status: Acute (2) GI bleed Status: Acute
[2018-06-12 07:12] LABS: BASO # 0.1 K/uL (0.0-0.2); BASO % 1.3 % (0.0-2.0); EOS # 0.5 K/uL (0.0-0.7); EOS % 6.6 % (0.0-4.0); HEMOGLOBIN 12.3 g/dL (11.0-16.0); LYMPH # 2.3 K/uL (1.0-4.3); LYMPH % 31.3 % (20.0-40.0); MEAN CELL VOLUME 87.7 fL (81.0-99.0); MEAN CORPUSCULAR HEMOGLOBIN 30.3 pg (27.0-31.0); MEAN CORPUSCULAR HGB CONC 34.5 g/dL (33.0-37.0); MEAN PLATELET VOLUME 8.3 fL (7.2-11.7); MONO # 0.9 K/uL (0.0-0.8); MONO % 11.8 % (0.0-10.0); NEUT # 3.5 K/uL (1.8-7.0); RBC 4.06 Mil/uL (3.80-5.20); RED CELL DISTRIBUTION WIDTH 13.6 % (11.5-14.5); WHITE BLOOD COUNT 7.2 K/uL (4.8-10.8)
[2018-06-12 07:46] LABS: ALB/GLOB RATIO 1.3 (1.0-2.1); ALBUMIN 3.1 g/dL (3.5-5.0); ALT/SGPT 41 U/L (9-52); AST/SGOT 53 U/L (14-36); BLOOD UREA NITROGEN 14 mg/dL (7-17); CALCIUM 8.5 mg/dl (8.6-10.4); GFR NON-AFRICAN AMERICAN > 60
[2018-06-12] MEDS: Potassium Chloride 10 mEq ER Tab PO SCH (07:56)
[2018-06-12] MEDS: guaiFENesin 600 mg ER Tab PO SCH (09:21)
[2018-06-12] MEDS: Fluticasone Nasal 50 mcg/Spray NAS SCH (12:01)
--- NOTE | 2018-06-12 12:56 | CP.PCM.PN ---
Subjective - Date & Time of Evaluation Date of Evaluation: 06/12/18 Time of Evaluation: 08:45 - Subjective Subjective: clinically same Objective - Vital Signs/Intake and Output Vital Signs (last 24 hours): Temp Pulse Resp BP Pulse Ox 98.6 F 67 20 145/68 100 06/12/18 08:30 06/12/18 08:30 06/12/18 08:30 06/12/18 08:30 06/12/18 08:30 Intake and Output: 06/12/18 06/12/18 06:59 18:59 Intake Total 690 Output Total 1750 Balance -1060 - Medications Medications: Current Medications Alprazolam (Xanax) 0.5 mg PO HS [facility] Last Admin: 06/11/18 21:41 Dose: 0.5 mg Fluticasone Propionate (Flonase) 0 spr LAURA BID [facility] Last Admin: 06/12/18 12:01 Dose: 1 spr Guaifenesin (Mucinex La) 600 mg PO BID [facility] Last Admin: 06/12/18 09:21 Dose: 600 mg Ceftriaxone Sodium 1 gm/ (Sodium Chloride) 100 mls @ 100 mls/hr IVPB Q24H [facility]; Protocol Last Admin: 06/11/18 17:53 Dose: 100 mls/hr Potassium Chloride (Klor-Con 10) 10 meq PO BRK [facility] Last Admin: 06/12/18 07:56 Dose: 10 meq - Labs Labs: 06/12/18 07:05 06/12/18 07:05 PT 10.6 SECONDS (9.7-12.2) 06/05/18 03:47 INR 1.0 06/05/18 03:47 APTT 25 SECONDS (21-34) 06/05/18 03:47 - Constitutional Appears: Well - Head Exam Head Exam: ATRAUMATIC, NORMAL INSPECTION, NORMOCEPHALIC - Eye Exam Eye Exam: EOMI, Normal appearance, PERRL Pupil Exam: NORMAL ACCOMODATION, PERRL - ENT Exam ENT Exam: Mucous Membranes Moist, Normal Exam - Neck Exam Neck Exam: Full ROM, Normal Inspection. absent: Lymphadenopathy - Respiratory Exam Respiratory Exam: Decreased Breath Sounds - Cardiovascular Exam Cardiovascular Exam: REGULAR RHYTHM, +S1, +S2 - GI/Abdominal Exam GI & Abdominal Exam: Soft, Diminished Bowel Sounds - Rectal Exam Rectal Exam: Deferred
--- NOTE | 2018-06-12 14:58 | CP.PCM.PN ---
Subjective - Date & Time of Evaluation Date of Evaluation: 06/12/18 Time of Evaluation: 11:25 - Subjective Subjective: Patient seen today, denies any abdominal pain, N/V/D , c/o nasal drips a febrile vss- stable HGB stable - s/p EGD/colonoscopy - s/p EGD and colonoscopy today showing gastritis, hiatal hernia, diverticulosis Objective - Vital Signs/Intake and Output Vital Signs (last 24 hours): Temp Pulse Resp BP Pulse Ox 98.6 F 67 20 145/68 100 06/12/18 08:30 06/12/18 08:30 06/12/18 08:30 06/12/18 08:30 06/12/18 08:30 Intake and Output: 06/12/18 06/12/18 06:59 18:59 Intake Total 690 Output Total 1750 Balance -1060 - Medications Medications: Current Medications Alprazolam (Xanax) 0.5 mg PO HS [facility] Last Admin: 06/11/18 21:41 Dose: 0.5 mg Fluticasone Propionate (Flonase) 0 spr LAURA BID [facility] Last Admin: 06/12/18 12:01 Dose: 1 spr Guaifenesin (Mucinex La) 600 mg PO BID [facility] Last Admin: 06/12/18 09:21 Dose: 600 mg Ceftriaxone Sodium 1 gm/ (Sodium Chloride) 100 mls @ 100 mls/hr IVPB Q24H [facility]; Protocol Last Admin: 06/11/18 17:53 Dose: 100 mls/hr Potassium Chloride (Klor-Con 10) 10 meq PO BRK [facility] Last Admin: 06/12/18 07:56 Dose: 10 meq - Labs Labs: 06/12/18 07:05 06/12/18 07:05 PT 10.6 SECONDS (9.7-12.2) 06/05/18 03:47 INR 1.0 06/05/18 03:47 APTT 25 SECONDS (21-34) 06/05/18 03:47 Assessment and Plan - Assessment and Plan (Free Text) Assessment: A/P 78 yr old femal ewith pmhx of Anxiety, HTN admitted for rectal bleeding s/p EGD/ colonoscopy -(see full report for details) showing gastritis, hiatal hernia, distal transverse/descending colitis, sigmoid polyp, internal hemorrhoids hgb - stable no further report of any bleeding from rectum Urine culture- positive for VRE and treated with antibiotics and Dr. Bull ID consult repeat urine culture - negative and as per Dr. bull no need to treat any more seen by Dr. Venegas today. cleared for discharge home today and f/u with his office discharge plan discussed with patient and son at bed side patient instructed to returns to ED if symptoms returns or any other concerning symptoms
[2018-06-12 15:52] VITALS: BP 148/62; PULSE 71; TEMP 98.3; O2SAT 97
== END 2018-06-12 16:26 | disposition home or self-care (01) | DRG 378 ==
LOC: C.ER 01:53 → C.9E 04:13 → C.6T 06:53
PROVIDERS: ADMIT Internal Medicine Nephrology; ATTEND Internal Medicine Nephrology
PROC: 0DB68ZX Excision of Stomach, Via Natural or Artificial Opening Endoscopic, Diagnostic (ICD-10-PCS; 2018-06-08)
PROC: 0DBM8ZX Excision of Descending Colon, Via Natural or Artificial Opening Endoscopic, Diagnostic (ICD-10-PCS; principal; 2018-06-08 14:42)
PROC: 0DBN8ZX Excision of Sigmoid Colon, Via Natural or Artificial Opening Endoscopic, Diagnostic (ICD-10-PCS; 2018-06-08 14:42)
DX: K92.1 Melena (principal); N39.0 Urinary tract infection, site not specified; D12.5 Benign neoplasm of sigmoid colon; K29.70 Gastritis, unspecified, without bleeding; I10 Essential (primary) hypertension; F41.9 Anxiety disorder, unspecified; K44.9 Diaphragmatic hernia without obstruction or gangrene; K52.9 Noninfective gastroenteritis and colitis, unspecified; K57.30 Diverticulosis of large intestine without perforation or abscess without bleeding; K64.8 Other hemorrhoids; D12.4 Benign neoplasm of descending colon

== ENCOUNTER 2018-06-28 00:12 | Emergency (ER) | payer MEDICARE, OTHER ==
[2018-06-28 00:12] VITALS: BMI 24.7
[2018-06-28 00:42] VITALS: BP 160/80; PULSE 87; RESP 16; TEMP 97; O2SAT 96
== END 2018-06-28 01:46 | disposition left against medical advice (07) ==
LOC: C.ER 00:12
DX: Z02.89 Encounter for other administrative examinations (principal); Z00.00 Encounter for general adult medical examination without abnormal findings

== ENCOUNTER 2018-07-01 16:10 | Emergency (ER) | payer MEDICARE ==
[2018-07-01 16:12] VITALS: BMI 24.7
[2018-07-01 16:26] VITALS: BP 162/70; PULSE 84; RESP 18; TEMP 98.3; O2SAT 98
--- NOTE | 2018-07-01 16:40 | C.PDOC ---
History Of Present Illness 78 year old female presents to the ED for evaluation intermittent cough and congestions for 1-2 days. She reports taking Sudafed, prior to taking Sudafed notes retaining water in her legs. Complaints are consistent with prior ED visits. Denies fever, chills, diarrhea, vomiting, and any other associated symptoms. Patient states she constantly feel like sinuses are flared Time Seen by Provider: 07/01/18 16:28 Chief Complaint (Nursing): Cough, Cold, Congestion History Per: Patient History/Exam Limitations: no limitations Onset/Duration Of Symptoms: Days (1-2 days. ) Current Symptoms Are (Timing): Still Present Past Medical History Reviewed: Historical Data, Nursing Documentation, Vital Signs Vital Signs: Last Vital Signs Temp 98.3 F 07/01/18 16:24 Pulse 84 07/01/18 16:24 Resp 18 07/01/18 16:24 BP 162/70 H 07/01/18 16:24 Pulse Ox 98 07/01/18 16:24 - Medical History PMH: Anxiety, HTN, Pneumonia Denies: Diabetes (Patient denied), Hepatitis (Patient denied), HIV (Patient denied), Chronic Kidney Disease, Seizures (Patient denied), Sexually Transmitted Disease (Patient denied) Surgical History: Tonsillectomy - [facility] EXCISION OF DESCENDING COLON, ENDO, DIAGN (06/05/18) EXCISION OF SIGMOID COLON, ENDO, DIAGN (06/05/18) EXCISION OF STOMACH, ENDO, DIAGN (06/05/18) Family History: States: Unknown Family Hx - Social History Hx Tobacco Use: No Hx Alcohol Use: No Hx Substance Use: No - Immunization History Hx Tetanus Toxoid Vaccination: No Hx Influenza Vaccination: No Hx Pneumococcal Vaccination: No Review Of Systems Except As Marked, All Systems Reviewed And Found Negative. ENT: Positive for: Nose Congestion Respiratory: Positive for: Cough Physical Exam - Physical Exam Appears: Non-toxic, No Acute Distress Skin: Normal Color, Warm, Dry Head: Atraumatic, Normacephalic Eye(s): bilateral: Normal Inspection, PERRL, EOMI Ear(s): Bilateral: Normal Nose: Normal, No Discharge Oral Mucosa: Moist Neck: Supple Chest: Symmetrical Cardiovascular: Rhythm Regular, No Murmur Respiratory: Normal Breath Sounds, No Rales, No Rhonchi, No Wheezing Gastrointestinal/Abdominal: Normal Exam, Soft, No Tenderness Extremity: Bilateral: Atraumatic, Normal Color And Temperature, Normal ROM Neurological/Psych: Oriented x3, Normal Speech ED Course And Treatment O2 Sat by Pulse Oximetry: 98 (RA) Pulse Ox Interpretation: Normal Medical Decision Making Medical Decision Making: Assessment: cough and congestion Progress/Update: Patient stable for discharge home. Advised to follow up with ENT with 1-2 days. Disposition - Disposition Referrals: Bruno Bruno MD [Staff Provider] - Disposition: HOME/ ROUTINE Disposition Time: 16:37 Condition: STABLE Additional Instructions: follow up with medical clinic within 2 days call to make an appointment take medications as prescribed return to ER if symptoms worsens or progress Instructions: Cough, Adult (DC) Forms: [facility] (Maldivian), General Discharge Instructions - Clinical Impression Clinical Impression: Congestion of upper respiratory tract - Scribe Statement The provider has reviewed the documentation as recorded by the Scribe (Samantha Gatica) Provider Attestation: All medical record entries made by the Scribe were at my direction and personally dictated by me. I have reviewed the chart and agree that the record accurately reflects my personal performance of the history, physical exam, medical decision making, and the department course for this patient. I have also personally directed, reviewed, and agree with the discharge instructions and disposition.
== END 2018-07-01 16:47 | disposition home or self-care (01) ==
LOC: C.ER 16:10
DX: J98.8 Other specified respiratory disorders (principal); I10 Essential (primary) hypertension

== ENCOUNTER 2018-07-02 14:43 | Emergency (ER) | payer MEDICARE ==
[2018-07-02 14:43] VITALS: BMI 24.7
[2018-07-02 14:52] VITALS: RESP 16; TEMP 98.6
--- NOTE | 2018-07-02 16:04 | C.PDOC ---
History Of Present Illness 78 year old female with multiple ED visits presents to the ED complaining of right sided lower back pain associated with dysuria. Reports she is concerned for UTI. States she was seen in the ED yesterday for other complaints and reports "they didn't do anything, they didn't even check the urine". Time Seen by Provider: 07/02/18 15:10 Chief Complaint (Nursing): Back Pain History Per: Patient History/Exam Limitations: no limitations Onset/Duration Of Symptoms: Days Current Symptoms Are (Timing): Still Present Quality Of Discomfort: "Pain" Previous Symptoms: None Associated Symptoms: None Past Medical History Reviewed: Historical Data, Nursing Documentation, Vital Signs Vital Signs: Last Vital Signs Temp 98.6 F 07/02/18 14:49 Pulse 96 H 07/02/18 14:49 Resp 16 07/02/18 14:49 BP 125/72 07/02/18 14:49 Pulse Ox 93 L 07/02/18 14:49 - Medical History PMH: Anxiety, HTN, Pneumonia Denies: Diabetes (Patient denied), Hepatitis (Patient denied), HIV (Patient denied), Chronic Kidney Disease, Seizures (Patient denied), Sexually Transmitted Disease (Patient denied) Surgical History: Tonsillectomy - [facility] Procedures EXCISION OF DESCENDING COLON, ENDO, DIAGN (06/05/18) EXCISION OF SIGMOID COLON, ENDO, DIAGN (06/05/18) EXCISION OF STOMACH, ENDO, DIAGN (06/05/18) Family History: States: No Known Family Hx - Social History Hx Tobacco Use: No Hx Alcohol Use: No Hx Substance Use: No - Immunization History Hx Tetanus Toxoid Vaccination: No Hx Influenza Vaccination: No Hx Pneumococcal Vaccination: No Review Of Systems Constitutional: Negative for: Fever, Chills Cardiovascular: Negative for: Chest Pain Respiratory: Negative for: Shortness of Breath Gastrointestinal: Negative for: Nausea, Vomiting, Abdominal Pain, Diarrhea Genitourinary: Positive for: Dysuria. Negative for: Hematuria Musculoskeletal: Positive for: Back Pain Neurological: Negative for: Weakness, Numbness Physical Exam - Physical Exam Appears: Non-toxic, No Acute Distress Skin: Warm, Dry, No Rash Head: Normacephalic Eye(s): bilateral: Normal Inspection Nose: Normal Oral Mucosa: Moist Neck: Supple Cardiovascular: Rhythm Regular Respiratory: Normal Breath Sounds, No Rales, No Rhonchi, No Wheezing Gastrointestinal/Abdominal: Soft, No Tenderness Back: No CVA Tenderness, No Vertebral Tenderness, No Paraspinal Tenderness Extremity: Normal ROM Neurological/Psych: Oriented x3, Normal Speech Gait: Steady ED Course And Treatment O2 Sat by Pulse Oximetry: 93 (RA) Pulse Ox Interpretation: Abnormal Medical Decision Making Medical Decision Making: Plan - UA Patient was unable to provide urine sample after several hours in the ED. Eventually agreed to discharge- advised patient to return if she continues to have dysuria and back pain. Disposition - Disposition Disposition: HOME/ ROUTINE Disposition Time: 15:10 Condition: GOOD Additional Instructions: ARCADIO KISER, thank you for letting us take care of you today. Your provider was Yessi Luke MD and you were treated for LEG PAIN. The emergency medical care you received today was directed at your acute symptoms. If you were prescribed any medication, please fill it and take as directed. It may take several days for your symptoms to resolve. Return to the Emergency Department if your symptoms worsen, do not improve, or if you have any other problems. Please contact your doctor or call one of the physicians/clinics you have been referred to that are listed on the Patient Visit Information form that is included in your discharge packet. Bring any paperwork you were given at discharge with you along with any medications you are taking to your follow up visit. Our treatment cannot replace ongoing medical care by a primary care provider outside of the emergency department. Thank you for allowing the [facility] team to be part of your care today. If you had an X-Ray or CT scan: A Radiologist will review the ED reading if any change in treatment is needed we will contact you. If you had a blood, urine, or wound culture: It will take several days for the results, if any change in treatment is needed we will contact you. If you had an STI test: It will take 48 hours for the results. Please call after 1 week if you have not heard back. Instructions: Low Back Pain (DC) Forms: [facility] (Arabic) - Clinical Impression Clinical Impression: Low back pain, Dysuria - Scribe Statement The provider has reviewed the documentation as recorded by the Scribe Michaela Foster All medical record entries made by the Scribe were at my direction and person ally dictated by me. I have reviewed the chart and agree that the record accurately reflects my personal performance of the history, physical exam, medical decision making, and the department course for this patient. I have also personally directed, reviewed, and agree with the discharge instructions and disposition.
[2018-07-02 17:31] VITALS: BP 132/85; PULSE 82
[2018-07-02 22:09] VITALS: O2SAT 93
== END 2018-07-02 17:30 | disposition home or self-care (01) ==
LOC: C.ER 14:43
DX: M54.5 Low back pain (principal); R30.0 Dysuria

== ENCOUNTER 2018-07-03 07:15 | Emergency (ER) | payer MEDICARE ==
[2018-07-03 07:15] VITALS: BMI 24.7
[2018-07-03 08:13] LABS: SQUAMOUS EPITHIAL 34 /hpf (0-5); URINE BACTERIA RARE (<OCC); URINE BILIRUBIN NEGATIVE (NEGATIVE); URINE BLOOD NEGATIVE (NEGATIVE); URINE CLARITY Hazy (Clear); URINE COLOR Yellow (YELLOW); URINE GLUCOSE (UA) NORMAL (Normal); URINE LEUKOCYTE ESTERASE 2+ Leu/uL (Negative); URINE PROTEIN NEGATIVE (NEGATIVE); URINE UROBILINOGEN NORMAL mg/dL (0.2-1.0)
--- NOTE | 2018-07-03 08:19 | C.PDOC ---
History Of Present Illness 78 year old female presents to the ED for evaluation of back pain that radiates to her abdomen. Patient is also complaining of nasal congestion and think she may have a sinus infection. Patient also feels like there is water draining from her legs. Review of prior records shows that patient has had multiple visits for similar symptoms, and was evaluated in the ED yesterday for the same. As per yesterday's chart, patient did not provide urine specimen during her visit. Patient denies fever, chills, nausea, vomiting. Time Seen by Provider: 07/03/18 07:32 Chief Complaint (Nursing): Lower Extremity Problem/Injury History Per: Patient History/Exam Limitations: no limitations Onset/Duration Of Symptoms: Hrs Current Symptoms Are (Timing): Still Present Additional History Per: Patient Past Medical History Reviewed: Historical Data, Nursing Documentation, Vital Signs Vital Signs: Last Vital Signs Temp 98.6 F 07/03/18 07:21 Pulse 88 07/03/18 07:21 Resp 20 07/03/18 07:21 BP 146/69 07/03/18 07:21 Pulse Ox 97 07/03/18 07:21 - Medical History PMH: Anxiety, HTN, Pneumonia Denies: Diabetes (Patient denied), Hepatitis (Patient denied), HIV (Patient denied), Chronic Kidney Disease, Seizures (Patient denied), Sexually Transmitted Disease (Patient denied) Surgical History: Tonsillectomy - [facility] Procedures EXCISION OF DESCENDING COLON, ENDO, DIAGN (06/05/18) EXCISION OF SIGMOID COLON, ENDO, DIAGN (06/05/18) EXCISION OF STOMACH, ENDO, DIAGN (06/05/18) Family History: States: Unknown Family Hx - Social History Hx Tobacco Use: No Hx Alcohol Use: No Hx Substance Use: No - Immunization History Hx Tetanus Toxoid Vaccination: No Hx Influenza Vaccination: No Hx Pneumococcal Vaccination: No Review Of Systems ENT: Positive for: Nose Congestion Gastrointestinal: Positive for: Abdominal Pain. Negative for: Vomiting, Diarrhea Musculoskeletal: Positive for: Back Pain Physical Exam - Physical Exam Appears: Non-toxic, No Acute Distress Skin: Normal Color, Warm, Dry, No Rash Head: Atraumatic, Normacephalic Eye(s): bilateral: Normal Inspection Oral Mucosa: Moist Neck: Supple Chest: Symmetrical, No Deformity, No Tenderness Cardiovascular: Rhythm Regular, No Murmur Respiratory: Normal Breath Sounds, No Rales, No Rhonchi, No Wheezing Gastrointestinal/Abdominal: Soft, No Tenderness, No Guarding, No Rebound Back: No CVA Tenderness, No Vertebral Tenderness, No Paraspinal Tenderness Extremity: Normal ROM, No Pedal Edema, Capillary Refill (less than 2 seconds ) Neurological/Psych: Oriented x3, Normal Speech, Normal Cognition ED Course And Treatment O2 Sat by Pulse Oximetry: 97 (on RA) Pulse Ox Interpretation: Normal Medical Decision Making Medical Decision Making: Impression: 78 year old female with back pain, abdominal pain, nasal congestion, water draining from her legs Plan: * urinalysis * Macrobid PO * reassess and disposition Progress: Urinalysis ordered and reviewed. Macrobid PO given. On reassessment, patient is resting comfortably, showing no signs of distress and is stable for discharge. Patient is advised to follow up with her PMD within 1-2 days for further evaluation and understands to return to the ED if symptoms persist or worsen. Disposition Counseled Patient/Family Regarding: Diagnosis, Need For Followup, Rx Given - Disposition Referrals: Steph Castellanos MD [Staff Provider] - Disposition: HOME/ ROUTINE Disposition Time: 08:18 Condition: GOOD Additional Instructions: Take antibiotic twice daily and be sure to finish taking all of antibiotic. Drink plenty of fluids. Prescriptions: Nitrofurantoin Macrocrystals [Macrobid] 1 cap PO BID #14 cap Instructions: Urinary Tract Infection, Adult (DC) Forms: [facility] (Fijian) - POA Present On Arrival: None - Clinical Impression Clinical Impression: UTI (urinary tract infection) - PA / DISTRICT OPERATIONS MANAGER / Resident Statement MD/DO has reviewed & agrees with the documentation as recorded. - Scribe Statement The provider has reviewed the documentation as recorded by the Scribe (Erica Castellanos) All medical record entries made by the Scribe were at my direction and personally dictated by me. I have reviewed the chart and agree that the record accurately reflects my personal performance of the history, physical exam, medical decision making, and the department course for this patient. I have also personally directed, reviewed, and agree with the discharge instructions and disposition.
[2018-07-03 09:14] VITALS: BP 132/79; PULSE 84; RESP 18; TEMP 98.7
[2018-07-03 10:08] VITALS: O2SAT 97
== END 2018-07-03 09:15 | disposition home or self-care (01) ==
LOC: C.ER 07:15
DX: N39.0 Urinary tract infection, site not specified (principal); I10 Essential (primary) hypertension

== ENCOUNTER 2018-07-04 03:16 | Emergency (ER) | payer MEDICARE ==
[2018-07-04 03:19] VITALS: BMI 24.7
[2018-07-04 03:38] VITALS: BP 112/68; PULSE 66; RESP 18; TEMP 98.3; O2SAT 98
[2018-07-04] MEDS ORDERED: Sodium Chloride 0.9% 1,000 ML IV ONE (03:46)
--- NOTE | 2018-07-04 04:13 | C.PDOC ---
History Of Present Illness 78 year old female presents to the ED complaining of water draining from between toes associated burning sensation to feet for several days. Patient has an extensive history of ED visits for similar complaints. Denies any other symptoms. Time Seen by Provider: 07/04/18 03:46 Chief Complaint (Nursing): Abnormal Skin Integrity History Per: Patient History/Exam Limitations: no limitations Onset/Duration Of Symptoms: Days Location Of Injury: Right: Foot (water draining and burning sensation ), Left: Foot Quality Of Symptoms: Painful, Draining Recent travel outside of the [place]: No Past Medical History Reviewed: Historical Data, Nursing Documentation, Vital Signs Vital Signs: Last Vital Signs Temp 98.3 F 07/04/18 03:27 Pulse 66 07/04/18 03:27 Resp 18 07/04/18 03:27 BP 112/68 07/04/18 03:27 Pulse Ox 98 07/04/18 03:27 - Medical History PMH: Anxiety, HTN, Pneumonia Denies: Diabetes (Patient denied), Hepatitis (Patient denied), HIV (Patient denied), Chronic Kidney Disease, Seizures (Patient denied), Sexually Transmitted Disease (Patient denied) Surgical History: Tonsillectomy - [facility] Procedures EXCISION OF DESCENDING COLON, ENDO, DIAGN (06/05/18) EXCISION OF SIGMOID COLON, ENDO, DIAGN (06/05/18) EXCISION OF STOMACH, ENDO, DIAGN (06/05/18) Family History: States: No Known Family Hx - Social History Hx Tobacco Use: No Hx Alcohol Use: No Hx Substance Use: No - Immunization History Hx Tetanus Toxoid Vaccination: No Hx Influenza Vaccination: No Hx Pneumococcal Vaccination: No Review Of Systems Constitutional: Negative for: Fever, Chills Musculoskeletal: Positive for: Foot Pain (burning sensation and water draining between toes ) Neurological: Negative for: Weakness, Numbness Physical Exam - Physical Exam Appears: Non-toxic, No Acute Distress Skin: Warm, Dry Head: Normacephalic Eye(s): bilateral: PERRL Neck: Supple Extremity: No Pedal Edema, Capillary Refill (less than 2 sec to b/l feet), No Deformity, No Swelling, Other (small crack between web of left 3rd and 4th toe, no drainage. no erythema or warmth to either foot. ) Pulses: Left Dorsalis Pedis: Normal, Right Dorsalis Pedis: Normal Neurological/Psych: Oriented x3, Normal Speech, Normal Cognition Gait: Steady ED Course And Treatment O2 Sat by Pulse Oximetry: 98 (RA) Pulse Ox Interpretation: Normal Medical Decision Making Medical Decision Making: pt with small fissure between left 3rd and 4th toes, no signs of infection. will treat for tinea pedis. Disposition Counseled Patient/Family Regarding: Diagnosis, Need For Followup, Rx Given - Disposition Referrals: Podiatry Clinic [Outside] [facility] [Outside] Disposition: HOME/ ROUTINE Disposition Time: 04:10 Condition: GOOD Additional Instructions: Keep feel clean and dry. Apply cream between toes . Follow up with podiatry. Prescriptions: Clotrimazole 1% Cream [Lotrimin 1% CREAM] 1 applic TOP BID #1 tube Instructions: Athlete's Foot (DC) Forms: [facility] (Turkish), General Discharge Instructions - Clinical Impression Clinical Impression: Tinea pedis of left foot - PA / ASSISTANT MANAGER/EMBALMER / Resident Statement MD/DO has reviewed & agrees with the documentation as recorded. - Scribe Statement The provider has reviewed the documentation as recorded by the Scriblenore Foster All medical record entries made by the Sidraiblenore were at my direction and personally dictated by me. I have reviewed the chart and agree that the record accurately reflects my personal performance of the history, physical exam, medical decision making, and the department course for this patient. I have also personally directed, reviewed, and agree with the discharge instructions and disposition.
== END 2018-07-04 04:24 | disposition home or self-care (01) ==
LOC: C.ER 03:16
DX: B35.3 Tinea pedis (principal); I10 Essential (primary) hypertension

== ENCOUNTER 2018-07-05 17:08 | Emergency (ER) | payer MEDICARE ==
[2018-07-05 17:08] VITALS: BMI 24.7
[2018-07-05 17:50] VITALS: BP 160/72; PULSE 73; RESP 20; TEMP 97.9; O2SAT 96
--- NOTE | 2018-07-05 20:50 | C.PDOC ---
History Of Present Illness 78 year old female who had eleven ER visits in 05/2018 and six in 06/2018, four of those visits being in the last week of the month, and most of which were for complaints of chronic sinus congestion. Patient was evaluated, had CT which showed sinusitis, referred to Dr. Bruno but was never diagnosed with acute or chronic sinusitis. In the beginning of 06/2018 she presented with generalized abdominal discomfort with questionable rectal bleed, had a CT that showed colitis, was admitted and treated with IV antibiotics, and discharged home. Now during her last few visits here she has presented with lower abdominal discomfort, bladder pressure, and decreased urine output, she felt she had a UTI, had UA and cultures done, treated with macrobid, cultures showed no growth. Patient presents now still with abdominal pain and decreased urinary output, states she voids in small amounts but otherwise has been eating and drinking normally. Denies fever or chills. Patient tried calling Dr. Hero Castellanos today but he was unavailable. Time Seen by Provider: 07/05/18 20:31 Chief Complaint (Nursing): Female Genitourinary History Per: Patient History/Exam Limitations: no limitations Onset/Duration Of Symptoms: Days Current Symptoms Are (Timing): Still Present Quality Of Discomfort: Unable To Describe Associated Symptoms: Other (Decreased urinary output). denies: Fever, Chills Alleviating Factors: None Recent travel outside of the [place]: No Abnormal Vaginal Bleeding: No Past Medical History Reviewed: Historical Data, Nursing Documentation, Vital Signs Vital Signs: Last Vital Signs Temp 97.9 F 07/05/18 17:48 Pulse 73 07/05/18 17:48 Resp 20 07/05/18 17:48 BP 160/72 H 07/05/18 17:48 Pulse Ox 96 07/05/18 17:48 - Medical History PMH: Anxiety, HTN, Pneumonia Denies: Diabetes (Patient denied), Hepatitis (Patient denied), HIV (Patient denied), Chronic Kidney Disease, Seizures (Patient denied), Sexually Transmitted Disease (Patient denied) Surgical History: Tonsillectomy - [facility] Procedures EXCISION OF DESCENDING COLON, ENDO, DIAGN (06/05/18) EXCISION OF SIGMOID COLON, ENDO, DIAGN (06/05/18) EXCISION OF STOMACH, ENDO, DIAGN (06/05/18) Family History: States: Unknown Family Hx - Social History Hx Tobacco Use: No Hx Alcohol Use: No Hx Substance Use: No - Immunization History Hx Tetanus Toxoid Vaccination: No Hx Influenza Vaccination: No Hx Pneumococcal Vaccination: No Review Of Systems Constitutional: Negative for: Fever, Chills Cardiovascular: Negative for: Chest Pain, Palpitations Respiratory: Negative for: Cough, Shortness of Breath Gastrointestinal: Negative for: Nausea, Vomiting Genitourinary: Positive for: Other (Decreased urinary output, Voiding small amounts) Physical Exam - Physical Exam Appears: Non-toxic Skin: Normal Color, Warm, Dry Head: Atraumatic, Normacephalic Eye(s): bilateral: Normal Inspection Oral Mucosa: Moist Neck: Normal, Supple Chest: Symmetrical, No Tenderness Cardiovascular: Rhythm Regular Respiratory: Normal Breath Sounds, No Rales, No Rhonchi, No Wheezing Gastrointestinal/Abdominal: Soft, No Tenderness Neurological/Psych: Oriented x3, Normal Speech ED Course And Treatment O2 Sat by Pulse Oximetry: 96 (Room air) Pulse Ox Interpretation: Normal Progress Note: Blood work and urinalysis ordered. Patient states that she feels better and is refusing any labs. Eloped from ED. Disposition - Disposition Disposition: ELOPEMENT - ER ONLY Disposition Time: 21:30 Condition: IMPROVED - Clinical Impression Clinical Impression: Abdominal pain - Scribe Statement The provider has reviewed the documentation as recorded by the Scriblenore Harrison All medical record entries made by the Sidraiblenore were at my direction and personally dictated by me. I have reviewed the chart and agree that the record accurately reflects my personal performance of the history, physical exam, medical decision making, and the department course for this patient. I have also personally directed, reviewed, and agree with the discharge instructions and disposition.
== END 2018-07-05 21:24 | disposition left against medical advice (07) ==
LOC: C.ER 17:08
DX: R10.9 Unspecified abdominal pain (principal)

== ENCOUNTER 2018-07-14 16:24 | Emergency (ER) | payer MEDICARE ==
[2018-07-14 16:24] VITALS: BMI 24.7
[2018-07-14 17:08] VITALS: BP 152/78; PULSE 82; RESP 18; TEMP 98.6; O2SAT 98
[2018-07-14 17:18] LABS: SQUAMOUS EPITHIAL 5 /hpf (0-5); URINE BACTERIA RARE (<OCC); URINE BILIRUBIN NEGATIVE (NEGATIVE); URINE BLOOD NEGATIVE (NEGATIVE); URINE CLARITY Clear (Clear); URINE COLOR Yellow (YELLOW); URINE GLUCOSE (UA) NORMAL (Normal); URINE LEUKOCYTE ESTERASE 1+ Leu/uL (Negative); URINE PROTEIN NEGATIVE (NEGATIVE); URINE UROBILINOGEN NORMAL mg/dL (0.2-1.0)
--- NOTE | 2018-07-14 17:49 | C.PDOC ---
Chief Complaint (Nursing): Female Genitourinary Past Medical History Vital Signs: Last Vital Signs Temp 98.6 F 07/14/18 17:06 Pulse 82 07/14/18 17:06 Resp 18 07/14/18 17:06 BP 152/78 H 07/14/18 17:06 Pulse Ox 98 07/14/18 17:06 - Medical History PMH: Anxiety, HTN, Pneumonia Denies: Diabetes (Patient denied), Hepatitis (Patient denied), HIV (Patient denied), Chronic Kidney Disease, Seizures (Patient denied), Sexually Transmitted Disease (Patient denied) Surgical History: Tonsillectomy - [facility] Procedures EXCISION OF DESCENDING COLON, ENDO, DIAGN (06/05/18) EXCISION OF SIGMOID COLON, ENDO, DIAGN (06/05/18) EXCISION OF STOMACH, ENDO, DIAGN (06/05/18) Family History: States: Unknown Family Hx - Social History Hx Tobacco Use: No Hx Alcohol Use: No Hx Substance Use: No - Immunization History Hx Tetanus Toxoid Vaccination: No Hx Influenza Vaccination: No Hx Pneumococcal Vaccination: No ED Course And Treatment - Laboratory Results Lab Results: Urine Color Yellow (YELLOW) 07/14/18 17:00 Urine Clarity Clear (Clear) 07/14/18 17:00 Urine pH 7.0 (5.0-8.0) 07/14/18 17:00 Ur Specific [place] 1.010 (1.003-1.030) 07/14/18 17:00 Urine Protein Negative mg/dL (NEGATIVE) 07/14/18 17:00 Urine Glucose (UA) Normal mg/dL (Normal) 07/14/18 17:00 Urine Ketones Negative mg/dL (NEGATIVE) 07/14/18 17:00 Urine Blood Negative (NEGATIVE) 07/14/18 17:00 Urine Nitrate Negative (NEGATIVE) 07/14/18 17:00 Urine Bilirubin Negative (NEGATIVE) 07/14/18 17:00 Urine Urobilinogen Normal mg/dL (0.2-1.0) 07/14/18 17:00 Ur Leukocyte Esterase 1+ Jasmeet/uL (Negative) H 07/14/18 17:00 Urine WBC (Auto) 1 /hpf (0-5) 07/14/18 17:00 Urine RBC (Auto) 1 /hpf (0-3) 07/14/18 17:00 Ur Squamous Epith Cells 5 /hpf (0-5) 07/14/18 17:00 Urine Bacteria Rare (<OCC) 07/14/18 17:00 O2 Sat by Pulse Oximetry: 98 Disposition Counseled Patient/Family Regarding: Studies Performed, Diagnosis, Need For Followup - Disposition Referrals: Steph Castellanos MD [Staff Provider] - Disposition: HOME/ ROUTINE Disposition Time: 17:45 Condition: STABLE Instructions: Urinalysis Forms: [facility] (Libyan), General Discharge Instructions - POA Present On Arrival: None - Clinical Impression Clinical Impression: Urinary frequency
--- NOTE | 2018-07-14 17:51 | C.PDOC ---
History Of Present Illness 78 year old female presents to the ED for evaluation of urinary frequency which began around 5 days ago. Patient states that she was treated for urinary tract infection with Macrobid around 1.5 weeks ago. Patient was evaluated in the ED on and her cultures were negative at the time. Patient denies fever, chills, back pain, abdominal pain, nausea, vomiting, and hematuria. Chief Complaint (Nursing): Female Genitourinary History Per: Patient History/Exam Limitations: no limitations Onset/Duration Of Symptoms: Days Current Symptoms Are (Timing): Still Present Associated Symptoms: Urinary Symptoms (urinary frequency ). denies: Fever, Chills, Back Pain Additional History Per: Patient Past Medical History Reviewed: Historical Data, Nursing Documentation, Vital Signs Vital Signs: Last Vital Signs Temp 98.6 F 07/14/18 17:06 Pulse 82 07/14/18 17:06 Resp 18 07/14/18 17:06 BP 152/78 H 07/14/18 17:06 Pulse Ox 98 07/14/18 17:06 - Medical History PMH: Anxiety, HTN, Pneumonia Denies: Diabetes (Patient denied), Hepatitis (Patient denied), HIV (Patient denied), Chronic Kidney Disease, Seizures (Patient denied), Sexually Transmitted Disease (Patient denied) Surgical History: Tonsillectomy - [facility] Procedures EXCISION OF DESCENDING COLON, ENDO, DIAGN (06/05/18) EXCISION OF SIGMOID COLON, ENDO, DIAGN (06/05/18) EXCISION OF STOMACH, ENDO, DIAGN (06/05/18) Family History: States: Unknown Family Hx - Social History Hx Tobacco Use: No Hx Alcohol Use: No Hx Substance Use: No - Immunization History Hx Tetanus Toxoid Vaccination: No Hx Influenza Vaccination: No Hx Pneumococcal Vaccination: No Review Of Systems Constitutional: Negative for: Fever, Chills Gastrointestinal: Negative for: Nausea, Vomiting, Abdominal Pain Genitourinary: Positive for: Frequency. Negative for: Hematuria Musculoskeletal: Negative for: Back Pain Physical Exam - Physical Exam Appears: Non-toxic, No Acute Distress Skin: Normal Color, Warm, Dry Head: Atraumatic, Normacephalic Eye(s): bilateral: Normal Inspection Oral Mucosa: Moist Neck: Supple Chest: Symmetrical, No Deformity, No Tenderness Cardiovascular: Rhythm Regular, No Murmur Respiratory: Normal Breath Sounds, No Rales, No Rhonchi, No Wheezing Gastrointestinal/Abdominal: Soft, No Tenderness, No Guarding, No Rebound Back: No CVA Tenderness Extremity: Normal ROM, Capillary Refill (less than 2 seconds ) Neurological/Psych: Oriented x3, Normal Speech, Normal Cognition ED Course And Treatment - Laboratory Results Lab Results: Urine Color Yellow (YELLOW) 07/14/18 17:00 Urine Clarity Clear (Clear) 07/14/18 17:00 Urine pH 7.0 (5.0-8.0) 07/14/18 17:00 Ur Specific [place] 1.010 (1.003-1.030) 07/14/18 17:00 Urine Protein Negative mg/dL (NEGATIVE) 07/14/18 17:00 Urine Glucose (UA) Normal mg/dL (Normal) 07/14/18 17:00 Urine Ketones Negative mg/dL (NEGATIVE) 07/14/18 17:00 Urine Blood Negative (NEGATIVE) 07/14/18 17:00 Urine Nitrate Negative (NEGATIVE) 07/14/18 17:00 Urine Bilirubin Negative (NEGATIVE) 07/14/18 17:00 Urine Urobilinogen Normal mg/dL (0.2-1.0) 07/14/18 17:00 Ur Leukocyte Esterase 1+ Jasmeet/uL (Negative) H 07/14/18 17:00 Urine WBC (Auto) 1 /hpf (0-5) 07/14/18 17:00 Urine RBC (Auto) 1 /hpf (0-3) 07/14/18 17:00 Ur Squamous Epith Cells 5 /hpf (0-5) 07/14/18 17:00 Urine Bacteria Rare (<OCC) 07/14/18 17:00 O2 Sat by Pulse Oximetry: 98 Medical Decision Making Medical Decision Making: Progress: Urine culture obtained and sent for further evaluation. Urinalysis ordered, results are unremarkable. On reassessment, patient is resting comfortably, showing no signs of distress and is stable for discharge. Patient advised to follow up with her PMD within 1- 2 days for further evaluation. Advised to return to the ED if symptoms persist or worsen. Disposition Counseled Patient/Family Regarding: Studies Performed, Diagnosis, Need For Followup - Disposition Referrals: Steph Castellanos MD [Staff Provider] - Disposition: HOME/ ROUTINE Disposition Time: 17:45 Condition: STABLE Instructions: Urinalysis Forms: General Discharge Instructions, [email or web address] (Mohawk) - POA Present On Arrival: None - Clinical Impression Clinical Impression: Urinary frequency
== END 2018-07-14 18:02 | disposition home or self-care (01) ==
LOC: C.ER 16:24
DX: R35.0 Frequency of micturition (principal); I10 Essential (primary) hypertension

== ENCOUNTER 2018-07-20 09:15 | Emergency (ER) | payer MEDICARE ==
[2018-07-20 09:15] VITALS: BMI 24.7
[2018-07-20 09:26] VITALS: O2SAT 98
--- NOTE | 2018-07-20 09:43 | C.PDOC ---
History Of Present Illness 78 yo female w/PMHx of HTN, comes in accompanied by son for evaluation of urinary discharge, unable to hold urine, " rectal leaking, head leaking". Pt was seen here in ED multiple times due to same complaints, recent tx for UTI. Pt denies high fever, chills, abd. pain, N/V/D, food intolerance, back pain, hematuria, melena, hematoschezia. Appears comfortable, not in any apparent distress. FYI: pt had eleven ER visits in 05/2018 and six in 06/2018, four of those visits being in the last week of the month, and most of which were for complaints of chronic sinus congestion. Patient was evaluated, had CT which showed sinusitis, referred to Dr. Bruno but was never diagnosed with acute or chronic sinusitis. In the beginning of 06/2018 she presented with generalized abdominal discomfort with questionable rectal bleed, had a CT that showed colitis, was admitted and treated with IV antibiotics, and discharged home. Now during her last few visits here she has presented with lower abdominal discomfort, bladder pressure, and decreased urine output, she felt she had a UTI, had UA and cultures done, treated with macrobid, cultures showed no growth. Time Seen by Provider: 07/20/18 09:18 Chief Complaint (Nursing): Female Genitourinary History Per: Patient Past Medical History Reviewed: Historical Data, Nursing Documentation, Vital Signs Vital Signs: Last Vital Signs Temp 98.3 F 07/20/18 09:21 Pulse 84 07/20/18 09:21 Resp 17 07/20/18 09:21 BP 151/84 H 07/20/18 09:21 Pulse Ox 98 07/20/18 09:21 - Medical History PMH: Anxiety, HTN, Pneumonia Denies: Diabetes (Patient denied), Hepatitis (Patient denied), HIV, Chronic Kidney Disease, Seizures (Patient denied), Sexually Transmitted Disease (Patient denied) Surgical History: Tonsillectomy - [facility] Procedures EXCISION OF DESCENDING COLON, ENDO, DIAGN (06/05/18) EXCISION OF SIGMOID COLON, ENDO, DIAGN (06/05/18) EXCISION OF STOMACH, ENDO, DIAGN (06/05/18) Family History: States: Unknown Family Hx - Social History Hx Tobacco Use: No Hx Alcohol Use: No Hx Substance Use: No - Immunization History Hx Tetanus Toxoid Vaccination: No Hx Influenza Vaccination: No Hx Pneumococcal Vaccination: No Review Of Systems Except As Marked, All Systems Reviewed And Found Negative. Constitutional: Negative for: Fever, Chills ENT: Negative for: Throat Pain Cardiovascular: Negative for: Chest Pain Respiratory: Negative for: Cough, Shortness of Breath, Wheezing Gastrointestinal: Negative for: Nausea, Vomiting, Abdominal Pain Genitourinary: Positive for: Dysuria, Frequency, Incontinence, Vaginal Discharge. Negative for: Vaginal Bleeding Musculoskeletal: Negative for: Neck Pain, Back Pain Skin: Negative for: Rash Physical Exam - Physical Exam Appears: Well, Non-toxic, No Acute Distress Skin: Normal Color, Warm, Dry Eye(s): bilateral: PERRL Neck: Supple Cardiovascular: Rhythm Regular Respiratory: No Decreased Breath Sounds, No Accessory Muscle Use, No Stridor, No Wheezing Gastrointestinal/Abdominal: Soft, Tenderness (mild surpapubic tenderness), No Distention, No Guarding, No Rebound Rectal: Normal Exam, Rectal Tone, No Blood Streaked Stool, No Hemorrhoids, No Tenderness Back: No CVA Tenderness Pelvic: No Vaginal Bleeding, No Vaginal Discharge Extremity: Normal ROM, No Swelling Neurological/Psych: Oriented x3, Normal Speech ED Course And Treatment O2 Sat by Pulse Oximetry: 98 Pulse Ox Interpretation: Normal Progress Note: Pt refused blood work now, " just want to be checked, urine check". On re-eval, pt is afebrile, hemodynamicaly stable. non-toxic. AMbulatory in ED with stable gait. Abd: benign, (-) guarding, (-) rebound. Back: (-) CVA tenderness. UA results review, early UTI. UCx results review from 06/30/18, 07/14/18 and " no growth" noted. Pt advised, ref. to F/u with urology, MANAGER OF DEVELOPMENT in 2-3 days for re-eavl. return if any new changes. Disposition Counseled Patient/Family Regarding: Studies Performed, Diagnosis, Need For Followup, Rx Given - Disposition Referrals: Steph Castellanos MD [Staff Provider] - Sarina Kidd MD [Staff Provider] - Ami Patterson MD [Staff Provider] - Disposition: HOME/ ROUTINE Disposition Time: 10:35 Condition: STABLE Additional Instructions: Encourage fluids take medication as prescribed Follow up with PMD, urology, MANAGER OF DEVELOPMENT in 2-3 days for re-evaluation. return if any worsening or new changes. Prescriptions: Cefpodoxime [Vantin] 400 mg PO BID #28 tab Fluconazole [Diflucan] 200 mg PO DAILY #3 tab Instructions: Urinary Tract Infections in Adults Forms: [facility] (Italian) - Clinical Impression Clinical Impression: UTI (urinary tract infection)
[2018-07-20 09:54] LABS: SQUAMOUS EPITHIAL 15 /hpf (0-5); URINE BACTERIA OCC (<OCC); URINE BILIRUBIN NEGATIVE (NEGATIVE); URINE BLOOD NEGATIVE (NEGATIVE); URINE CLARITY Hazy (Clear); URINE COLOR Yellow (YELLOW); URINE GLUCOSE (UA) NORMAL (Normal); URINE HYALINE CAST 0-2 /lpf (0-2); URINE LEUKOCYTE ESTERASE 3+ Leu/uL (Negative); URINE PROTEIN NEGATIVE (NEGATIVE); URINE UROBILINOGEN NORMAL mg/dL (0.2-1.0)
[2018-07-20 11:00] VITALS: BP 150/74; PULSE 67; RESP 16; TEMP 98
== END 2018-07-20 10:52 | disposition home or self-care (01) ==
LOC: C.ER 09:15
DX: N39.0 Urinary tract infection, site not specified (principal); I10 Essential (primary) hypertension

== ENCOUNTER 2018-07-25 17:10 | Emergency (ER) | payer MEDICARE ==
[2018-07-25 17:10] VITALS: BMI 24.7
[2018-07-25 18:50] LABS: BASO # 0.2 K/uL (0.0-0.2); BASO % 2.3 % (0.0-2.0); EOS # 0.1 K/uL (0.0-0.7); EOS % 1.5 % (0.0-4.0); LYMPH # 2.5 K/uL (1.0-4.3); LYMPH % 26.3 % (20.0-40.0); MEAN CELL VOLUME 87.5 fL (81.0-99.0); MEAN CORPUSCULAR HEMOGLOBIN 28.6 pg (27.0-31.0); MEAN CORPUSCULAR HGB CONC 32.6 g/dL (33.0-37.0); MEAN PLATELET VOLUME 7.9 fL (7.2-11.7); MONO # 0.5 K/uL (0.0-0.8); MONO % 5.7 % (0.0-10.0); NEUT % 64.2 % (50.0-75.0); NRBC % 0.1 % (0.0-2.0); RBC 4.55 Mil/uL (3.80-5.20); RED CELL DISTRIBUTION WIDTH 14.2 % (11.5-14.5); WHITE BLOOD COUNT 9.4 K/uL (4.8-10.8)
[2018-07-25 18:55] LABS: SQUAMOUS EPITHIAL 2 /hpf (0-5); URINE BACTERIA RARE (<OCC); URINE BILIRUBIN NEGATIVE (NEGATIVE); URINE BLOOD NEGATIVE (NEGATIVE); URINE CLARITY Hazy (Clear); URINE COLOR Yellow (YELLOW); URINE GLUCOSE (UA) NORMAL (Normal); URINE LEUKOCYTE ESTERASE NEG Leu/uL (Negative); URINE PROTEIN NEGATIVE (NEGATIVE); URINE UROBILINOGEN NORMAL mg/dL (0.2-1.0)
[2018-07-25 19:02] LABS: ALB/GLOB RATIO 1.7 (1.0-2.1); ALBUMIN 4.6 g/dL (3.5-5.0); ALT/SGPT 23 U/L (9-52); AST/SGOT 25 U/L (14-36); BLOOD UREA NITROGEN 27 mg/dL (7-17); CALCIUM 9.5 mg/dl (8.6-10.4); GFR NON-AFRICAN AMERICAN > 60; LIPASE 172 U/L (23-300)
--- NOTE | 2018-07-25 19:48 | C.PDOC ---
History Of Present Illness 78 y/o female presents to the ED today complaining of inability to urinate since last night. Patient reports she is currently taking the Macrobid for her UTI. She denies any nausea or vomiting. She describes having mild suprapubic pr essure. No vaginal bleeding or discharge. Of note patient has had multiple visits to this ED for similar complaint. Time Seen by Provider: 07/25/18 17:56 Chief Complaint (Nursing): Female Genitourinary History Per: Patient History/Exam Limitations: no limitations Onset/Duration Of Symptoms: Hrs Current Symptoms Are (Timing): Still Present Associated Symptoms: Urinary Symptoms Past Medical History Reviewed: Historical Data, Nursing Documentation, Vital Signs Vital Signs: Last Vital Signs Temp 97.9 F 07/25/18 17:24 Pulse 87 07/25/18 17:24 Resp 18 07/25/18 17:24 BP 138/76 07/25/18 17:24 Pulse Ox 98 07/25/18 17:24 - Medical History PMH: Anxiety, HTN, Pneumonia Denies: Diabetes (Patient denied), Hepatitis (Patient denied), HIV, Chronic Kidney Disease, Seizures (Patient denied), Sexually Transmitted Disease (Patient denied) Surgical History: Tonsillectomy - [facility] Procedures EXCISION OF DESCENDING COLON, ENDO, DIAGN (06/05/18) EXCISION OF SIGMOID COLON, ENDO, DIAGN (06/05/18) EXCISION OF STOMACH, ENDO, DIAGN (06/05/18) Family History: States: Unknown Family Hx - Social History Hx Tobacco Use: No Hx Alcohol Use: No Hx Substance Use: No - Immunization History Hx Tetanus Toxoid Vaccination: No Hx Influenza Vaccination: No Hx Pneumococcal Vaccination: No Review Of Systems Constitutional: Negative for: Fever, Chills Gastrointestinal: Positive for: Abdominal Pain. Negative for: Nausea, Vomiting Genitourinary: Positive for: Dysuria, Other (Foul smelling urine). Negative for: Vaginal Discharge, Vaginal Bleeding Neurological: Negative for: Weakness Physical Exam - Physical Exam Appears: Non-toxic, No Acute Distress Skin: Normal Color, Warm Head: Atraumatic, Normacephalic Eye(s): bilateral: Normal Inspection, PERRL, EOMI Oral Mucosa: Moist Neck: Normal ROM Chest: Symmetrical Cardiovascular: Rhythm Regular, No Murmur Respiratory: Normal Breath Sounds, No Accessory Muscle Use Gastrointestinal/Abdominal: Soft, No Tenderness, No Distention Extremity: Bilateral: Atraumatic, Normal Color And Temperature Neurological/Psych: Oriented x3, Normal Speech ED Course And Treatment - Laboratory Results Result Diagrams: 07/25/18 18:47 07/25/18 18:47 Lab Results: Total Bilirubin 0.7 mg/dL (0.2-1.3) 07/25/18 18:47 AST 25 U/L (14-36) 07/25/18 18:47 ALT 23 U/L (9-52) 07/25/18 18:47 Alkaline Phosphatase 96 U/L (38-126) 07/25/18 18:47 Total Protein 7.4 g/dL (6.3-8.3) 07/25/18 18: Albumin 4.6 g/dL (3.5-5.0) 07/25/18 18: Globulin 2.7 gm/dL (2.2-3.9) 07/25/18 18: Albumin/Globulin Ratio 1.7 (1.0-2.1) 07/25/18 18: Lipase 172 U/L (23-300) 07/25/18 18:47 Urine Color Yellow (YELLOW) 07/25/18 18:47 Urine Clarity Hazy (Clear) 07/25/18 18: Urine pH 5.0 (5.0-8.0) 07/25/18 18:47 Ur Specific [place] 1.023 (1.003-1.030) 07/25/18 18:47 Urine Protein Negative mg/dL (NEGATIVE) 07/25/18 18: Urine Glucose (UA) Normal mg/dL (Normal) 07/25/18 18:47 Urine Ketones Trace mg/dL (NEGATIVE) 07/25/18 18:47 Urine Blood Negative (NEGATIVE) 07/25/18 18:47 Urine Nitrate Negative (NEGATIVE) 07/25/18 18:47 Urine Bilirubin Negative (NEGATIVE) 07/25/18 18: Urine Urobilinogen Normal mg/dL (0.2-1.0) 07/25/18 18:47 Ur Leukocyte Esterase Neg Jasmeet/uL (Negative) 07/25/18 18:47 Urine WBC (Auto) 1 /hpf (0-5) 07/25/18 18:47 Urine RBC (Auto) 2 /hpf (0-3) 07/25/18 18:47 Ur Squamous Epith Cells 2 /hpf (0-5) 07/25/18 18:47 Urine Bacteria Rare (<OCC) 07/25/18 18:47 Hyaline Casts 6-10 /lpf (0-2) H 07/25/18 18:47 O2 Sat by Pulse Oximetry: 98 (RA) Pulse Ox Interpretation: Normal Progress Note: Haider catheter inserted, retrieved only 120cc of urine Medical Decision Making Medical Decision Making: Impression: Dysuria Explained to patient that only 120cc urine was retrieved. Haider catheter removed. UA reviewed, and is clear. Patient is stable for discharge home. Given rx for Tylenol and Pyridium. Advised to continue antibiotics and follow up with PMD. Disposition Counseled Patient/Family Regarding: Studies Performed, Diagnosis, Need For Followup, Rx Given - Disposition Referrals: Steph Castellanos MD [Staff Provider] - Disposition Time: 19:44 Additional Instructions: follow up with your doctor tomorrow follow up with urology tomorrow call to make an appointment take medications as needed return to ER if symptoms worsens or progress Prescriptions: Acetaminophen [Acetaminophen Extra Strength] 1,000 mg PO TID PRN #20 tablet PRN Reason: Pain, Mild (1-3) Phenazopyridine [Pyridium] 200 mg PO TID #6 tab Instructions: Dysuria, Adult (DC) Forms: [facility] (Macedonian), General Discharge Instructions - Clinical Impression Clinical Impression: Dysuria - Scribe Statement The provider has reviewed the documentation as recorded by the Talha Urias Provider Attestation: All medical record entries made by the Talha were at my direction and personally dictated by me. I have reviewed the chart and agree that the record accurately reflects my personal performance of the history, physical exam, medical decision making, and the department course for this patient. I have also personally directed, reviewed, and agree with the discharge instructions and disposition.
[2018-07-25 20:28] VITALS: BP 127/84; PULSE 72; RESP 20; TEMP 98; O2SAT 95
== END 2018-07-25 20:28 | disposition home or self-care (01) ==
LOC: C.ER 17:10
DX: R30.0 Dysuria (principal)

== ENCOUNTER 2018-07-30 18:04 | Emergency (ER) | payer MEDICARE ==
[2018-07-30 18:05] VITALS: BMI 24.7
--- NOTE | 2018-07-30 21:26 | C.PDOC ---
History Of Present Illness 78 year old female presents to the ED complaining of constipation for 2 days. Reports she took a laxative but it did not help. States she only feels discomfort on straining when trying to do a bowel movement. No abdominal pain, nausea, vomiting,fever, or UTI sx Time Seen by Provider: 07/30/18 19:44 Chief Complaint (Nursing): Female Genitourinary History Per: Patient History/Exam Limitations: no limitations Onset/Duration Of Symptoms: Days (2) Current Symptoms Are (Timing): Still Present Radiation Of Pain To:: None Associated Symptoms: Constipation. denies: Fever, Chills, Nausea, Vomiting, Diarrhea, Back Pain, Urinary Symptoms Past Medical History Reviewed: Historical Data, Nursing Documentation, Vital Signs Vital Signs: Last Vital Signs Temp 97.9 F 07/30/18 18:16 Pulse 90 07/30/18 18:16 Resp 18 07/30/18 18:16 BP 105/65 07/30/18 18:16 Pulse Ox 98 07/30/18 18:16 - Medical History PMH: Anxiety, HTN, Pneumonia Denies: Diabetes (Patient denied), Hepatitis (Patient denied), HIV, Chronic Kidney Disease, Seizures (Patient denied), Sexually Transmitted Disease (Patient denied) Surgical History: Tonsillectomy - [facility] Procedures EXCISION OF DESCENDING COLON, ENDO, DIAGN (06/05/18) EXCISION OF SIGMOID COLON, ENDO, DIAGN (06/05/18) EXCISION OF STOMACH, ENDO, DIAGN (06/05/18) Family History: States: No Known Family Hx - Social History Hx Tobacco Use: No Hx Alcohol Use: No Hx Substance Use: No - Immunization History Hx Tetanus Toxoid Vaccination: No Hx Influenza Vaccination: No Hx Pneumococcal Vaccination: No Review Of Systems Except As Marked, All Systems Reviewed And Found Negative. Constitutional: Negative for: Fever, Chills Gastrointestinal: Positive for: Constipation. Negative for: Nausea, Vomiting, Abdominal Pain, Diarrhea Genitourinary: Negative for: Dysuria, Hematuria, Vaginal Discharge, Vaginal Bleeding Musculoskeletal: Negative for: Back Pain Physical Exam - Physical Exam Appears: Non-toxic, No Acute Distress Skin: Warm, Dry, No Rash Head: Normacephalic Eye(s): bilateral: Normal Inspection Nose: Normal Oral Mucosa: Moist Neck: Supple Chest: Symmetrical Cardiovascular: Rhythm Regular Respiratory: Normal Breath Sounds, No Rales, No Rhonchi, No Wheezing Gastrointestinal/Abdominal: Soft, No Tenderness, No Distention, No Guarding, No Rebound Neurological/Psych: Oriented x3, Normal Speech Gait: Steady ED Course And Treatment O2 Sat by Pulse Oximetry: 98 (RA) Pulse Ox Interpretation: Normal Progress Note: Lactulose PO ordered in ED, pt advised to continue miralax once daily until full BM. Return precautions discussed as well as follow up instructions Disposition - Disposition Referrals: Steph Castellanos MD [Staff Provider] - Disposition: HOME/ ROUTINE Disposition Time: 21:45 Condition: STABLE Additional Instructions: High fiber diey Take medications as directed Return to ER if worse Prescriptions: Polyethylene Glycol 3350 [Miralax] 17 gm PO DAILY #1 bottle Instructions: High Fiber Diet, Constipation, Adult (DC) Forms: [employer] (Azeri) - Clinical Impression Clinical Impression: Constipation - PA / ANIMAL NURSERY WORKER / Resident Statement MD/DO has reviewed & agrees with the documentation as recorded. - Scribe Statement The provider has reviewed the documentation as recorded by the Scriblenore Foster All medical record entries made by the Scribe were at my direction and personally dictated by me. I have reviewed the chart and agree that the record accurately reflects my personal performance of the history, physical exam, medical decision making, and the department course for this patient. I have also personally directed, reviewed, and agree with the discharge instructions and disposition.
[2018-07-30 22:01] VITALS: BP 102/66; PULSE 72; RESP 16; TEMP 98.3
[2018-07-31 05:34] VITALS: O2SAT 98
== END 2018-07-30 21:58 | disposition home or self-care (01) ==
LOC: C.ER 18:04
DX: K59.00 Constipation, unspecified (principal)

== ENCOUNTER 2018-07-31 10:07 | Emergency (ER) | payer MEDICARE ==
[2018-07-31 10:07] VITALS: BMI 24.7
--- NOTE | 2018-07-31 12:17 | C.PDOC ---
History Of Present Illness Patient is a 78 year old female who presents to the ED stating that she has "fluid draining from everywhere" and says that she has been urinating a lot. Patient states that she believes that she still has a UTI and notes suprapubic pain along with vaginal discharge. She denies any CP, SOB, nausea, vomiting, diarrhea. Time Seen by Provider: 07/31/18 11:48 Chief Complaint (Nursing): Female Genitourinary History Per: Patient History/Exam Limitations: no limitations Current Symptoms Are (Timing): Still Present Location Of Pain/Discomfort: Suprapubic Associated Symptoms: Urinary Symptoms, Other (vaignal discharge. Denies SOB). denies: Nausea, Vomiting, Diarrhea, Chest Pain Additional History Per: Patient Past Medical History Reviewed: Historical Data, Nursing Documentation, Vital Signs Vital Signs: Last Vital Signs Temp 97.8 F 07/31/18 10:27 Pulse 82 07/31/18 10:27 Resp 20 07/31/18 10:27 BP 127/68 07/31/18 10:27 Pulse Ox 99 07/31/18 10:27 - Medical History PMH: Anxiety, HTN, Pneumonia Denies: Diabetes (Patient denied), Hepatitis (Patient denied), HIV, Chronic Kidney Disease, Seizures (Patient denied), Sexually Transmitted Disease (Patient denied) Surgical History: Tonsillectomy - [facility] Procedures EXCISION OF DESCENDING COLON, ENDO, DIAGN (06/05/18) EXCISION OF SIGMOID COLON, ENDO, DIAGN (06/05/18) EXCISION OF STOMACH, ENDO, DIAGN (06/05/18) Family History: States: No Known Family Hx - Social History Hx Tobacco Use: No Hx Alcohol Use: No Hx Substance Use: No - Immunization History Hx Tetanus Toxoid Vaccination: No Hx Influenza Vaccination: No Hx Pneumococcal Vaccination: No Physical Exam - Physical Exam Appears: Non-toxic, No Acute Distress, Other (old, elderly) Skin: Normal Color, Warm, No Rash Head: Atraumatic, Normacephalic Eye(s): bilateral: Normal Inspection, PERRL, EOMI Ear(s): Bilateral: Normal Oral Mucosa: Moist Throat: No Erythema, No Exudate Neck: Normal ROM, Supple Chest: Symmetrical, No Deformity, No Ecchymosis, No Subcutaneous Emphysema Cardiovascular: Rhythm Regular, No Friction Rub, No Murmur Respiratory: Normal Breath Sounds, No Rales, No Rhonchi, No Wheezing Gastrointestinal/Abdominal: Soft, No Tenderness, No Guarding, No Rebound Back: Normal Inspection, No CVA Tenderness Extremity: Normal ROM, Capillary Refill (less than 2 seconds), No Swelling Neurological/Psych: Oriented x3, Normal Speech, Normal Cognition, Normal Motor Gait: Steady ED Course And Treatment O2 Sat by Pulse Oximetry: 99 (on RA) Pulse Ox Interpretation: Normal Medical Decision Making Medical Decision Making: Plan: Bladder Scan, Urinalysis, Bloodwork, and Urine Culture ordered and reviewed. On re-exam, the patient reports improvement of symptoms. Lungs are CTA, heart is RRR, Abdomen is soft, non-tender and the patient is tolerating PO well. Follow up with the medical doctor within 1-2 days. Return if worsened. Disposition - Disposition Referrals: Steph Castellanos MD [Staff Provider] - Disposition: HOME/ ROUTINE Disposition Time: 15:04 Condition: STABLE Additional Instructions: Follow up with the medical doctor within 1-2 days. return if worsened. Prescriptions: Cephalexin [Keflex] 500 mg PO BID #14 capsule metroNIDAZOLE [Flagyl] 500 mg PO BID #14 tab Instructions: Urinary Incontinence Forms: [employer] [facility] (Uruguayan) - Clinical Impression Clinical Impression: Urinary incontinence - PA / RAIL DIRECTOR / Resident Statement MD/DO has examined the patient and agrees with the treatment plan. - Scribe Statement The provider has reviewed the documentation as recorded by the Talha Proctor All medical record entries made by the Sidraibe were at my direction and person ally dictated by me. I have reviewed the chart and agree that the record accurately reflects my personal performance of the history, physical exam, medical decision making, and the department course for this patient. I have also personally directed, reviewed, and agree with the discharge instructions and disposition.
[2018-07-31 15:58] VITALS: BP 104/68; PULSE 67; RESP 14; TEMP 98.1
[2018-07-31 18:25] VITALS: O2SAT 99
== END 2018-07-31 16:00 | disposition home or self-care (01) ==
LOC: C.ER 10:07
DX: R32 Unspecified urinary incontinence (principal)

== ENCOUNTER 2018-07-31 21:14 | Emergency (ER) | payer MEDICARE ==
[2018-07-31 21:14] VITALS: BMI 24.7
[2018-07-31 21:39] VITALS: BP 154/85; PULSE 74; TEMP 97.7; O2SAT 97
--- NOTE | 2018-07-31 22:54 | C.PDOC ---
History Of Present Illness 78 year old female presents to the ED for the second time today still c/o urinary frequency. Patient reports she lost her prescriptions that were given to her earlier. Patient denies fever, chills, nausea, vomit, diarrhea, hematuria, back pain, rash, weakness, numbness. Chief Complaint (Nursing): Medical Clearance History Per: Patient History/Exam Limitations: no limitations Onset/Duration Of Symptoms: Days Current Symptoms Are (Timing): Still Present Reports Recently: Seen In ED (07/31/18) Recent travel outside of the [place]: No Additional History Per: Patient Past Medical History Reviewed: Historical Data, Nursing Documentation, Vital Signs Vital Signs: Last Vital Signs Temp 97.7 F 07/31/18 21:35 Pulse 74 07/31/18 21:35 Resp 20 07/31/18 21:35 BP 154/85 H 07/31/18 21:35 Pulse Ox 97 07/31/18 21:35 - Medical History PMH: Anxiety, HTN, Pneumonia Denies: Diabetes (Patient denied), Hepatitis (Patient denied), HIV, Chronic Kidney Disease, Seizures (Patient denied), Sexually Transmitted Disease (Patient denied) Surgical History: Tonsillectomy - [facility] Procedures EXCISION OF DESCENDING COLON, ENDO, DIAGN (06/05/18) EXCISION OF SIGMOID COLON, ENDO, DIAGN (06/05/18) EXCISION OF STOMACH, ENDO, DIAGN (06/05/18) Family History: States: Unknown Family Hx - Social History Hx Tobacco Use: No Hx Alcohol Use: No Hx Substance Use: No - Immunization History Hx Tetanus Toxoid Vaccination: No Hx Influenza Vaccination: No Hx Pneumococcal Vaccination: No Review Of Systems Constitutional: Negative for: Fever, Chills Cardiovascular: Negative for: Chest Pain, Palpitations Respiratory: Negative for: Cough, Shortness of Breath Gastrointestinal: Positive for: Abdominal Pain. Negative for: Nausea, Vomiting Genitourinary: Positive for: Dysuria Skin: Negative for: Rash Neurological: Negative for: Weakness, Numbness, Headache Physical Exam - Physical Exam Appears: Non-toxic, No Acute Distress Skin: Normal Color, Warm, Dry Head: Atraumatic, Normacephalic Eye(s): bilateral: Normal Inspection Oral Mucosa: Moist Neck: Normal ROM, Supple Chest: Symmetrical Cardiovascular: Rhythm Regular Respiratory: Normal Breath Sounds, No Rales, No Rhonchi, No Wheezing Gastrointestinal/Abdominal: Soft, No Tenderness, No Guarding, No Rebound Extremity: Normal ROM, No Tenderness, No Swelling Neurological/Psych: Oriented x3, Normal Speech, Normal Cognition Gait: Steady ED Course And Treatment O2 Sat by Pulse Oximetry: 97 (ON RA) Pulse Ox Interpretation: Normal Medical Decision Making Medical Decision Making: Patient was given her prescriptions of Keflex and Flagyl. Disposition Counseled Patient/Family Regarding: Diagnosis, Need For Followup - Disposition Disposition: HOME/ ROUTINE Disposition Time: 22:59 Condition: STABLE Additional Instructions: ARCADIO KISER, thank you for letting us take care of you today. Your provider was Cindi Lowry MD and you were treated for URINE PROBLEM. The emergency medical care you received today was directed at your acute symptoms. If you were prescribed any medication, please fill it and take as directed. It may take several days for your symptoms to resolve. Return to the Emergency Department if your symptoms worsen, do not improve, or if you have any other problems. Please contact your doctor in 2 days for a follow up appointment. Bring any paperwork you were given at discharge with you along with any medications you are taking to your follow up visit. Our treatment cannot replace ongoing medical care by a primary care provider outside of the emergency department. Thank you for allowing the [facility] team to be part of your care today. If you had an X-Ray or CT scan: A Radiologist will review the ED reading if any change in treatment is needed we will contact you. If you had a blood, urine, or wound culture: It will take several days for the results, if any change in treatment is needed we will contact you. If you had an STI test: It will take 48 hours for the results. Please call after 1 week if you have not heard back. Prescriptions: Cephalexin [cephalexin] 500 mg PO BID #14 cap metroNIDAZOLE [Flagyl] 500 mg PO BID #14 tab Forms: [employer] (Ecuadorean), General Discharge Instructions - Clinical Impression Clinical Impression: Dysuria - Scribe Statement The provider has reviewed the documentation as recorded by the Scribe Kory Jimenez All medical record entries made by the Scribe were at my direction and personally dictated by me. I have reviewed the chart and agree that the record accurately reflects my personal performance of the history, physical exam, [facility] decision making, and the department course for this patient. I have also personally directed, reviewed, and agree with the discharge instructions and disposition.
[2018-07-31 23:27] VITALS: RESP 18
== END 2018-07-31 23:24 | disposition home or self-care (01) ==
LOC: C.ER 21:14
DX: R30.0 Dysuria (principal)

== ENCOUNTER 2018-08-01 04:37 | Emergency (ER) | payer MEDICARE ==
[2018-08-01 04:37] VITALS: BMI 24.7
[2018-08-01 05:07] LABS: SQUAMOUS EPITHIAL 14 /hpf (0-5); URINE BACTERIA OCC (<OCC); URINE BILIRUBIN NEGATIVE (NEGATIVE); URINE BLOOD NEGATIVE (NEGATIVE); URINE CLARITY Hazy (Clear); URINE COLOR Yellow (YELLOW); URINE GLUCOSE (UA) NORMAL (Normal); URINE LEUKOCYTE ESTERASE 3+ Leu/uL (Negative); URINE PROTEIN NEGATIVE (NEGATIVE); URINE UROBILINOGEN NORMAL mg/dL (0.2-1.0)
--- NOTE | 2018-08-01 05:30 | C.PDOC ---
History Of Present Illness 78 year old female presents to the ED c/o urinary frequency. Patient has been seen in the ED multiple times over the past two days with the same presentation. Patient was given antibiotics yesterday and return because she lost the prescriptions given to her. Patient had prescriptions reprinted however she reports she was not able to urinate in the ED. Patient went home where she urinated, patient brought the specimen to the ED to have it tested. Patient denies fever, chills, nausea, vomit, diarrhea, rash. Time Seen by Provider: 08/01/18 05:15 Chief Complaint (Nursing): Female Genitourinary History Per: Patient History/Exam Limitations: no limitations Onset/Duration Of Symptoms: Days Current Symptoms Are (Timing): Still Present Quality Of Discomfort: "Pain" Associated Symptoms: Urinary Symptoms. denies: Nausea, Vomiting, Diarrhea Recent travel outside of the [place]: No Additional History Per: Patient Abnormal Vaginal Bleeding: No Past Medical History Reviewed: Historical Data, Nursing Documentation, Vital Signs Vital Signs: Last Vital Signs Temp 97.5 F L 08/01/18 04:44 Pulse 78 08/01/18 04:44 Resp 20 08/01/18 04:44 BP 138/87 08/01/18 04:44 Pulse Ox 98 08/01/18 04:44 - Medical History PMH: Anxiety, HTN, Pneumonia Denies: Diabetes (Patient denied), Hepatitis (Patient denied), HIV, Chronic Kidney Disease, Seizures (Patient denied), Sexually Transmitted Disease (Patient denied) Surgical History: Tonsillectomy - [facility] Procedures EXCISION OF DESCENDING COLON, ENDO, DIAGN (06/05/18) EXCISION OF SIGMOID COLON, ENDO, DIAGN (06/05/18) EXCISION OF STOMACH, ENDO, DIAGN (06/05/18) Family History: States: Unknown Family Hx - Social History Hx Tobacco Use: No Hx Alcohol Use: No Hx Substance Use: No - Immunization History Hx Tetanus Toxoid Vaccination: No Hx Influenza Vaccination: No Hx Pneumococcal Vaccination: No Review Of Systems Constitutional: Negative for: Fever, Chills Cardiovascular: Negative for: Chest Pain Respiratory: Negative for: Shortness of Breath Gastrointestinal: Positive for: Abdominal Pain. Negative for: Nausea, Vomiting, Diarrhea Genitourinary: Positive for: Dysuria. Negative for: Hematuria Skin: Negative for: Rash Neurological: Negative for: Weakness, Numbness Physical Exam - Physical Exam Appears: Non-toxic, No Acute Distress Skin: Normal Color, Warm, Dry Head: Atraumatic, Normacephalic Eye(s): bilateral: Normal Inspection Neck: Normal ROM, Supple Chest: Symmetrical Cardiovascular: Rhythm Regular Respiratory: Normal Breath Sounds, No Rales, No Rhonchi, No Wheezing Gastrointestinal/Abdominal: Soft, Tenderness (suprapubic), No Guarding, No Rebound Back: No CVA Tenderness Extremity: Normal ROM, No Tenderness, No Swelling Neurological/Psych: Oriented x3, Normal Speech, Normal Cognition Gait: Steady ED Course And Treatment - Laboratory Results Lab Results: Urine Color Yellow (YELLOW) 08/01/18 04:55 Urine Clarity Hazy (Clear) 08/01/18 04:55 Urine pH 5.0 (5.0-8.0) 08/01/18 04:55 Ur Specific [place] 1.013 (1.003-1.030) 08/01/18 04:55 Urine Protein Negative mg/dL (NEGATIVE) 08/01/18 04:55 Urine Glucose (UA) Normal mg/dL (Normal) 08/01/18 04:55 Urine Ketones Negative mg/dL (NEGATIVE) 08/01/18 04:55 Urine Blood Negative (NEGATIVE) 08/01/18 04:55 Urine Nitrate Negative (NEGATIVE) 08/01/18 04:55 Urine Bilirubin Negative (NEGATIVE) 08/01/18 04:55 Urine Urobilinogen Normal mg/dL (0.2-1.0) 08/01/18 04:55 Ur Leukocyte Esterase 3+ Jasmeet/uL (Negative) H 08/01/18 04:55 Urine WBC (Auto) 18 /hpf (0-5) H 08/01/18 04:55 Urine RBC (Auto) 26 /hpf (0-3) H 08/01/18 04:55 Ur Squamous Epith Cells 14 /hpf (0-5) H 08/01/18 04:55 Urine Bacteria Occ (<OCC) H 08/01/18 04:55 Urine Yeast (Budding) Few /hpf (NEGATIVE) H 08/01/18 04:55 O2 Sat by Pulse Oximetry: 98 (On RA) Pulse Ox Interpretation: Normal Progress Note: Patient was advised to fill up her keflex and flagyl that were given to her today. Patient was given information for Urologist Dr. Kidd to follow up with. Disposition Counseled Patient/Family Regarding: Diagnosis, Need For Followup - Disposition Referrals: Sarina Kidd MD [Staff Provider] - Disposition: HOME/ ROUTINE Disposition Time: 05:29 Condition: STABLE Additional Instructions: Please follow up with Urologist Have medications filled today Return if fever, severe pain or worse Instructions: Urinary Tract Infection, Child (DC) Forms: [employer] (Kinyarwanda) - Clinical Impression Clinical Impression: UTI (urinary tract infection) - PA / [employer]PERVISOR / Resident Statement MD/DO has reviewed & agrees with the documentation as recorded. - Scribe Statement The provider has reviewed the documentation as recorded by the Scribe Kory Jimenez All medical record entries made by the Scribe were at my direction and personally dictated by me. I have reviewed the chart and agree that the record accurately reflects my personal performance of the history, physical exam, medical decision making, and the department course for this patient. I have also personally directed, reviewed, and agree with the discharge instructions and disposition.
[2018-08-01 05:45] VITALS: BP 100/60; PULSE 60; RESP 18; TEMP 97.2
[2018-08-01 05:54] VITALS: O2SAT 98
== END 2018-08-01 05:42 | disposition home or self-care (01) ==
LOC: C.ER 04:37
DX: N39.0 Urinary tract infection, site not specified (principal)

== ENCOUNTER 2018-08-07 09:20 | Inpatient (IN) | payer MEDICARE, SELFPAY ==
[2018-08-07 09:21] VITALS: BMI 24.7
[2018-08-07 11:13] LABS: BASO % 0.7 % (0.0-2.0); EOS # 0.2 K/uL (0.0-0.7); EOS % 2.7 % (0.0-4.0); HEMOGLOBIN 14.1 g/dL (11.0-16.0); LYMPH # 1.9 K/uL (1.0-4.3); LYMPH % 31.1 % (20.0-40.0); MEAN CELL VOLUME 88.5 fL (81.0-99.0); MEAN CORPUSCULAR HEMOGLOBIN 29.7 pg (27.0-31.0); MEAN CORPUSCULAR HGB CONC 33.6 g/dL (33.0-37.0); MEAN PLATELET VOLUME 7.8 fL (7.2-11.7); MONO # 0.4 K/uL (0.0-0.8); MONO % 6.2 % (0.0-10.0); NEUT # 3.7 K/uL (1.8-7.0); NEUT % 59.3 % (50.0-75.0); NRBC % 0.1 % (0.0-2.0); RBC 4.74 Mil/uL (3.80-5.20); RED CELL DISTRIBUTION WIDTH 14.5 % (11.5-14.5); WHITE BLOOD COUNT 6.2 K/uL (4.8-10.8)
[2018-08-07 11:34] LABS: ALB/GLOB RATIO 1.8 (1.0-2.1); ALBUMIN 4.5 g/dL (3.5-5.0); ALT/SGPT 54 U/L (9-52); AST/SGOT 67 U/L (14-36); BLOOD UREA NITROGEN 12 mg/dL (7-17); CALCIUM 9.5 mg/dl (8.6-10.4); GFR NON-AFRICAN AMERICAN > 60
[2018-08-07 11:40] LABS: SQUAMOUS EPITHIAL 6 /hpf (0-5); URINE BACTERIA RARE (<OCC); URINE BILIRUBIN NEGATIVE (NEGATIVE); URINE BLOOD NEGATIVE (NEGATIVE); URINE CLARITY Hazy (Clear); URINE COLOR Yellow (YELLOW); URINE GLUCOSE (UA) NORMAL (Normal); URINE LEUKOCYTE ESTERASE 3+ Leu/uL (Negative); URINE PROTEIN 1+ mg/dL (NEGATIVE); URINE UROBILINOGEN NORMAL mg/dL (0.2-1.0)
--- NOTE | 2018-08-07 12:42 | C.PDOC ---
History Of Present Illness 78 y/o female presents with her son for medical evaluation of recurrent UTI that is followed by Dr. Nicole Castellanos. Patient has reported to the ED over 7 times regarding this issue. She is presently complaining of suprapubic pain when u rinating. She states that she is on her last day of antibiotics and is concerned because she is still symptomatic. She denies any fever, chills, SOB, chest pain, N/V/D, dysuria, hematuria, and back pain. Time Seen by Provider: 08/07/18 09:52 Chief Complaint (Nursing): Female Genitourinary History Per: Patient, Family History/Exam Limitations: no limitations Onset/Duration Of Symptoms: Persistent Current Symptoms Are (Timing): Still Present Severity: Moderate Pain Scale Rating Of: 6 Quality Of Discomfort: Burning Associated Symptoms: Urinary Symptoms. denies: Fever, Chills, Nausea, Vomiting, Diarrhea, Back Pain, Chest Pain, Constipation Past Medical History Reviewed: Historical Data, Nursing Documentation, Vital Signs Vital Signs: Last Vital Signs Temp 97.5 F L 08/07/18 09:31 Pulse 61 08/07/18 09:31 Resp 20 08/07/18 09:31 BP 137/75 08/07/18 09:31 Pulse Ox 97 08/07/18 09:31 - Medical History PMH: Anxiety, HTN, Pneumonia Denies: Diabetes (Patient denied), Hepatitis (Patient denied), HIV, Chronic Kidney Disease, Seizures (Patient denied), Sexually Transmitted Disease (Patient denied) Surgical History: Tonsillectomy - [facility] Procedures EXCISION OF DESCENDING COLON, ENDO, DIAGN (06/05/18) EXCISION OF SIGMOID COLON, ENDO, DIAGN (06/05/18) EXCISION OF STOMACH, ENDO, DIAGN (06/05/18) Family History: States: Unknown Family Hx - Social History Hx Tobacco Use: No Hx Alcohol Use: No Hx Substance Use: No - Immunization History Hx Tetanus Toxoid Vaccination: No Hx Influenza Vaccination: No Hx Pneumococcal Vaccination: No Review Of Systems Constitutional: Negative for: Fever, Chills, Sweats Cardiovascular: Negative for: Chest Pain, Light Headedness Respiratory: Negative for: Shortness of Breath Gastrointestinal: Negative for: Nausea, Vomiting, Abdominal Pain Genitourinary: Positive for: Pelvic Pain. Negative for: Dysuria, Hematuria Musculoskeletal: Negative for: Back Pain Neurological: Negative for: Headache ED Course And Treatment - Laboratory Results Result Diagrams: 08/07/18 11:02 08/07/18 11:02 Lab Results: Total Bilirubin 0.7 mg/dL (0.2-1.3) 08/07/18 11:02 AST 67 U/L (14-36) H D 08/07/18 11:02 ALT 54 U/L (9-52) H D 08/07/18 11:02 Alkaline Phosphatase 92 U/L (38-126) 08/07/18 11:02 Total Protein 7.0 g/dL (6.3-8.3) 08/07/18 11:02 Albumin 4.5 g/dL (3.5-5.0) 08/07/18 11:02 Globulin 2.5 gm/dL (2.2-3.9) 08/07/18 11:02 Albumin/Globulin Ratio 1.8 (1.0-2.1) 08/07/18 11:02 Urine Color Yellow (YELLOW) 08/07/18 11:02 Urine Clarity Hazy (Clear) 08/07/18 11:02 Urine pH 7.0 (5.0-8.0) 08/07/18 11:02 Ur Specific [place] 1.014 (1.003-1.030) 08/07/18 11:02 Urine Protein 1+ mg/dL (NEGATIVE) H 08/07/18 11:02 Urine Glucose (UA) Normal mg/dL (Normal) 08/07/18 11:02 Urine Ketones Negative mg/dL (NEGATIVE) 08/07/18 11:02 Urine Blood Negative (NEGATIVE) 08/07/18 11:02 Urine Nitrate Negative (NEGATIVE) 08/07/18 11:02 Urine Bilirubin Negative (NEGATIVE) 08/07/18 11:02 Urine Urobilinogen Normal mg/dL (0.2-1.0) 08/07/18 11:02 Ur Leukocyte Esterase 3+ Jasmeet/uL (Negative) H 08/07/18 11:02 Urine WBC (Auto) 8 /hpf (0-5) H 08/07/18 11:02 Urine RBC (Auto) 2 /hpf (0-3) 08/07/18 11:02 Ur Squamous Epith Cells 6 /hpf (0-5) H 08/07/18 11:02 Urine Bacteria Rare (<OCC) 08/07/18 11:02 O2 Sat by Pulse Oximetry: 97 Medical Decision Making Medical Decision Making: A/P: UTI - D/W with Dr. Choi @12:15pm - patient will be admitted for observation - based on past urine culture, Rocephin 1 GM given stat (requested by Dr. Castellanos) - start Xanax 0.25mg as per Dr. Castellanos - patient and son verbalized understanding Disposition Discussed With Dr.: Steph Castellanos Doctor Will See Patient In The: Hospital - Disposition Referrals: Steph Castellanos MD [Staff Provider] - Disposition: HOSPITALIZED Disposition Time: 12:38 Condition: STABLE Instructions: Urinary Tract Infection, Adult (DC) Forms: [employer] (Khmer) - Clinical Impression Clinical Impression: UTI (urinary tract infection) - PA / PREFITTER / Resident Statement /DO has reviewed & agrees with the documentation as recorded. Decision To Admit - Pt Status Changed To: Hospital Disposition Of: Observation - . Bed Request Type: Regular Admitting Physician: Steph Castellanos Patient Diagnosis: UTI (urinary tract infection)
[2018-08-07] MEDS ORDERED: cefTRIAXone 1 gm in Water For Injection 2.1 ML IM ONE (12:54)
--- NOTE | 2018-08-07 19:13 | CP.PCM.HP ---
Past Patient History - Infectious Disease Hx of Infectious Diseases: None - Past Medical History & Family History Past Medical History?: Yes - Past Social History Smoking Status: Never Smoked - CARDIAC Hx Hypertension: Yes - PULMONARY Hx Pneumonia: Yes - NEUROLOGICAL Hx Seizures: No (Patient denied) - HEENT Hx HEENT Problems: Yes Other/Comment: excessive salivation - RENAL Hx Chronic Kidney Disease: No - ENDOCRINE/METABOLIC Hx Endocrine Disorders: No - HEMATOLOGICAL/ONCOLOGICAL Hx Human Immunodeficiency Virus (HIV): No - INTEGUMENTARY Hx Dermatological Problems: No - MUSCULOSKELETAL/RHEUMATOLOGICAL Hx Musculoskeletal Disorders: No Hx Falls: No - GASTROINTESTINAL Hx Gastrointestinal Disorders: No - GENITOURINARY/GYNECOLOGICAL Hx Sexually Transmitted Disorders: No (Patient denied) - PSYCHIATRIC Hx Anxiety: Yes Hx Substance Use: No - SURGICAL HISTORY Hx Tonsillectomy: Yes - ANESTHESIA Hx Anesthesia: Yes Hx Anesthesia Reactions: No Hx Malignant Hyperthermia: No Meds Allergies/Adverse Reactions: Allergies Allergy/AdvReac Type Severity Reaction Status Date / Time No Known Allergies Allergy Verified 08/01/18 04:47 Results - Vital Signs Recent Vital Signs: Last Vital Signs Temp 98 F 08/07/18 16:58 Pulse 78 08/07/18 16:58 Resp 18 08/07/18 16:58 BP 163/74 H 08/07/18 16:58 Pulse Ox 98 08/07/18 16:58 - Labs Result Diagrams: 08/07/18 11:02 08/07/18 11:02 Labs: Laboratory Results - last 24 hr 08/07/18 08/07/18 08/07/18 11:02 11:02 11:02 WBC 6.2 RBC 4.74 Hgb 14.1 Hct 42.0 MCV 88.5 MCH 29.7 MCHC 33.6 RDW 14.5 Plt Count 419 H MPV 7.8 Neut % (Auto) 59.3 Lymph % (Auto) 31.1 Stone % (Auto) 6.2 Eos % (Auto) 2.7 Baso % (Auto) 0.7 Neut # (Auto) 3.7 Lymph # (Auto) 1.9 Stone # (Auto) 0.4 Eos # (Auto) 0.2 Baso # (Auto) 0.0 Sodium 138 Potassium 3.5 L Chloride 97 L Carbon Dioxide 31 H Anion Gap 14 BUN 12 Creatinine 0.5 L Est GFR ( Amer) > 60 Est GFR (Non-Af Amer) > 60 Random Glucose 106 H Calcium 9.5 Total Bilirubin 0.7 AST 67 H D ALT 54 H D Alkaline Phosphatase 92 Total Protein 7.0 Albumin 4.5 Globulin 2.5 Albumin/Globulin Ratio 1.8 Urine Color Yellow Urine Clarity Hazy Urine pH 7.0 Ur Specific [place] 1.014 Urine Protein 1+ H Urine Glucose (UA) Normal Urine Ketones Negative Urine Blood Negative Urine Nitrate Negative Urine Bilirubin Negative Urine Urobilinogen Normal Ur Leukocyte Esterase 3+ H Urine WBC (Auto) 8 H Urine RBC (Auto) 2 Ur Squamous Epith Cells 6 H Urine Bacteria Rare
[2018-08-07] MEDS ORDERED: Potassium Chloride 20 mEq ER Tab PO STA (23:34)
[2018-08-07] MEDS ORDERED: Potassium Chloride 20 mEq ER Tab PO ONE (23:40)
[2018-08-08 02:14] VITALS: RESP 20
[2018-08-08] MEDS ORDERED: Potassium Chloride 20 mEq ER Tab PO ONE (10:15)
[2018-08-08] MEDS: Pantoprazole 40 mg EC Tab PO SCH (10:48)
[2018-08-08] MEDS: Enoxaparin 40 mg Syringe SC SCH (10:49)
[2018-08-08] MEDS ORDERED: Vitamins A & D Oint UD Foilpak TOP PRN (11:35)
--- NOTE | 2018-08-08 11:37 | CP.PCM.CON ---
History of Present Illness - History of Present Illness History of Present Illness: 78 y/o female presents with her son for medical evaluation of recurrent UTI that is followed by Dr. Nicole Castellanos. Patient has reported to the ED over 7 times regarding this issue. She is presently complaining of suprapubic pain when urin ating. She states that she is on her last day of antibiotics and is concerned because she is still symptomatic. She denies any fever, chills, SOB, chest pain, N/V/D, dysuria, hematuria, and back pain. Started on IV antibiotics and ID consulted for this C/O burning all over - including bladder - Medical History PMH: Anxiety, HTN, Pneumonia Denies: Diabetes (Patient denied), Hepatitis (Patient denied), HIV, Chronic Kidney Disease, Seizures (Patient denied), Sexually Transmitted Disease (Patient denied) Surgical History: Tonsillectomy - [facility] Procedures EXCISION OF DESCENDING COLON, ENDO, DIAGN (06/05/18) EXCISION OF SIGMOID COLON, ENDO, DIAGN (06/05/18) EXCISION OF STOMACH, ENDO, DIAGN (06/05/18) Review of Systems - Constitutional Constitutional: As Per HPI, Anorexia - EENT Eyes: absent: As Per HPI, Blind Spots, Blurred Vision, Change in Vision, Decreased Night Vision, Diplopia, Discharge, Dry Eye, Exophthalmos, Floaters, Irritation, Itchy Eyes, Loss of Peripheral Vision, Pain, Photophobia, Requires Corrective Lenses, Sees Flashes, Spots in Vision, Tunnel Vision, Other Visual Disturbances, Loss of Vision, Other Ears: absent: As Per HPI, Decreased Hearing, Ear Discharge, Ear Pain, Tinnitus, Abnormal Hearing, Disequilibrium, Dizziness, Other Nose/Mouth/Throat: absent: As Per HPI, Epistaxis, Nasal Congestion, Nasal Discharge, Nasal Obstruction, Nasal Trauma, Nose Pain, Post Nasal Drip, Sinus Pain, Sinus Pressure, Bleeding Gums, Change in Voice, Dental Pain, Dry Mouth, Dysphagia, Halitosis, Hoarsness, Lip Swelling, Mouth Lesions, Mouth Pain, Odynophagia, Sore Throat, Throat Swelling, Tongue Swelling, Facial Pain, Neck P ain, Neck Mass, Other - Breasts Breasts: absent: As Per HPI, Change in Shape, Mass, Pain, Nipple Discharge, Nipple Inversion, Skin Changes, Swelling, Other - Cardiovascular Cardiovascular: absent: As Per HPI, Acrocyanosis, Chest Pain, Chest Pain at Rest, Chest Pain with Activity, Claudication, Diaphoresis, Dyspnea, Dyspnea on Exertion, Edema, Irregular Heart Rhythm, Pain Radiating to Arm/Neck/Jaw, Leg Edema, Leg Ulcers, Lightheadedness, Orthopnea, Palpitations, Paroxysmal Nocturnal Dyspnea, Pedal Edema, Radiating Pain, Rapid Heart Rate, Slow Heart Rate, Syncope, Other - Respiratory Respiratory: absent: As Per HPI, Cough, Dyspnea, Hemoptysis, Dyspnea on Exertion, Wheezing, Snoring, Stridor, Pain on Inspiration, Chest Congestion, Excessive Mucous Production, Change in Mucous Color, Pain with Coughing, Other - Gastrointestinal Gastrointestinal: absent: As Per HPI, Abdominal Pain, Belching, Bloating, Change in Bowel Habits, Change in Stool Character, Coffee Ground Emesis, Constipation, Cramping, Diarrhea, Dyspepsia, Dysphagia, Early Satiety, Excessive Flatus, Fecal Incontinence, Heartburn, Hematemesis, Hematochezia, Loose Stools, Melena, Nausea, Odynophagia, Temesmus, Vomiting, Other - Genitourinary Genitourinary: As Per HPI - Reproductive: Female Reproductive:Female: absent: As Per HPI, Amenorrhea, Amenorrhea/ Control, Currently Menstual, Cycle <21 Days, Cycle >35 Days, Cycle Variable, Menses 1-7 Days, Menses >/= 8 Days, Menses Variable, Cycle > 4 Weeks Between, No Menses for 6 Months, Heavy Menses, Light Menses, Normal Menses, Spotting Between Cycles, S/P Hysterectomy, Menopausal, Post Menopausal, Premenarche, Abnormal Vaginal Bleeding, Dysmenorrhea, Dyspareunia, Genital Lesions, Genital Pruritis, Pelvic Pain, Prolapse Symptoms, Sexual Dysfunction, Vaginal Discharge, Vaginal Dryness, Vaginal Odor, Vaginal Pruritis, Other - Menstruation Menstruation: absent: As Per HPI, Amenorrhea, Amenorrhea/ Control, Currently Menstual, Cycle <21 Days, Cycle >35 Days, Cycle Variable, Menses 1-7 Days, Menses >/= 8 Days, Menses Variable, Cycle > 4 Weeks Between, No Menses for 6 Months, Heavy Menses, Light Menses, Normal Menses, Spotting Between Cycles, S/P Hysterectomy, Menopausal, Post Menopausal, Premenarche, Abnormal Vaginal Bleeding, Dysmenorrhea, Other - Musculoskeletal Musculoskeletal: absent: As Per HPI, Abnormal Gait, Arthralgias, Atrophy, Back Pain, Deformity, Joint Swelling, Limited Range of Motion, Loss of Height, Muscle Cramps, Muscle Weakness, Myalgias, Neck Pain, Numbness, Radiating Pain into Limb, Stiffness, Tingling, Other - Integumentary Integumentary: absent: As Per HPI, Acne, Alopecia, Bleeding Lesions, Change in Hair, Change in Nails, Change in Pigmentation, Changing Lesions, Dry Skin, Eryt les, Furuncle, Hirsutism, Lesions, New Lesions, Non-Healing Lesions, Photosensitivity, Pruritus, Rash, Skin Pain, Skin Ulcer, Sores, Striae, Swelling, Unusual Bruising, Wounds, Jaundice, Other - Neurological Neurological: absent: As Per HPI, Abnormal Gait, Abnormal Hearing, Abnormal Movements, Abnormal Speech, Behavioral Changes, Burning Sensations, Confusion, Convulsions, Disequilibrium, Dizziness, Numbness, Focal Weakness, Frequent Falls, Headaches, Lack of Coordination, Loss of Vision, Memory Loss, Paresthesias, Radicular Pain, Restless Legs, Sensory Deficit, Syncope, Tingling, Tremor, Vertigo, Weakness, Other Visual Disturbances, Other - Psychiatric Psychiatric: absent: As Per HPI, Abnormal Sleep Pattern, Anhedonia, Anxiety, Auditory Hallucinations, Behavioral Changes, Change in Appetite, Change in Libido, Confusion, Depression, Difficulty Concentrating, Hallucinations, Homicidal Ideation, Hopelessness, Irritability, Memory Loss, Mood Swings, Panic Attacks, Paranoia, Suicidal Ideation, Visual Hallucinations, Tactile Hallucinations, Other - Endocrine Endocrine: absent: As Per HPI, Change in Body Appearance, Change in Libido, Cold Intolorance, Deepening of Voice, Excessive Sweating, Fatigue, Flushing, Heat Intolorance, Increase in Ring/Shoe/Hat Size, Palpitations, Polydipsia, Polyphagia, Polyuria, Other - Hematologic/Lymphatic Hematologic: absent: As Per HPI, Easy Bleeding, Easy Bruising, Lymphadenopathy, Other Past Patient History - Infectious Disease Hx of Infectious Diseases: None - Past Medical History & Family History Past Medical History?: Yes - Past Social History Smoking Status: Never Smoked - CARDIAC Hx Hypertension: Yes - PULMONARY Hx Pneumonia: Yes - NEUROLOGICAL Hx Seizures: No (Patient denied) - HEENT Hx HEENT Problems: Yes Other/Comment: excessive salivation - RENAL Hx Chronic Kidney Disease: No - ENDOCRINE/METABOLIC Hx Endocrine Disorders: No - HEMATOLOGICAL/ONCOLOGICAL Hx Human Immunodeficiency Virus (HIV): No - INTEGUMENTARY Hx Dermatological Problems: No - MUSCULOSKELETAL/RHEUMATOLOGICAL Hx Musculoskeletal Disorders: No Hx Falls: No - GASTROINTESTINAL Hx Gastrointestinal Disorders: No - GENITOURINARY/GYNECOLOGICAL Hx Sexually Transmitted Disorders: No (Patient denied) - PSYCHIATRIC Hx Anxiety: Yes Hx Substance Use: No - SURGICAL HISTORY Hx Tonsillectomy: Yes - ANESTHESIA Hx Anesthesia: Yes Hx Anesthesia Reactions: No Hx Malignant Hyperthermia: No Meds Allergies/Adverse Reactions: Allergies Allergy/AdvReac Type Severity Reaction Status Date / Time No Known Allergies Allergy Verified 08/01/18 04:47 - Medications Medications: Current Medications Alprazolam (Xanax) 0.25 mg PO BID [facility] Stop: 08/15/18 10:01 Last Admin: 08/08/18 10:48 Dose: 0.25 mg Amlodipine Besylate (Norvasc) 5 mg PO DAILY [facility] Last Admin: 08/08/18 10:49 Dose: 5 mg Enoxaparin Sodium (Lovenox) 40 mg SC DAILY [facility] Last Admin: 08/08/18 10:49 Dose: 40 mg Ceftriaxone Sodium 1 gm/ (Sodium Chloride) 100 mls @ 100 mls/hr IVPB DAILY [facility]; Protocol Last Admin: 08/08/18 10:48 Dose: 100 mls/hr Influenza Virus Vaccine (Flucelvax Quad [id number] Syr) 60 mcg IM .ONCE ONE Stop: 08/10/18 10:01 Pantoprazole Sodium (Protonix Ec Tab) 40 mg PO DAILY [facility] Last Admin: 08/08/18 10:48 Dose: 40 mg Pneumococcal Polyvalent Vaccine (Pneumovax 23 Vaccine) 0.5 ml IM .ONCE ONE Stop: 08/10/18 10:01 Physical Exam - Constitutional Appears: Non-toxic, No Acute Distress, Cachectic, Chronically Ill - Head Exam Head Exam: ATRAUMATIC, NORMAL INSPECTION, NORMOCEPHALIC - Eye Exam Eye Exam: PERRL. absent: Scleral icterus - ENT Exam ENT Exam: Mucous Membranes Dry, Normal External Ear Exam, Normal Oropharynx - Neck Exam Neck exam: Negative for: Lymphadenopathy - Respiratory Exam Respiratory Exam: Decreased Breath Sounds, Clear to Auscultation Bilateral - Cardiovascular Exam Cardiovascular Exam: REGULAR RHYTHM, +S1, +S2 - GI/Abdominal Exam GI & Abdominal Exam: Diminished Bowel Sounds, Soft. absent: Tenderness - Rectal Exam Rectal Exam: Deferred - Exam Exam: NORMAL INSPECTION - Extremities Exam Extremities exam: Negative for: pedal edema - Back Exam Back exam: absent: CVA tenderness (L), CVA tenderness (R), paraspinal tenderness - Neurological Exam Neurological exam: Alert, CN II-XII Intact, Oriented x3, Reflexes Normal - Psychiatric Exam Psychiatric exam: Depressed - Skin Skin Exam: Dry Results - Vital Signs Recent Vital Signs: Last Vital Signs Temp 98 F 08/08/18 07:00 Pulse 65 08/08/18 07:00 Resp 20 08/08/18 07:00 BP 137/74 08/08/18 07:00 Pulse Ox 98 08/08/18 11:07 - Labs Result Diagrams: 08/07/18 11:02 08/07/18 11:02 Labs: Laboratory Results - last 24 hr 08/07/18 08/07/18 11:02 11:02 Sodium 138 Potassium 3.5 L Chloride 97 L Carbon Dioxide 31 H Anion Gap 14 BUN 12 Creatinine 0.5 L Est GFR ( Amer) > 60 Est GFR (Non-Af Amer) > 60 Random Glucose 106 H Calcium 9.5 Total Bilirubin 0.7 AST 67 H D ALT 54 H D Alkaline Phosphatase 92 Total Protein 7.0 Albumin 4.5 Globulin 2.5 Albumin/Globulin Ratio 1.8 Urine Color Yellow Urine Clarity Hazy Urine pH 7.0 Ur Specific [place] 1.014 Urine Protein 1+ H Urine Glucose (UA) Normal Urine Ketones Negative Urine Blood Negative Urine Nitrate Negative Urine Bilirubin Negative Urine Urobilinogen Normal Ur Leukocyte Esterase 3+ H Urine WBC (Auto) 8 H Urine RBC (Auto) 2 Ur Squamous Epith Cells 6 H Urine Bacteria Rare Assessment & Plan (1) UTI (urinary tract infection) Status: Acute - Assessment and Plan (Free Text) Assessment: unclear as to etiology of burning consider neuro and eval cont Rocephin for now
--- NOTE | 2018-08-08 14:28 | CP.PCM.PN ---
Subjective - Date & Time of Evaluation Date of Evaluation: 08/08/18 Time of Evaluation: 08:00 - Subjective Subjective: clinically same Objective - Vital Signs/Intake and Output Vital Signs (last 24 hours): Temp Pulse Resp BP Pulse Ox 98 F 65 20 137/74 98 08/08/18 07:00 08/08/18 07:00 08/08/18 07:00 08/08/18 07:00 08/08/18 13:04 Intake and Output: 08/08/18 08/08/18 06:59 18:59 Intake Total 200 Balance 200 - Medications Medications: Current Medications Alprazolam (Xanax) 0.25 mg PO BID [facility] Stop: 08/15/18 10:01 Last Admin: 08/08/18 10:48 Dose: 0.25 mg Amlodipine Besylate (Norvasc) 5 mg PO DAILY [facility] Last Admin: 08/08/18 10:49 Dose: 5 mg Enoxaparin Sodium (Lovenox) 40 mg SC DAILY [facility] Last Admin: 08/08/18 10:49 Dose: 40 mg Guaifenesin (Mucinex La) 600 mg PO BID [facility] Ceftriaxone Sodium 1 gm/ (Sodium Chloride) 100 mls @ 100 mls/hr IVPB DAILY [facility]; Protocol Last Admin: 08/08/18 10:48 Dose: 100 mls/hr Influenza Virus Vaccine (Flucelvax Quad 1683-2867 Syr) 60 mcg IM .ONCE ONE Stop: 08/10/18 10:01 Pantoprazole Sodium (Protonix Ec Tab) 40 mg PO DAILY [facility] Last Admin: 08/08/18 10:48 Dose: 40 mg Pneumococcal Polyvalent Vaccine (Pneumovax 23 Vaccine) 0.5 ml IM .ONCE ONE Stop: 08/10/18 10:01 Vitamin A (Vitamin A & D Oint Ud Foilpak) 1 ea TOP BID PRN PRN Reason: Dry mouth - Labs Labs: 08/07/18 11:02 08/07/18 11:02 - Constitutional Appears: Well - Head Exam Head Exam: ATRAUMATIC, NORMAL INSPECTION, NORMOCEPHALIC - Eye Exam Eye Exam: EOMI, Normal appearance, PERRL Pupil Exam: NORMAL ACCOMODATION, PERRL - ENT Exam ENT Exam: Mucous Membranes Moist, Normal Exam - Neck Exam Neck Exam: Full ROM, Normal Inspection. absent: Lymphadenopathy - Respiratory Exam Respiratory Exam: Decreased Breath Sounds - Cardiovascular Exam Cardiovascular Exam: REGULAR RHYTHM, +S2 - GI/Abdominal Exam GI & Abdominal Exam: Soft, Diminished Bowel Sounds - Rectal Exam Rectal Exam: Deferred
--- NOTE | 2018-08-08 16:28 | CP.PCM.PN ---
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 Patient is a poor historian. Upon chart review, patient has been to the ED multiple times this year for similar complaints. The last ED visit was on 08/01/18, patient was given Keflex and Flagyl then discharged home. Per patient, besides the dysuria and malodorous urine, patient is also complaining of burning sensation of her face and hair. Patient keeps on wiping her lips with a towel throughout our encounter, stating that there are liquid oozing from her lips. While there were no signs drainage or liquid, I suggested her to stop doing so as it will cause further irritation and discomfort. Otherwise patient denies headache, shortness of breath, chest pain, nausea, vomiting, or diarrhea. 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 Molly Castellanos PMHx: hypertension, anxiety, recent UTI symptoms PSHx: tonsillectomy Allergy: none Social History: former smoker, denies alcohol and drug use Home meds: Norvac, finishing Flagyl and Keflex Objective - Vital Signs/Intake and Output Vital Signs (last 24 hours): Temp Pulse Resp BP Pulse Ox 98.0 F 54 L 20 134/65 98 08/08/18 16:00 08/08/18 16:00 08/08/18 16:00 08/08/18 16:00 08/08/18 16:00 Intake and Output: 08/08/18 08/08/18 06:59 18:59 Intake Total 200 Balance 200 - Medications Medications: Current Medications Alprazolam (Xanax) 0.25 mg PO BID [facility] Stop: 08/15/18 10:01 Last Admin: 08/08/18 10:48 Dose: 0.25 mg Amlodipine Besylate (Norvasc) 5 mg PO DAILY [facility] Last Admin: 08/08/18 10:49 Dose: 5 mg Enoxaparin Sodium (Lovenox) 40 mg SC DAILY [facility] Last Admin: 08/08/18 10:49 Dose: 40 mg Guaifenesin (Mucinex La) 600 mg PO BID [facility] Ceftriaxone Sodium 1 gm/ (Sodium Chloride) 100 mls @ 100 mls/hr IVPB DAILY [facility]; Protocol Last Admin: 08/08/18 10:48 Dose: 100 mls/hr Influenza Virus Vaccine (Flucelvax Quad [id number] Syr) 60 mcg IM .ONCE ONE Stop: 08/10/18 10:01 Pantoprazole Sodium (Protonix Ec Tab) 40 mg PO DAILY [facility] Last Admin: 08/08/18 10:48 Dose: 40 mg Pneumococcal Polyvalent Vaccine (Pneumovax 23 Vaccine) 0.5 ml IM .ONCE ONE Stop: 08/10/18 10:01 Vitamin A (Vitamin A & D Oint Ud Foilpak) 1 ea TOP BID PRN PRN Reason: Dry mouth - Labs Labs: 08/07/18 11:02 08/07/18 11:02 - Additional Findings Additional findings: - Constitutional Appears: Non-toxic, No Acute Distress, Chronically Ill - Head Exam Head Exam: ATRAUMATIC, NORMAL INSPECTION, NORMOCEPHALIC - Eye Exam Eye Exam: PERRL. absent: Scleral icterus - ENT Exam ENT Exam: Mucous Membranes Dry, Normal External Ear Exam, dryness around the lips as patient has been wiping her tongue with a cloth - Neck Exam Neck exam: Negative for: Lymphadenopathy - Respiratory Exam Respiratory Exam: Decreased Breath Sounds, Clear to Auscultation Bilateral - Cardiovascular Exam Cardiovascular Exam: REGULAR RHYTHM, +S1, +S2 - GI/Abdominal Exam GI & Abdominal Exam: Soft. absent: Tenderness - Extremities Exam Extremities exam: Negative for: pedal edema - Back Exam Back exam: absent: CVA tenderness (L), CVA tenderness (R), paraspinal tenderness - Neurological Exam Neurological exam: Alert, CN II-XII Intact, Oriented x3, Reflexes Normal - Psychiatric Exam Psychiatric exam: Depressed - Skin Skin Exam: Dry Assessment and Plan - Assessment and Plan (Free Text) Assessment: Dysuria -Afebrile, no leukocytosis -Urinalysis +LE, +WBC, +Squamous -Urine culture negative after 24 hours -ID consulted, Dr. Martinez help appreciated -Rocephin 1gm IV daily -IVF NS @75ml/hr Hypertension -Amlodipine 5mg Anxiety -Xanax 0.25mg BID Prophylactic measures -Lovenox -Protonix -Vitamin A&D for lips dryness Case discussed with attending
[2018-08-08] MEDS: Sodium Chloride 0.9% 1,000 ML IV SCH (16:50)
[2018-08-08] MEDS: guaiFENesin 600 mg ER Tab PO SCH (17:37)
[2018-08-09] MEDS: Sodium Chloride 0.9% 1,000 ML IV SCH ×2 (05:47→19:25)
[2018-08-09 08:01] LABS: BASO % 0.7 % (0.0-2.0); EOS # 0.3 K/uL (0.0-0.7); EOS % 4.3 % (0.0-4.0); LYMPH # 2.3 K/uL (1.0-4.3); LYMPH % 35.6 % (20.0-40.0); MEAN CELL VOLUME 88.4 fL (81.0-99.0); MEAN CORPUSCULAR HEMOGLOBIN 29.6 pg (27.0-31.0); MEAN CORPUSCULAR HGB CONC 33.5 g/dL (33.0-37.0); MEAN PLATELET VOLUME 7.9 fL (7.2-11.7); MONO # 0.4 K/uL (0.0-0.8); MONO % 6.2 % (0.0-10.0); NEUT # 3.4 K/uL (1.8-7.0); NEUT % 53.2 % (50.0-75.0); NRBC % 0.1 % (0.0-2.0); RBC 4.1 Mil/uL (3.80-5.20); RED CELL DISTRIBUTION WIDTH 14.5 % (11.5-14.5); WHITE BLOOD COUNT 6.3 K/uL (4.8-10.8)
[2018-08-09 08:02] LABS: HEMOGLOBIN 12.1 g/dL (11.0-16.0)
[2018-08-09 08:18] LABS: ALB/GLOB RATIO 1.5 (1.0-2.1); ALBUMIN 3.4 g/dL (3.5-5.0); ALT/SGPT 49 U/L (9-52); AST/SGOT 55 U/L (14-36); BLOOD UREA NITROGEN 25 mg/dL (7-17); CALCIUM 8.7 mg/dl (8.6-10.4); GFR NON-AFRICAN AMERICAN > 60
[2018-08-09] MEDS: Enoxaparin 40 mg Syringe SC SCH (09:24)
[2018-08-09] MEDS: Pantoprazole 40 mg EC Tab PO SCH (09:24)
[2018-08-09] MEDS: guaiFENesin 600 mg ER Tab PO SCH ×2 (09:24→17:35)
--- NOTE | 2018-08-09 15:00 | RAD ---
Date of service: 08/09/2018 HISTORY: r/o pneumonia, congestion COMPARISON: No prior. TECHNIQUE: Chest PA and lateral FINDINGS: LUNGS: No active pulmonary disease. PLEURA: No significant pleural effusion identified. No pneumothorax apparent. CARDIOVASCULAR: Calcific atherosclerotic changes are seen related to the thoracic aorta. Cardiomegaly stable. No pulmonary vascular congestion. OSSEOUS STRUCTURES: No significant abnormalities. VISUALIZED UPPER ABDOMEN: Normal. OTHER FINDINGS: None. IMPRESSION: Stable cardiomegaly. No acute pulmonary disease appreciable. No pulmonary vascular congestion.
[2018-08-09] MEDS: Fluticasone Nasal 50 mcg/Spray NAS SCH (18:59)
--- NOTE | 2018-08-09 19:21 | CP.PCM.PN ---
Subjective - Date & Time of Evaluation Date of Evaluation: 08/09/18 Time of Evaluation: 08:00 - Subjective Subjective: clinically same Objective - Vital Signs/Intake and Output Vital Signs (last 24 hours): Temp Pulse Resp BP Pulse Ox 98.0 F 65 20 111/66 96 08/09/18 15:00 08/09/18 15:00 08/09/18 15:00 08/09/18 15:00 08/09/18 15:00 - Medications Medications: Current Medications Acetaminophen (Tylenol 325mg Tab) 650 mg PO Q6 PRN PRN Reason: Pain, moderate (4-7) Alprazolam (Xanax) 0.25 mg PO BID [facility] Stop: 08/15/18 10:01 Last Admin: 08/09/18 17:35 Dose: 0.25 mg Amlodipine Besylate (Norvasc) 5 mg PO DAILY [facility] Last Admin: 08/09/18 09:24 Dose: 5 mg Enoxaparin Sodium (Lovenox) 40 mg SC DAILY [facility] Last Admin: 08/09/18 09:24 Dose: 40 mg Fluticasone Propionate (Flonase) 1 spr LAURA BID [facility] Last Admin: 08/09/18 18:59 Dose: 1 spry Guaifenesin (Mucinex La) 600 mg PO BID [facility] Last Admin: 08/09/18 17:35 Dose: 600 mg Ceftriaxone Sodium 1 gm/ (Sodium Chloride) 100 mls @ 100 mls/hr IVPB DAILY [facility]; Protocol Last Admin: 08/09/18 10:11 Dose: 100 mls/hr Sodium Chloride (Sodium Chloride 0.9%) 1,000 mls @ 75 mls/hr IV .[id number] [facility] Last Admin: 08/09/18 05:47 Dose: 75 mls/hr Influenza Virus Vaccine (Flucelvax Quad [id number] Syr) 60 mcg IM .ONCE ONE Stop: 08/10/18 10:01 Pantoprazole Sodium (Protonix Ec Tab) 40 mg PO DAILY [facility] Last Admin: 08/09/18 09:24 Dose: 40 mg Pneumococcal Polyvalent Vaccine (Pneumovax 23 Vaccine) 0.5 ml IM .ONCE ONE Stop: 08/10/18 10:01 Vitamin A (Vitamin A & D Oint Ud Foilpak) 1 ea TOP BID PRN PRN Reason: Dry mouth Last Admin: 08/08/18 21:33 Dose: 1 ea - Labs Labs: 08/09/18 07:35 08/09/18 07:35 - Constitutional Appears: Well - Head Exam Head Exam: ATRAUMATIC, NORMAL INSPECTION, NORMOCEPHALIC - Eye Exam Eye Exam: EOMI, Normal appearance, PERRL Pupil Exam: NORMAL ACCOMODATION, PERRL - ENT Exam ENT Exam: Mucous Membranes Moist, Normal Exam - Neck Exam Neck Exam: Full ROM, Normal Inspection. absent: Lymphadenopathy - Respiratory Exam Respiratory Exam: Decreased Breath Sounds - Cardiovascular Exam Cardiovascular Exam: REGULAR RHYTHM, +S1, +S2 - GI/Abdominal Exam GI & Abdominal Exam: Soft, Diminished Bowel Sounds - Rectal Exam Rectal Exam: Deferred
[2018-08-10 07:55] LABS: BASO % 0.1 % (0.0-2.0); EOS # 0.4 K/uL (0.0-0.7); EOS % 5.4 % (0.0-4.0); HEMOGLOBIN 12.4 g/dL (11.0-16.0); LYMPH # 2.3 K/uL (1.0-4.3); LYMPH % 31.6 % (20.0-40.0); MEAN CELL VOLUME 88.8 fL (81.0-99.0); MEAN CORPUSCULAR HEMOGLOBIN 29.4 pg (27.0-31.0); MEAN CORPUSCULAR HGB CONC 33.1 g/dL (33.0-37.0); MEAN PLATELET VOLUME 7.9 fL (7.2-11.7); MONO # 0.5 K/uL (0.0-0.8); MONO % 6.4 % (0.0-10.0); NEUT # 4.2 K/uL (1.8-7.0); NEUT % 56.5 % (50.0-75.0); RBC 4.21 Mil/uL (3.80-5.20); RED CELL DISTRIBUTION WIDTH 14.6 % (11.5-14.5); WHITE BLOOD COUNT 7.3 K/uL (4.8-10.8)
[2018-08-10 08:18] LABS: ALB/GLOB RATIO 1.6 (1.0-2.1); ALT/SGPT 54 U/L (9-52); AST/SGOT 53 U/L (14-36); BLOOD UREA NITROGEN 15 mg/dL (7-17); CALCIUM 8.9 mg/dl (8.6-10.4); GFR NON-AFRICAN AMERICAN > 60
[2018-08-10 09:01] VITALS: PULSE 63
[2018-08-10] MEDS: Sodium Chloride 0.9% 1,000 ML IV SCH (09:36)
[2018-08-10] MEDS ORDERED: Influenza Vaccine 60 mcg/0.5 mL SYR (4YR UP) IM ONE (10:00)
[2018-08-10] MEDS ORDERED: Pneumococcal 23-Valent Vaccine IM ONE (10:00)
[2018-08-10] MEDS: Fluticasone Nasal 50 mcg/Spray NAS SCH (10:18)
[2018-08-10] MEDS: Pantoprazole 40 mg EC Tab PO SCH (10:19)
[2018-08-10] MEDS: Enoxaparin 40 mg Syringe SC SCH (10:20)
[2018-08-10] MEDS: guaiFENesin 600 mg ER Tab PO SCH ×2 (10:23→11:59)
[2018-08-10] MEDS ORDERED: Bisacodyl 5mg EC Tab PO ONE (11:30)
[2018-08-10 16:15] VITALS: BP 170/70; TEMP 98.1; O2SAT 99
--- NOTE | 2018-08-10 17:01 | CP.PCM.PN ---
Subjective - Date & Time of Evaluation Date of Evaluation: 08/10/18 Time of Evaluation: 17:01 - Subjective Subjective: awake, alert, no acute distress. Objective - Vital Signs/Intake and Output Vital Signs (last 24 hours): Temp Pulse Resp BP Pulse Ox 98.1 F 63 20 170/70 H 99 08/10/18 16:13 08/10/18 16:13 08/10/18 16:13 08/10/18 16:13 08/10/18 16:13 Intake and Output: 08/10/18 08/10/18 06:59 18:59 Intake Total 850 2014 Balance 850 2014 - Medications Medications: Current Medications Acetaminophen (Tylenol 325mg Tab) 650 mg PO Q6 PRN PRN Reason: Pain, moderate (4-7) Last Admin: 08/10/18 10:19 Dose: 650 mg Alprazolam (Xanax) 0.25 mg PO BID [facility] Stop: 08/15/18 10:01 Last Admin: 08/10/18 10:19 Dose: 0.25 mg Amlodipine Besylate (Norvasc) 5 mg PO DAILY [facility] Last Admin: 08/10/18 10:19 Dose: 5 mg Docusate Sodium (Colace) 100 mg PO BID [facility] Enoxaparin Sodium (Lovenox) 40 mg SC DAILY [facility] Last Admin: 08/10/18 10:20 Dose: 40 mg Fluticasone Propionate (Flonase) 1 spr LAURA BID [facility] Last Admin: 08/10/18 10:18 Dose: 1 spry Guaifenesin (Mucinex La) 600 mg PO BID [facility] Last Admin: 08/10/18 11:59 Dose: 600 mg Ceftriaxone Sodium 1 gm/ (Sodium Chloride) 100 mls @ 100 mls/hr IVPB DAILY [facility]; Protocol Last Admin: 08/10/18 10:20 Dose: 100 mls/hr Sodium Chloride (Sodium Chloride 0.9%) 1,000 mls @ 75 mls/hr IV .[id number] [facility] Last Admin: 08/10/18 09:36 Dose: Not Given Pantoprazole Sodium (Protonix Ec Tab) 40 mg PO DAILY [facility] Last Admin: 08/10/18 10:19 Dose: 40 mg Vitamin A (Vitamin A & D Oint Ud Foilpak) 1 ea TOP BID PRN PRN Reason: Dry mouth Last Admin: 08/08/18 21:33 Dose: 1 ea - Labs Labs: 08/10/18 07:41 08/10/18 07:41 Assessment and Plan - Assessment and Plan (Free Text) Assessment: 78 year old female admitted with frequent UTI symptoms, and weakness. Seen and examined. Alert, oriented x3, feeling better today. Still has some nasal congestion and sinus headaches. Seen by DR Wade Castellanos, plan to discharge home with her son on levaquin po x5 days. Advised to follow up with PMD in 1 week.
== END 2018-08-10 17:00 | disposition home or self-care (01) | DRG 690 ==
LOC: C.ER 09:20 → C.9E 13:09 → C.3T 08-08 01:17 → OBSVTOIN 08-09 17:22
PROVIDERS: ADMIT Internal Medicine Nephrology; ATTEND Internal Medicine Nephrology
DX: N39.0 Urinary tract infection, site not specified (principal); F41.9 Anxiety disorder, unspecified; K11.7 Disturbances of salivary secretion; I10 Essential (primary) hypertension; Z87.01 Personal history of pneumonia (recurrent); Z87.440 Personal history of urinary (tract) infections; Z87.891 Personal history of nicotine dependence

== ENCOUNTER 2018-08-17 23:23 | Inpatient (IN) | payer MEDICARE ==
[2018-08-17 23:23] VITALS: BMI 24.7
[2018-08-18 00:30] LABS: SQUAMOUS EPITHIAL < 1 /hpf (0-5); URINE BACTERIA RARE (<OCC); URINE BILIRUBIN NEGATIVE (NEGATIVE); URINE BLOOD NEGATIVE (NEGATIVE); URINE CLARITY Clear (Clear); URINE COLOR Straw (YELLOW); URINE GLUCOSE (UA) NORMAL (Normal); URINE LEUKOCYTE ESTERASE TRACE Leu/uL (Negative); URINE PROTEIN NEGATIVE (NEGATIVE); URINE UROBILINOGEN NORMAL mg/dL (0.2-1.0)
--- NOTE | 2018-08-18 01:10 | C.PDOC ---
History Of Present Illness Patient presents to the ER complaining of burning sensation with urination. She was recently admitted last week for UTI and abdominal pain, finished her course of antibiotics. Denies fever or chills. Time Seen by Provider: 08/18/18 01:09 Chief Complaint (Nursing): Abdominal Pain History Per: Patient History/Exam Limitations: no limitations Onset/Duration Of Symptoms: Hrs Current Symptoms Are (Timing): Still Present Severity: Moderate Pain Scale Rating Of: 4 Radiation Of Pain To:: None Quality Of Discomfort: Burning Associated Symptoms: denies: Fever, Chills Exacerbating Factors: None Alleviating Factors: None Recent travel outside of the [place]: No Past Medical History Reviewed: Historical Data, Nursing Documentation, Vital Signs Vital Signs: Last Vital Signs Temp 98.3 F 08/17/18 23:44 Pulse 130 H 08/17/18 23:44 Resp 14 08/17/18 23:44 BP Pulse Ox 99 08/17/18 23:44 - Medical History PMH: Anxiety, HTN, Pneumonia Denies: Diabetes (Patient denied), Hepatitis (Patient denied), HIV, Chronic Kidney Disease, Seizures (Patient denied), Sexually Transmitted Disease (Patient denied) Surgical History: Tonsillectomy - [facility] EXCISION OF DESCENDING COLON, ENDO, DIAGN (06/05/18) EXCISION OF SIGMOID COLON, ENDO, DIAGN (06/05/18) EXCISION OF STOMACH, ENDO, DIAGN (06/05/18) Family History: States: No Known Family Hx - Social History Hx Tobacco Use: No Hx Alcohol Use: No Hx Substance Use: No - Immunization History Hx Tetanus Toxoid Vaccination: No Hx Influenza Vaccination: No Hx Pneumococcal Vaccination: No Review Of Systems Constitutional: Negative for: Fever, Chills Cardiovascular: Negative for: Chest Pain, Palpitations Respiratory: Negative for: Cough, Shortness of Breath Gastrointestinal: Negative for: Nausea, Vomiting Genitourinary: Positive for: Other (Burning with urination) Neurological: Negative for: Weakness, Numbness Physical Exam - Physical Exam Appears: Non-toxic Skin: Warm, Dry Head: Normacephalic Eye(s): bilateral: Normal Inspection Oral Mucosa: Moist Chest: Symmetrical, No Tenderness Cardiovascular: Rhythm Regular Respiratory: No Rales, No Rhonchi, No Wheezing Gastrointestinal/Abdominal: Soft, No Tenderness Back: No CVA Tenderness Neurological/Psych: Oriented x3 ED Course And Treatment - Laboratory Results Result Diagrams: 08/18/18 02:20 08/18/18 01:33 Lab Results: Urine Color Straw (YELLOW) 08/18/18 00:13 Urine Clarity Clear (Clear) 08/18/18 00:13 Urine pH 6.0 (5.0-8.0) 08/18/18 00:13 Ur Specific [place] 1.004 (1.003-1.030) 08/18/18 00:13 Urine Protein Negative mg/dL (NEGATIVE) 08/18/18 00:13 Urine Glucose (UA) Normal mg/dL (Normal) 08/18/18 00:13 Urine Ketones Negative mg/dL (NEGATIVE) 08/18/18 00:13 Urine Blood Negative (NEGATIVE) 08/18/18 00:13 Urine Nitrate Negative (NEGATIVE) 08/18/18 00:13 Urine Bilirubin Negative (NEGATIVE) 08/18/18 00:13 Urine Urobilinogen Normal mg/dL (0.2-1.0) 08/18/18 00:13 Ur Leukocyte Esterase Trace Jasmeet/uL (Negative) 08/18/18 00:13 Urine WBC (Auto) 1 /hpf (0-5) 08/18/18 00:13 Urine RBC (Auto) 1 /hpf (0-3) 08/18/18 00:13 Ur Squamous Epith Cells < 1 /hpf (0-5) 08/18/18 00:13 Urine Bacteria Rare (<OCC) 08/18/18 00:13 O2 Sat by Pulse Oximetry: 99 (Room air) Pulse Ox Interpretation: Normal Progress Note: Blood work and urinalysis ordered. Disposition Discussed With : Steph Casetllanos Comment: accepted the pt on his service and took over the care at 3 AM Doctor Will See Patient In The: Hospital Counseled Patient/Family Regarding: Studies Performed, Diagnosis - Disposition Disposition: HOSPITALIZED Disposition Time: 03:00 Condition: FAIR Forms: [facility] (I[place]ic) - POA Present On Arrival: Poor Glycemic Control - Clinical Impression Clinical Impression: Abdominal bloating, Abdominal pain, Hyponatremia - Scribe Statement The provider has reviewed the documentation as recorded by the Scribe Adan Harrison All medical record entries made by the Scribe were at my direction and personally dictated by me. I have reviewed the chart and agree that the record accurately reflects my personal performance of the history, physical exam, medical decision making, and the department course for this patient. I have also personally directed, reviewed, and agree with the discharge instructions and disposition. Decision To Admit - Pt Status Changed To: Hospital Disposition Of: Inpatient - Admit Certification Admit to Inpatient:: After my assessment, the patient will require hospitalization for at least two midnights. This is because of the severity of symptoms shown, intensity of services needed, and/or the medical risk in this patient being treated as an outpatient. - InPatient: Physician Admission Certification:: After my assessment, the patient will require hospitalization for at least two midnights. This is because of the severity of symptoms shown, intensity of services needed, and/or the medical risk in this patient being treated as an outpatient. - . Bed Request Type: Regular Admitting Physician: Steph Castellanos Patient Diagnosis: Abdominal bloating, Abdominal pain, Hyponatremia
[2018-08-18 01:53] LABS: ALB/GLOB RATIO 1.5 (1.0-2.1); ALBUMIN 4.4 g/dL (3.5-5.0); ALT/SGPT 27 U/L (9-52); AST/SGOT 32 U/L (14-36); BLOOD UREA NITROGEN 19 mg/dL (7-17); CALCIUM 9.5 mg/dl (8.6-10.4); GFR NON-AFRICAN AMERICAN > 60; LIPASE 161 U/L (23-300)
[2018-08-18 02:27] LABS: BASO # 0.1 K/uL (0.0-0.2); BASO % 1.5 % (0.0-2.0); EOS # 0.2 K/uL (0.0-0.7); EOS % 3.2 % (0.0-4.0); HEMOGLOBIN 13.1 g/dL (11.0-16.0); LYMPH # 2.3 K/uL (1.0-4.3); LYMPH % 31.3 % (20.0-40.0); MEAN CELL VOLUME 88.6 fL (81.0-99.0); MEAN CORPUSCULAR HGB CONC 32.7 g/dL (33.0-37.0); MEAN PLATELET VOLUME 8.1 fL (7.2-11.7); MONO # 0.5 K/uL (0.0-0.8); MONO % 6.9 % (0.0-10.0); NEUT # 4.3 K/uL (1.8-7.0); NEUT % 57.1 % (50.0-75.0); RBC 4.51 Mil/uL (3.80-5.20); RED CELL DISTRIBUTION WIDTH 14.9 % (11.5-14.5); WHITE BLOOD COUNT 7.5 K/uL (4.8-10.8)
[2018-08-18] MEDS ORDERED: Sodium Chloride 0.9% 1,000 ML IV ONE (03:01)
[2018-08-18] MEDS: Enoxaparin 40 mg Syringe SC SCH (10:18)
[2018-08-18] MEDS: Sodium Chloride 0.9% 1,000 ML IV SCH (16:53)
[2018-08-18] MEDS: guaiFENesin 600 mg ER Tab PO SCH (17:33)
--- NOTE | 2018-08-18 17:41 | CP.PCM.CON ---
History of Present Illness - History of Present Illness History of Present Illness: 78 y/o female presents for medical evaluation of recurrent UTI and sinusitis Recently treated here for UTI now found to have hyponatremia referred for ID eval for possible infection denies chills or back pain - Medical History PMH: Anxiety, HTN, Pneumonia Denies: Diabetes (Patient denied), Hepatitis (Patient denied), HIV, Chronic Kidney Disease, Seizures (Patient denied), Sexually Transmitted Disease (Patient denied) Surgical History: Tonsillectomy - [facility] Procedures EXCISION OF DESCENDING COLON, ENDO, DIAGN (06/05/18) EXCISION OF SIGMOID COLON, ENDO, DIAGN (06/05/18) EXCISION OF STOMACH, ENDO, DIAGN (06/05/18) Review of Systems - Constitutional Constitutional: As Per HPI, Anorexia - EENT Eyes: absent: As Per HPI, Blind Spots, Blurred Vision, Change in Vision, Decreased Night Vision, Diplopia, Discharge, Dry Eye, Exophthalmos, Floaters, Irritation, Itchy Eyes, Loss of Peripheral Vision, Pain, Photophobia, Requires Corrective Lenses, Sees Flashes, Spots in Vision, Tunnel Vision, Other Visual Disturbances, Loss of Vision, Other Ears: absent: As Per HPI, Decreased Hearing, Ear Discharge, Ear Pain, Tinnitus, Abnormal Hearing, Disequilibrium, Dizziness, Other Nose/Mouth/Throat: absent: As Per HPI, Epistaxis, Nasal Congestion, Nasal Discharge, Nasal Obstruction, Nasal Trauma, Nose Pain, Post Nasal Drip, Sinus Pain, Sinus Pressure, Bleeding Gums, Change in Voice, Dental Pain, Dry Mouth, Dysphagia, Halitosis, Hoarsness, Lip Swelling, Mouth Lesions, Mouth Pain, Odynophagia, Sore Throat, Throat Swelling, Tongue Swelling, Facial Pain, Neck Pain, Neck Mass, Other - Breasts Breasts: absent: As Per HPI, Change in Shape, Mass, Pain, Nipple Discharge, Nipple Inversion, Skin Changes, Swelling, Other - Cardiovascular Cardiovascular: absent: As Per HPI, Acrocyanosis, Chest Pain, Chest Pain at Rest, Chest Pain with Activity, Claudication, Diaphoresis, Dyspnea, Dyspnea on Exertion, Edema, Irregular Heart Rhythm, Pain Radiating to Arm/Neck/Jaw, Leg Edema, Leg Ulcers, Lightheadedness, Orthopnea, Palpitations, Paroxysmal Nocturnal Dyspnea, Pedal Edema, Radiating Pain, Rapid Heart Rate, Slow Heart Rate, Syncope, Other - Respiratory Respiratory: absent: As Per HPI, Cough, Dyspnea, Hemoptysis, Dyspnea on Exertion, Wheezing, Snoring, Stridor, Pain on Inspiration, Chest Congestion, Excessive Mucous Production, Change in Mucous Color, Pain with Coughing, Other - Gastrointestinal Gastrointestinal: absent: As Per HPI, Abdominal Pain, Belching, Bloating, Change in Bowel Habits, Change in Stool Character, Coffee Ground Emesis, Constipation, Cramping, Diarrhea, Dyspepsia, Dysphagia, Early Satiety, Excessive Flatus, Fecal Incontinence, Heartburn, Hematemesis, Hematochezia, Loose Stools, Melena, Nausea, Odynophagia, Temesmus, Vomiting, Other - Genitourinary Genitourinary: As Per HPI - Reproductive: Female Reproductive:Female: absent: As Per HPI, Amenorrhea, Amenorrhea/ Control, Currently Menstual, Cycle <21 Days, Cycle >35 Days, Cycle Variable, Menses 1-7 Days, Menses >/= 8 Days, Menses Variable, Cycle > 4 Weeks Between, No Menses for 6 Months, Heavy Menses, Light Menses, Normal Menses, Spotting Between Cycles, S/P Hysterectomy, Menopausal, Post Menopausal, Premenarche, Abnormal Vaginal Bleeding, Dysmenorrhea, Dyspareunia, Genital Lesions, Genital Pruritis, Pelvic Pain, Prolapse Symptoms, Sexual Dysfunction, Vaginal Discharge, Vaginal Dryness, Vaginal Odor, Vaginal Pruritis, Other - Menstruation Menstruation: absent: As Per HPI, Amenorrhea, Amenorrhea/ Control, Currently Menstual, Cycle <21 Days, Cycle >35 Days, Cycle Variable, Menses 1-7 Days, Menses >/= 8 Days, Menses Variable, Cycle > 4 Weeks Between, No Menses for 6 Months, Heavy Menses, Light Menses, Normal Menses, Spotting Between Cycles, S/P Hysterectomy, Menopausal, Post Menopausal, Premenarche, Abnormal Vaginal Bleeding, Dysmenorrhea, Other - Musculoskeletal Musculoskeletal: absent: As Per HPI, Abnormal Gait, Arthralgias, Atrophy, Back Pain, Deformity, Joint Swelling, Limited Range of Motion, Loss of Height, Muscle Cramps, Muscle Weakness, Myalgias, Neck Pain, Numbness, Radiating Pain into Limb, Stiffness, Tingling, Other - Integumentary Integumentary: absent: As Per HPI, Acne, Alopecia, Bleeding Lesions, Change in Hair, Change in Nails, Change in Pigmentation, Changing Lesions, Dry Skin, Erythema, Furuncle, Hirsutism, Lesions, New Lesions, Non-Healing Lesions, Photosensitivity, Pruritus, Rash, Skin Pain, Skin Ulcer, Sores, Striae, Swelling, Unusual Bruising, Wounds, Jaundice, Other - Neurological Neurological: absent: As Per HPI, Abnormal Gait, Abnormal Hearing, Abnormal Movements, Abnormal Speech, Behavioral Changes, Burning Sensations, Confusion, Convulsions, Disequilibrium, Dizziness, Numbness, Focal Weakness, Frequent Falls, Headaches, Lack of Coordination, Loss of Vision, Memory Loss, Paresthesias, Radicular Pain, Restless Legs, Sensory Deficit, Syncope, Tingling, Tremor, Vertigo, Weakness, Other Visual Disturbances, Other - Psychiatric Psychiatric: absent: As Per HPI, Abnormal Sleep Pattern, Anhedonia, Anxiety, Auditory Hallucinations, Behavioral Changes, Change in Appetite, Change in Libido, Confusion, Depression, Difficulty Concentrating, Hallucinations, Homicidal Ideation, Hopelessness, Irritability, Memory Loss, Mood Swings, Panic Attacks, Paranoia, Suicidal Ideation, Visual Hallucinations, Tactile Hallucinations, Other - Endocrine Endocrine: absent: As Per HPI, Change in Body Appearance, Change in Libido, Cold Intolorance, Deepening of Voice, Excessive Sweating, Fatigue, Flushing, Heat Intolorance, Increase in Ring/Shoe/Hat Size, Palpitations, Polydipsia, Polyphagia, Polyuria, Other - Hematologic/Lymphatic Hematologic: absent: As Per HPI, Easy Bleeding, Easy Bruising, Lymphadenopathy, Other Past Patient History - Infectious Disease Hx of Infectious Diseases: None - Past Medical History & Family History Past Medical History?: Yes - Past Social History Smoking Status: Never Smoked - CARDIAC Hx Hypertension: Yes - PULMONARY Hx Pneumonia: Yes - NEUROLOGICAL Hx Seizures: No (Patient denied) - HEENT Hx HEENT Problems: Yes Other/Comment: excessive salivation - RENAL Hx Chronic Kidney Disease: No - ENDOCRINE/METABOLIC Hx Endocrine Disorders: No - HEMATOLOGICAL/ONCOLOGICAL Hx Blood Disorders: No Hx Human Immunodeficiency Virus (HIV): No - INTEGUMENTARY Hx Dermatological Problems: No - MUSCULOSKELETAL/RHEUMATOLOGICAL Hx Falls: No - GASTROINTESTINAL Hx Gastrointestinal Disorders: No Hx Gastroesophageal Reflux: Yes - GENITOURINARY/GYNECOLOGICAL Hx Genitourinary Disorders: No Hx Sexually Transmitted Disorders: No (Patient denied) - PSYCHIATRIC Hx Anxiety: Yes Hx Substance Use: No - SURGICAL HISTORY Hx Tonsillectomy: Yes Other/Comment: s/p colonoscopy/egd 08/22 - ANESTHESIA Hx Anesthesia: Yes Hx Anesthesia Reactions: No Hx Malignant Hyperthermia: No Meds Allergies/Adverse Reactions: Allergies Allergy/AdvReac Type Severity Reaction Status Date / Time No Known Allergies Allergy Verified 08/17/18 23:47 - Medications Medications: Current Medications Albuterol/Ipratropium (Duoneb 3 Mg/0.5 Mg (3 Ml) Ud) 3 ml INH RQ6 [facility] Enoxaparin Sodium (Lovenox) 40 mg SC DAILY [facility] Last Admin: 08/18/18 10:18 Dose: 40 mg Guaifenesin (Mucinex La) 600 mg PO Q12H [facility] Last Admin: 08/18/18 17:33 Dose: 600 mg Sodium Chloride (Sodium Chloride 0.9%) 1,000 mls @ 50 mls/hr IV .Q20H [facility] Last Admin: 08/18/18 16:53 Dose: 50 mls/hr Piperacillin Sod/Tazobactam (Sod 3.375 gm/ Sodium Chloride) 100 mls @ 200 mls/hr IVPB Q8H [facility]; Protocol Influenza Virus Vaccine (Flucelvax Quad 4780-5969 Syr) 60 mcg IM .ONCE ONE Stop: 08/20/18 10:16 Pantoprazole Sodium (Protonix Inj) 40 mg IVP DAILY [facility] Last Admin: 08/18/18 12:36 Dose: 40 mg Pneumococcal Polyvalent Vaccine (Pneumovax 23 Vaccine) 0.5 ml IM .ONCE ONE Stop: 08/20/18 10:01 Physical Exam - Constitutional Appears: Non-toxic, Cachectic, Chronically Ill - Head Exam Head Exam: ATRAUMATIC, NORMOCEPHALIC - Eye Exam Eye Exam: PERRL. absent: Scleral icterus - ENT Exam ENT Exam: Mucous Membranes Dry, Normal External Ear Exam - Neck Exam Neck exam: Negative for: Lymphadenopathy - Respiratory Exam Respiratory Exam: Decreased Breath Sounds, Clear to Auscultation Bilateral - Cardiovascular Exam Cardiovascular Exam: REGULAR RHYTHM, +S1, +S2 - GI/Abdominal Exam GI & Abdominal Exam: Diminished Bowel Sounds, Distended, Soft. absent: Rebound, Rigid, Tenderness - Rectal Exam Rectal Exam: Deferred - Exam Exam: NORMAL INSPECTION - Extremities Exam Extremities exam: Positive for: pedal pulses present. Negative for: calf t enderness, pedal edema, tenderness - Back Exam Back exam: absent: CVA tenderness (L), CVA tenderness (R), paraspinal tenderness - Neurological Exam Neurological exam: Alert, CN II-XII Intact, Reflexes Normal - Psychiatric Exam Psychiatric exam: Depressed - Skin Skin Exam: Dry Results - Vital Signs Recent Vital Signs: Last Vital Signs Temp 98.2 F 08/18/18 16:00 Pulse 66 08/18/18 16:00 Resp 20 08/18/18 16:00 BP 134/70 08/18/18 16:00 Pulse Ox 97 08/18/18 16:00 - Labs Result Diagrams: 08/18/18 02:20 08/18/18 01:33 Labs: Laboratory Results - last 24 hr 08/18/18 08/18/18 08/18/18 00:13 01:33 02:20 WBC 7.5 RBC 4.51 Hgb 13.1 Hct 40.0 MCV 88.6 MCH 29.0 MCHC 32.7 L RDW 14.9 H Plt Count 408 H MPV 8.1 Neut % (Auto) 57.1 Lymph % (Auto) 31.3 [place] % (Auto) 6.9 Eos % (Auto) 3.2 Baso % (Auto) 1.5 Neut # (Auto) 4.3 Lymph # (Auto) 2.3 [place] # (Auto) 0.5 Eos # (Auto) 0.2 Baso # (Auto) 0.1 Sodium 129 L Potassium 3.8 Chloride 99 Carbon Dioxide 24 Anion Gap 10 BUN 19 H Creatinine 0.5 L Est GFR ( Amer) > 60 Est GFR (Non-Af Amer) > 60 Random Glucose 125 H D Calcium 9.5 Total Bilirubin 0.8 AST 32 ALT 27 Alkaline Phosphatase 77 Total Protein 7.4 Albumin 4.4 Globulin 3.0 Albumin/Globulin Ratio 1.5 Lipase 161 Urine Color Straw Urine Clarity Clear Urine pH 6.0 Ur Specific [place] 1.004 Urine Protein Negative Urine Glucose (UA) Normal Urine Ketones Negative Urine Blood Negative Urine Nitrate Negative Urine Bilirubin Negative Urine Urobilinogen Normal Ur Leukocyte Esterase Trace Urine WBC (Auto) 1 Urine RBC (Auto) 1 Ur Squamous Epith Cells < 1 Urine Bacteria Rare Assessment & Plan (1) Hyponatremia syndrome Status: Acute (2) Abdominal pain Status: Acute (3) Dysuria Status: Acute - Assessment and Plan (Free Text) Assessment: dysuria- could be psychogenic may need neuro eval possible [facility] ? await cultures will follow with you
--- NOTE | 2018-08-18 18:35 | CP.PCM.HP ---
Past Patient History - Infectious Disease Hx of Infectious Diseases: None - Past Medical History & Family History Past Medical History?: Yes - Past Social History Smoking Status: Never Smoked - CARDIAC Hx Hypertension: Yes - PULMONARY Hx Pneumonia: Yes - NEUROLOGICAL Hx Seizures: No (Patient denied) - HEENT Hx HEENT Problems: Yes Other/Comment: excessive salivation - RENAL Hx Chronic Kidney Disease: No - ENDOCRINE/METABOLIC Hx Endocrine Disorders: No - HEMATOLOGICAL/ONCOLOGICAL Hx Blood Disorders: No Hx Human Immunodeficiency Virus (HIV): No - INTEGUMENTARY Hx Dermatological Problems: No - MUSCULOSKELETAL/RHEUMATOLOGICAL Hx Falls: No - GASTROINTESTINAL Hx Gastrointestinal Disorders: No Hx Gastroesophageal Reflux: Yes - GENITOURINARY/GYNECOLOGICAL Hx Genitourinary Disorders: No Hx Sexually Transmitted Disorders: No (Patient denied) - PSYCHIATRIC Hx Anxiety: Yes Hx Substance Use: No - SURGICAL HISTORY Hx Tonsillectomy: Yes Other/Comment: s/p colonoscopy/egd 08/22 - ANESTHESIA Hx Anesthesia: Yes Hx Anesthesia Reactions: No Hx Malignant Hyperthermia: No Meds Allergies/Adverse Reactions: Allergies Allergy/AdvReac Type Severity Reaction Status Date / Time No Known Allergies Allergy Verified 08/17/18 23:47 Physical Exam - Constitutional Appears: Well - Head Exam Head Exam: ATRAUMATIC, NORMAL INSPECTION, NORMOCEPHALIC - Eye Exam Eye Exam: EOMI, Normal appearance, PERRL Pupil Exam: NORMAL ACCOMODATION, PERRL - ENT Exam ENT Exam: Mucous Membranes Moist, Normal Exam - Neck Exam Neck exam: Positive for: Normal Inspection - Respiratory Exam Respiratory Exam: Decreased Breath Sounds - Cardiovascular Exam Cardiovascular Exam: REGULAR RHYTHM, +S1, +S2 - GI/Abdominal Exam GI & Abdominal Exam: Diminished Bowel Sounds, Soft - Rectal Exam Rectal Exam: Deferred Results - Vital Signs Recent Vital Signs: Last Vital Signs Temp 98.2 F 08/18/18 16:00 Pulse 66 08/18/18 16:00 Resp 20 08/18/18 16:00 BP 134/70 08/18/18 16:00 Pulse Ox 97 08/18/18 16:00 - Labs Result Diagrams: 08/18/18 02:20 08/18/18 01:33 Labs: Laboratory Results - last 24 hr 08/18/18 08/18/18 08/18/18 00:13 01:33 02:20 WBC 7.5 RBC 4.51 Hgb 13.1 Hct 40.0 MCV 88.6 MCH 29.0 MCHC 32.7 L RDW 14.9 H Plt Count 408 H MPV 8.1 Neut % (Auto) 57.1 Lymph % (Auto) 31.3 [place] % (Auto) 6.9 Eos % (Auto) 3.2 Baso % (Auto) 1.5 Neut # (Auto) 4.3 Lymph # (Auto) 2.3 [place] # (Auto) 0.5 Eos # (Auto) 0.2 Baso # (Auto) 0.1 Sodium 129 L Potassium 3.8 Chloride 99 Carbon Dioxide 24 Anion Gap 10 BUN 19 H Creatinine 0.5 L Est GFR ( Amer) > 60 Est GFR (Non-Af Amer) > 60 Random Glucose 125 H D Calcium 9.5 Total Bilirubin 0.8 AST 32 ALT 27 Alkaline Phosphatase 77 Total Protein 7.4 Albumin 4.4 Globulin 3.0 Albumin/Globulin Ratio 1.5 Lipase 161 Urine Color Straw Urine Clarity Clear Urine pH 6.0 Ur Specific [place] 1.004 Urine Protein Negative Urine Glucose (UA) Normal Urine Ketones Negative Urine Blood Negative Urine Nitrate Negative Urine Bilirubin Negative Urine Urobilinogen Normal Ur Leukocyte Esterase Trace Urine WBC (Auto) 1 Urine RBC (Auto) 1 Ur Squamous Epith Cells < 1 Urine Bacteria Rare
[2018-08-18] MEDS: Piperacillin/Tazobact 3.375 GM in Sodium Chloride 100 ML IVPB SCH (21:50)
[2018-08-19] MEDS: Albuterol-Ipratrop 3 mg / 0.5 (3 ml) UD INH SCH ×4 (01:26→19:46)
[2018-08-19] MEDS: Piperacillin/Tazobact 3.375 GM in Sodium Chloride 100 ML IVPB SCH ×3 (04:00→19:00)
[2018-08-19] MEDS: guaiFENesin 600 mg ER Tab PO SCH ×2 (05:24→17:00)
[2018-08-19 07:34] LABS: BASO # 0.1 K/uL (0.0-0.2); EOS # 0.3 K/uL (0.0-0.7); HEMOGLOBIN 12.2 g/dL (11.0-16.0); LYMPH # 2.1 K/uL (1.0-4.3); LYMPH % 38.5 % (20.0-40.0); MEAN CELL VOLUME 89.2 fL (81.0-99.0); MEAN CORPUSCULAR HEMOGLOBIN 29.9 pg (27.0-31.0); MEAN CORPUSCULAR HGB CONC 33.6 g/dL (33.0-37.0); MONO # 0.4 K/uL (0.0-0.8); MONO % 6.6 % (0.0-10.0); NEUT # 2.7 K/uL (1.8-7.0); NEUT % 48.9 % (50.0-75.0); RBC 4.07 Mil/uL (3.80-5.20); RED CELL DISTRIBUTION WIDTH 14.9 % (11.5-14.5); WHITE BLOOD COUNT 5.5 K/uL (4.8-10.8)
[2018-08-19 07:55] LABS: BLOOD UREA NITROGEN 15 mg/dL (7-17); CALCIUM 8.8 mg/dl (8.6-10.4); GFR NON-AFRICAN AMERICAN > 60
[2018-08-19] MEDS: Enoxaparin 40 mg Syringe SC SCH (09:37)
[2018-08-19] MEDS: Sodium Chloride 0.9% 1,000 ML IV SCH (11:10)
--- NOTE | 2018-08-19 18:15 | CP.PCM.PN ---
Subjective - Date & Time of Evaluation Date of Evaluation: 08/19/18 Time of Evaluation: 08:15 - Subjective Subjective: clinically same Objective - Vital Signs/Intake and Output Vital Signs (last 24 hours): Temp Pulse Resp BP Pulse Ox 98.1 F 68 18 124/66 98 08/19/18 17:13 08/19/18 17:13 08/19/18 17:13 08/19/18 17:13 08/19/18 17:13 Intake and Output: 08/19/18 08/19/18 06:59 18:59 Intake Total 1600 Balance 1600 - Medications Medications: Current Medications Albuterol/Ipratropium (Duoneb 3 Mg/0.5 Mg (3 Ml) Ud) 3 ml INH RQ6 [facility] BEDS AT [facility] Last Admin: 08/19/18 13:18 Dose: Not Given Enoxaparin Sodium (Lovenox) 40 mg SC DAILY [facility] 234 B[facility]S [facility] Last Admin: 08/19/18 09:37 Dose: 40 mg Guaifenesin (Mucinex La) 600 mg PO Q12H [facility] 234 BEDS [facility] Last Admin: 08/19/18 17:00 Dose: 600 mg Sodium Chloride (Sodium Chloride 0.9%) 1,000 mls @ 50 mls/hr IV .Q20H [facility] Last Admin: 08/19/18 11:10 Dose: 50 mls/hr Piperacillin Sod/Tazobactam (Sod 3.375 gm/ Sodium Chloride) 100 mls @ 200 mls/hr IVPB Q8H [facility] 234 BEDS [facility]; Protocol Last Admin: 08/19/18 11:10 Dose: 200 mls/hr Influenza Virus Vaccine (Flucelvax Quad 8321-4153 Syr) 60 mcg IM .ONCE ONE Stop: 08/20/18 10:16 Pantoprazole Sodium (Protonix Inj) 40 mg IVP DAILY [facility] 234 B[facility]S [facility] Last Admin: 08/19/18 09:37 Dose: 40 mg Pneumococcal Polyvalent Vaccine (Pneumovax 23 Vaccine) 0.5 ml IM .ONCE ONE Stop: 08/20/18 10:01 - Labs Labs: 08/19/18 07:24 08/19/18 07:24 - Constitutional Appears: Well - Head Exam Head Exam: ATRAUMATIC, NORMAL INSPECTION, NORMOCEPHALIC - Eye Exam Eye Exam: EOMI, Normal appearance, PERRL Pupil Exam: NORMAL ACCOMODATION, PERRL - ENT Exam ENT Exam: Mucous Membranes Moist, Normal Exam - Neck Exam Neck Exam: Full ROM, Normal Inspection. absent: Lymphadenopathy - Respiratory Exam Respiratory Exam: Decreased Breath Sounds - Cardiovascular Exam Cardiovascular Exam: REGULAR RHYTHM, +S1, +S2 - GI/Abdominal Exam GI & Abdominal Exam: Soft, Diminished Bowel Sounds - Rectal Exam Rectal Exam: Deferred
[2018-08-20] MEDS: Piperacillin/Tazobact 3.375 GM in Sodium Chloride 100 ML IVPB SCH ×3 (03:23→20:39)
[2018-08-20] MEDS: guaiFENesin 600 mg ER Tab PO SCH ×2 (05:01→18:19)
[2018-08-20] MEDS: Sodium Chloride 0.9% 1,000 ML IV SCH (08:48)
[2018-08-20] MEDS: Albuterol-Ipratrop 3 mg / 0.5 (3 ml) UD INH SCH ×3 (09:50→21:52)
[2018-08-20] MEDS: Enoxaparin 40 mg Syringe SC SCH (09:59)
[2018-08-20] MEDS ORDERED: Pneumococcal 23-Valent Vaccine IM ONE (10:00)
[2018-08-20] MEDS ORDERED: Influenza Vaccine 60 mcg/0.5 mL SYR (4YR UP) IM ONE (10:15)
--- NOTE | 2018-08-20 12:47 | CP.PCM.PN ---
Subjective - Date & Time of Evaluation Date of Evaluation: 08/20/18 Time of Evaluation: 08:30 - Subjective Subjective: clinically same Objective - Vital Signs/Intake and Output Vital Signs (last 24 hours): Temp Pulse Resp BP Pulse Ox 98.8 F 72 20 120/63 96 08/20/18 07:31 08/20/18 07:31 08/20/18 07:31 08/20/18 07:31 08/20/18 07:31 Intake and Output: 08/20/18 08/20/18 06:59 18:59 Intake Total 1240 Balance 1240 - Medications Medications: Current Medications Albuterol/Ipratropium (Duoneb 3 Mg/0.5 Mg (3 Ml) Ud) 3 ml INH RQ6 [facility] Last Admin: 08/20/18 09:50 Dose: Not Given Enoxaparin Sodium (Lovenox) 40 mg SC DAILY [facility] Last Admin: 08/20/18 09:59 Dose: 40 mg Guaifenesin (Mucinex La) 600 mg PO Q12H [facility] Last Admin: 08/20/18 05:01 Dose: 600 mg Sodium Chloride (Sodium Chloride 0.9%) 1,000 mls @ 50 mls/hr IV .Q20H [facility] Last Admin: 08/20/18 08:48 Dose: Not Given Piperacillin Sod/Tazobactam (Sod 3.375 gm/ Sodium Chloride) 100 mls @ 200 mls/hr IVPB Q8H [facility]; Protocol Last Admin: 08/20/18 11:21 Dose: 200 mls/hr Pantoprazole Sodium (Protonix Inj) 40 mg IVP DAILY [facility] Last Admin: 08/20/18 09:59 Dose: 40 mg - Labs Labs: 08/19/18 07:24 08/19/18 07:24 - Constitutional Appears: Well - Head Exam Head Exam: ATRAUMATIC, NORMAL INSPECTION, NORMOCEPHALIC - Eye Exam Eye Exam: EOMI, Normal appearance, PERRL Pupil Exam: NORMAL ACCOMODATION, PERRL - ENT Exam ENT Exam: Mucous Membranes Moist, Normal Exam - Neck Exam Neck Exam: Full ROM, Normal Inspection. absent: Lymphadenopathy - Respiratory Exam Respiratory Exam: Decreased Breath Sounds - Cardiovascular Exam Cardiovascular Exam: REGULAR RHYTHM, +S1, +S2 - GI/Abdominal Exam GI & Abdominal Exam: Soft, Diminished Bowel Sounds - Rectal Exam Rectal Exam: Deferred
--- NOTE | 2018-08-20 16:04 | CP.PCM.PN ---
Subjective - Date & Time of Evaluation Date of Evaluation: 08/20/18 Time of Evaluation: 09:00 - Subjective Subjective: 78 y/o female presents for medical evaluation of recurrent UTI and sinusitis Recently treated here for UTI now found to have hyponatremia referred for ID eval for possible infection denies chills or back pain Objective - Vital Signs/Intake and Output Vital Signs (last 24 hours): Temp Pulse Resp BP Pulse Ox 98 F 62 20 144/66 96 08/20/18 15:42 08/20/18 15:42 08/20/18 15:42 08/20/18 15:42 08/20/18 15:42 Intake and Output: 08/20/18 08/20/18 06:59 18:59 Intake Total 1240 350 Balance 1240 350 - Medications Medications: Current Medications Albuterol/Ipratropium (Duoneb 3 Mg/0.5 Mg (3 Ml) Ud) 3 ml INH RQ6 [facility] Last Admin: 08/20/18 14:00 Dose: Not Given Enoxaparin Sodium (Lovenox) 40 mg SC DAILY [facility] Last Admin: 08/20/18 09:59 Dose: 40 mg Guaifenesin (Mucinex La) 600 mg PO Q12H [facility] Last Admin: 08/20/18 05:01 Dose: 600 mg Sodium Chloride (Sodium Chloride 0.9%) 1,000 mls @ 50 mls/hr IV .Q20H [facility] Last Admin: 08/20/18 08:48 Dose: Not Given Piperacillin Sod/Tazobactam (Sod 3.375 gm/ Sodium Chloride) 100 mls @ 200 mls/hr IVPB Q8H [facility]; Protocol Last Admin: 08/20/18 11:21 Dose: 200 mls/hr Pantoprazole Sodium (Protonix Inj) 40 mg IVP DAILY [facility] Last Admin: 08/20/18 09:59 Dose: 40 mg - Labs Labs: 08/19/18 07:24 08/19/18 07:24 - Constitutional Appears: Non-toxic, Confused, Cachectic, Chronically Ill - Head Exam Head Exam: ATRAUMATIC, NORMAL INSPECTION, NORMOCEPHALIC - Eye Exam Eye Exam: EOMI, Normal appearance, PERRL Pupil Exam: NORMAL ACCOMODATION, PERRL - ENT Exam ENT Exam: Mucous Membranes Moist, Normal Exam - Neck Exam Neck Exam: Full ROM, Normal Inspection. absent: Lymphadenopathy - Respiratory Exam Respiratory Exam: Clear to Ausculation Bilateral, NORMAL BREATHING PATTERN - Cardiovascular Exam Cardiovascular Exam: REGULAR RHYTHM, +S1, +S2. absent: Murmur - GI/Abdominal Exam GI & Abdominal Exam: Soft, Normal Bowel Sounds. absent: Tenderness - Rectal Exam Rectal Exam: NORMAL INSPECTION - Exam Exam: Circumcision, NORMAL INSPECTION External exam: NORMAL EXTERNAL EXAM Speculum exam: NORMAL SPECULUM EXAM Bimanual exam: NORMAL BIMANUAL EXAM - Extremities Exam Extremities Exam: Full ROM, Normal Capillary Refill, Normal Inspection. absent: Joint Swelling, Pedal Edema - Back Exam Back Exam: NORMAL INSPECTION - Neurological Exam Neurological Exam: Alert, Awake, CN II-XII Intact, Normal Gait, Oriented x3 - Psychiatric Exam Psychiatric exam: Normal Affect, Normal Mood - Skin Skin Exam: Dry, Intact, Normal Color, Warm Assessment and Plan (1) Hyponatremia syndrome Status: Acute (2) Abdominal pain Status: Acute (3) Dysuria Status: Acute - Assessment and Plan (Free Text) Assessment: 78 y/o female presents for medical evaluation of recurrent UTI and sinusitis Recently treated here for UTI now found to have hyponatremia all cultures neg thus far has hyponatremia- etiology unclear
[2018-08-21] MEDS: Sodium Chloride 0.9% 1,000 ML IV SCH (03:47)
[2018-08-21] MEDS: Piperacillin/Tazobact 3.375 GM in Sodium Chloride 100 ML IVPB SCH ×3 (03:47→20:31)
[2018-08-21] MEDS: guaiFENesin 600 mg ER Tab PO SCH ×2 (05:03→18:14)
[2018-08-21] MEDS: Albuterol-Ipratrop 3 mg / 0.5 (3 ml) UD INH SCH ×3 (07:40→20:28)
[2018-08-21] MEDS: Enoxaparin 40 mg Syringe SC SCH (09:41)
--- NOTE | 2018-08-21 14:12 | CP.PCM.PN ---
Subjective - Date & Time of Evaluation Date of Evaluation: 08/21/18 Time of Evaluation: 08:15 - Subjective Subjective: clinically same Objective - Vital Signs/Intake and Output Vital Signs (last 24 hours): Temp Pulse Resp BP Pulse Ox 98.8 F 62 20 155/75 H 95 08/21/18 08:03 08/21/18 08:03 08/21/18 08:03 08/21/18 08:03 08/21/18 08:03 Intake and Output: 08/21/18 08/21/18 06:59 18:59 Intake Total 760 Balance 760 - Medications Medications: Current Medications Albuterol/Ipratropium (Duoneb 3 Mg/0.5 Mg (3 Ml) Ud) 3 ml INH RQ6 [facility] Last Admin: 08/21/18 07:40 Dose: Not Given Enoxaparin Sodium (Lovenox) 40 mg SC DAILY [facility] Last Admin: 08/21/18 09:41 Dose: 40 mg Guaifenesin (Mucinex La) 600 mg PO Q12H [facility] Last Admin: 08/21/18 05:03 Dose: 600 mg Sodium Chloride (Sodium Chloride 0.9%) 1,000 mls @ 50 mls/hr IV .Q20H [facility] Last Admin: 08/21/18 03:47 Dose: Not Given Piperacillin Sod/Tazobactam (Sod 3.375 gm/ Sodium Chloride) 100 mls @ 200 mls/hr IVPB Q8H [facility]; Protocol Last Admin: 08/21/18 11:06 Dose: 200 mls/hr Pantoprazole Sodium (Protonix Inj) 40 mg IVP DAILY [facility] Last Admin: 08/21/18 09:41 Dose: 40 mg - Labs Labs: 08/19/18 07:24 08/19/18 07:24
--- NOTE | 2018-08-21 22:38 | CP.PCM.CON ---
History of Present Illness - History of Present Illness History of Present Illness: UROLOGY CONSULTATION Past Patient History - Infectious Disease Hx of Infectious Diseases: None - Past Medical History & Family History Past Medical History?: Yes - Past Social History Smoking Status: Never Smoked - CARDIAC Hx Hypertension: Yes - PULMONARY Hx Pneumonia: Yes - NEUROLOGICAL Hx Seizures: No (Patient denied) - HEENT Hx HEENT Problems: Yes Other/Comment: excessive salivation - RENAL Hx Chronic Kidney Disease: No - ENDOCRINE/METABOLIC Hx Endocrine Disorders: No - HEMATOLOGICAL/ONCOLOGICAL Hx Blood Disorders: No Hx Human Immunodeficiency Virus (HIV): No - INTEGUMENTARY Hx Dermatological Problems: No - MUSCULOSKELETAL/RHEUMATOLOGICAL Hx Falls: No - GASTROINTESTINAL Hx Gastrointestinal Disorders: No Hx Gastroesophageal Reflux: Yes - GENITOURINARY/GYNECOLOGICAL Hx Genitourinary Disorders: No Hx Sexually Transmitted Disorders: No (Patient denied) - PSYCHIATRIC Hx Anxiety: Yes Hx Substance Use: No - SURGICAL HISTORY Hx Tonsillectomy: Yes Other/Comment: s/p colonoscopy/egd 08/22 - ANESTHESIA Hx Anesthesia: Yes Hx Anesthesia Reactions: No Hx Malignant Hyperthermia: No Meds Allergies/Adverse Reactions: Allergies Allergy/AdvReac Type Severity Reaction Status Date / Time No Known Allergies Allergy Verified 08/17/18 23:47 - Medications Medications: Current Medications Albuterol/Ipratropium (Duoneb 3 Mg/0.5 Mg (3 Ml) Ud) 3 ml INH RQ6 [facility] Last Admin: 08/21/18 20:28 Dose: Not Given Enoxaparin Sodium (Lovenox) 40 mg SC DAILY [facility] Last Admin: 08/21/18 09:41 Dose: 40 mg Guaifenesin (Mucinex La) 600 mg PO Q12H [facility] Last Admin: 08/21/18 18:14 Dose: 600 mg Piperacillin Sod/Tazobactam (Sod 3.375 gm/ Sodium Chloride) 100 mls @ 200 mls/hr IVPB Q8H [facility]; Protocol Last Admin: 08/21/18 20:31 Dose: 200 mls/hr Pantoprazole Sodium (Protonix Inj) 40 mg IVP DAILY [facility] Last Admin: 08/21/18 09:41 Dose: 40 mg Results - Vital Signs Recent Vital Signs: Last Vital Signs Temp 98.7 F 08/21/18 17:27 Pulse 71 08/21/18 17:27 Resp 20 08/21/18 17:27 BP 146/62 08/21/18 17:27 Pulse Ox 95 08/21/18 17:27 - Labs Result Diagrams: 08/19/18 07:24 08/19/18 07:24 Assessment & Plan - Assessment and Plan (Free Text) Assessment: IMP: DYSURIA HX OF RECURRENT UTI HYPERTENSION HYPONATREMIA THANK YOU. YS - Date & Time Date: 08/21/18 Time: 11:05
[2018-08-22] MEDS: Albuterol-Ipratrop 3 mg / 0.5 (3 ml) UD INH SCH ×4 (02:00→19:29)
[2018-08-22] MEDS: Piperacillin/Tazobact 3.375 GM in Sodium Chloride 100 ML IVPB SCH ×2 (03:20→20:33)
[2018-08-22] MEDS: guaiFENesin 600 mg ER Tab PO SCH ×2 (05:25→18:09)
[2018-08-22 07:37] LABS: PROTHROMBIN TIME 11.1 SECONDS (9.7-12.2)
[2018-08-22 07:43] LABS: SQUAMOUS EPITHIAL 4 /hpf (0-5); URINE BILIRUBIN NEGATIVE (NEGATIVE); URINE BLOOD NEGATIVE (NEGATIVE); URINE CLARITY Clear (Clear); URINE COLOR Straw (YELLOW); URINE GLUCOSE (UA) NORMAL (Normal); URINE LEUKOCYTE ESTERASE NEG Leu/uL (Negative); URINE PROTEIN NEGATIVE (NEGATIVE); URINE UROBILINOGEN NORMAL mg/dL (0.2-1.0)
[2018-08-22] MEDS ORDERED: cefTRIAXone 1 gm 0 GM/0 ML BAG IVPB ONE (10:42)
[2018-08-22] MEDS ORDERED: Iohexol 240 (50 ml) ONE (10:42)
[2018-08-22] MEDS ORDERED: Propofol 10 mg/ml Inj (20 ML) ONE (10:45)
[2018-08-22] MEDS ORDERED: Lidocaine Hydrochloride 5 ML INJ ONE (11:07)
--- NOTE | 2018-08-22 11:11 | PCM.SURG1 ---
Surgeon's Initial Post Op Note - Surgeon's Notes Surgeon: Maxwell Kidd Casing Crew Pusher: none Type of Anesthesia: General Mask Pre-Operative Diagnosis: UTI Operative Findings: cystitis. bilat hydronephrosis Post-Operative Diagnosis: same Operation Performed: cysto. bilat rtg pyelogram. bladder bx and fulg. vaginoscopy. EUA Specimen/Specimens Removed: urine. bladder bx Estimated Blood Loss: EBL {In ML}: 0 Blood Products Given: N/A Drains Used: No Drains Date of Surgery/Procedure: 08/22/18 Time of Surgery/Procedure: 11:09
[2018-08-22 12:49] LABS: SQUAMOUS EPITHIAL < 1 /hpf (0-5); URINE BILIRUBIN NEGATIVE (NEGATIVE); URINE BLOOD NEGATIVE (NEGATIVE); URINE CLARITY Clear (Clear); URINE COLOR Yellow (YELLOW); URINE GLUCOSE (UA) NORMAL (Normal); URINE LEUKOCYTE ESTERASE NEG Leu/uL (Negative); URINE PROTEIN NEGATIVE (NEGATIVE); URINE UROBILINOGEN NORMAL mg/dL (0.2-1.0)
[2018-08-22 15:21] VITALS: RESP 20
--- NOTE | 2018-08-22 17:49 | CP.PCM.PN ---
Subjective - Date & Time of Evaluation Date of Evaluation: 08/22/18 Time of Evaluation: 08:15 - Subjective Subjective: clinically same Objective - Vital Signs/Intake and Output Vital Signs (last 24 hours): Temp Pulse Resp BP Pulse Ox 98.8 F 73 20 130/68 97 08/22/18 15:19 08/22/18 15:19 08/22/18 15:19 08/22/18 15:19 08/22/18 15:19 Intake and Output: 08/22/18 08/22/18 06:59 18:59 Intake Total 610 500 Balance 610 500 - Medications Medications: Current Medications Albuterol/Ipratropium (Duoneb 3 Mg/0.5 Mg (3 Ml) Ud) 3 ml INH RQ6 [facility] Last Admin: 08/22/18 13:55 Dose: Not Given Enoxaparin Sodium (Lovenox) 40 mg SC DAILY [facility] Last Admin: 08/21/18 09:41 Dose: 40 mg Guaifenesin (Mucinex La) 600 mg PO Q12H [facility] Last Admin: 08/22/18 05:25 Dose: 600 mg Piperacillin Sod/Tazobactam (Sod 3.375 gm/ Sodium Chloride) 100 mls @ 200 mls/hr IVPB Q8H [facility]; Protocol Last Admin: 08/22/18 03:20 Dose: 200 mls/hr Lactated Ringer's (Lactated Ringer's) 1,000 mls @ 80 mls/hr IV .[id number] [facility] Pantoprazole Sodium (Protonix Inj) 40 mg IVP DAILY [facility] Last Admin: 08/22/18 10:51 Dose: Not Given - Labs Labs: 08/19/18 07:24 08/19/18 07:24 PT 11.1 SECONDS (9.7-12.2) 08/22/18 07:05 INR 1.0 08/22/18 07:05 APTT 32 SECONDS (21-34) 08/22/18 07:05
--- NOTE | 2018-08-22 17:59 | RAD ---
Date of service: 08/22/2018 PROCEDURE: Intraoperative Fluoroscopy. HISTORY: BILAT HYDRONEPHROSIS FINDINGS: Fluoroscopic assistance was provided for bilateral retrograde. Please refer to the operative report from Dr. ALLISON RICHLAND. Total fluoroscopic time (continuous mode) utilized during the procedure twelve 2 seconds. Dose report: DLP [id number] (mGy/m2)
[2018-08-23] MEDS: Lactated Ringer's 1,000 ML IV SCH ×2 (00:24→12:07)
[2018-08-23] MEDS: Albuterol-Ipratrop 3 mg / 0.5 (3 ml) UD INH SCH ×3 (02:15→13:10)
[2018-08-23] MEDS: Piperacillin/Tazobact 3.375 GM in Sodium Chloride 100 ML IVPB SCH ×2 (03:45→12:13)
[2018-08-23] MEDS: guaiFENesin 600 mg ER Tab PO SCH (05:21)
[2018-08-23] MEDS ORDERED: Pantoprazole 40 mg EC Tab PO SCH (10:00)
[2018-08-23 15:22] VITALS: BP 130/62; PULSE 74; TEMP 98.1; O2SAT 98
--- NOTE | 2018-08-23 16:28 | CP.PCM.PN ---
Subjective - Date & Time of Evaluation Date of Evaluation: 08/23/18 Time of Evaluation: 16:28 - Subjective Subjective: alert, awake, ambulatory, no distress. Objective - Vital Signs/Intake and Output Vital Signs (last 24 hours): Temp Pulse Resp BP Pulse Ox 98.1 F 74 20 130/62 98 08/23/18 15:00 08/23/18 15:00 08/23/18 15:00 08/23/18 15:00 08/23/18 15:00 Intake and Output: 08/23/18 08/23/18 06:59 18:59 Intake Total 790 Balance 790 - Medications Medications: Current Medications Albuterol/Ipratropium (Duoneb 3 Mg/0.5 Mg (3 Ml) Ud) 3 ml INH RQ6 [facility] Last Admin: 08/23/18 13:10 Dose: 3 ml Diphenhydramine HCl (Benadryl) 25 mg PO BID PRN PRN Reason: Itching / Pruritus Enoxaparin Sodium (Lovenox) 40 mg SC DAILY [facility] Last Admin: 08/21/18 09:41 Dose: 40 mg Guaifenesin (Mucinex La) 600 mg PO Q12H [facility] Last Admin: 08/23/18 05:21 Dose: 600 mg Piperacillin Sod/Tazobactam (Sod 3.375 gm/ Sodium Chloride) 100 mls @ 200 mls/hr IVPB Q8H [facility]; Protocol Last Admin: 08/23/18 12:13 Dose: 200 mls/hr Lactated Ringer's (Lactated Ringer's) 1,000 mls @ 80 mls/hr IV .[id number] [facility] Last Admin: 08/23/18 12:07 Dose: Not Given Pantoprazole Sodium (Protonix Ec Tab) 40 mg PO DAILY [facility] Last Admin: 08/23/18 09:46 Dose: 40 mg - Labs Labs: 08/19/18 07:24 08/19/18 07:24 PT 11.1 SECONDS (9.7-12.2) 08/22/18 07:05 INR 1.0 08/22/18 07:05 APTT 32 SECONDS (21-34) 08/22/18 07:05 Assessment and Plan - Assessment and Plan (Free Text) Assessment: 78 year old female admitted with abdominal pain, hypoglycemia, seen and examined. Alert and oriented x3, ambulatory. No sob or chest pains, able to tolerate diet. Discussed with DR Wade Castellanos, plan to discharge home today on oral antibiotics for chronc sinusitis. Advised to follow up in the office in 1 week.
--- NOTE | 2018-08-25 00:51 | OP ---
PROCEDURE DATE: 08/22/2018 PREOPERATIVE DIAGNOSES: Recurrent urinary tract infection. Pelvic pain. POSTOPERATIVE DIAGNOSES: Recurrent urinary tract infection. Pelvic pain. Cystitis. PROCEDURES: Cystoscopy. Bilateral retrograde pyelogram. Bladder biopsy and fulguration. Exam under anesthesia. Vaginoscopy. OPERATING SURGEON: Sarina Kidd MD DESCRIPTION OF PROCEDURE: The patient was placed in lithotomy position. The genitalia prepped and draped sterilely. Anesthesia was provided by the anesthesiologist. Procedure was formed under video endoscopic control as well as under fluoroscopic control. A 22-American cystoscope sheath was introduced with obturator. Urethra and bladder were inspected 30 degree and 70 degree lenses. FINDINGS: The urethral caliber was noted to be normal. There was no bladder tumor. There was mild inflammation of the bladder. There was some areas of more focal erythema of the bladder. There was no papillary bladder tumor. There was no bladder stone. There was mild bladder trabeculation. The ureteral orifices were normal in position and shape. Occlusive tip retrograde ureteral pyelogram was performed. Iodinated contrast dye was instilled via cone-tip catheter into each ureteral orifice. The ureters and kidneys were viewed sequentially under fluoroscopic control. Findings on retrograde pyelography include the following. There was no evidence of the ureteral filling defect or obstruction. There was moderate hydronephrosis bilaterally. There was moderate caliectasis and fullness of the pelvis. However, there was no significant obstruction noted at the ureteropelvic junction obstruction. Post drainage films were obtained as well and demonstrated incomplete fair to good drainage from each kidney. The area of the abnormal bladder mucosa on the posterior wall was biopsied using cold cup biopsy forceps. Fulguration was performed with Ball electrode and electrocautery. Hemostasis was complete. The bladder was reinspected with 70 degree lens and confirmed the above findings. The bladder was drained and cystoscope sheath removed. Vaginoscopy was performed using the 24-American cystoscope sheath. The vaginal mucosa was inspected. There were no mucosal lesions noted within the vagina. There was no erythema of the vagina. There was no significant atrophic changes. Exam under anesthesia/bimanual examination was performed. There was no abnormal pelvic mass fixation or induration. The patient was returned to supine position. The patient tolerated the procedure without complication. Sarles MD Marti cc: Molly Castellanos MD
--- NOTE | 2018-08-25 07:55 | CON ---
DATE: 08/21/2018 UROLOGY CONSULTATION REQUESTED BY: Molly Castellanos MD FILLED BY: Sarina Kidd MD REASON FOR CONSULTATION: Urinary tract infection, dysuria, recurrent urinary tract infection, pelvic pain. HISTORY OF PRESENT ILLNESS: The patient is an 78-year-old female, admitted with lower abdominal pain. The patient reports frequent urinary tract infection. The patient has symptoms of dysuria. She has pain in the lower abdomen. She has pain with voiding. She also has vaginal pain. The patient voids with good urinary stream and good control. She has urinary frequency and nocturia. The patient reports no incontinence. No recent hematuria. There has been no recent fever or rigors. The patient reports no history of urolithiasis. The patient is . Mrs. Gonzalez also reports multiple other symptoms including pain and burning of her sinuses, of her chest, and as well as lower abdomen. The patient has been treated with antibiotic therapy with improvement. PHYSICAL EXAMINATION: GENERAL: The patient is a well-developed, thin elderly female. The patient is awake and alert. ABDOMEN: Soft, nontender, nondistended. No mass or organomegaly. BACK: No CVA tenderness. LABORATORY DATA: Reviewed. See attached reports. IMPRESSION: History of recurrent urinary tract infection. Symptoms of voiding dysfunction including dysuria and frequency. Also pelvic pain noted. RECOMMENDATIONS AND PLAN: Monitor clinical course. I will discuss with you regarding further urologic management. I will discuss with the patient as well regarding further urologic management, including possible cystoscopy. Further therapy to follow according to the patient's clinical course. Thank you for recommending the patient for urology consultation. Sarina Kidd MD
== END 2018-08-23 16:45 | disposition home or self-care (01) | DRG 669 ==
LOC: C.ER 23:23 → C.9E 08-18 02:58 → C.3T 08-18 03:59
PROVIDERS: ADMIT Internal Medicine Nephrology; ATTEND Internal Medicine Nephrology
PROC: 0T5B8ZZ Destruction of Bladder, Via Natural or Artificial Opening Endoscopic (ICD-10-PCS; 2018-08-22)
PROC: 0TBB8ZX Excision of Bladder, Via Natural or Artificial Opening Endoscopic, Diagnostic (ICD-10-PCS; principal; 2018-08-22 10:00)
DX: N39.0 Urinary tract infection, site not specified (principal); E87.1 Hypo-osmolality and hyponatremia; I10 Essential (primary) hypertension; E16.2 Hypoglycemia, unspecified; N30.90 Cystitis, unspecified without hematuria; N13.30 Unspecified hydronephrosis

== ENCOUNTER 2018-09-14 08:31 | Emergency (ER) | payer MEDICARE, OTHER ==
[2018-09-14 08:34] VITALS: TEMP 98.1; O2SAT 98
[2018-09-14 08:51] VITALS: BMI 29.2
[2018-09-14 09:27] VITALS: BP 164/69; PULSE 69; RESP 16
[2018-09-14 09:35] LABS: SQUAMOUS EPITHIAL < 1 /hpf (0-5); URINE BILIRUBIN NEGATIVE (NEGATIVE); URINE BLOOD NEGATIVE (NEGATIVE); URINE CLARITY Clear (Clear); URINE COLOR Yellow (YELLOW); URINE GLUCOSE (UA) NORMAL (Normal); URINE LEUKOCYTE ESTERASE NEG Leu/uL (Negative); URINE PROTEIN NEGATIVE (NEGATIVE); URINE UROBILINOGEN NORMAL mg/dL (0.2-1.0)
--- NOTE | 2018-09-14 09:38 | C.PDOC ---
Time Seen by Provider: 09/14/18 08:35 Chief Complaint (Nursing): Medical Clearance Past Medical History Vital Signs: Last Vital Signs Temp 98.1 F 09/14/18 08:33 Pulse 69 09/14/18 09:23 Resp 16 09/14/18 09:23 BP 164/69 H 09/14/18 09:23 Pulse Ox 98 09/14/18 08:33 - Medical History PMH: Anxiety, HTN, Pneumonia Denies: Diabetes (Patient denied), Hepatitis (Patient denied), HIV, Chronic Kidney Disease, Seizures (Patient denied), Sexually Transmitted Disease (Patient denied) Surgical History: Tonsillectomy - [facility] Procedures DESTRUCTION OF BLADDER, ENDO (08/18/18) EXCISION OF BLADDER, ENDO, DIAGN (08/18/18) EXCISION OF DESCENDING COLON, ENDO, DIAGN (06/05/18) EXCISION OF SIGMOID COLON, ENDO, DIAGN (06/05/18) EXCISION OF STOMACH, ENDO, DIAGN (06/05/18) Family History: States: Unknown Family Hx - Social History Hx Tobacco Use: No Hx Alcohol Use: No Hx Substance Use: No - Immunization History Hx Tetanus Toxoid Vaccination: No Hx Influenza Vaccination: No Hx Pneumococcal Vaccination: No ED Course And Treatment - Laboratory Results Lab Results: Urine Color Yellow (YELLOW) 09/14/18 09:27 Urine Clarity Clear (Clear) 09/14/18 09:27 Urine pH 6.0 (5.0-8.0) 09/14/18 09:27 Ur Specific [place] 1.011 (1.003-1.030) 09/14/18 09:27 Urine Protein Negative mg/dL (NEGATIVE) 09/14/18 09:27 Urine Glucose (UA) Normal mg/dL (Normal) 09/14/18 09:27 Urine Ketones Negative mg/dL (NEGATIVE) 09/14/18 09:27 Urine Blood Negative (NEGATIVE) 09/14/18 09:27 Urine Nitrate Negative (NEGATIVE) 09/14/18 09:27 Urine Bilirubin Negative (NEGATIVE) 09/14/18 09:27 Urine Urobilinogen Normal mg/dL (0.2-1.0) 09/14/18 09:27 Ur Leukocyte Esterase Neg Jasmeet/uL (Negative) 09/14/18 09:27 Urine WBC (Auto) < 1 /hpf (0-5) 09/14/18 09:27 Urine RBC (Auto) 1 /hpf (0-3) 09/14/18 09:27 Ur Squamous Epith Cells < 1 /hpf (0-5) 09/14/18 09:27 O2 Sat by Pulse Oximetry: 98 Disposition - Disposition - Clinical Impression Clinical Impression: Dysuria
--- NOTE | 2018-09-14 09:40 | C.PDOC ---
History Of Present Illness 78 year old female brought in by ambulance to ED with complaint of fluid draining from all orifices. Patient has a PMHx of cystoscopy. Patient was diagnosed with a UTI and given is currently taking antibiotics. Patient denies fever, chills, nausea, vomiting, diarrhea, and abdominal pain. Time Seen by Provider: 09/14/18 08:35 Chief Complaint (Nursing): Medical Clearance History Per: Patient History/Exam Limitations: no limitations Onset/Duration Of Symptoms: Hrs Current Symptoms Are (Timing): Still Present Past Medical History Reviewed: Historical Data, Nursing Documentation, Vital Signs Vital Signs: Last Vital Signs Temp 98.1 F 09/14/18 08:33 Pulse 69 09/14/18 09:23 Resp 16 09/14/18 09:23 BP 164/69 H 09/14/18 09:23 Pulse Ox 98 09/14/18 08:33 - Medical History PMH: Anxiety, HTN, Pneumonia Denies: Diabetes (Patient denied), Hepatitis (Patient denied), HIV, Chronic Kidney Disease, Seizures (Patient denied), Sexually Transmitted Disease (Patient denied) Surgical History: Tonsillectomy - [facility] Procedures DESTRUCTION OF BLADDER, ENDO (08/18/18) EXCISION OF BLADDER, ENDO, DIAGN (08/18/18) EXCISION OF DESCENDING COLON, ENDO, DIAGN (06/05/18) EXCISION OF SIGMOID COLON, ENDO, DIAGN (06/05/18) EXCISION OF STOMACH, ENDO, DIAGN (06/05/18) Family History: States: Unknown Family Hx - Social History Hx Tobacco Use: No Hx Alcohol Use: No Hx Substance Use: No - Immunization History Hx Tetanus Toxoid Vaccination: No Hx Influenza Vaccination: No Hx Pneumococcal Vaccination: No Review Of Systems Constitutional: Positive for: Other (fluid draining from all orfices). Negative for: Fever, Chills, Weakness ENT: Positive for: Nose Discharge. Negative for: Nose Congestion Gastrointestinal: Positive for: Other (rectal drainage). Negative for: Nausea, Vomiting, Abdominal Pain, Diarrhea Neurological: Negative for: Weakness, Numbness, Dizziness Physical Exam - Physical Exam Appears: Non-toxic, No Acute Distress Skin: Normal Color, Warm, Dry Head: Atraumatic, Normacephalic Eye(s): bilateral: Normal Inspection, PERRL, EOMI Neck: Normal ROM, Supple Chest: Symmetrical, No Deformity Cardiovascular: Rhythm Regular, No Murmur Respiratory: No Accessory Muscle Use, No Rales, No Rhonchi, No Wheezing Gastrointestinal/Abdominal: Soft, No Tenderness Extremity: Capillary Refill (<2 seconds) Neurological/Psych: Oriented x3, Normal Speech, Normal Cognition ED Course And Treatment O2 Sat by Pulse Oximetry: 98 (in RA) Pulse Ox Interpretation: Normal Progress Note: urinalysis (-). Patient requesting to speak to Dr Wade Castellanos. Nurse contacted Dr Castellanos who knows patient and request discharge and follow up with as outpatient Reassessment Condition: Improved - Physician Consult Information Physician Contacted: Steph Castellanos Outcome Of Conversation: discharge Medical Decision Making Medical Decision Making: Impression: 78 year old female with complaint of drainage coming from all orifices Plan: Urine culture UA Patient's UA is negative. Disposition Counseled Patient/Family Regarding: Diagnosis, Need For Followup - Disposition Referrals: Steph Castellanos MD [Staff Provider] - Disposition: HOME/ ROUTINE Disposition Time: 11:00 Condition: STABLE Additional Instructions: Follow up with Dr Castellanos for further evaluation Forms: [facility] (Maltese) - POA Present On Arrival: None - Clinical Impression Clinical Impression: Dysuria - PA / ACCESS SERVICE REPRESENTATIVE / Resident Statement MD/DO has reviewed & agrees with the documentation as recorded. (Padmini Combs) - Scribe Statement The provider has reviewed the documentation as recorded by the Scribe (Padmini Combs) All medical record entries made by the Scribe were at my direction and personally dictated by me. I have reviewed the chart and agree that the record accurately reflects my personal performance of the history, physical exam, medical decision making, and the department course for this patient. I have also personally directed, reviewed, and agree with the discharge instructions and disposition.
== END 2018-09-14 12:10 | disposition home or self-care (01) ==
LOC: C.ER 08:31
DX: R30.0 Dysuria (principal); I10 Essential (primary) hypertension

== ENCOUNTER 2018-09-27 06:27 | Emergency (ER) | payer MEDICARE ==
[2018-09-27 06:27] VITALS: BMI 29.2
[2018-09-27 06:40] VITALS: BP 121/75; PULSE 85; RESP 16; TEMP 98.8; O2SAT 97
== END 2018-09-27 07:36 | disposition left against medical advice (07) ==
LOC: C.ER 06:27
DX: Z02.89 Encounter for other administrative examinations (principal)

== ENCOUNTER 2018-11-26 10:29 | Emergency (ER) | payer MEDICARE ==
[2018-11-26 10:30] VITALS: BMI 29.2
[2018-11-26 10:36] VITALS: BP 147/72; PULSE 87; RESP 18; TEMP 98.5; O2SAT 97
--- NOTE | 2018-11-26 11:26 | C.PDOC ---
History Of Present Illness 78 y.o. female presents for pain to the dorsum of the left foot, white nail stuff, burning to the sole of the left foot and sweating feet, Multiple ED visits for similar. Denies fever, chills or any other associated symptoms. Time Seen by Provider: 11/26/18 11:03 Chief Complaint (Nursing): Lower Extremity Problem/Injury History Per: Patient History/Exam Limitations: no limitations Onset/Duration Of Symptoms: Days Current Symptoms Are (Timing): Still Present Recent travel outside of the [place]: No Past Medical History Reviewed: Historical Data, Nursing Documentation, Vital Signs Vital Signs: Last Vital Signs Temp 98.5 F 11/26/18 10:34 Pulse 87 11/26/18 10:34 Resp 18 11/26/18 10:34 BP 147/72 11/26/18 10:34 Pulse Ox 97 11/26/18 10:34 Primary Care Provider: Steph Castellanos - Medical History PMH: Anxiety, HTN, Pneumonia Denies: Diabetes (Patient denied), Hepatitis (Patient denied), HIV, Chronic Kidney Disease Comment Only: Seizures (Patient denied), Sexually Transmitted Disease (Patient denied) Surgical History: Tonsillectomy - [facility] Procedures DESTRUCTION OF BLADDER, ENDO (08/18/18) EXCISION OF BLADDER, ENDO, DIAGN (08/18/18) EXCISION OF DESCENDING COLON, ENDO, DIAGN (06/05/18) EXCISION OF SIGMOID COLON, ENDO, DIAGN (06/05/18) EXCISION OF STOMACH, ENDO, DIAGN (06/05/18) Family History: States: Unknown Family Hx - Social History Hx Tobacco Use: No Hx Alcohol Use: No Hx Substance Use: No - Immunization History Hx Tetanus Toxoid Vaccination: No Hx Influenza Vaccination: No Hx Pneumococcal Vaccination: No Review Of Systems Constitutional: Negative for: Fever, Chills Musculoskeletal: Positive for: Foot Pain Skin: Positive for: Other (white stuff on nails) Neurological: Negative for: Weakness, Numbness Physical Exam - Physical Exam Appears: Non-toxic, No Acute Distress Skin: Warm, Dry, Other (feet bilaterally: nail thickening to all toes on both feet. areas of flaky skin in between the toes. no erythema or warmth.) Head: Atraumatic, Normacephalic Eye(s): bilateral: Normal Inspection Extremity: Normal ROM (of bilateral ankles. ), Tenderness (mild to sole left foot), No Pedal Edema (bilaterally. ), No Calf Tenderness, No Deformity, No Swelling Pulses: Left Dorsalis Pedis: Normal (+1), Right Dorsalis Pedis: Normal (+1) Neurological/Psych: Normal Motor, Normal Sensation, No Normal Reflexes ED Course And Treatment O2 Sat by Pulse Oximetry: 97 (RA) Pulse Ox Interpretation: Normal Medical Decision Making Medical Decision Making: Progress/Update: Treated for tinea. Stable for discharge home. Prescribed Lotrimin AF. Advised to follow up with podiatry within 1-2 days. Disposition Counseled Patient/Family Regarding: Diagnosis, Need For Followup - Disposition Referrals: [facility] [Outside] Disposition: HOME/ ROUTINE Disposition Time: 11:04 Condition: GOOD Additional Instructions: Wear comfortable shoes with cotton socks. Don't wear same shoes every day. Take Tylenol for pain if needed. use anti-fungal powder in shoes and between toes. Follow up in clinic- ask for a podiatry appointment. Prescriptions: Miconazole Nitrate [Lotrimin AF] 1 applic TP BID #1 powder Instructions: Athlete's Foot (DC) Forms: [facility] (Kyrgyz), General Discharge Instructions - Clinical Impression Clinical Impression: Tinea pedis - PA / COAL INSPECTOR / Resident Statement MD/DO has reviewed & agrees with the documentation as recorded. - Scribe Statement The provider has reviewed the documentation as recorded by the Scribe (Samantha Gaming) All medical record entries made by the Scribe were at my direction and personally dictated by me. I have reviewed the chart and agree that the record accurately reflects my personal performance of the history, physical exam, medical decision making, and the department course for this patient. I have also personally directed, reviewed, and agree with the discharge instructions and disposition.
== END 2018-11-26 11:31 | disposition home or self-care (01) ==
LOC: C.ER 10:29
DX: B35.3 Tinea pedis (principal); I10 Essential (primary) hypertension